=== PATIENT | female | born 1950 | race Caucasian/White ===

== ENCOUNTER → 2017-02-09 | Outpatient (CLI) | payer BC ==
[~2017-02-09] MED LIST: ACET1TAB84 PO; CALC0.5C2 PO; CALC1CAP36 PO; CALC600T9 PO; CIPR-255 PO; CLB/200 PO; CYAN10005 PO; EPP3/2 SC; LCTX PO; MAGNTAB17 PO; MULT-506 PO; NUTR1TAB4 PO; OXYC-57 PO; POTA1080 PO; POTATAB2 PO; TAMS0.4C38 PO; VTMD PO
--- NOTE | 2017-02-09 13:50 | DIAGNOSTIC IMAGING REPORT ---
KUB CLINICAL HISTORY: Calculus of kidney nephrocalcinosis COMPARISON STUDY: 02/18/2016 FINDINGS: Calcification previously described medial to the left kidney is not appreciated currently. It is possible that it overlies the mid sacrum. Calcifications overlying the right as well as left kidney of 9 noted are similar. There are several radiopaque densities within the stomach which overlaps left kidney. IMPRESSION: Bilateral nephrocalcinosis similar to the prior study. 2. Proximal left ureteral calculus on the prior study is not easily identified currently although potentially overlies the mid sacrum which would place it within the left ureter. Perhaps more likely is interval passage of the calcification 3. Nonobstructive bowel pattern. Electronically signed by: Arcadio Figueroa M.D. 02/09/2017 1:48 PM Dictated Date/Time: 02/09/2017 1:47 PM
== END | disposition home or self-care (01) ==
LOC: C.RADPV 13:28
PROVIDERS: ATTEND Internal Medicine
DX: N20.0 Calculus of kidney (principal); E55.9 Vitamin D deficiency, unspecified

== ENCOUNTER → 2017-04-12 | Outpatient (CLI) | payer BC ==
[~2017-04-12] MED LIST changes: +CETI10TA84 PO
[2017-04-12 12:13] LABS: BASO % 0.5 %; BASO ABS # 0.04 K/uL (0-0.2); COMPLETE YES; EOS % 5.5 %; HEMATOCRIT 37.7 % (37-47); IG% 0.3 %; LYMPH % 15.8 %; LYMPH ABS # 1.17 K/uL (1.2-3.4); MEAN CELL VOLUME 104.4 fL (80-100); MEAN CORPUSCULAR HEMOGLOBIN 31.9 pg (25-34); MEAN CORPUSCULAR HGB CONC 30.5 g/dl (32-36); MEAN PLATELET VOLUME 11.6 fL (7.4-10.4); MONO % 11.3 %; NEUT % 66.6 %; PLATELET COUNT 267 K/uL (130-400); RED BLOOD COUNT 3.61 M/uL (4.2-5.4); WHITE BLOOD COUNT 7.41 K/uL (4.8-10.8)
[2017-04-12 13:09] LABS: CALCIUM 9.7 mg/dl (8.5-10.1)
[2017-04-12 13:10] LABS: ALT/SGPT 37 U/L (12-78); AST/SGOT 23 U/L (15-37); BLOOD UREA NITROGEN 39 mg/dl (7-18); CARBON DIOXIDE 27 mmol/L (21-32); CHLORIDE 106 mmol/L (98-107); CHOLESTEROL 131 mg/dl (0-200); GLUCOSE 86 mg/dl (70-99); MAGNESIUM 1.7 mg/dl (1.8-2.4); POTASSIUM 4.4 mmol/L (3.5-5.1); SODIUM 141 mmol/L (136-145); TRIGLYCERIDES 134 mg/dl (0-150); VERY LOW DENSITY LIPOPROT CALC 27 mg/dl
[2017-04-12 13:14] LABS: ALB/GLOB RATIO 1.3 (0.9-2); ALKALINE PHOSPHATASE 62 U/L (45-117); FERRITIN 112.5 ng/ml (8.0-388.0); HDL CHOLESTEROL 44 mg/dl; LDL CHOLESTEROL CALCULATED 60 mg/dl
== END | disposition home or self-care (01) ==
LOC: C.LABPVFM 08:31
PROVIDERS: ATTEND Internal Medicine
DX: M81.0 Age-related osteoporosis without current pathological fracture (principal); K91.2 Postsurgical malabsorption, not elsewhere classified; D64.9 Anemia, unspecified

== ENCOUNTER 2017-04-17 04:32 | Emergency (ER) | payer BC ==
[~2017-04-17] VITALS: Ht 157.5 cm; Wt 86.1 kg
[~2017-04-17 04:32] MED LIST changes: -CALC0.5C2 PO; -CETI10TA84 PO; -CIPR-255 PO; -OXYC-57 PO; -POTATAB2 PO; -TAMS0.4C38 PO
[2017-04-17 04:35] VITALS: TEMP 36.5; Ht 157.5 cm; Wt 86.1 kg
[2017-04-17] MEDS ORDERED: ONDANSETRON INJ 2 MG/ML 2 ML VIAL IV STA (04:45)
[2017-04-17] MEDS ORDERED: KETOROLAC TROMETHAMINE 30 MG/ML VIAL IV STA (04:45)
[2017-04-17] MEDS ORDERED: MoRPHine SULFATE 4 MG/ML 1 ML CARP\\VIAL IV STA (04:45)
--- NOTE | 2017-04-17 04:49 | EMERGENCY ROOM VISIT NOTE ---
History Report prepared by Cristin: Erik Boss Under the Supervision of: Chris RamiresO. First contact with patient: 04:42 Chief Complaint: FLANK PAIN Stated Complaint: BACK PAIN,NAUSEA History of Present Illness The patient is a 67 year old female who presents to the Emergency Room with complaints of constant right sided flank pain that began at 0200, 2.5 hours prior to arrival. The patient rates her current pain as an 8/10 in severity. She has not vomited to this point, but she states that she feels like she has to. She denies any urinary irregularities. The patient has a history of chronic kidney stones and just passed a stone last month. She sees a kidney specialist normally. 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 A total of ten systems were reviewed and were otherwise negative. Past Medical & Surgical Medical Problems: (1) Bariatric surgery status (2) Calculus of kidney (3) Right knee DJD Surgical Problems: (1) History of appendectomy (2) History of cholecystectomy Family History Cancer Diabetes mellitus Gallbladder disease Heart disease Hypertension Kidney disease Kidney stones Social History Smoking Status: Never Smoker Marital Status: Housing Status: lives with significant other Occupation Status: retired Current/Historical Medications Scheduled Acetaminophen (Tylenol Arthritis Ext Rel), 1,300 MG PO BID Calcitriol (Calcitriol), 0.5 MCG PO BID Calcium Carbonate-Vitamin D (Calcium + D), 2 TAB PO TIDM Celecoxib (CeleBREX), 200 MG PO DAILY Cyanocobalamin (Vitamin B-12), 1,000 MCG PO QAM Epinephrine (Epipen 2-Arslan), 0.3 MG SC PRN Ergocalciferol (Vitamin D), 50,000 UNITS PO DAILY Lactobacillus Acidophilus (Floranex), 1 TAB PO TIDM Magnesium Chloride-Calcium Car (Slow-Mag), 2 TAB PO QAM Multivitamin (Multivitamin), 1 TAB PO QAM Nutritional Supplements (Theralith Xr), 2 TAB PO TIDM Potassium Citrate (Urocit-K), 20 MEQ PO TID Allergies Coded Allergies: BEE STING (Verified Allergy, Severe, HIVES DIFFICULTY BREATHING WENT TO HOSPITAL, 10/11/16) Erythromycin (Verified Allergy, Severe, RASH LASTED FOR WEEK, 10/11/16) Penicillins (Verified Allergy, Intermediate, HIVES SWELLING, 10/11/16) Doxycycline (Verified Allergy, Mild, RASH, 10/11/16) Lactose Intolerance (GI) (Verified Allergy, Unknown, GI ISSUES, 10/11/16) Macrolides (Verified Allergy, Unknown, ITCHY,RASH, 10/11/16) Wheat (Unverified Allergy, Unknown, CELIAC DISEASE-ABD CRAMPING,DIARRHEA, 10/11/16) Physical Exam Vital Signs Date Time Temp Pulse Resp B/P Pulse Ox O2 Delivery O2 Flow Rate FiO2 04/17/17 06:09 86 23 123/66 93 Room Air 04/17/17 05:32 70 21 91 Room Air 04/17/17 05:31 124/59 04/17/17 05:18 72 04/17/17 05:00 95 Room Air 04/17/17 04:35 36.5 75 18 156/82 96 Room Air Physical Exam GENERAL: Awake, alert, well-appearing, in no distress HENT: Normocephalic, atraumatic. Oropharynx unremarkable. EYES: Normal conjunctiva. Sclera non-icteric. NECK: Supple. No nuchal rigidity. FROM. No JVD. RESPIRATORY: Clear to auscultation. CARDIAC: Regular rate, normal rhythm. Extremities warm and well perfused. Pulses equal. ABDOMEN: Soft, non-distended. No tenderness to palpation. No rebound or guarding. No masses. RECTAL: Deferred. MUSCULOSKELETAL: Chest examination reveals no tenderness. The back is symmetrical on inspection without obvious abnormality. There is no CVA tenderness to palpation. No joint edema. BACK: There is mild right CVA tenderness to palpation. LOWER EXTREMITIES: Calves are equal size bilaterally and non-tender. No edema. No discoloration. NEURO: Normal sensorium. No sensory or motor deficits noted. SKIN: No rash or jaundice noted. Medical Decision & Procedures ER Provider Diagnostic Interpretation: X ray results as stated below per my interpretation and radiologist interpretation. Other radiology results as stated below per my review and radiologist interpretation CT ABDOMEN & PELVIS: Comparison: CT abdomen and pelvis without contrast, 07/07/10. There is a 1 cm obstructing stone in the proximal right ureter causing moderate upstream hydroureteronephrosis and perinephric stranding. Additional nonobstructing stones in the right kidney, the largest measuring 6.5 mm in the upper pole. Nonobstructing left kidney stones without hydronephrosis. Gallbladder nonvisualized, query prior cholecystectomy. Liver, spleen, pancreas , and adrenal glands unremarkable. No bowel obstruction or diverticulitis. Appendix no definitely visualized, but no secondary signs of acute appendicitis. Urinary bladder and uterus unremarkable. No acute osseous findings. Radiologist: Diogenes Carver M.D. Laboratory Results 04/17/17 04:50 Red Blood Count 3.87, Mean Corpuscular Volume 102.6, Mean Corpuscular Hemoglobin 32.6, Mean Corpuscular Hemoglobin Concent 31.7, Mean Platelet Volume 10.2, Neutrophils (%) (Auto) 78.6, Lymphocytes (%) (Auto) 10.1, Monocytes (%) ( Auto) 8.3, Eosinophils (%) (Auto) 2.4, Basophils (%) (Auto) 0.3, Neutrophils # ( Auto) 9.18, Lymphocytes # (Auto) 1.18, Monocytes # (Auto) 0.97, Eosinophils # ( Auto) 0.28, Basophils # (Auto) 0.04 04/17/17 04:50 Test 04/17/17 04:45 04/17/17 04:50 Urine Color YELLOW Urine Appearance CLEAR (CLEAR) Urine pH 5.5 (4.5-7.5) Urine Specific [place] 1.017 (1.000-1.030) Urine Protein NEG (NEG) Urine Glucose (UA) NEG (NEG) Urine Ketones NEG (NEG) Urine Occult Blood 1+ (NEG) Urine Nitrite NEG (NEG) Urine Bilirubin NEG (NEG) Urine Urobilinogen NEG (NEG) Urine Leukocyte Esterase TRACE (NEG) Urine WBC (Auto) 1-5 /hpf (0-5) Urine RBC (Auto) 5-10 /hpf (0-4) Urine Hyaline Casts (Auto) 1-5 /lpf (0-5) Urine Epithelial Cells (Auto) 20-30 /lpf (0-5) Urine Bacteria (Auto) 2+ (NEG) Urine Crystals CALCIUM OXALATE (NONE Urine Yeast (Auto) PRESENT (NONE PRSENT) White Blood Count 11.68 K/uL (4.8-10.8) Red Blood Count 3.87 M/uL (4.2-5.4) Hemoglobin 12.6 g/dL (12.0-16.0) Hematocrit 39.7 % (37-47) Mean Corpuscular Volume 102.6 fL (80-100) Mean Corpuscular Hemoglobin 32.6 pg (25-34) Mean Corpuscular Hemoglobin Concent 31.7 g/dl (32-36) Platelet Count 279 K/uL (130-400) Mean Platelet Volume 10.2 fL (7.4-10.4) Neutrophils (%) (Auto) 78.6 % Lymphocytes (%) (Auto) 10.1 % Monocytes (%) (Auto) 8.3 % Eosinophils (%) (Auto) 2.4 % Basophils (%) (Auto) 0.3 % Neutrophils # (Auto) 9.18 K/uL (1.4-6.5) Lymphocytes # (Auto) 1.18 K/uL (1.2-3.4) Monocytes # (Auto) 0.97 K/uL (0.11-0.59) Eosinophils # (Auto) 0.28 K/uL (0-0.5) Basophils # (Auto) 0.04 K/uL (0-0.2) RDW Standard Deviation 48.4 fL (36.4-46.3) RDW Coefficient of Variation 13.0 % (11.5-14.5) Immature Granulocyte % (Auto) 0.3 % Immature Granulocyte # (Auto) 0.03 K/uL (0.00-0.02) Anion Gap 8.0 mmol/L (3-11) Est Creatinine Clear Calc Drug Dose 38.6 ml/min Estimated GFR () 44.3 Estimated GFR (Non- 38.2 BUN/Creatinine Ratio 27.0 (10-20) Calcium Level 9.6 mg/dl (8.5-10.1) Laboratory results reviewed by me Medications Administered Medications (Trade) Dose Ordered Sig/Smiley Route Start Time Stop Time Status Last Admin Dose Admin Ketorolac Tromethamine (Toradol Inj) 30 mg NOW STAT IV 04/17/17 04:45 04/17/17 04:47 DC 04/17/17 04:54 30 MG Ondansetron HCl (Zofran Inj) 4 mg NOW STAT IV 04/17/17 04:45 04/17/17 04:47 DC 04/17/17 04:53 4 MG Morphine Sulfate (MoRPHine SULFATE INJ) 4 mg NOW STAT IV 04/17/17 04:45 04/17/17 04:47 DC 04/17/17 04:54 4 MG Ciprofloxacin (Cipro Tab) 500 mg NOW STAT PO 04/17/17 06:03 04/17/17 06:05 DC 04/17/17 06:07 500 MG ED Course 0443: The patient was evaluated in room A12. A complete history and physical exam was performed. 0445: Ordered Morphine Sulfate 4 mg IV, Zofran 4 mg IV, Toradol 30 mg IV. 0603: Ordered Ciprofloxacin 500 mg PO. 0618: I reevaluated the patient. Discussed results and discharge instructions: She verbalized understanding and agreement. The patient is ready for discharge. Patient states that she will follow-up with her urologist this week she's aware 1 cm kidney stone. Patient will be placed on pain medicine and antibiotics Medical Decision Differential diagnosis includes: Ureteral lithiasis, pyelonephritis, renal colic. Impression Primary Impression: Ureteral stone Scribe Attestation The scribe's documentation has been prepared under my direction and personally reviewed by me in its entirety. I confirm that the note above accurately reflects all work, treatment, procedures, and medical decision making performed by me. Departure Information Dispostion Home / Self-Care Prescriptions Tamsulosin Hcl (FLOMAX) 0.4 Mg Cap 0.4 MG PO DAILY, #10 CAP Prov: Adriano Mueller, DO 04/17/17 Ciprofloxacin Hcl (CIPRO) 500 Mg Tab 500 MG PO BID, #14 TAB Prov: Adriano Mueller, DO 04/17/17 Oxycodone/Acetaminophen 5MG/325MG (PERCOCET 5MG/325MG) Tab 1 TAB PO Q4H Y for Pain, #20 TAB Prov: Adriano Mueller, DO 04/17/17 Referrals Pro,Ramesh Kowalski M.D. (PCP) Patient Instructions Kidney Stones - [facility], [facility]
[2017-04-17 05:00] VITALS: O2SAT 95
[2017-04-17 05:03] LABS: BASO % 0.3 %; BASO ABS # 0.04 K/uL (0-0.2); COMPLETE YES; EOS % 2.4 %; HEMATOCRIT 39.7 % (37-47); IG% 0.3 %; LYMPH % 10.1 %; LYMPH ABS # 1.18 K/uL (1.2-3.4); MEAN CELL VOLUME 102.6 fL (80-100); MEAN CORPUSCULAR HEMOGLOBIN 32.6 pg (25-34); MEAN CORPUSCULAR HGB CONC 31.7 g/dl (32-36); MEAN PLATELET VOLUME 10.2 fL (7.4-10.4); MONO % 8.3 %; NEUT % 78.6 %; PLATELET COUNT 279 K/uL (130-400); RED BLOOD COUNT 3.87 M/uL (4.2-5.4); WHITE BLOOD COUNT 11.68 K/uL (4.8-10.8)
[2017-04-17 05:07] LABS: URINE APPEARANCE CLEAR (CLEAR); URINE BILIRUBIN NEG (NEG); URINE COLOR YELLOW; URINE EPITHELIAL CELL AUTO 20-30 /lpf (0-5); URINE NITRITE NEG (NEG); URINE PH 5.5 (4.5-7.5); URINE SPECIFIC GRAVITY 1.017 (1.000-1.030); UROBILINOGEN NEG (NEG)
[2017-04-17 05:11] LABS: MANUAL MICROSCOPIC REQUIRED? NO; REVIEW REQ? YES
[2017-04-17 05:21] LABS: CALCIUM 9.6 mg/dl (8.5-10.1); CREATININE 1.4 mg/dl (0.60-1.20)
[2017-04-17] MEDS ORDERED: CIPROFLOXACIN 500 MG TAB PO STA (06:03)
[2017-04-17 06:09] VITALS: BP 123/66; PULSE 86; O2SAT 93
[2017-04-17] MEDS ORDERED: OXYC-57 PO (06:27)
[2017-04-17] MEDS ORDERED: CIPR-255 PO (06:27)
[2017-04-17] MEDS ORDERED: TAMS0.4C38 PO (06:27)
[2017-04-17] MEDS ORDERED: CALC0.5C2 PO (06:30)
[2017-04-17] MEDS ORDERED: POTATAB2 PO (06:30)
--- NOTE | 2017-04-17 07:48 | DIAGNOSTIC IMAGING REPORT ---
CT SCAN OF THE ABDOMEN AND PELVIS WITHOUT IV CONTRAST CLINICAL HISTORY: Right flank pain. Nausea. COMPARISON STUDY: Abdominal CT dated 07/07/2010. TECHNIQUE: CT scan of the abdomen and pelvis is performed from the lung bases to the proximal femora. Images are reviewed in the axial, sagittal, and coronal planes. IV contrast was not administered for this examination as per the front clinician. Automated dose control exposure was utilized. CT DOSE: 1992.26 mGy.cm FINDINGS: Lung bases: The heart is normal in size and without pericardial effusion. There are coronary artery calcifications. The lung bases are clear. There is a tiny hiatal hernia. Liver: The unenhanced liver is normal in size, contour, and attenuation. There is mild central intrahepatic biliary ductal dilatation. Gallbladder: Not identified and presumed surgically absent. Spleen: Normal in size and attenuation. Pancreas: Moderately atrophic and grossly unremarkable. Adrenal glands: Unremarkable. Kidneys: The unenhanced kidneys are atrophic. There is an 11 mm obstructing calculus in the right proximal ureter seen on image #227 at the level of L3-L4. This causes moderate right hydroureteronephrosis. There is associated right-sided perinephric stranding and fluid. There are least 4 additional nonobstructing right renal calculi measuring up to 8 mm. There are at least 5 nonobstructing left renal calculi measuring up to 7 mm. There is no left-sided hydronephrosis. There is no evidence of contour deforming renal mass lesion. Abdominal vasculature: The abdominal aorta is normal in course and caliber noting scattered foci of atherosclerotic calcification. Bowel: The small bowel and colon are normal in course and caliber. There is moderate colonic fecal retention. There is mild colonic diverticulosis without CT evidence of acute diverticulitis. The appendix is not clearly visualized. Peritoneum: There is no intraperitoneal free air or abdominal ascites. Lymphadenopathy: None. Pelvic viscera: The bladder is decompressed and grossly unremarkable. The uterus and adnexa are normal as visualized. Findings suggest pelvic floor prolapse. Skeletal structures: The skeletal structures are osteopenic. There is mild lumbosacral spondylosis. No lytic or blastic lesions are seen. IMPRESSION: 1. There is an 11 mm obstructing calculus in the right proximal ureter which causes moderate right-sided hydronephrosis. 2. Additional bilateral nonobstructing renal calculi as above. 3. Moderate constipation. 4. Mild colonic diverticulosis without CT evidence of acute diverticulitis. 5. Additional findings as above. Electronically signed by: Tony Hernandez M.D. 04/17/2017 7:47 AM Dictated Date/Time: 04/17/2017 7:41 AM
[2017-04-20] MEDS ORDERED: OXYC-57 PO (08:38)
[2017-04-20] MEDS ORDERED: TAMS0.4C38 PO (08:38)
[2017-04-20] MEDS ORDERED: CIPR-255 PO (08:38)
[2017-04-21] MEDS ORDERED: OXYC-57 PO (09:30)
[2017-10-09] MEDS ORDERED: CETI10TA84 PO (14:07)
== END 2017-04-17 06:29 | disposition home or self-care (01) ==
LOC: C.EDB 04:33 → C.EDA 06:29
DX: N20.1 Calculus of ureter (principal); Z98.84 Bariatric surgery status; Z87.442 Personal history of urinary calculi; M17.9 Osteoarthritis of knee, unspecified; Z80.9 Family history of malignant neoplasm, unspecified; Z83.3 Family history of diabetes mellitus; Z83.79 Family history of other diseases of the digestive system; Z82.49 Family history of ischemic heart disease and other diseases of the circulatory system; Z84.1 Family history of disorders of kidney and ureter; Z79.899 Other long term (current) drug therapy

== ENCOUNTER → 2017-04-18 | Outpatient (CLI) | payer BC ==
[~2017-04-18] MED LIST changes: +CALC0.5C2 PO; +CETI10TA84 PO; +CIPR-255 PO; +OXYC-57 PO; +POTATAB2 PO; +TAMS0.4C38 PO
--- NOTE | 2017-04-18 15:22 | DIAGNOSTIC IMAGING REPORT ---
CHEST 2 VIEWS ROUTINE CLINICAL HISTORY: N20.1 Ureteral stone COMPARISON STUDY: No previous studies for comparison. FINDINGS: The bones soft tissues and hemidiaphragms are normal. The cardiomediastinal silhouette is normal. The lungs are clear. The pulmonary vasculature is normal. IMPRESSION: Negative chest. Electronically signed by: Arcadio Figueroa M.D. 04/18/2017 3:21 PM Dictated Date/Time: 04/18/2017 3:20 PM
== END | disposition home or self-care (01) ==
LOC: C.RAD 14:46
PROVIDERS: ATTEND Nurse Practitioner Adult Health
DX: N20.1 Calculus of ureter (principal)

== ENCOUNTER → 2017-04-20 | Outpatient (CLI) | payer BC ==
[~2017-04-20] MED LIST changes: -CALC1CAP36 PO; -POTA1080 PO; -VTMD PO
--- NOTE | 2017-04-20 17:26 | DIAGNOSTIC IMAGING REPORT ---
KUB CLINICAL HISTORY: N20.1 Ureteral stone COMPARISON STUDY: 02/09/[address] 04/17/2017 FINDINGS: Healing millimeter calcification previous described on the CT study now occupies the mid right ureteral location. Bilateral renal nephrocalcinosis similar. Bowel pattern is nonobstructive. IMPRESSION: Right ureteral calculus now occupies the mid right ureter location at approximately level of L4. Otherwise unchanged exam. Electronically signed by: Arcadio Figueroa M.D. 04/20/2017 5:25 PM Dictated Date/Time: 04/20/2017 5:23 PM
== END | disposition home or self-care (01) ==
LOC: C.RAD 17:05
PROVIDERS: ATTEND Nurse Practitioner Adult Health
DX: N20.1 Calculus of ureter (principal)

== ENCOUNTER → 2017-04-21 | Day surgery (SDC) | payer BC ==
[2017-04-20 08:39] VITALS: Ht 157.5 cm; Wt 81.8 kg
[~2017-04-21] VITALS: Ht 157.5 cm; Wt 81.8 kg
[~2017-04-21] MED LIST changes: +ATROPINE SULFATE 0.1 MG/ML 5ML SYR IV PRN; +CIPROFLOXACIN 400MG / D5W IV SCH; +DEXAMETHASONE SOD INJ 4 MG/ML VIAL ONE; +EpHEDrine SULFATE INJ 50 MG/ML AMP IV PRN; +FENTANYL CITRATE INJ 50 MCG/1 ML 2 ML VIAL IV PRN; +FENTANYL CITRATE INJ 50 MCG/1 ML 2 ML VIAL ONE; +LACTATED RINGER'S 1000ML 1,000 ML IV SCH; +LIDOCAINE HCL 2% 2 ML VIAL (20MG/ML) ONE; +ONDANSETRON INJ 2 MG/ML 2 ML VIAL ONE; +OXYCODONE/ACETAMINOPHEN 5-325 TAB PO PRN; +PROPOFOL IV EMULSION 10 MG/ML 20 ML VIAL IV ONE
--- NOTE | 2017-04-21 08:42 | History & Physical Bridge Note ---
H&P Re-Evaluation Bridge Note: I have examined the patient, reviewed the History & Physical and in the interval since the performance of the History & Physical I have noted the following changes of clinical significance: No changes noted
--- NOTE | 2017-04-21 10:18 | Discharge Instructions ---
Discharge Instructions Date of Service April 21, 2017. Admission Reason for Admission: Stones Discharge Discharge Diagnosis / Problem: R ureteral stone s/p ESWL Discharge Goals Goal(s): Decrease discomfort, Improve function, Improve disease control, Therapeutic intervention Activity Recommendations Activity Limitations: per Instructions/Follow-up section Lifting Limitations: no more than 25 pounds, gradually increase as tolerated Exercise/Sports Limitations: rest today, gradually increase as tolerated May Resume Sexual Activity: when tolerated Shower/Bathe: no limitations Driving or Machine Use: resume 1 day after discharge . Instructions / Follow-Up Instructions / Follow-Up Strain urine as instructed and bring fragments to postop visit KUB Xray prior to follow-up visit Discharge Diet Recommended Diet: Regular Diet (good fluid intake) Procedures Procedures Performed: R ureteral ESWL Pending Studies Studies pending at discharge: no Laboratory Results Lipid Panel Test 04/12/17 08:40 Range/Units Triglycerides Level 134 0-150 mg/dl Cholesterol Level 131 0-200 mg/dl HDL Cholesterol 44 mg/dl Cholesterol/HDL Ratio 3.0 LDL Cholesterol, Calculated 60 mg/dl Medical Emergencies . Who to Call and When: Medical Emergencies: If at any time you feel your situation is an emergency, please call 911 immediately. . Non-Emergent Contact Non-Emergency issues call your: Urologist Call Non-Emergent contact if: you have a fever, temperature is above 101, your pain is not controlled, your pain is worsening, your pain is unusual for you, your pain is concerning you, you have any medication questions . . "Provider Documentation" section prepared by Braydon Rodarte. . VTE Core Measure Inpt VTE Proph given/why not?: SCD's [place] Drug Monitoring Program Search Results: patient reviewed within database, see additional documentation (recent Rx for oxycodone - patient reports she has taken a number of pills, new Rx provided in case she compeltes her last Rx for postop analgesia)
--- NOTE | 2017-04-21 10:23 | [facility] Post Operative Brief Note ---
Immediate Operative Summary Operative Date April 21, 2017. Pre-Operative Diagnosis Right Ureteral Calculi Post-Operative Diagnosis Same Procedure(s) Performed R ureteral ESWL Surgeon Dr. Mckenzie Rodarte Brand Recorder Surgeon(s) None Estimated Blood Loss 0 mL Findings Excellent stone fragmentation Specimens None Drains NA Anesthesia GALMA Complication(s) None Disposition Recovery Room / PACU
[2017-04-21 10:56] VITALS: TEMP 36.4
[2017-04-21 11:22] VITALS: BP 136/77; PULSE 60; O2SAT 97
--- NOTE | 2017-04-21 11:22 | Anesthesia Progress Nt - [facility] ---
Anesthesia Post Op Note Date & Time April 21, 2017 at 11:22 Vital Signs Pain Intensity: 0 Vital Signs Past 12 Hours Date Time Temp Pulse Resp B/P Pulse Ox O2 Delivery O2 Flow Rate FiO2 04/21/17 10:56 36.4 64 18 141/80 100 Room Air 04/21/17 10:46 128/64 04/21/17 10:43 64 15 04/21/17 10:43 62 15 96 04/21/17 10:41 118/64 04/21/17 10:40 36.2 62 16 118/64 96 Room Air 04/21/17 10:38 66 20 94 04/21/17 10:38 67 20 04/21/17 10:37 124/65 04/21/17 10:33 68 13 96 04/21/17 10:33 68 13 04/21/17 10:31 130/64 04/21/17 10:28 68 17 100 04/21/17 10:28 67 17 04/21/17 10:26 126/66 04/21/17 10:23 69 15 04/21/17 10:23 70 15 98 04/21/17 10:21 110/53 04/21/17 10:20 139/72 04/21/17 10:18 36.6 70 16 139/72 96 Mask 6 04/21/17 08:52 36.7 70 18 136/75 99 Room Air Notes Mental Status: alert / awake / arousable, participated in evaluation Pt Amnestic to Procedure: Yes Nausea / Vomiting: adequately controlled Pain: adequately controlled Airway Patency, RR, SpO2: stable & adequate BP & HR: stable & adequate Hydration State: stable & adequate Anesthetic Complications: no major complications apparent
--- NOTE | 2017-04-21 11:31 | OPERATIVE REPORT ---
DATE OF OPERATION: 04/21/2017 PREOPERATIVE DIAGNOSES: Right ureteral stone and left renal stone. POSTOPERATIVE DIAGNOSES: Same. PROCEDURE: Right-sided ureteral extracorporeal shockwave lithotripsy. SURGEON: Dr. Braydon Rodarte. VEHICLE SERVICE ATTENDANT: None. ANESTHESIA: General anesthesia with laryngeal mask. COMPLICATIONS: None. FINDINGS: Excellent stone fragmentation on fluoroscopy. SPECIMENS SENT TO PATHOLOGY: None. BRIEF HISTORY: Ms. Kaba is a pleasant 67-year-old female with a history of stone disease, who is here today with a right mid ureteral stone. She has a left stone in the region of the renal pelvis/UPJ, but this is not symptomatic. She is here today for targeting of her right-sided stone lesion. She reports that she has a small amount of Percocet left at home, having taken her previous prescriptions and therefore, another prescription is provided for postoperative analgesia for her today. Please see H\T\P for further details. Intravenous ciprofloxacin provided for antibiotic coverage and SCDs used for DVT prophylaxis. DETAILS OF PROCEDURE: The patient was brought to the litho suite. She was correctly identified and the stone was visualized on her most recent x-rays. After the correct time out was performed the patient was positioned over the therapy head. An adequate level of anesthesia was administered. The extracorporeal shockwave lithotripsy treatment was then commenced. Please see the [place] sheet for complete treatment summary. After completion of the procedure the patient was taken to the recovery room in stable condition. I attest to the content of the Intraoperative Record and any orders documented therein. Any exceptio ns are noted below.
== END | disposition home or self-care (01) ==
LOC: X.SURG 08:37
PROVIDERS: ATTEND Urology
DX: N20.1 Calculus of ureter (principal); K59.00 Constipation, unspecified; D64.9 Anemia, unspecified; J45.909 Unspecified asthma, uncomplicated; N18.3 Chronic kidney disease, stage 3 (moderate); E83.42 Hypomagnesemia; E66.9 Obesity, unspecified; M17.10 Unilateral primary osteoarthritis, unspecified knee; M81.0 Age-related osteoporosis without current pathological fracture; I87.2 Venous insufficiency (chronic) (peripheral); E55.9 Vitamin D deficiency, unspecified; Z83.3 Family history of diabetes mellitus; Z82.49 Family history of ischemic heart disease and other diseases of the circulatory system; Z87.891 Personal history of nicotine dependence

== ENCOUNTER → 2017-05-02 | Outpatient (CLI) | payer BC ==
[~2017-05-02] MED LIST changes: -ATROPINE SULFATE 0.1 MG/ML 5ML SYR IV PRN; -CIPROFLOXACIN 400MG / D5W IV SCH; -CLB/200 PO; -DEXAMETHASONE SOD INJ 4 MG/ML VIAL ONE; -EpHEDrine SULFATE INJ 50 MG/ML AMP IV PRN; -FENTANYL CITRATE INJ 50 MCG/1 ML 2 ML VIAL IV PRN; -FENTANYL CITRATE INJ 50 MCG/1 ML 2 ML VIAL ONE; -LACTATED RINGER'S 1000ML 1,000 ML IV SCH; -LIDOCAINE HCL 2% 2 ML VIAL (20MG/ML) ONE; -ONDANSETRON INJ 2 MG/ML 2 ML VIAL ONE; -OXYCODONE/ACETAMINOPHEN 5-325 TAB PO PRN; -PROPOFOL IV EMULSION 10 MG/ML 20 ML VIAL IV ONE
--- NOTE | 2017-05-02 08:56 | DIAGNOSTIC IMAGING REPORT ---
KUB CLINICAL HISTORY: Ureteral stone. COMPARISON STUDY: KUB April 20, 2017. FINDINGS: Several calculi within the left kidney measure up to 5 mm. A few right renal calculi measure up to 6 mm. Pelvic applications reflect phleboliths. A few calcific densities are noted inferolateral to the right sacroiliac joint which measure up to 7 mm. The bowel gas pattern is normal. IMPRESSION: 1. Bilateral nephrolithiasis. 2. Several calcific densities which project inferolateral to the right sacroiliac joint and measure up to 7 mm. These are indeterminate and could reflect ureteral calculi/fragments although are slightly more lateral than expected for the course of the right ureter. Electronically signed by: Kenton Church M.D. 05/02/2017 8:55 AM Dictated Date/Time: 05/02/2017 8:45 AM
== END | disposition home or self-care (01) ==
LOC: C.RADPV 08:21
PROVIDERS: ATTEND Nurse Practitioner Adult Health
DX: N20.0 Calculus of kidney (principal); N20.1 Calculus of ureter; R93.8 Abnormal findings on diagnostic imaging of other specified body structures

== ENCOUNTER → 2017-05-03 | Outpatient (CLI) | payer BC | LOC: C.LABSPEC 11:27 | PROVIDERS: ATTEND Nurse Practitioner Adult Health | DX: N20.1 Calculus of ureter (principal) ==

== ENCOUNTER → 2017-05-08 | Outpatient (CLI) | payer BC ==
[~2017-05-08] MED LIST changes: +OPTIRAY 300 IV PRN
--- NOTE | 2017-05-08 14:54 | DIAGNOSTIC IMAGING REPORT ---
IVP W/OR W/O TOMOGRAMS CLINICAL HISTORY: N20.1 Ureteral [id number] nephrocalcinosis COMPARISON STUDY: 04/17/2017. 05/02/2017. FINDINGS: Bilateral nephrocalcinosis similar as compared to the prior study. Several additional pelvic and abdominal calcifications which appear to be vascular. Nonobstructive bowel pattern. Study is performed from the intravenous injection of 50 cc nonionic contrast. There is prompt opacification of both liver collecting system. Tomographic sections show no evidence for hydronephrosis. Ureters normal in course and caliber. There is no evidence for an obstructing urinary tract calculus. Bladder is midline. There is no significant post void residual. IMPRESSION: 1. Several nonobstructing renal calcifications bilaterally. 2. No evidence for an obstructing urinary tract calculus. 3. No evidence for hydronephrosis. 4. All pelvic calcifications previously described appear to be extrinsic to the urinary tracts. Electronically signed by: Arcadio Figueroa M.D. 05/08/2017 2:53 PM Dictated Date/Time: 05/08/2017 2:50 PM
== END ==
LOC: C.RAD 12:37
PROVIDERS: ATTEND Nurse Practitioner Adult Health
DX: N20.1 Calculus of ureter (principal)

== ENCOUNTER → 2017-05-25 | Outpatient (CLI) | payer BC ==
[~2017-05-25] MED LIST changes: -CETI10TA84 PO; -OPTIRAY 300 IV PRN
[2017-05-25 12:48] LABS: BLOOD UREA NITROGEN 45 mg/dl (7-18); BUN/CREATININE RATIO 24.9 (10-20); CALCIUM 10.1 mg/dl (8.5-10.1); CARBON DIOXIDE 25 mmol/L (21-32); CHLORIDE 108 mmol/L (98-107); GLUCOSE 84 mg/dl (70-99); POTASSIUM 4.2 mmol/L (3.5-5.1); SODIUM 141 mmol/L (136-145)
--- NOTE | 2017-06-01 09:30 | CODING QUERY MEDICAL NECESSITY ---
CQSUPPORTING DIAGNOSIS NEEDED A supporting diagnosis is required for the test/procedure performed on this patient in order for us to be reimbursed by the patient's insurance. Please provide a supporting diagnosis for the following test/procedure listed below next to the test name along with your signature. *If there is no additional diagnosis for this patient that would support the following test/procedure please document that below next to the test/procedure. Test(s)/Procedure(s) that require a supporting diagnosis: DOS 05/25/17MM FOLIC ACID TEST Provider Signature: Date: Thank you Fariha Leahy Health Information Management Once completed, please kindly fax back to [phone] For questions please call [phone]
== END | disposition home or self-care (01) ==
LOC: C.LABPVFM 08:13
PROVIDERS: ATTEND Internal Medicine
DX: N20.0 Calculus of kidney (principal); D64.9 Anemia, unspecified; M81.0 Age-related osteoporosis without current pathological fracture

== ENCOUNTER → 2017-06-14 | Outpatient (CLI) | payer BC ==
[2017-06-14 12:26] LABS: ALT/SGPT 33 U/L (12-78); AST/SGOT 22 U/L (15-37); BLOOD UREA NITROGEN 24 mg/dl (7-18); BUN/CREATININE RATIO 22.2 (10-20); CALCIUM 8.5 mg/dl (8.5-10.1); CARBON DIOXIDE 25 mmol/L (21-32); CHLORIDE 116 mmol/L (98-107); GLUCOSE 85 mg/dl (70-99); POTASSIUM 4.5 mmol/L (3.5-5.1); SODIUM 145 mmol/L (136-145)
[2017-06-14 12:29] LABS: ALB/GLOB RATIO 1.4 (0.9-2); ALKALINE PHOSPHATASE 59 U/L (45-117)
== END | disposition home or self-care (01) ==
LOC: C.LAB1850 10:09
PROVIDERS: ATTEND Internal Medicine Endocrinology, Diabetes & Metabolism
DX: N20.0 Calculus of kidney (principal)

== ENCOUNTER → 2017-07-17 | Outpatient (CLI) | payer BC ==
[2017-07-17 13:29] LABS: CALCIUM 9.9 mg/dl (8.5-10.1)
== END | disposition home or self-care (01) ==
LOC: C.LABPVFM 09:01
PROVIDERS: ATTEND Internal Medicine Endocrinology, Diabetes & Metabolism
DX: N18.3 Chronic kidney disease, stage 3 (moderate) (principal)

== ENCOUNTER → 2017-10-09 | Day surgery (SDC) | payer BC ==
[~2017-10-09] VITALS: Ht 157.5 cm; Wt 82.0 kg
[~2017-10-09] MED LIST changes: +CETI10TA84 PO; +ZOLEDRONIC ACID INJ 5 MG in EMPTY BAG 0 ML IV SCH
[2017-10-09 14:03] VITALS: BP 141/75; PULSE 83; TEMP 37; O2SAT 97; Ht 157.5 cm; Wt 82.0 kg
== END | disposition home or self-care (01) ==
LOC: C.MTU 13:48
PROVIDERS: ATTEND Internal Medicine Endocrinology, Diabetes & Metabolism
DX: M81.0 Age-related osteoporosis without current pathological fracture (principal)

== ENCOUNTER → 2017-10-10 | Outpatient (CLI) | payer BC ==
[~2017-10-10] MED LIST changes: -CIPR-255 PO; -ZOLEDRONIC ACID INJ 5 MG in EMPTY BAG 0 ML IV SCH
[2017-10-10 17:48] LABS: URINE APPEARANCE TURBID (CLEAR); URINE BILIRUBIN NEG (NEG); URINE COLOR DK YELLOW; URINE EPITHELIAL CELL AUTO >30 /lpf (0-5); URINE NITRITE POS (NEG); UROBILINOGEN NEG (NEG)
[2017-10-10 17:52] LABS: MANUAL MICROSCOPIC REQUIRED? NO; REVIEW REQ? YES
== END | disposition home or self-care (01) ==
LOC: C.LABPVFM 13:54
PROVIDERS: ATTEND Internal Medicine
DX: R39.9 Unspecified symptoms and signs involving the genitourinary system (principal)

== ENCOUNTER → 2017-10-12 | Outpatient (CLI) | payer BC ==
[2017-10-12 12:29] LABS: BASO % 0.4 %; BASO ABS # 0.03 K/uL (0-0.2); COMPLETE YES; EOS % 4.6 %; HEMATOCRIT 33.9 % (37-47); IG% 0.3 %; LYMPH % 20.2 %; MEAN CORPUSCULAR HEMOGLOBIN 31.9 pg (25-34); MEAN PLATELET VOLUME 12.2 fL (7.4-10.4); MONO % 15.1 %; NEUT % 59.4 %; PLATELET COUNT 237 K/uL (130-400); RED BLOOD COUNT 3.29 M/uL (4.2-5.4); WHITE BLOOD COUNT 6.94 K/uL (4.8-10.8)
[2017-10-12 13:46] LABS: BLOOD UREA NITROGEN 31 mg/dl (7-18); BUN/CREATININE RATIO 25.9 (10-20); CALCIUM 8.9 mg/dl (8.5-10.1); CARBON DIOXIDE 25 mmol/L (21-32); CHLORIDE 107 mmol/L (98-107); CREATININE 1.18 mg/dl (0.60-1.20); GLUCOSE 88 mg/dl (70-99); POTASSIUM 4.7 mmol/L (3.5-5.1); SODIUM 140 mmol/L (136-145)
== END | disposition home or self-care (01) ==
LOC: C.LABPVFM 10:09
PROVIDERS: ATTEND Internal Medicine
DX: K91.2 Postsurgical malabsorption, not elsewhere classified (principal); D64.9 Anemia, unspecified

== ENCOUNTER → 2017-10-16 | Outpatient (CLI) | payer BC ==
--- NOTE | 2017-10-16 13:11 | DIAGNOSTIC IMAGING REPORT ---
LUMBAR SPINE 5 VIEWS HISTORY: M54.5 Lumbar back pain [id number] COMPARISON: None. FINDINGS: There is no fracture. No subluxation. Severe disc space narrowing at L5-S1. Mild to moderate disc space narrowing at L4-L5. Mild disc space narrowing at L1-L2, L2-L3, L3-L4. Mild to moderate facet degenerative changes seen within the lumbar spine. Bilateral nephrolithiasis. IMPRESSION: No fracture or subluxation within the lumbar spine. Degenerative changes as described above. Electronically signed by: Theodore Heart M.D. 10/16/2017 1:10 PM Dictated Date/Time: 10/16/2017 1:07 PM
[2017-10-16 13:24] LABS: URINE APPEARANCE CLEAR (CLEAR); URINE BILIRUBIN NEG (NEG); URINE COLOR YELLOW; URINE NITRITE NEG (NEG); URINE PH 7.5 (4.5-7.5); URINE SPECIFIC GRAVITY 1.016 (1.000-1.030); UROBILINOGEN NEG (NEG)
[2017-10-16 13:26] LABS: MANUAL MICROSCOPIC REQUIRED? NO; REVIEW REQ? YES
[2017-10-16 13:55] LABS: URINE EPITHELIAL CELL AUTO 0-5 /lpf (0-5)
--- NOTE | 2017-10-16 14:08 | DIAGNOSTIC IMAGING REPORT ---
KUB CLINICAL HISTORY: Nephrolithiasis. Lumbar back pain. COMPARISON STUDY: CT of the abdomen and pelvis April 17, 2017, KUB May 02, 2017 and IVP May 08, 2017. FINDINGS: Round densities projecting over the left upper quadrant may reflect ingested tablets. Bilateral renal calculi are noted, the largest of which is a 7 mm calculus within the upper pole of the right kidney. Pelvic calcifications were shown to represent phleboliths and vascular calcifications on CT. No ureteral calculi are identified. IMPRESSION: 1. Bilateral nephrolithiasis. 2. No ureteral calculi identified. Electronically signed by: Kenton Church M.D. 10/16/2017 2:07 PM Dictated Date/Time: 10/16/2017 2:03 PM
== END | disposition home or self-care (01) ==
LOC: C.RAD1850 11:25
PROVIDERS: ATTEND Nurse Practitioner Adult Health
DX: M54.5 Low back pain (principal); N20.0 Calculus of kidney

== ENCOUNTER → 2017-10-23 | Outpatient (CLI) | payer BC ==
[2017-10-23 12:49] LABS: HEMATOCRIT 36.8 % (37-47); MEAN CELL VOLUME 103.1 fL (80-100); MEAN CORPUSCULAR HEMOGLOBIN 31.9 pg (25-34); MEAN PLATELET VOLUME 11.8 fL (7.4-10.4); PLATELET COUNT 290 K/uL (130-400); RED BLOOD COUNT 3.57 M/uL (4.2-5.4); WHITE BLOOD COUNT 7.64 K/uL (4.8-10.8)
== END | disposition home or self-care (01) ==
LOC: C.LABPVFM 08:58
PROVIDERS: ATTEND Nurse Practitioner Adult Health
DX: D64.9 Anemia, unspecified (principal)

== ENCOUNTER → 2017-12-07 | Outpatient (CLI) | payer BC ==
[2017-12-07 12:42] LABS: HEMOGLOBIN 11.7 g/dL (12.0-16.0); MEAN CELL VOLUME 106.3 fL (80-100); MEAN CORPUSCULAR HEMOGLOBIN 33.6 pg (25-34); MEAN CORPUSCULAR HGB CONC 31.6 g/dl (32-36); MEAN PLATELET VOLUME 11.9 fL (7.4-10.4); PLATELET COUNT 247 K/uL (130-400); RED CELL DISTRIBUTION WIDTH CV 14.4 % (11.5-14.5); RED CELL DISTRIBUTION WIDTH SD 55.2 fL (36.4-46.3); WHITE BLOOD COUNT 8.63 K/uL (4.8-10.8)
[2017-12-07 13:23] LABS: ALBUMIN 3.6 gm/dl (3.4-5.0); ALT/SGPT 33 U/L (12-78); AST/SGOT 21 U/L (15-37); BLOOD UREA NITROGEN 32 mg/dl (7-18); CALCIUM 9.2 mg/dl (8.5-10.1); CARBON DIOXIDE 27 mmol/L (21-32); CREATININE 1.25 mg/dl (0.60-1.20); GLUCOSE 90 mg/dl (70-99); POTASSIUM 4.4 mmol/L (3.5-5.1); SODIUM 139 mmol/L (136-145); URIC ACID 5.8 mg/dl (2.6-7.2)
[2017-12-07 13:26] LABS: ALKALINE PHOSPHATASE 52 U/L (45-117); TOTAL PROTEIN 6.5 gm/dl (6.4-8.2)
== END | disposition home or self-care (01) ==
LOC: C.LABPVFM 09:15
PROVIDERS: ATTEND Internal Medicine
DX: D64.9 Anemia, unspecified (principal); N20.0 Calculus of kidney; N18.3 Chronic kidney disease, stage 3 (moderate); K90.9 Intestinal malabsorption, unspecified; E55.9 Vitamin D deficiency, unspecified

== ENCOUNTER 2017-12-22 23:24 | Emergency (ER) | payer BC ==
[~2017-12-22] VITALS: Ht 157.5 cm; Wt 83.1 kg
[~2017-12-22 23:24] MED LIST changes: +EPP3/2 INJ; -EPP3/2 SC; +PRD/1 PO
[2017-12-22 23:29] VITALS: TEMP 36.5; Ht 157.5 cm; Wt 83.1 kg
[2017-12-23] MEDS ORDERED: RANITIDINE HCL 150 MG TAB PO ONE (00:15)
[2017-12-23] MEDS ORDERED: MAGNTAB17 PO (00:50)
[2017-12-23] MEDS ORDERED: MULT-1092 PO (00:52)
[2017-12-23] MEDS ORDERED: POTA1080 PO (00:52)
[2017-12-23] MEDS ORDERED: CHOL4POW11 PO (00:55)
[2017-12-23] MEDS ORDERED: ASCO250T4 PO (00:55)
[2017-12-23] MEDS ORDERED: FERR324T4 PO (00:55)
[2017-12-23] MEDS ORDERED: BENZ100C84 PO (00:56)
[2017-12-23 01:46] VITALS: BP 146/72; PULSE 79; O2SAT 96
--- NOTE | 2017-12-23 07:41 | EMERGENCY ROOM VISIT NOTE ---
History Report prepared by Cristin: Edel Tipton Under the Supervision of: Dr. Kassandra Verma D.O. First contact with patient: 23:43 Chief Complaint: ALLERGIC REACTION Stated Complaint: ALLERGIC REACTION Nursing Triage Summary: Patient reports she took a Tessalon Mia at 2100 and then approx 2200 developed intermittent lip, tongue, and mouth itchiness. Denies taking any medication. History of Present Illness The patient is a 67 year old female who presents to the Emergency Room with complaints of an episode of an allergic reaction starting two hours ago. The patient states that she took Tessalon Perles for her cough three hours ago. She reports that she started having symptoms of her tongue and lips being numb two hours ago. She reports that she noticed the back of her throat started to itch and random places on her body. She denies seeing any rash. The patient notes that she has taken no new medication besides Prednisone that she finished today. The patient notes that she has never taken Tessalon Perles before. The patient states that prior to arrival her hands were red. The patient denies taking Benadryl, shortness of breath, abdominal pain, and being itchy under arms or in her groin. Source of History: patient Onset: two hours ago Position: other (global) Quality: numbness, other (itchiness) Timing: other (episode) Associated Symptoms: No SOB, No abdominal pain, No rash Note: The patient complains of numbness to her tongues and lips. The patient denies itchiness under her arms or groin. Review of Systems See HPI for pertinent positives & negatives. A total of 10 systems reviewed and were otherwise negative. Past Medical & Surgical Medical Problems: (1) Bariatric surgery status (2) Calculus of kidney (3) Right knee DJD Surgical Problems: (1) History of appendectomy (2) History of cholecystectomy Family History Cancer Diabetes mellitus Gallbladder disease Heart disease Hypertension Kidney disease Kidney stones Social History Smoking Status: Former Smoker Marital Status: Housing Status: lives with significant other Occupation Status: retired Current/Historical Medications Scheduled Ascorbic Acid (Vitamin C), 250 MG PO QAM Calcitriol (Rocaltrol), 0.5 MCG PO BID Calcium Carbonate-Vitamin D (Calcium + D), 2 TAB PO TIDM Cholestyramine (Questran), 4 GM PO BID Cyanocobalamin (Vitamin B-12), 1,000 MCG PO QAM Ferrous Sulfate (Ferrous Sulfate), 324 MG PO QAM Lactobacillus Acidophilus (Floranex), 1 TAB PO TIDM Magnesium Chloride-Calcium Car (Slow-Mag), 2 TABS PO DAILY Multiple Vitamins W/ Minerals (Centrum Silver 50+Women), 1 TAB PO DAILY Nutritional Supplements (Theralith Xr), 2 TAB PO TIDM Potassium Citrate (Alkalinizer (Potassium Citrate ER), 2 TAB PO TID Prednisone (Prednisone), Unknown Dose PO DAILY Scheduled PRN Benzonatate (Tessalon Perles), 100 MG PO TID PRN for Cough Epinephrine (Epipen 2-Arslan), 0.3 MG INJ UD PRN for Allergic Reaction Allergies Coded Allergies: BEE STING (Verified Allergy, Severe, HIVES DIFFICULTY BREATHING WENT TO HOSPITAL, 12/23/17) Erythromycin (Verified Allergy, Severe, RASH LASTED FOR WEEK, 12/23/17) Penicillins (Verified Allergy, Intermediate, HIVES SWELLING, 12/23/17) Doxycycline (Verified Allergy, Mild, RASH, 12/23/17) Lactose Intolerance (GI) (Verified Allergy, Unknown, GI ISSUES, 10/09/17) Macrolides (Verified Allergy, Unknown, ITCHY,RASH, 10/09/17) Wheat (Unverified Allergy, Unknown, CELIAC DISEASE-ABD CRAMPING,DIARRHEA, 10/09/17) Physical Exam Vital Signs Date Time Temp Pulse Resp B/P (MAP) Pulse Ox O2 Delivery O2 Flow Rate FiO2 12/23/17 01:46 79 18 146/72 96 Room Air 12/22/17 23:29 36.5 91 18 168/86 95 Room Air Physical Exam HEENT: Head - normocephalic and atraumatic Pupils are equal, round, and reactive to light. Extraocular eye muscles are intact, and sclera are anicteric. Nose - moist nasal mucosa without discharge. Mouth - moist buccal mucosa. Oropharynx is nonerythematous and there is no tonsillar exudate or edema noted. Posterior oral pharynx shows no uvular edema. Neck: Supple; no JVD, nuchal rigidity, cervical lymphadenopathy. Heart: Regular rate and rhythm. There is a normal S1 and S2 with no murmurs, clicks, or gallops appreciated. Lungs: Clear to auscultation bilaterally with no wheezes, rales, or rhonchi. Abdomen: Soft, completely nontender, nondistended, with good bowel sounds. There are no palpable pulsatile masses or hepatosplenomegaly. There is no guarding, rigidity, or rebound noted. Extremities: No evidence of cyanosis, clubbing, or edema. There are easily palpable peripheral pulses. Skin: warm and dry with good turgor and no rashes. Medical Decision & Procedures Medications Administered Medications (Trade) Dose Ordered Sig/Smiley Route Start Time Stop Time Status Last Admin Dose Admin Diphenhydramine HCl (Benadryl Cap) 50 mg NOW ONCE PO 12/23/17 00:15 12/23/17 00:16 DC 12/23/17 00:07 50 MG Ranitidine HCl (zANTac TAB) 150 mg NOW ONCE PO 12/23/17 00:15 12/23/17 00:16 DC 12/23/17 00:07 150 MG Procedure 0015: Ordered Ranitidine HCl 150 mg PO, Benadryl Cap 50 mg PO. ED Course 2349: Past medical records reviewed. The patient was evaluated in room C8. A complete history and physical exam was performed. 0015: Ordered Ranitidine HCl 150 mg PO, Benadryl Cap 50 mg PO. 0035: I reevaluated the patient and she is only having a slight amount of itching on her face. 0140: Upon reevaluation, the patient is resting comfortably. I discussed findings and results with her. She verbalized agreement of the treatment plan. The patient was discharged home. Medical Decision The patient is a 67 year old female who presents to the Emergency Room with complaints of an episode of an allergic reaction starting two hours ago. Differential diagnoses include drug reaction, allergic reaction, anaphylaxis. It seems that the patient has suffered an allergic reaction to Tessalon Perles. She is having no shortness of breath or difficulty swallowing. She had significant relief of her symptoms after receiving Benadryl and Zantac. She will avoid taking the Tessalon Perles any longer. She was encouraged to continue to use Benadryl and Zantac as needed. Medication Reconcilliation Current Medication List: was personally reviewed by me Blood Pressure Screening Patient's blood pressure: Elevated blood pressure Blood pressure disposition: Elevated BP felt to be situational Impression Primary Impression: Allergic reaction Scribe Attestation The scribe's documentation has been prepared under my direction and personally reviewed by me in its entirety. I confirm that the note above accurately reflects all work, treatment, procedures, and medical decision making performed by me. Departure Information Dispostion Home / Self-Care Referrals Ramesh Roy M.D. (PCP) Forms HOME CARE DOCUMENTATION FORM, IMPORTANT VISIT INFORMATION Patient Instructions My [facility] Additional Instructions Rest. Benadryl - 50mg every 6-8 hours along with zantac 75mg every 6-8 hours for further itch. Stop the bethanie curry Return to the ER for worsening symptoms Problem Qualifiers Primary Impression: Allergic reaction Encounter type: initial encounter Qualified Codes: T78.40XA - Allergy, unspecified, initial encounter
== END 2017-12-23 01:44 | disposition home or self-care (01) ==
LOC: C.EDB 23:25 → C.EDC 12-23 01:44
DX: T78.40XA Allergy, unspecified, initial encounter (principal); X58.XXXA Exposure to other specified factors, initial encounter; Z87.442 Personal history of urinary calculi; M17.11 Unilateral primary osteoarthritis, right knee; Z98.84 Bariatric surgery status; Z80.9 Family history of malignant neoplasm, unspecified; Z83.3 Family history of diabetes mellitus; Z83.79 Family history of other diseases of the digestive system; Z82.49 Family history of ischemic heart disease and other diseases of the circulatory system; Z84.1 Family history of disorders of kidney and ureter; Z87.891 Personal history of nicotine dependence; Z79.899 Other long term (current) drug therapy

== ENCOUNTER 2018-02-22 14:21 | Emergency (ER) | payer BC ==
[~2018-02-22] VITALS: Ht 158.8 cm; Wt 75.5 kg
[~2018-02-22 14:21] MED LIST changes: -ACET1TAB84 PO; +ASCO250T4 PO; +BENZ100C84 PO; -CETI10TA84 PO; +CHOL4POW11 PO; +EPP3/2 IM; -EPP3/2 INJ; +FERR324T4 PO; +MULT-1092 PO; -MULT-506 PO; -OXYC-57 PO; +POTA1080 PO; -POTATAB2 PO; -TAMS0.4C38 PO
[2018-02-22] MEDS ORDERED: OXYCODONE HCL IR 5 MG TAB (IMMEDIATE RELEASE) PO STA (14:33)
[2018-02-22 14:34] VITALS: TEMP 36.4; Ht 158.8 cm; Wt 75.5 kg
--- NOTE | 2018-02-22 14:35 | EMERGENCY ROOM VISIT NOTE ---
History Report prepared by Cristin: Jesús Marion Under the Supervision of: Dr. Ramesh Baeza D.O. First contact with patient: 14:26 Stated Complaint: FALL/SHOULDER PAIN History of Present Illness The patient is a 68 year old female who presents to the Emergency Room with complaints of right ear injury due to an episodic fall one hour ago. She states that she went to pickle pumper her phone while at a restaurant and when she turned around to sit back down she missed the stool and fell onto her right side. She notes right shoulder pain and right leg pain. She denies any LOC, back pain, or abdominal pain. She denies any neck pain or headache. She denies any blood thinner use. She notes her tetanus is not up-to-date. She reports taking medication for chronic kidney. Source of History: patient Onset: one hour ago Position: ear (right) Quality: other (injury) Timing: other (episodic) Associated Symptoms: No LOC, No headache, No neck pain, No abdominal pain, No back pain Note: Notes fall, right shoulder pain, and right leg pain. Review of Systems See HPI for pertinent positives & negatives. A total of 10 systems reviewed and were otherwise negative. Past Medical & Surgical Medical Problems: (1) Bariatric surgery status (2) Calculus of kidney (3) Right knee DJD Surgical Problems: (1) History of appendectomy (2) History of cholecystectomy Family History Family history was reviewed; no changes noted. Social History Smoking Status: Former Smoker Marital Status: Housing Status: lives with significant other Occupation Status: retired Current/Historical Medications Scheduled Ascorbic Acid (Vitamin C), 250 MG PO QAM Calcitriol (Rocaltrol), 0.5 MCG PO BID Calcium Carbonate-Vitamin D (Calcium + D), 2 TABS PO TIDM Cephalexin Monohydrate (Keflex), 500 MG PO QID Cholestyramine (Questran), 4 GM PO BID Cyanocobalamin (Vitamin B-12), 1,000 MCG PO QAM Ferrous Sulfate (Ferrous Sulfate), 324 MG PO QAM Lactobacillus Acidophilus (Floranex), 1 TAB PO TIDM Magnesium Chloride-Calcium Car (Slow-Mag), 2 TABS PO DAILY Multiple Vitamins W/ Minerals (Centrum Silver 50+Women), 1 TAB PO DAILY Nutritional Supplements (Theralith Xr), 2 TABS PO TIDM Potassium Citrate (Alkalinizer (Potassium Citrate ER), 2,160 MG PO TID Scheduled PRN Epinephrine (Epipen 2-Arslan), 0.3 MG IM UD PRN for Allergic Reaction Allergies Coded Allergies: BEE STING (Verified Allergy, Severe, HIVES DIFFICULTY BREATHING WENT TO HOSPITAL, 12/23/17) Erythromycin (Verified Allergy, Severe, RASH LASTED FOR WEEK, 12/23/17) Penicillins (Verified Allergy, Intermediate, HIVES SWELLING, 12/23/17) Doxycycline (Verified Allergy, Mild, RASH, 12/23/17) Lactose Intolerance (GI) (Verified Allergy, Unknown, GI ISSUES, 10/09/17) Macrolides (Verified Allergy, Unknown, ITCHY,RASH, 10/09/17) Wheat (Unverified Allergy, Unknown, CELIAC DISEASE-ABD CRAMPING,DIARRHEA, 10/09/17) Physical Exam Vital Signs Date Time Temp Pulse Resp B/P (MAP) Pulse Ox O2 Delivery O2 Flow Rate FiO2 02/22/18 17:15 78 139/74 96 02/22/18 16:28 78 17 141/74 94 Room Air 02/22/18 14:34 36.4 90 20 152/90 96 Room Air Physical Exam GENERAL: Patient is awake, alert, and in no acute distress. Patient is somewhat anxious and uncomfortable appearing. EYES: The conjunctivae are clear. The pupils are round and reactive. EARS, NOSE, MOUTH AND THROAT: The nose is without any evidence of any deformity. Mucous membranes are moist tongue is midline. Dentition was intact. Flap laceration over outer right ear, no active bleeding was appreciated. NECK: The neck is nontender and supple. RESPIRATORY: Normal respiratory effort is noted there is no evidence of wheezing rhonchi or rales CARDIOVASCULAR: Regular rate and rhythm noted there no murmurs rubs or gallops normal S1 normal S2 GASTROINTESTINAL: The abdomen is soft. Bowel sounds are present in all quadrants. Abdomen is nontender BACK: No midline tenderness or or step-off noted range of motion in flexion extension as well as rotation no signs of muscle spasm noted MUSCULOSKELETAL/EXTREMITIES: No deformity or decreased ROM of either hip. Tenderness over right patella, no significant swelling. Tenderness over right shoulder and right distal clavicle, ROM was diminished. SKIN: There is no obvious evidence of any rash. There are no petechiae, pallor or cyanosis noted. NEUROLOGIC: Patient is awake alert and oriented x3. Medical Decision & Procedures ER Provider Diagnostic Interpretation: Radiology results as stated below per my review and radiologist interpretation: R KNEE 1 OR 2 VIEWS ROUTINE CLINICAL HISTORY: fall trauma. Pain. COMPARISON: None. DISCUSSION: The bones and joint spaces appear intact. There is no evidence of fracture, dislocation or bony disease. Anatomic alignment posttotal right knee replacement IMPRESSION: No acute process post total right knee arthroplasty. The above report was generated using voice recognition software. It may contain grammatical, syntax or spelling errors. Electronically signed by: Arcadio Figueroa M.D. 02/22/2018 3:52 PM Dictated Date/Time: 02/22/2018 3:51 PM R HUMERUS MIN 2 VIEWS ROUTINE CLINICAL HISTORY: 68 years-old Female presenting with fall. TECHNIQUE: Frontal and lateral views of the right humerus were obtained. COMPARISON: None. FINDINGS: Acromioclavicular and glenohumeral joints congruent. Elbow joint grossly congruent. No acute fracture or malalignment. No advanced degenerative change. No radiographic soft tissue abnormality. IMPRESSION: No acute osseous injury of the right humerus. Electronically signed by: Elvin Rainey M.D. 02/22/2018 3:51 PM Dictated Date/Time: 02/22/2018 3:50 PM HEAD WITHOUT CONTRAST (CT) CT DOSE: 638.56 mGycm HISTORY: Trauma fall TECHNIQUE: Multiaxial CT images of the head were performed without the use of intravenous contrast. A dose lowering technique was utilized adhering to the principles of ALARA. Comparison: None. Findings: The paranasal sinuses and mastoid air cells are clear. The calvarium and skull base are intact. The ventricles and sulci are within normal limits. There is no mass, hematoma, midline shift, or acute infarct. Impression: No acute intracranial abnormality. The above report was generated using voice recognition software. It may contain grammatical, syntax or spelling errors. Electronically signed by: Arcadio Figueroa M.D. 02/22/2018 3:22 PM Dictated Date/Time: 02/22/2018 3:20 PM CHEST ONE VIEW PORTABLE CLINICAL HISTORY: Fall. COMPARISON STUDY: Chest radiograph April 18, 2017. FINDINGS: Lung volumes are diminished. No pneumothorax or pleural effusion is noted. No airspace opacities are noted. Cardiomediastinal silhouette is normal. Pulmonary vascularity is normal. IMPRESSION: No acute cardiopulmonary findings. Electronically signed by: Kenton Church M.D. 02/22/2018 3:51 PM Dictated Date/Time: 02/22/2018 3:50 PM CERVICAL SPINE W/O CT DOSE: 344.87 mGycm HISTORY: Trauma fall TECHNIQUE: Multiaxial CT images of the cervical spine were performed and reformatted in the sagittal and coronal plane without the use of contrast. A dose lowering technique was utilized adhering to the principles of ALARA. COMPARISON: None. FINDINGS: No fractures. No subluxation. Prevertebral soft tissues and the C1-C2 interval are intact. No pneumothorax. IMPRESSION: No fractures within the cervical spine. The above report was generated using voice recognition software. It may contain grammatical, syntax or spelling errors. Electronically signed by: Arcadio Figueroa M.D. 02/22/2018 3:28 PM Dictated Date/Time: 02/22/2018 3:26 PM Medications Administered Medications (Trade) Dose Ordered Sig/Smiley Route Start Time Stop Time Status Last Admin Dose Admin Diphtheria/ Pertussis/Tetanus Vacc (Adacel Inj) 0.5 ml ONCE ONCE IM. 02/22/18 14:45 02/22/18 14:46 DC 02/22/18 14:48 0.5 ML Oxycodone HCl (Roxicodone Immediate Rel Tab) 5 mg NOW STAT PO 02/22/18 14:33 02/22/18 14:35 DC 02/22/18 14:45 5 MG Ondansetron HCl (Zofran Odt) 4 mg ONE ONCE PO 02/22/18 14:45 02/22/18 14:46 DC 02/22/18 14:45 4 MG Cephalexin Monohydrate (Keflex Cap) 500 mg NOW ONCE PO 02/22/18 16:30 02/22/18 16:31 DC 02/22/18 17:08 500 MG ED Course 1428: The patient was evaluated in room A9. A complete history and physical examination were performed. 1433: Ordered Oxycodone HCl 5 mg PO 1445: Ordered Zofran 4 mg PO and Adacel 0.5 ml IM 1531: Ordered Lidocaine HCl 20 ml INFIL 1615: Ordered Oxycodone HCl 1 homepack PO 1630: Ordered Cephalexin 1 homepack PO and Cephalexin 500 mg PO 1645: I reassessed the patient at this time. She is feeling better and resting comfortably. I discussed the results and treatment plan with the patient. I answered all pertaining questions that she had. She expressed understanding and verbalized agreement. The patient will be discharged home. Medical Decision Prior records reviewed and summarized above. Triage Nursing notes reviewed and agree them. The patient's history was concerning for traumatic injury. Differential diagnosis: Etiologies such as fracture, dislocation, neurovascular compromise, compartment syndrome, soft tissue injury, as well as others were entertained. The patient is a 68-year-old female who presented to the emergency department for an evaluation of right shoulder pain after fall. The patient landed on her right side. She suffered a laceration to her right ear as well as a contusion to her right shoulder. Her laceration was repaired by my physician news production assistant Delaney Gama. Please see her note for complete laceration repair. The patient had a CT of her head neck which did not reveal any acute traumatic injury. Her shoulder initially appeared injured on physical exam but there does not appear to be any fracture. She appears to have some tenderness over the right clavicle although there is no fracture noted on x-ray. It is possible this represents an AC injury or possibly a clavicle fracture which is not apparent on x-ray. I discussed patient's radiographic studies with her. She was treated with medications for pain in the emergency department. Her tetanus shot was also updated. She was encouraged to follow-up with her family doctor for reevaluation but return to the emergency department immediately if symptoms change worsen or the need arises. Medication Reconcilliation Current Medication List: was personally reviewed by me Blood Pressure Screening Patient's blood pressure: Elevated blood pressure Blood pressure disposition: Elevated BP felt to be situational Impression Primary Impression: Fall Additional Impressions: Contusion of right shoulder Laceration of right ear Contusion of right knee Scribe Attestation The scribe's documentation has been prepared under my direction and personally reviewed by me in its entirety. I confirm that the note above accurately reflects all work, treatment, procedures, and medical decision making performed by me. Departure Information Dispostion Home / Self-Care Prescriptions Cephalexin Monohydrate (KEFLEX) 500 Mg Cap 500 MG PO QID, #20 CAP Prov: Ramesh Baeza, DO 02/22/18 Referrals Pro,Ramesh W., M.D. (PCP) Forms HOME CARE DOCUMENTATION FORM, IMPORTANT VISIT INFORMATION Patient Instructions ED Laceration Facial Sutr Tape, My [facility] [employer] Additional Instructions Continue all medications as prescribed. Continue to use triple antibiotic ointment to the ear laceration 2-3 times a day. Follow-up with your family doctor within the next few days for a wound check. I would recommend suture removal in 7 days. Continue to use Motrin and Tylenol as directed for pain. I would recommend further x-rays of the right shoulder and right knee if symptoms do not improve. Problem Qualifiers Primary Impression: Fall Encounter type: initial encounter Qualified Codes: W19.XXXA - Unspecified fall, initial encounter Additional Impressions: Contusion of right shoulder Encounter type: initial encounter Qualified Codes: S40.011A - Contusion of right shoulder, initial encounter Laceration of right ear Encounter type: initial encounter Qualified Codes: S01.311A - Laceration without foreign body of right ear, initial encounter Contusion of right knee Encounter type: initial encounter Qualified Codes: S80.01XA - Contusion of right knee, initial encounter
[2018-02-22] MEDS ORDERED: ONDANSETRON 4MG OD TAB PO ONE (14:45)
[2018-02-22] MEDS ORDERED: DIPHTHERIA/TETANUS/PERTUSSIS 0.5 ML SYR/VIAL IM. ONE (14:45)
--- NOTE | 2018-02-22 15:25 | DIAGNOSTIC IMAGING REPORT ---
HEAD WITHOUT CONTRAST (CT) CT DOSE: 638.56 mGycm HISTORY: Trauma fall TECHNIQUE: Multiaxial CT images of the head were performed without the use of intravenous contrast. A dose lowering technique was utilized adhering to the principles of ALARA. Comparison: None. Findings: The paranasal sinuses and mastoid air cells are clear. The calvarium and skull base are intact. The ventricles and sulci are within normal limits. There is no mass, hematoma, midline shift, or acute infarct. Impression: No acute intracranial abnormality. The above report was generated using voice recognition software. It may contain grammatical, syntax or spelling errors. Electronically signed by: Arcadio Figueroa M.D. 02/22/2018 3:22 PM Dictated Date/Time: 02/22/2018 3:20 PM
--- NOTE | 2018-02-22 15:30 | DIAGNOSTIC IMAGING REPORT ---
CERVICAL SPINE W/O CT DOSE: 344.87 mGycm HISTORY: Trauma fall TECHNIQUE: Multiaxial CT images of the cervical spine were performed and reformatted in the sagittal and coronal plane without the use of contrast. A dose lowering technique was utilized adhering to the principles of ALARA. COMPARISON: None. FINDINGS: No fractures. No subluxation. Prevertebral soft tissues and the C1-C2 interval are intact. No pneumothorax. IMPRESSION: No fractures within the cervical spine. The above report was generated using voice recognition software. It may contain grammatical, syntax or spelling errors. Electronically signed by: Arcadio Figueroa M.D. 02/22/2018 3:28 PM Dictated Date/Time: 02/22/2018 3:26 PM
[2018-02-22] MEDS ORDERED: XYLOCAINE 1%/SOD BICARB 20 ML VIAL INFIL STA (15:31)
--- NOTE | 2018-02-22 15:53 | DIAGNOSTIC IMAGING REPORT ---
CHEST ONE VIEW PORTABLE CLINICAL HISTORY: Fall. COMPARISON STUDY: Chest radiograph April 18, 2017. FINDINGS: Lung volumes are diminished. No pneumothorax or pleural effusion is noted. No airspace opacities are noted. Cardiomediastinal silhouette is normal. Pulmonary vascularity is normal. IMPRESSION: No acute cardiopulmonary findings. Electronically signed by: Kenton Church M.D. 02/22/2018 3:51 PM Dictated Date/Time: 02/22/2018 3:50 PM
--- NOTE | 2018-02-22 15:53 | DIAGNOSTIC IMAGING REPORT ---
R HUMERUS MIN 2 VIEWS ROUTINE CLINICAL HISTORY: 68 years-old Female presenting with fall. TECHNIQUE: Frontal and lateral views of the right humerus were obtained. COMPARISON: None. FINDINGS: Acromioclavicular and glenohumeral joints congruent. Elbow joint grossly congruent. No acute fracture or malalignment. No advanced degenerative change. No radiographic soft tissue abnormality. IMPRESSION: No acute osseous injury of the right humerus. Electronically signed by: Elvin Rainey M.D. 02/22/2018 3:51 PM Dictated Date/Time: 02/22/2018 3:50 PM
--- NOTE | 2018-02-22 15:54 | DIAGNOSTIC IMAGING REPORT ---
R KNEE 1 OR 2 VIEWS ROUTINE CLINICAL HISTORY: fall trauma. Pain. COMPARISON: None. DISCUSSION: The bones and joint spaces appear intact. There is no evidence of fracture, dislocation or bony disease. Anatomic alignment posttotal right knee replacement IMPRESSION: No acute process post total right knee arthroplasty. The above report was generated using voice recognition software. It may contain grammatical, syntax or spelling errors. Electronically signed by: Arcadio Figueroa M.D. 02/22/2018 3:52 PM Dictated Date/Time: 02/22/2018 3:51 PM
[2018-02-22] MEDS ORDERED: OXYCODONE IR HOME PACK PO ONE (16:15)
[2018-02-22] MEDS ORDERED: CEPHALEXIN MONOHYDRATE 250 MG CAP PO ONE (16:30)
[2018-02-22] MEDS ORDERED: CEPHALEXIN 500MG HOME PACK 1 EA BTL PO ONE (16:30)
[2018-02-22] MEDS ORDERED: CEPH500C2 PO (16:32)
--- NOTE | 2018-02-22 17:02 | EMERGENCY ROOM VISIT NOTE ---
ED Visit Note I was asked by Dr. Baeza to repair the wound on the patient's right ear. The laceration is approximately 1 cm located on the lateral aspect of the helix of the patient's right ear, and does minimally extend to the cartilage. Verbal consent was obtained to perform the procedure. Using sterile technique the wound was cleaned with Betadine. The area was sterilely draped. 1 ml of 1 % buffered lidocaine was used to anesthetize the ear. Once the patient was anesthetized, the wound was copiously irrigated under pressure with sterile saline. The wound was explored and there were no deep structures injured such as tendons, bone, or significant blood vessels. The laceration was repaired using 5 simple interrupted 5-0 nylon sutures with the wound edges being well approximated. The patient tolerated the procedure well. Hemostasis was achieved. The area was cleaned with sterile saline and dressed with bacitracin ointment and bandage. Please see dictation by Dr. Baeza regarding further management and care.
[2018-02-22 17:15] VITALS: BP 139/74; PULSE 78; O2SAT 96
== END 2018-02-22 17:15 | disposition home or self-care (01) ==
LOC: EDBD 14:21 → C.EDA 14:23
DX: S40.011A Contusion of right shoulder, initial encounter (principal); S01.311A Laceration without foreign body of right ear, initial encounter; S80.01XA Contusion of right knee, initial encounter; W19.XXXA Unspecified fall, initial encounter; Z87.891 Personal history of nicotine dependence; Z91.030 Bee allergy status; Z88.8 Allergy status to other drugs, medicaments and biological substances; Z88.0 Allergy status to penicillin; Z91.011 Allergy to milk products; Z23 Encounter for immunization

== ENCOUNTER → 2018-03-05 | Outpatient (CLI) | payer BC ==
[~2018-03-05] MED LIST changes: -BENZ100C84 PO; +CEPH500C2 PO; -PRD/1 PO
--- NOTE | 2018-03-05 10:07 | DIAGNOSTIC IMAGING REPORT ---
R SHOULDER MIN 2 VIEWS ROUTINE HISTORY: 68 years-old Female [id number].XXXA [id number] Pain, joint, shoulderrigh acute right shoulder pain status post fall COMPARISON: Right humerus radiographs 02/22/2018 TECHNIQUE: 3 views of the right shoulder FINDINGS: Mild glenohumeral and AC joint degenerative changes. Bones appear mildly demineralized. No acute fracture or subluxation. IMPRESSION: Mild degenerative changes without acute fracture or dislocation. The above report was generated using voice recognition software. It may contain grammatical, syntax or spelling errors. Electronically signed by: Yoan Long M.D. 03/05/2018 10:06 AM Dictated Date/Time: 03/05/2018 10:04 AM
== END | disposition home or self-care (01) ==
LOC: C.RAD1850 09:32
PROVIDERS: ATTEND Nurse Practitioner Adult Health
DX: S49.91XA Unspecified injury of right shoulder and upper arm, initial encounter (principal); M25.511 Pain in right shoulder; W19.XXXA Unspecified fall, initial encounter

== ENCOUNTER 2019-02-13 13:16 | Inpatient (IN) ==
[2019-02-13] MEDS ORDERED: KETOROLAC TROMETHAMINE 15 MG/ML VIAL IV STA (15:04)
[2019-02-13] MEDS ORDERED: SODIUM CHLORIDE 0.9% 1000ML 1,000 ML IV ONE (15:04)
[2019-02-13] MEDS ORDERED: fentaNYL citrate 100 MCG/2 ML VIAL IV STA (15:04)
[2019-02-13] MEDS ORDERED: ONDANSETRON INJ 2 MG/ML 2 ML VIAL IV STA (15:07)
[2019-02-13 15:17] LABS: Basophils # (auto) 0.01 K/uL (0-0.2); Basophils % (auto) 0.1 %; Eosinophils # (auto) 0.02 K/uL (0-0.5); Eosinophils % (auto) 0.1 %; Hematocrit (blood only) 38.6 % (37-47); Hemoglobin 12.6 g/dL (12.0-16.0); Immature Granulocytes # (auto) 0.03 K/uL (0.00-0.02); Immature Granulocytes % (auto) 0.2 %; Lymphocytes # (auto) 0.71 K/uL (1.2-3.4); Lymphocytes % (auto) 5.2 %; Mean Corpuscular Hgb Conc 32.6 g/dL (32-36); Mean Corpuscular Volume 104.9 fL (80-100); Mean Platelet Volume 11.2 fL (7.4-10.4); Monocytes # (auto) 0.03 K/uL (0.11-0.59); Monocytes % (auto) 0.2 %; Neutrophils # (auto) 12.83 K/uL (1.4-6.5); Neutrophils % (auto) 94.2 %; Platelet Count 198 K/uL (130-400); RDW Standard Deviation 49.3 fL (36.4-46.3); Red Blood Count 3.68 M/uL (4.2-5.4); White Blood Count 13.63 K/uL (4.8-10.8)
[2019-02-13 15:36] LABS: Alanine Aminotransferase 53 U/L (12-78); Aspartate Aminotransferase 79 U/L (15-37); Blood Urea Nitrogen 37 mg/dl (7-18); Calcium 9.6 mg/dl (8.5-10.1); Carbon Dioxide 24 mmol/L (21-32); Chloride 110 mmol/L (98-107); Creatinine Clr Calc Pharmacy 32.8 ml/min; Est GFR (African American) 38.9; Est GFR (Non-African American) 33.6; Glucose 115 mg/dl (70-99); Potassium 4.6 mmol/L (3.5-5.1); Sodium 142 mmol/L (136-145)
[2019-02-13 15:42] LABS: Albumin Globulin Ratio 1.3 (0.9-2); Alkaline Phosphatase 94 U/L (45-117); Bilirubin,Total 0.8 mg/dl (0.2-1); Globulin 3.2 gm/dl (2.5-4.0); Total Protein 7.2 gm/dl (6.4-8.2); Troponin I < 0.015 ng/ml (0-0.045)
--- NOTE | 2019-02-13 16:00 | CT Scan Report ---
CT SCAN OF THE ABDOMEN AND PELVIS WITHOUT IV CONTRAST CLINICAL HISTORY: Left flank pain. COMPARISON STUDY: Abdominal CT dated 05/15/2018. TECHNIQUE: CT scan of the abdomen and pelvis is performed from the lung bases to the proximal femora. Images are reviewed in the axial, sagittal, and coronal planes. IV contrast was not administered for this examination as per the referring clinician. A dose lowering technique was utilized adhering to the principles of ALARA. The examination is degraded by motion artifact. CT DOSE: 1143.10 mGy.cm FINDINGS: Lung bases: The heart is normal in size and without pericardial effusion. The coronary arteries are d ensely calcified. The lung bases are clear. There is a small hiatal hernia. Liver: The unenhanced liver is normal in size, contour, and attenuation. There is no intrahepatic carrie iary ductal dilatation. Gallbladder: Not identified and presumed surgically absent. Spleen: Normal in size and attenuation. Pancreas: The unenhanced pancreas is moderately atrophic and grossly unremarkable. Adrenal glands: Unremarkable. Kidneys: The unenhanced kidneys tendons are cortical atrophy. There is a 9 mm obstructing calculus at the left vesicoureteral junction seen on image #378. A 5 mm calculus is seen more proximally in the distal left ureter on image #367. This causes moderate to severe left hydroureteronephrosis. There is associated left-sided perinephric and periureteric stranding and fluid. There are at least 7 additio nal nonobstructing left or a calculi measuring up to 4 mm. There are at least 5 nonobstructing right renal calculi measuring up to 8 mm. There is no right ureteral stone, and no right-sided hydronephros is. There is no evidence of contour deforming renal mass lesion. Abdominal vasculature: The abdominal aorta is normal in course and caliber noting scattered foci of a therosclerotic calcification. Bowel: There is a small duodenal diverticulum. There is mild colonic diverticulosis without CT eviden ce of acute diverticulitis. Moderate to severe constipation is observed. No bowel obstruction is iden tified. The appendix is not clearly identified. Peritoneum: There is no intraperitoneal free air or abdominal ascites. Lymphadenopathy: None. Pelvic viscera: The bladder, uterus, and adnexa are normal as imaged. Skeletal structures: Skeletal structures are osteopenic. Lumbosacral spondylosis is observed. No lyti c or blastic lesions are seen. IMPRESSION: 1. There is a 9 mm obstructing calculus at the left vesicoureteral junction. This causes moderate to severe left hydroureteronephrosis. 2. There is a second 5 mm calculus in the distal left ureter above the larger stone. 3. Numerous additional bilateral nonobstructing renal calculi as above. 4. Moderate to severe constipation. 5. Additional findings as above. Electronically signed by: Tony Hernandez M.D. 02/13/2019 3:59 PM
[2019-02-13] MEDS ORDERED: SODIUM CHLORIDE 0.9% 1000ML 500 ML IV ONE ×2 (17:17→23:07)
[2019-02-13 17:20] LABS: Appearance Urine Cloudy (Clear); Bacteria Urine Automated 4+ (Negative); Bilirubin Urine Negative (Negative); Blood Urine 1+ (Negative); Cast Urine Automated 0 /lpf (0-5); Color Urine Yellow; Glucose Urine UA Negative (Negative); Ketones Urine Negative (Negative); Leukocyte Esterase Urine 3+ (Negative); Nitrite Urine Positive (Negative); Protein Urine 1+ (Negative); RBC Urine Automated 0-4 /hpf (0-4); Specific Gravity Urine 1.016 (1.000-1.030); Urobilinogen Urine Negative (Negative); WBC Urine Automated >30 /hpf (0-5)
[2019-02-13] MEDS ORDERED: CEFEPIME 2,000 MG in SYRINGE 7.5 ML IV STA (17:35)
--- NOTE | 2019-02-13 17:42 | Emergency Department Note ---
Entered by Don Sal acting as a scribe for Shawn Davenport M.D. History of Present Illness General Chief complaint: Kidney Stone Stated complaint: KIDNEY STONE MOVING , LT SIDE PAIN Source: patient History of Present Illness Onset (ago): hour(s) (09:30 this morning) Location: left (flank) Pain Consistency: + constant Maximum Pain Intensity: 10 Quality: + other (left flank pain) Associated symptoms: + nausea/vomiting and + other (chills) The patient is a 69 year old female who presents to the Emergency Room with co mplaints of constant left flank pain beginning this morning at 09:30. The patient rates her pain at 10/10 and reports that she vomited two or three times today. She notes some chills. She denies abdominal pain. She states that she follows Dr. [facility], who she last saw in November and was doing well at the time. She reports a history of multiple kidney stones but states it has been a while since her last one. She notes that she had a ureteral stent placed in 2009. Home Medications Home Medications Medication Instructions Recorded Confirmed Type cyanocobalamin (vitamin B-12) 1,000 mcg PO DAILY #0 06/25/09 02/13/19 History Lactobacillus acidoph-L.bulgar 1 tab PO TID #0 11/25/15 02/13/19 History [Floranex] epinephrine [EpiPen] 0.3 mg IM Q3H PRN #0 11/25/15 02/13/19 History vit B6-mag cit,oxid-potass cit 2 tab PO TID #0 11/25/15 02/13/19 History [Theralith XR] calcitriol [Rocaltrol] 0.5 mcg PO BID #0 04/17/17 02/13/19 History ascorbic acid (vitamin C) 250 mg PO DAILY #0 12/23/17 02/13/19 History ferrous sulfate 324 mg PO DAILY #0 12/23/17 02/13/19 History magnesium chloride [Slow-Mag] 71.5 mg PO DAILY #0 12/23/17 02/13/19 History zwnhaxwz-bap-rscu-FA-lutein 1 tab PO DAILY #0 12/23/17 02/13/19 History [Centrum Silver Women] calcium carbonate [Calcium 600] 1,200 mg PO TID #0 05/17/18 02/13/19 History cholestyramine (with sugar) 4 g PO BID #0 05/17/18 02/13/19 History [Questran] potassium citrate 20 meq PO TID #0 05/17/18 02/13/19 History Allergies Allergy/AdvReac Type Severity Reaction Status Date / Time bee venom protein (honey bee) Allergy Severe HIVES Verified 02/13/19 15:21 DIFFICULTY BREATHING WENT TO HOSPITAL erythromycin base Allergy Severe RASH Verified 02/13/19 15:21 LASTED FOR WEEK Penicillins Allergy Intermediate HIVES Verified 02/13/19 15:21 SWELLING benzonatate Allergy Mild itchy Verified 02/13/19 15:21 doxycycline Allergy Mild RASH Verified 02/13/19 15:21 Macrolide Antibiotics Allergy Unknown ITCHY,RASH Verified 02/13/19 15:21 wheat Allergy Unknown CELIAC Verified 02/13/19 15:21 DISEASE-ABD CRAMPING,DIARRHEA cephalexin AdvReac Mild DIARRHEA Verified 02/13/19 15:21 lactose AdvReac Unknown GI ISSUES Verified 02/13/19 15:21 Past Med/Surg History Medical History Asthma History of blood clots x2 occurrences in right leg Kidney stones chronic kidney stones Malabsorption Osteoarthritis Surgical History History of appendectomy History of bariatric surgery History of cholecystectomy History of lithotripsy History of total right knee replacement History of tubal ligation Family History Other Cancer Diabetes Heart disease Hypertension Social History Feels Safe at Home: Yes Smoking Status: Former smoker Review of Systems See HPI for pertinent positives & negatives. and A total of 10 systems reviewed and were otherwise negative Physical Exam Vital Signs Vital Signs - 24 hr 02/13/19 13:44 02/13/19 15:25 Temperature 37.0 C Temperature Source Oral Sepsis Action Taken by Nursing No Action Required Pulse Rate 99 H Respiratory Rate 20 Respiratory Effort / Characteristics Non-Labored Spontaneous Respiratory Depth Normal Respiratory Pattern Regular Blood Pressure 176/75 H Blood Pressure [Left Arm] 193/117 H Blood Pressure Mean 108 Blood Pressure Mean [Left Arm] 142 Pulse Oximetry 95 Oxygen Delivery Method Room Air GENERAL: Awake, alert, uncomfortable-appearing and shaking. HENT: Normocephalic, atraumatic. EYES: Normal conjunctiva. Sclera non-icteric. NECK: Supple. No nuchal rigidity. RESPIRATORY: Clear to auscultation. No wheezes. Normal respiratory effort. CARDIAC: Tachycardic rate. Normal rhythm. Extremities warm and well perfused. GI: Soft, non-distended. No tenderness to palpation. No rebound or guarding. RECTAL: Deferred. MUSCULOSKELETAL: Atraumatic. Chest examination reveals no tenderness. There is mild left flank tenderness to palpation. LOWER EXTREMITIES: Calves are equal size bilaterally and non-tender. No edema NEURO: Normal sensorium. No sensory or motor deficits noted. No facial droop. SKIN: Warm and dry. No rash or jaundice noted. Course 1502: Past medical records reviewed. The patient was evaluated in room C11B, and a complete history and physical examination were performed. 1620: The patient states that she is feeling more comfortable. 1727: I consulted Dr. [facility]. He will evaluate the patient for a possible stent. 1736: I consulted Dr. Eliu Powell [facility] Hospitalist. She will reevaluate the patient for hospitalization. Consultations Consultation #1: I consulted Dr. C[facility]. He will evaluate the patient for a possible stent. Time: 17:27 Consultation #2: I consulted Dr. Nowak [facility] Hospitalist. She will reevaluate the patient for hospitalization. Time: 17:36 Administered Medications Discontinued Medications Fentanyl Citrate (Fentanyl Citrate) 25 mcg IV NOW STA Stop: 02/13/19 15:05 Last Admin: 02/13/19 15:19 Dose: 25 mcg Documented by: [id number] Sodium Chloride (Nss 1000ml) 1,000 mls @ 999 mls/hr IV .Q1H1M ONE Stop: 02/13/19 16:04 Last Infusion: 02/13/19 16:26 Dose: 0 mls/hr Documented by: [id number] Admin: 02/13/19 15:20 Dose: 999 mls/hr Documented by: [id number] Ketorolac Tromethamine (Toradol) 15 mg IV NOW STA Stop: 02/13/19 15:05 Last Admin: 02/13/19 15:20 Dose: 15 mg Documented by: [id number] Ondansetron HCl (Zofran) 4 mg IV NOW STA Stop: 02/13/19 15:08 Last Admin: 02/13/19 15:20 Dose: 4 mg Documented by: [id number] Medical Decision Making Differential Diagnosis Differential diagnosis: Etiologies such as renal colic, appendicitis, diverticulitis, mesenteric ischemia, aortic pathology, infections, inflammatory bowel disease, PUD, biliary pathology, UTI, as well as others were entertained. Medical Records Attestation: I reviewed the patient's medical records. Home Medications Current Medication List: was personally reviewed by me Laboratory Data Attestation: I reviewed the patient's lab results. Result diagrams: 02/13/19 15:05 02/13/19 15:05 Lab Results 02/13/19 02/13/19 02/13/19 Range/Units 15:05 15:05 15:14 WBC 13.63 H (4.8-10.8) K/uL RBC 3.68 L (4.2-5.4) M/uL Hgb 12.6 (12.0-16.0) g/dL Hct 38.6 (37-47) % MCV 104.9 H (80-100) fL MCH 34.2 H (25-34) pg MCHC 32.6 (32-36) g/dL RDW Std Deviation 49.3 H (36.4-46.3) fL RDW Coeff of Khushi 13.0 (11.5-14.5) % Plt Count 198 (130-400) K/uL MPV 11.2 H (7.4-10.4) fL Immature Gran % (Auto) 0.2 % Neut % (Auto) 94.2 % Lymph % (Auto) 5.2 % Anson % (Auto) 0.2 % Eos % (Auto) 0.1 % Baso % (Auto) 0.1 % Immature Gran # (Auto) 0.03 H (0.00-0.02) K/uL Neut # (Auto) 12.83 H (1.4-6.5) K/uL Lymph # (Auto) 0.71 L (1.2-3.4) K/uL Anson # (Auto) 0.03 L (0.11-0.59) K/uL Eos # (Auto) 0.02 (0-0.5) K/uL Baso # (Auto) 0.01 (0-0.2) K/uL Sodium 142 (136-145) mmol/L Potassium 4.6 (3.5-5.1) mmol/L Chloride 110 H (98-107) mmol/L Carbon Dioxide 24 (21-32) mmol/L Anion Gap 8.0 (3-11) BUN 37 H (7-18) mg/dl Creatinine 1.54 H (0.6-1.2) mg/dl Est Cr Clr Drug Dosing 32.8 ml/min Est GFR ( Amer) 38.9 Est GFR (Non-Af Amer) 33.6 BUN/Creatinine Ratio 24.0 H (10-20) Glucose 115 H (70-99) mg/dl POC Lactic Acid Chris 4.00 H (0.90-1.70) mmol/L Calcium 9.6 (8.5-10.1) mg/dl Total Bilirubin 0.8 (0.2-1) mg/dl AST 79 H (15-37) U/L ALT 53 (12-78) U/L Alkaline Phosphatase 94 (45-117) U/L Troponin I < 0.015 (0-0.045) ng/ml Total Protein 7.2 (6.4-8.2) gm/dl Albumin 4.0 (3.4-5.0) gm/dl Globulin 3.2 (2.5-4.0) gm/dl Albumin/Globulin Ratio 1.3 (0.9-2) Lipase 107 (73-393) U/L Urine Color Urine Appearance (Clear) Urine pH (4.5-7.5) Ur Specific [place] (1.000-1.030) Urine Protein (Negative) Urine Glucose (UA) (Negative) Urine Ketones (Negative) Urine Blood (Negative) Urine Nitrite (Negative) Urine Bilirubin (Negative) Urine Urobilinogen (Negative) Ur Leukocyte Esterase (Negative) Urine WBC (Auto) (0-5) /hpf Urine RBC (Auto) (0-4) /hpf U Hyaline Cast (Auto) (0-5) /lpf U Epithel Cells (Auto) (0-5) /lpf Urine Bacteria (Auto) (Negative) 03/20/19 Range/Units 16:10 WBC (4.8-10.8) K/uL RBC (4.2-5.4) M/uL Hgb (12.0-16.0) g/dL Hct (37-47) % MCV (80-100) fL MCH (25-34) pg MCHC (32-36) g/dL RDW Std Deviation (36.4-46.3) fL RDW Coeff of Khushi (11.5-14.5) % Plt Count (130-400) K/uL MPV (7.4-10.4) fL Immature Gran % (Auto) % Neut % (Auto) % Lymph % (Auto) % Anson % (Auto) % Eos % (Auto) % Baso % (Auto) % Immature Gran # (Auto) (0.00-0.02) K/uL Neut # (Auto) (1.4-6.5) K/uL Lymph # (Auto) (1.2-3.4) K/uL Anson # (Auto) (0.11-0.59) K/uL Eos # (Auto) (0-0.5) K/uL Baso # (Auto) (0-0.2) K/uL Sodium (136-145) mmol/L Potassium (3.5-5.1) mmol/L Chloride (98-107) mmol/L Carbon Dioxide (21-32) mmol/L Anion Gap (3-11) BUN (7-18) mg/dl Creatinine (0.6-1.2) mg/dl Est Cr Clr Drug Dosing ml/min Est GFR ( Amer) Est GFR (Non-Af Amer) BUN/Creatinine Ratio (10-20) Glucose (70-99) mg/dl POC Lactic Acid Chris (0.90-1.70) mmol/L Calcium (8.5-10.1) mg/dl Total Bilirubin (0.2-1) mg/dl AST (15-37) U/L ALT (12-78) U/L Alkaline Phosphatase (45-117) U/L Troponin I (0-0.045) ng/ml Total Protein (6.4-8.2) gm/dl Albumin (3.4-5.0) gm/dl Globulin (2.5-4.0) gm/dl Albumin/Globulin Ratio (0.9-2) Lipase (73-393) U/L Urine Color Yellow Urine Appearance Cloudy H (Clear) Urine pH 5.0 (4.5-7.5) Ur Specific [place] 1.016 (1.000-1.030) Urine Protein 1+ H (Negative) Urine Glucose (UA) Negative (Negative) Urine Ketones Negative (Negative) Urine Blood 1+ H (Negative) Urine Nitrite Positive H (Negative) Urine Bilirubin Negative (Negative) Urine Urobilinogen Negative (Negative) Ur Leukocyte Esterase 3+ H (Negative) Urine WBC (Auto) >30 H (0-5) /hpf Urine RBC (Auto) 0-4 (0-4) /hpf U Hyaline Cast (Auto) 0 (0-5) /lpf U Epithel Cells (Auto) 5-10 H (0-5) /lpf Urine Bacteria (Auto) 4+ H (Negative) Imaging Data Radiologist's Impression: Radiology results as stated below per my review and the radiologist's interpretation: CT SCAN OF THE ABDOMEN AND PELVIS WITHOUT IV CONTRAST CLINICAL HISTORY: Left flank pain. COMPARISON STUDY: Abdominal CT dated 05/15/2018. TECHNIQUE: CT scan of the abdomen and pelvis is performed from the lung bases to the proximal femora. Images are reviewed in the axial, sagittal, and coronal planes. IV contrast was not administered for this examination as per the referring clinician. A dose lowering technique was utilized adhering to the principles of ALARA. The examination is degraded by motion artifact. CT DOSE: 1143.10 mGy.cm FINDINGS: Lung bases: The heart is normal in size and without pericardial effusion. The coronary arteries are densely calcified. The lung bases are clear. There is a small hiatal hernia. Liver: The unenhanced liver is normal in size, contour, and attenuation. There is no intrahepatic biliary ductal dilatation. Gallbladder: Not identified and presumed surgically absent. Spleen: Normal in size and attenuation. Pancreas: The unenhanced pancreas is moderately atrophic and grossly unremarkable. Adrenal glands: Unremarkable. Kidneys: The unenhanced kidneys tendons are cortical atrophy. There is a 9 mm obstructing calculus at the left vesicoureteral junction seen on image #378. A 5 mm calculus is seen more proximally in the distal left ureter on image #367. This causes moderate to severe left hydroureteronephrosis. There is associated left-sided perinephric and periureteric stranding and fluid. There are at least 7 additional nonobstructing left or a calculi measuring up to 4 mm. There are at least 5 nonobstructing right renal calculi measuring up to 8 mm. There is no right ureteral stone, and no right-sided hydronephrosis. There is no evidence of contour deforming renal mass lesion. Abdominal vasculature: The abdominal aorta is normal in course and caliber noting scattered foci of atherosclerotic calcification. Bowel: There is a small duodenal diverticulum. There is mild colonic diverticulosis without CT evidence of acute diverticulitis. Moderate to severe constipation is observed. No bowel obstruction is identified. The appendix is not clearly identified. Peritoneum: There is no intraperitoneal free air or abdominal ascites. Lymphadenopathy: None. Pelvic viscera: The bladder, uterus, and adnexa are normal as imaged. Skeletal structures: Skeletal structures are osteopenic. Lumbosacral spondylosis is observed. No lytic or blastic lesions are seen. IMPRESSION: 1. There is a 9 mm obstructing calculus at the left vesicoureteral junction. This causes moderate to severe left hydroureteronephrosis. 2. There is a second 5 mm calculus in the distal left ureter above the larger stone. 3. Numerous additional bilateral nonobstructing renal calculi as above. 4. Moderate to severe constipation. 5. Additional findings as above. Electronically signed by: Tony Hernandez M.D. 02/13/2019 3:59 PM ECG Data Attestation: I personally reviewed and interpreted this ECG as follows: Indication: tachycardia Rate (beats per minute): 119 Rhythm: sinus tachycardia Findings: + other (normal QTc and QRS) and + 1st degree AV block; no PVC, no ST depression and no ST elevation Blood Pressure Blood Pressure Findings: Elevated blood pressure Blood Pressure Disposition: further management by hospitalist SUSANNE Ross Patient is a 69-year-old female with a history significant for multiple kidney stones in the past occasion requiring intervention follows with urology. Severe pain starting this morning in the left lower quadrant. Minimal flank t enderness. Concern for recurrence of kidney stone and given the size need for intervention in the past CT scan is complete on the basic laboratory studies. Negative troponin EKG unchanged. Appears to have possibly a slight acute kidney injury 1.54. Lactate is elevated at 4. Leukocytosis of 13.6 is present. Patient is hypertensive here and afebrile on multiple checks. Still with some tachycardia and CT scan does show a 9 mm left UVJ stone with moderate to severe left-sided hydronephrosis and additional 5 mm left ureteral calculus above this. Patient's pain improved and was given a liter of fluid but still persistently tachycardic. With a leukocytosis and lactate elevation concerned and urinalysis was completed to look for possible infection. Patient does have significant history of septic stone in 2010 requiring intervention and ICU care for vasopressors. Urinalysis does appear positive indicative of a evolving urosepsis from nephrolithiasis. Urology was consulted and evaluated here in the emergency department for stent placement in the OR. Hospitalist was consulted. Given broad-spectrum cefepime for antibiotic coverage. Impression & Plan Kidney stone on left side, Acute UTI Critical Care Time I have personally spent 30 minutes of critical care time in the direct m anagement of this patient. This includes bedside care, interpretation of diagnostic studies, and testing, discussion with consultants, patient, and family members, and other required patient management activities. These 30 minutes is in excess of all separately billable procedures. Critical Care Time: Yes Total Critical Care Time: 30 Discharge Plan Visit Data Chief Complaint: Kidney Stone Stated Complaint: KIDNEY STONE MOVING , LT SIDE PAIN ED Provider: Shawn Davenport Discharge Problem: Kidney stone on left side, Acute UTI Patient Disposition: Being Evaluated by Hospitalist Forms Stand Alone Forms: My [facility] Prescriptions Prescriptions: No Action cyanocobalamin (vitamin B-12) 1,000 mcg Tablet 1,000 mcg PO DAILY Qty: 0 RF: 0 epinephrine [EpiPen] 0.3 mg/0.3 mL Auto-Injector 0.3 mg IM Q3H PRN (Reason: Allergic Reaction) Qty: 0 RF: 0 Lactobacillus acidoph-L.bulgar [Floranex] 1 million cell Tablet 1 tab PO TID Qty: 0 RF: 0 Theralith XR 3.75-45-45-49.5 mg Tablet Extended Release 2 tab PO TID Qty: 0 RF: 0 calcitriol [Rocaltrol] 0.5 mcg Capsule 0.5 mcg PO BID Qty: 0 RF: 0 Slow-Mag 71.5 mg Tablet,Delayed Release (Dr/Ec) 71.5 mg PO DAILY Qty: 0 RF: 0 Centrum Silver Women 8 mg iron-400 mcg-300 mcg Tablet 1 tab PO DAILY Qty: 0 RF: 0 ascorbic acid (vitamin C) 250 mg Tablet 250 mg PO DAILY Qty: 0 RF: 0 ferrous sulfate 324 mg (65 mg iron) Tablet,Delayed Release (Dr/Ec) 324 mg PO DAILY Qty: 0 RF: 0 calcium carbonate [Calcium 600] 600 mg calcium (1,500 mg) Tablet 1,200 mg PO TID Qty: 0 RF: 0 potassium citrate 10 mEq (1,080 mg) Tablet Extended Release 20 meq PO TID Qty: 0 RF: 0 cholestyramine (with sugar) [Questran] 4 gram Powder 4 g PO BID Qty: 0 RF: 0 Referrals Referrals: Pro,Ramesh Kowalski MD [Primary Care Provider] - The scribe's documentation has been prepared under my direction and personally reviewed by me in its entirety. I confirm that the note above accurately reflects all work, treatment, procedures, and medical decision making performed by me.
--- NOTE | 2019-02-13 17:49 | History & Physical Report ---
Date of Service February 13, 2019 Assessment & Plan (1) Kidney stone on left side: Urology planning for a stent placement later today CTAP as noted IVF, NPO Abx as per urology, started on cefepime in the ED (2) Acute UTI: UA noted, cx pending abx as per urology, started on cefepime in the ED Elevated WBC Tachycardia in the setting of above, likely will resolve with tx (3) ARF (acute renal failure): Likely related to stone, monitor with procedure and IVF (4) DVT prophylaxis: SCDs, holding rx given OR status History of Present Illness Primary Care Provider: Ramesh Roy MD 69 y/o F c/o kidney stones. Pt states she was in her usual state of health yesterday. Today, she woke up and had breakfast around 8:30a. She was standing at the sink doing dishes about an hour later and had sudden onset of L flank pain, n/v. Pt has hx of kidney stones many times and felt that this was similar, so she came to the ED. Pt denies current pain or nausea. She states she has not had diarrhea "but that will come". Pt denies fever, SOB, chest pain, abd pain, LE pain or swelling. Allergies Allergy/AdvReac Type Severity Reaction Status Date / Time bee venom protein (honey bee) Allergy Severe HIVES Verified 02/13/19 15:21 DIFFICULTY BREATHING WENT TO HOSPITAL erythromycin base Allergy Severe RASH Verified 02/13/19 15:21 LASTED FOR WEEK Penicillins Allergy Intermediate HIVES Verified 02/13/19 15:21 SWELLING benzonatate Allergy Mild itchy Verified 02/13/19 15:21 doxycycline Allergy Mild RASH Verified 02/13/19 15:21 Macrolide Antibiotics Allergy Unknown ITCHY,RASH Verified 02/13/19 15:21 wheat Allergy Unknown CELIAC Verified 02/13/19 15:21 DISEASE-ABD CRAMPING,DIARRHEA cephalexin AdvReac Mild DIARRHEA Verified 02/13/19 15:21 lactose AdvReac Unknown GI ISSUES Verified 02/13/19 15:21 Home Medications Home Medications Medication Instructions Recorded Confirmed Type cyanocobalamin (vitamin B-12) 1,000 mcg PO DAILY #0 06/25/09 02/13/19 History Lactobacillus acidoph-L.bulgar 1 tab PO TID #0 11/25/15 02/13/19 History [Floranex] epinephrine [EpiPen] 0.3 mg IM Q3H PRN #0 11/25/15 02/13/19 History vit B6-mag cit,oxid-potass cit 2 tab PO TID #0 11/25/15 02/13/19 History [Theralith XR] calcitriol [Rocaltrol] 0.5 mcg PO BID #0 04/17/17 02/13/19 History ascorbic acid (vitamin C) 250 mg PO DAILY #0 12/23/17 02/13/19 History ferrous sulfate 324 mg PO DAILY #0 12/23/17 02/13/19 History magnesium chloride [Slow-Mag] 71.5 mg PO DAILY #0 12/23/17 02/13/19 History vdbhsfgc-urs-ivjo-FA-lutein 1 tab PO DAILY #0 12/23/17 02/13/19 History [Centrum Silver Women] calcium carbonate [Calcium 600] 1,200 mg PO TID #0 05/17/18 02/13/19 History cholestyramine (with sugar) 4 g PO BID #0 05/17/18 02/13/19 History [Questran] potassium citrate 20 meq PO TID #0 05/17/18 02/13/19 History Past Med/Surg History Medical History Asthma History of blood clots x2 occurrences in right leg Kidney stones chronic kidney stones Malabsorption Osteoarthritis Surgical History History of appendectomy History of bariatric surgery History of cholecystectomy History of lithotripsy History of total right knee replacement History of tubal ligation Family History Other Cancer Diabetes Heart disease Hypertension Social History Feels Safe at Home: Yes Smoking Status: Former smoker Hx Alcohol Use: Yes (socially, maybe 1 drink per month) Hx Substance Use: No Review of Systems Pertinent positives and negatives reviewed in HPI--all others negative Physical Exam Vital Signs (Past 24 Hours): Last Vital Signs Temp 37.0 C 02/13/19 13:44 Pulse 99 H 02/13/19 13:44 Resp 20 02/13/19 13:44 BP 193/117 H 02/13/19 15:25 Pulse Ox 95 03/20/19 13:44 Constitutional: WD/WN, vitals as above Eyes: normal visual adair by confrontation and + anicteric sclerae Neck: normal visual inspection and trachea midline Respiratory: normal respiratory effort, lungs clear to auscultation Cardiovascular: Rate/Rhythm: regular rate and regular rhythm Gastrointestinal (Abdomen): Inspection/Auscultation: abdomen not distended Percussion/Palpation: abdomen soft; abdomen nontender States she will have L sided flank pain if I were to test, but requests that I do not test Musculoskeletal: Head/Neck/Chest: normocephalic and head atraumatic negative for edema, peripheral pulses intact Skin: no rashes, warm and dry Neurologic: awake; not confused Speech / Cognition: normal speech Psychiatric: A+Ox3, euthymic affect Results & Data Diagnostic Findings CT AP: 1. There is a 9 mm obstructing calculus at the left vesicoureteral junction. This causes moderate to severe left hydroureteronephrosis. 2. There is a second 5 mm calculus in the distal left ureter above the larger stone. 3. Numerous additional bilateral nonobstructing renal calculi as above. 4. Moderate to severe constipation. ECG Rhythm: sinus tachycardia Code Status & VTE Plan Code Status Other: Full code, although pt states no prolonged mechanical life support, feeding tubes, etc. She has a living will that states this. VTE Prophylaxis Plan VTE Prophylaxis will be ordered: Yes
--- NOTE | 2019-02-13 18:20 | Anesthesiology Consultation ---
Date of Service February 13, 2019 Assessment & Plan (1) Encounter for pre-operative examination: Chart Review Chart Review: Acceptable Risk for Surgery and freelance data entry initiated Consults Requested none Proposed Anesthesia Risk / Benefits Reviewed With: PT / POA / Parent / Guardian, Accepts Plan and Informed Consent Obtained History Surgery Operation Date: 02/13/19 18:00 Proposed Procedures p Ureteral Stent Insertion/Removal(Left) - Alvin Spangler MD Height/Weight Height: 5 ft 2 in Weight: 80 kg Allergies Allergy/AdvReac Type Severity Reaction Status Date / Time bee venom protein (honey bee) Allergy Severe HIVES Verified 02/13/19 15:21 DIFFICULTY BREATHING WENT TO HOSPITAL erythromycin base Allergy Severe RASH Verified 02/13/19 15:21 LASTED FOR WEEK Penicillins Allergy Intermediate HIVES Verified 02/13/19 15:21 SWELLING benzonatate Allergy Mild itchy Verified 02/13/19 15:21 doxycycline Allergy Mild RASH Verified 02/13/19 15:21 Macrolide Antibiotics Allergy Unknown ITCHY,RASH Verified 02/13/19 15:21 wheat Allergy Unknown CELIAC Verified 02/13/19 15:21 DISEASE-ABD CRAMPING,DIARRHEA cephalexin AdvReac Mild DIARRHEA Verified 02/13/19 15:21 lactose AdvReac Unknown GI ISSUES Verified 02/13/19 15:21 Medications Home Medications Medication Instructions Recorded Confirmed Last Taken cyanocobalamin (vitamin B-12) 1,000 mcg PO DAILY #0 06/25/09 02/13/19 02/13/19 Lactobacillus acidoph-L.bulgar 1 tab PO TID #0 11/25/15 02/13/19 02/13/19 08:00 [Floranex] epinephrine [EpiPen] 0.3 mg IM Q3H PRN #0 11/25/15 02/13/19 Unknown vit B6-mag cit,oxid-potass cit 2 tab PO TID #0 11/25/15 02/13/19 02/13/19 08:00 [Theralith XR] calcitriol [Rocaltrol] 0.5 mcg PO BID #0 04/17/17 02/13/19 02/13/19 08:00 ascorbic acid (vitamin C) 250 mg PO DAILY #0 12/23/17 02/13/19 02/13/19 ferrous sulfate 324 mg PO DAILY #0 01/02/13/19 02/13/19 magnesium chloride [Slow-Mag] 71.5 mg PO DAILY #0 12/23/17 02/13/19 02/13/19 uwrboroo-ezh-hklg-FA-lutein 1 tab PO DAILY #0 12/23/17 02/13/19 02/13/19 [Centrum Silver Women] calcium carbonate [Calcium 600] 1,200 mg PO TID #0 05/17/18 02/13/19 02/13/19 08:00 cholestyramine (with sugar) 4 g PO BID #0 05/17/18 02/13/19 02/13/19 08:00 [Questran] potassium citrate 20 meq PO TID #0 05/17/18 02/13/19 02/13/19 08:00 Past Medical History Medical History Asthma History of blood clots x2 occurrences in right leg Kidney stones chronic kidney stones Malabsorption Osteoarthritis Past Family History Family History Other Cancer Diabetes Heart disease Hypertension Past Surgical History Surgical History History of appendectomy History of bariatric surgery History of cholecystectomy History of lithotripsy History of total right knee replacement History of tubal ligation Social History Smoking Status: Former smoker Smoking End Date: age 22 Hx Alcohol Use: Yes (socially, maybe 1 drink per month) Hx Substance Use: No Physical Exam Vital Signs Last Vital Signs Temp 37.0 C 02/13/19 13:44 Pulse 114 H 02/13/19 18:21 Resp 21 02/13/19 18:21 BP 106/66 02/13/19 18:21 Pulse Ox 96 02/13/19 18:21 Testing Electrocardiogram Date: 02/13/19 Findings: + ST @ (119) Other Testing 11/30/18 KUB: Bilateral nephrolithiasis without ureteral calculi identified. Laboratory Results 02/13/19 15:05 02/13/19 15:05 Urine Color Yellow 02/13/19 16:10 Urine Appearance Cloudy (Clear) H 02/13/19 16:10 Urine pH 5.0 (4.5-7.5) 02/13/19 16:10 Ur Specific [place] 1.016 (1.000-1.030) 02/13/19 16:10 Urine Protein 1+ (Negative) H 02/13/19 16:10 Urine Glucose (UA) Negative (Negative) 02/13/19 16:10 Urine Ketones Negative (Negative) 02/13/19 16:10 Urine Nitrite Positive (Negative) H 02/13/19 16:10 Ur Leukocyte Esterase 3+ (Negative) H 02/13/19 16:10 Urine WBC (Auto) >30 /hpf (0-5) H 02/13/19 16:10 Urine RBC (Auto) 0-4 /hpf (0-4) 02/13/19 16:10 U Hyaline Cast (Auto) 0 /lpf (0-5) 02/13/19 16:10 U Epithel Cells (Auto) 5-10 /lpf (0-5) H 02/13/19 16:10 Urine Bacteria (Auto) 4+ (Negative) H 02/13/19 16:10
[2019-02-13] MEDS ORDERED: IOTHALAMATE MEGLUMINE II 17.2% 250 ML VIAL ONE (18:26)
--- NOTE | 2019-02-13 18:29 | Urology Consultation ---
Date of Consultation February 13, 2019 Assessment & Plan (1) Kidney stone: obstructing left ureteral stones and concern for early sepsis - plan for cysto, stent placement (LEFT) now - admission - abx coverage/fluid resuscitation - risks, benefits, and alternatives discussed - pt has expressed good understanding History of Present Illness History of Present Illness 69-year-old female with a history of kidney stones and prior episode of urosepsis related to an obstructing stone and concurrent infection Presented to the emergency room today with left-sided flank pain and ill feeling Found to have UA concerning for urinary tract infection, tachycardia, severe pain, elevated lactate, 2 distal left ureteral stones identified on CT In addition a consultation to the hospitalist for admission, urology was consulted for potential intervention to relieve her obstructing left ureteral calculi Allergies Allergy/AdvReac Type Severity Reaction Status Date / Time bee venom protein (honey bee) Allergy Severe HIVES Verified 02/13/19 15:21 DIFFICULTY BREATHING WENT TO HOSPITAL erythromycin base Allergy Severe RASH Verified 02/13/19 15:21 LASTED FOR WEEK Penicillins Allergy Intermediate HIVES Verified 02/13/19 15:21 SWELLING benzonatate Allergy Mild itchy Verified 02/13/19 15:21 doxycycline Allergy Mild RASH Verified 02/13/19 15:21 Macrolide Antibiotics Allergy Unknown ITCHY,RASH Verified 02/13/19 15:21 wheat Allergy Unknown CELIAC Verified 02/13/19 15:21 DISEASE-ABD CRAMPING,DIARRHEA cephalexin AdvReac Mild DIARRHEA Verified 02/13/19 15:21 lactose AdvReac Unknown GI ISSUES Verified 02/13/19 15:21 Home Medications Home Medications Medication Instructions Recorded Confirmed Type cyanocobalamin (vitamin B-12) 1,000 mcg PO DAILY #0 06/25/09 02/13/19 History Lactobacillus acidoph-L.bulgar 1 tab PO TID #0 11/25/15 02/13/19 History [Floranex] epinephrine [EpiPen] 0.3 mg IM Q3H PRN #0 11/25/15 02/13/19 History vit B6-mag cit,oxid-potass cit 2 tab PO TID #0 11/25/15 02/13/19 History [Theralith XR] calcitriol [Rocaltrol] 0.5 mcg PO BID #0 04/17/17 02/13/19 History ascorbic acid (vitamin C) 250 mg PO DAILY #0 12/23/17 02/13/19 History ferrous sulfate 324 mg PO DAILY #0 12/23/17 02/13/19 History magnesium chloride [Slow-Mag] 71.5 mg PO DAILY #0 12/23/17 02/13/19 History zpqunxyl-egb-zjam-FA-lutein 1 tab PO DAILY #0 12/23/17 02/13/19 History [Centrum Silver Women] calcium carbonate [Calcium 600] 1,200 mg PO TID #0 05/17/18 02/13/19 History cholestyramine (with sugar) 4 g PO BID #0 05/17/18 02/13/19 History [Questran] potassium citrate 20 meq PO TID #0 05/17/18 02/13/19 History Patient History Medical History Asthma History of blood clots x2 occurrences in right leg Kidney stones chronic kidney stones Malabsorption Osteoarthritis Surgical History History of appendectomy History of bariatric surgery History of cholecystectomy History of lithotripsy History of total right knee replacement History of tubal ligation Family History Other Cancer Diabetes Heart disease Hypertension Social History Feels Safe at Home: Yes Smoking Status: Former smoker Hx Alcohol Use: Yes (socially, maybe 1 drink per month) Hx Substance Use: No Review of Systems Constitutional: as per Subjective / HPI, + chills, + body aches and + malaise; no fever Respiratory: no cough and no dyspnea Cardiovascular: no chest pain and no dyspnea Gastrointestinal: + abdominal pain and + nausea Genitourinary (Female): as per Subjective / HPI, + dysuria and + problem reported Musculoskeletal: no back pain and no neck pain Integumentary: no rash Endocrine: no fatigue Physical Exam Vital Signs (Past 24 Hours): Last Vital Signs Temp 37.0 C 02/13/19 13:44 Pulse 114 H 02/13/19 18:21 Resp 21 02/13/19 18:21 BP 106/66 02/13/19 18:21 Pulse Ox 96 02/13/19 18:21 Physical Exam: AF - tachy normotensive AAOx3 NAD - comfortable appearing no resp distress abd soft, mild L CVA tenderness no rebound/guarding no edema - no adenopathy - no rash
[2019-02-13] MEDS ORDERED: HYDROmorphone INJ 1 MG/ML SYRINGE IV PRN (18:51)
[2019-02-13] MEDS ORDERED: fentaNYL citrate 100 MCG/2 ML VIAL IV PRN (18:51)
[2019-02-13] MEDS ORDERED: ONDANSETRON INJ 2 MG/ML 2 ML VIAL IV PRN ×2 (18:51→20:12)
[2019-02-13] MEDS ORDERED: ATROPINE SULFATE 0.1 MG/ML 10ML SYR IV PRN (18:51)
[2019-02-13] MEDS ORDERED: ePHEDrine sulfate 50 MG/ML AMP IV PRN (18:51)
[2019-02-13] MEDS ORDERED: fentaNYL citrate 100 MCG/2 ML VIAL ONE (18:56)
[2019-02-13] MEDS ORDERED: PROPOFOL IV EMULSION 10 MG/ML 20 ML VIAL IV ONE (18:56)
[2019-02-13] MEDS ORDERED: LIDOCAINE HCL 2% 2 ML VIAL/AMP(20MG/ML) INFIL ONE (18:56)
[2019-02-13] MEDS ORDERED: PHENYLEPHRINE 100MCG/ML 5ML SYR ONE (19:12)
--- NOTE | 2019-02-13 19:26 | Operative Report ---
Post Operative Report Pre & Post Diagnosis Operation Date: 02/13/19 18:00 Pre-Op Diagnosis: KIDNEY STONE MOVING , LT SIDE PAIN-VOMITTING Post-Op Diagnosis: KIDNEY STONE MOVING , LT SIDE PAIN-VOMITTING Procedure Operation Date: 02/13/19 18:00 Actual Procedures p Ureteral Stent Insertion/Removal(Left) - Alvin Spangler MD Surgeon Jaden Spangler MD Optical Laboratory Technician none Estimated Blood Loss 0 Findings Consistent with Post-Op Diagnosis Specimens none Description of Procedure Patient was identified in the preoperative holding area, appropriate informed consents reviewed and completed and she was transported to the operating suite. Upon arrival she received appropriate sedation. Of note she received a dose of cefepime in the emergency room prior to my initial consultation. Following sterile prep and drape, a 22.5 [place]an cystoscope was inserted per urethra for inspection of the bladder conducted. She had cloudy appearing urine. There were no stones within the bladder. There were no tumors. Ureteral orifices were in orthotopic position. There was slight mounding of the distal left ureter. Following my inspection, I turned my attention to the left ureteral orifice and cannulated with a sensor wire and a 5 [place]an open-ended catheter. Of note there is an opacity visualized in the presumed area of the distal left ureter. I was able to pass the wire beyond this without difficulty. The wire advanced to the presumed level of the kidney comfortably. There was an output of cloudy appearing urine immediately after the wire bypassed the stone. I proceeded to place a 6 [place]an by 24 cm double-J ureteral stent over the wire. I saw good curl in the kidney as well as the bladder. I decompressed the bladder after confirming that there was drainage through and around the stent. Patient was reversed from anesthesia and taken to the recovery room in stable condition. There were no complications. I attest to the content of the Intraoperative Record and any orders documented therein. Any exceptions are noted below.
--- NOTE | 2019-02-13 19:34 | Fluoroscopy Report ---
FL KUB CLINICAL HISTORY: CYSTO, STENTstent placement COMPARISON STUDY: None FLUOROSCOPY TIME: 5 seconds NUMBER OF FLUOROSCOPIC IMAGES: 2 FINDINGS: Image intensifier was utilized for a left ureteral stent placement IMPRESSION: Image intensifier usage for a left ureteral stent placement The above report was generated using voice recognition software. It may contain grammatical, syntax or spelling errors. Electronically signed by: Arcadio Figueroa M.D. 02/13/2019 7:32 PM
--- NOTE | 2019-02-13 19:46 | Anesthesiology Progress Note ---
Date of Service February 13, 2019 Anesthesia Post Procedure Vital Signs Vital Signs: Temp Pulse Pulse Pulse Resp BP BP 02/13/19 19:35 103 H 18 99/53 L 02/13/19 19:29 36.6 C 105 H 15 90/48 L 02/13/19 18:21 114 H 21 106/66 02/13/19 17:54 116 H 20 90/71 L 02/13/19 15:25 193/117 H 02/13/19 13:44 37.0 C 99 H 20 176/75 H Pulse Ox 02/13/19 19:35 95 02/13/19 19:29 95 02/13/19 18:21 96 02/13/19 17:54 97 02/13/19 15:25 02/13/19 13:44 95 Pain Intensity Left Flank: Pain Intensity: 0 Notes Mental Status: alert / awake / arousable and participated in evaluation Patient Amnestic to Procedure: Yes Nausea / Vomiting: adequately controlled Pain: adequately controlled Airway Patency, RR, SpO2: stable & adequate BP & HR: stable & adequate Hydration State: stable & adequate Anesthetic Complications: no major complications apparent
[2019-02-13] MEDS ORDERED: MAGNESIUM HYDROXIDE SUSP 30 ML UDC PO PRN (20:12)
[2019-02-13] MEDS ORDERED: MoRPHine SULFATE 2 MG/ML CARP IV PRN (20:12)
[2019-02-13] MEDS: ACETAMINOPHEN 325 MG TAB PO PRN (20:46)
[2019-02-13] MEDS: SODIUM CHLOR 0.45% + 20MEQ KCL 20 MEQ/1,000 ML BAG IV SCH (21:18)
[2019-02-13] MEDS ORDERED: SODIUM CHLORIDE 0.9% 500 ML IV SCH (23:15)
[2019-02-14] MEDS ORDERED: SODIUM CHLORIDE 0.9% 1000ML 1,000 ML IV ONE ×2 (00:18→02:42)
[2019-02-14] MEDS ORDERED: CEFEPIME CONSULT ACTIVE PRN (02:57)
[2019-02-14] MEDS ORDERED: CEFEPIME 2,000 MG in SYRINGE 7.5 ML IV SCH ×2 (03:00→18:00)
[2019-02-14 03:27] LABS: Hematocrit (blood only) 28.9 % (37-47); Hemoglobin 9.7 g/dL (12.0-16.0); Mean Corpuscular Hgb Conc 33.6 g/dL (32-36); Mean Corpuscular Volume 105.9 fL (80-100); Mean Platelet Volume 11.6 fL (7.4-10.4); Platelet Count 134 K/uL (130-400); RDW Coefficient of Variation 13.4 % (11.5-14.5); RDW Standard Deviation 51.6 fL (36.4-46.3); Red Blood Count 2.73 M/uL (4.2-5.4)
[2019-02-14 03:42] LABS: Albumin Level 2.4 gm/dl (3.4-5.0); BUN Creatinine Ratio 22.3 (10-20); Bilirubin,Total 0.7 mg/dl (0.2-1); Calcium 7.3 mg/dl (8.5-10.1); Creatinine Clr Calc Pharmacy 27.7 ml/min; Est GFR (African American) 31.2; Est GFR (Non-African American) 26.9; Globulin 2.4 gm/dl (2.5-4.0); Potassium 4.2 mmol/L (3.5-5.1); Total Protein 4.8 gm/dl (6.4-8.2)
[2019-02-14 03:50] LABS: Basophils # (auto) 0.03 K/uL (0-0.2); Basophils % (auto) 0.1 %; Eosinophils # (auto) 0.07 K/uL (0-0.5); Eosinophils % (auto) 0.3 %; Immature Granulocytes # (auto) 0.17 K/uL (0.00-0.02); Immature Granulocytes % (auto) 0.7 %; Lymphocytes # (auto) 0.68 K/uL (1.2-3.4); Lymphocytes % (auto) 2.9 %; Monocytes # (auto) 1.14 K/uL (0.11-0.59); Monocytes % (auto) 4.9 %; Neutrophils # (auto) 21.41 K/uL (1.4-6.5); Neutrophils % (auto) 91.1 %; RBC Morphology Unremarkable
[2019-02-14] MEDS ORDERED: SODIUM CHLORIDE 0.9% 1000ML 1,000 ML IV SCH (09:45)
[2019-02-14] MEDS: SODIUM CHLOR 0.45% + 20MEQ KCL 20 MEQ/1,000 ML BAG IV SCH (10:07)
[2019-02-14] MEDS ORDERED: SODIUM CHLORIDE 0.9% 1000ML 500 ML IV ONE (11:21)
--- NOTE | 2019-02-14 11:47 | Critical Care Consultation ---
Date of Consultation February 14, 2019 Assessment & Plan (1) ARF (acute renal failure): Impression: 1. Sepsis secondary to UTI. 2. UTI, cannot rule out acute pyelonephritis with pain seems to be on the right rather than the left. 3. Acute on chronic kidney disease. 4. 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 Plan: 1. Continue with cefepime. 2. Pain control. 3. Nausea control. 4. Change IV fluid to normal saline and run it at 125 an hour. 5. Use boluses of saline to support blood pressure. 6. I would add hydrocortisone for blood pressure support. 7. No need for pressors at the moment. 8. Oral intake. 9. Heparin subcu. 10. PPI. 11. Appreciate urology input. 12. Discussed with Dr. Rodarte, appreciate his assistance. Discussed with the staff on rounds and details, critical care time spent with the patient was 45 minutes including coordinating the above. History of Present Illness Reason for Consultation: Sepsis Requesting Physician: Dr. Rodarte Attending Physician: Jose Rodarte MD History of Present Illness Dear Dr. Rodarte: Thank you for the kind referral Mrs. Kaba to critical care service. This is 69-year-old female who with history of urolithiasis, cholecystectomy, Billroth II over 4 years ago, presented to the hospital with left flank pain and found to have hydronephrosis, the patient was treated initially for UTI and was taken to the OR by Dr. Spangler and underwent stenting of the left ureter. The patient did well postop. And today on the floor she become hypotensive and transferred to the ICU for further management. Concerns for sepsis. When I interviewed the patient, she denies any nausea or vomiting at the moment, she feels no discomfort mainly on the right side but not similar to previous pain from urolithiasis according to her. She denies any diarrhea, does not feel dizzy, she speaks in full sentences and she IS mentating very well. No fever was reported, blood pressure however was on the low side. She is duralumin mechanic the periphery and she does not have any dysuria or increased frequency of urination. Her urine output was limited. No increased swelling in her lower extremities. Allergies Allergy/AdvReac Type Severity Reaction Status Date / Time bee venom protein (honey bee) Allergy Severe HIVES Verified 02/13/19 15:21 DIFFICULTY BREATHING WENT TO HOSPITAL erythromycin base Allergy Severe RASH Verified 02/13/19 15:21 LASTED FOR WEEK Penicillins Allergy Intermediate HIVES Verified 02/13/19 15:21 SWELLING benzonatate Allergy Mild itchy Verified 02/13/19 15:21 doxycycline Allergy Mild RASH Verified 02/13/19 15:21 Macrolide Antibiotics Allergy Unknown ITCHY,RASH Verified 02/13/19 15:21 wheat Allergy Unknown CELIAC Verified 02/13/19 15:21 DISEASE-ABD CRAMPING,DIARRHEA cephalexin AdvReac Mild DIARRHEA Verified 02/13/19 15:21 lactose AdvReac Unknown GI ISSUES Verified 02/13/19 15:21 Home Medications Home Medications Medication Instructions Recorded Confirmed Type cyanocobalamin (vitamin B-12) 1,000 mcg PO DAILY #0 06/25/09 02/13/19 History Lactobacillus acidoph-L.bulgar 1 tab PO TID #0 11/25/15 02/13/19 History [Floranex] epinephrine [EpiPen] 0.3 mg IM Q3H PRN #0 11/25/15 02/13/19 History vit B6-mag cit,oxid-potass cit 2 tab PO TID #0 11/25/15 02/13/19 History [Theralith XR] calcitriol [Rocaltrol] 0.5 mcg PO BID #0 04/17/17 02/13/19 History ascorbic acid (vitamin C) 250 mg PO DAILY #0 12/23/17 02/13/19 History ferrous sulfate 324 mg PO DAILY #0 12/23/17 02/13/19 History magnesium chloride [Slow-Mag] 71.5 mg PO DAILY #0 12/23/17 02/13/19 History qkyjltco-npf-cqsa-FA-lutein 1 tab PO DAILY #0 12/23/17 02/13/19 History [Centrum Silver Women] calcium carbonate [Calcium 600] 1,200 mg PO TID #0 05/17/18 02/13/19 History cholestyramine (with sugar) 4 g PO BID #0 05/17/18 02/13/19 History [Questran] potassium citrate 20 meq PO TID #0 05/17/18 02/13/19 History Patient History Medical History Asthma History of blood clots x2 occurrences in right leg Kidney stones chronic kidney stones Malabsorption Osteoarthritis Surgical History History of appendectomy History of bariatric surgery History of cholecystectomy History of lithotripsy History of total right knee replacement History of tubal ligation Family History Other Cancer Diabetes Heart disease Hypertension Social History Preferred Language: Icelandic Communication Ability: Effective Beliefs That Will Affect Care: Congregation Current Living Situation: Spouse Other Information That Helps Us Care for You: No Feels Safe at Home: Yes Safety Concerns: Feels Safe At This Time Smoking Status: Former smoker Hx Alcohol Use: Yes Hx Substance Use: No Review of Systems Review of system otherwise was unremarkable. Physical Exam Vital Signs (Past 24 Hours): Last Vital Signs Temp 37.1 C 02/14/19 07:07 Pulse 78 02/14/19 11:01 Resp 22 02/14/19 11:01 BP 86/48 L 02/14/19 11:01 Pulse Ox 98 02/14/19 11:01 Physical Exam: Vital signs remained stable except for blood pressure this been borderline. S1-S2 regular rate and rhythm. Lungs with distant breath sounds bilaterally. Abdomen is soft and benign but obese. I did not appreciate any tenderness. Bowel sounds are positive. She has trace edema in the periphery no pain in her calves. Neurologically she is intact. Oral mucosa is dry. No rash. Results & Data Laboratory Results Labs were reviewed which showed leukocytosis, bandemia, BUN and creatinine 41 and 1.85 which is up from her baseline. Lactic acid dropped down from 4-2.1. UA with positive sediment. Diagnostic Findings CAT scan of the abdomen showed left hydronephrosis with urolithiasis.
[2019-02-14] MEDS ORDERED: HYDROmorphone INJ 0.5 MG/0.5 ML SYR IV PRN (11:48)
[2019-02-14] MEDS ORDERED: LIDOCAINE HCL 2% (LOCAL) INJ 50 ML VIAL ONE (12:24)
--- NOTE | 2019-02-14 12:48 | Hospitalist Progress Note ---
Date of Service February 14, 2019 Assessment & Plan (1) Acute UTI: Note on UA on 02/13. Urine cx pending. Probable pyelonephritis as operative report notes cloudy fluid being released after the scope passed the kidney stone. - Continue cefepime - Follow culture - Fluids and possible pressors per critical care (2) Septic shock: Entered septic shock overnight of 02/13-02/14, as her BP remained <90/50 (as low as 65/40) despite multiple IV fluid boluses. - As of 02/14, BP remains low (most recent 80/50). - IV fluids and pressors per critical care team (3) Sepsis: Present on arrival with tachycardia and leukocytosis. From presumed UTI and left-sided pyelonephritis (operative report notes cloudy fluid being released after passing the stone). - Treat as above for UTI (4) Kidney stone on left side: Underwent left-sided stent insertion on 02/[address] Spangler (urology). - Pain control and plan as above (5) ARF (acute renal failure): Normal baseline Cr of ~1. On admission, up to 1.5. Initially thought to be related to her kidney stone; however, my concern is she may have hypotension- related injury as her 02/14 AM Cr was 1.8. - IV fluids as above - Monitor Cr (6) DVT prophylaxis: Heparin 5000 BID Subjective 69yo F w/ hx of kidney stone who presents with right-sided kidney stone, and concern for UTI/pyelonephritis with sepsis. Patient is fatigued this morning and feels some bilateral arm numbness. She reports right flank pain, but no dysuria. Reports no fevers/chills, chest pain, shortness of breath, abdominal pain, nausea, or vomiting. Physical Exam Vital Signs (Past 24 Hours): Last Vital Signs Temp 37.1 C 02/14/19 07:07 Pulse 78 02/14/19 11:01 Resp 22 02/14/19 11:01 BP 86/48 L 02/14/19 11:01 Pulse Ox 98 02/14/19 11:01 Constitutional: WD/WN, vitals as above Eyes: normal visual adair by confrontation and + anicteric sclerae Neck: normal visual inspection and trachea midline Respiratory: normal respiratory effort, lungs clear to auscultation Cardiovascular: Rate/Rhythm: regular rate and regular rhythm Gastrointestinal (Abdomen): Inspection/Auscultation: abdomen not distended Percussion/Palpation: abdomen soft; abdomen nontender Musculoskeletal: Head/Neck/Chest: normocephalic and head atraumatic Skin: no rashes, warm and dry Neurologic: awake; not confused Speech / Cognition: normal speech Psychiatric: A+Ox3, euthymic affect (1) Sepsis Sepsis type: sepsis due to unspecified organism Qualified Code(s): A41.9 - Sepsis, unspecified organism
[2019-02-14 13:32] LABS: INR 1.4 (0.9-1.1); Prothrombin Time 13.8 Seconds (9.0-12.0)
--- NOTE | 2019-02-14 13:56 | XRay Report ---
XR chest 1V portable HISTORY: S/P Central line COMPARISON: Chest 02/22/2018. FINDINGS: No pneumothorax. No pleural effusions. Low lung volumes. The heart remains mildly enlarged. Mild central pulmonary vascular congestion without overt edema. Right jugular central venous cathete r terminates at the distal SVC. IMPRESSION: 1. Right jugular central venous catheter terminates at the distal SVC. 2. No pneumothorax. 3. Mild central pulmonary vascular congestion without overt edema. Electronically signed by: Theodore Heart M.D. 02/14/2019 1:55 PM
--- NOTE | 2019-02-14 14:31 | Procedure Note ---
Procedure Note Date of Service February 14, 2019 Note A line was placed in the right radial area, the need for confirming the accuracy of noninvasive blood pressure measurement, the procedure was done after consent from the patient, under strict sterile field, right radial area access, the skin was prepped with chlorhexidine, using Seldinger technique, 3 attempts, the patient does have a beaded A-line. The catheter was inserted, and secured with one suture, a waves were noted on the monitor, there is a huge discrepancy between the A-line and a noninvasive blood pressure measurement. This likely representing PAD. The patient tolerated the procedure very well, I had to give the patient 2 mL of 1% lidocaine topical. No immediate complication.
--- NOTE | 2019-02-14 14:32 | Procedure Note ---
Procedure Note Date of Service February 14, 2019 Note Central line was placed for possible use of pressors, consent obtained from the patient, risk and benefit explained the details, agreed to the procedure. The patient had the skin prepped with chlorhexidine in the right IJ anterior and p osterior as well as a subclavian area, the skin was injected with 5 mL of 1% lidocaine, under ultrasound guidance, using Seldinger technique, one attempt, no scalpel was used, only a dilator, the line was placed to 15 cm, all ports were flushed with saline, and secured with 2 sutures, covered with surgical dressing, complete sterility, no immediate complication, tolerated the procedure very well. Chest x-ray is pending and I would review it.
[2019-02-14] MEDS ORDERED: PERFLUTREN LIPID MICROSPHERE (DEFINITY) IV ONE (15:58)
[2019-02-14] MEDS ORDERED: FUROSEMIDE 40 MG in SYRINGE 0 ML IV PRN (16:09)
[2019-02-14] MEDS ORDERED: FUROSEMIDE 40 MG/4 ML VIAL IV PRN (16:12)
[2019-02-14] MEDS ORDERED: CEFEPIME 1,000 MG in SYRINGE 0 ML IV SCH (18:00)
[2019-02-14] MEDS: SODIUM CHLORIDE 0.9% 1000ML 1,000 ML IV SCH (18:15)
[2019-02-14] MEDS: HEPARIN SOD 5,000 UNIT/0.5 ML VIAL SQ SCH (20:59)
--- NOTE | 2019-02-14 22:04 | Urology Progress Note ---
Date of Service February 14, 2019 Assessment & Plan (1) Calculus of kidney: A/P 69 yo female with urosepsis with obstructing stone, POD#1 s/p cysto, L stent placement. Patient's septic decompensation seems to be improving. Continue ICU care and appropriate antibiotics. I expect ~2 weeks of culture directed therapy. Indwelling stent in place, will coordinate definitive stone management as outpatient. No further acute intervention should be needed at this time. Will follow with primary service. Thank you for allowing us to participate in this patient's acute care. Subjective Patient seen in PM rounds, and daughter in room in ICU. Patient in good spirits, seems clinically improved. She notes fatigue and back pain, resting in bed. No pressor support per ICU nursing. Past events including transfer to ICU for septic decompensation reviewed, labs and imaging noted. Cultures show pansensitive E. Coli. Constitutional: + fever, + chills and + fatigue Ear, Nose, Mouth, Throat: no ear trauma Respiratory: no dyspnea and no hemoptysis Cardiovascular: no chest pain Gastrointestinal: + abdominal pain; no nausea and no vomiting Integumentary: no acne and no boil Neurologic: no paralysis Psychiatric: no hopelessness Endocrine: + fatigue Physical Exam Vital Signs (Past 24 Hours): Last Vital Signs Temp 37.2 C 02/14/19 16:00 Pulse 92 H 02/14/19 20:00 Resp 21 02/14/19 17:18 BP 101/51 L 02/14/19 17:18 Pulse Ox 93 02/14/19 17:18 Constitutional: + obese; no acute distress Neck: trachea midline; no anterior neck swelling Respiratory: no respiratory distress and does not use accessory muscles Cardiovascular: Vessels: radial pulses present Gastrointestinal (Abdomen): Percussion/Palpation: abdomen soft; no guarding Skin: normal turgor Neurologic: awake; not obtunded Psychiatric: Orientation: alert Lymphatic: no lymphadenopathy Results & Data Laboratory Results Laboratory Results - last 48 hr 02/13/19 02/13/19 02/13/19 15:05 15:05 15:14 WBC 13.63 H RBC 3.68 L Hgb 12.6 Hct 38.6 MCV 104.9 H MCH 34.2 H MCHC 32.6 RDW Std Deviation 49.3 H RDW Coeff of Khushi 13.0 Plt Count 198 MPV 11.2 H Immature Gran % (Auto) 0.2 Neut % (Auto) 94.2 Lymph % (Auto) 5.2 [place] % (Auto) 0.2 Eos % (Auto) 0.1 Baso % (Auto) 0.1 Immature Gran # (Auto) 0.03 H Neut # (Auto) 12.83 H Lymph # (Auto) 0.71 L [place] # (Auto) 0.03 L Eos # (Auto) 0.02 Baso # (Auto) 0.01 RBC Morphology PT INR Sodium 142 Potassium 4.6 Chloride 110 H Carbon Dioxide 24 Anion Gap 8.0 BUN 37 H Creatinine 1.54 H Est Cr Clr Drug Dosing 32.8 Est GFR ( Amer) 38.9 Est GFR (Non-Af Amer) 33.6 BUN/Creatinine Ratio 24.0 H Glucose 115 H POC Glucose POC Lactic Acid Chris 4.00 H Lactate Calcium 9.6 Total Bilirubin 0.8 AST 79 H ALT 53 Alkaline Phosphatase 94 Troponin I < 0.015 NT-Pro-B Natriuret Pep Total Protein 7.2 Albumin 4.0 Globulin 3.2 Albumin/Globulin Ratio 1.3 Lipase 107 Urine Color Urine Appearance Urine pH Ur Specific [place] Urine Protein Urine Glucose (UA) Urine Ketones Urine Blood Urine Nitrite Urine Bilirubin Urine Urobilinogen Ur Leukocyte Esterase Urine WBC (Auto) Urine RBC (Auto) U Hyaline Cast (Auto) U Epithel Cells (Auto) Urine Bacteria (Auto) Urine Crystals 02/13/19 02/14/19 02/14/19 16:10 03:07 03:07 WBC 23.50 H RBC 2.73 L Hgb 9.7 L Hct 28.9 L MCV 105.9 H MCH 35.5 H MCHC 33.6 RDW Std Deviation 51.6 H RDW Coeff of Khushi 13.4 Plt Count 134 MPV 11.6 H Immature Gran % (Auto) 0.7 Neut % (Auto) 91.1 Lymph % (Auto) 2.9 [place] % (Auto) 4.9 Eos % (Auto) 0.3 Baso % (Auto) 0.1 Immature Gran # (Auto) 0.17 H Neut # (Auto) 21.41 H Lymph # (Auto) 0.68 L [place] # (Auto) 1.14 H Eos # (Auto) 0.07 Baso # (Auto) 0.03 RBC Morphology Unremarkable PT INR Sodium 142 Potassium 4.2 Chloride 113 H Carbon Dioxide 20 L Anion Gap 9.0 BUN 41 H Creatinine 1.85 H D Est Cr Clr Drug Dosing 27.7 Est GFR ( Amer) 31.2 Est GFR (Non-Af Amer) 26.9 BUN/Creatinine Ratio 22.3 H Glucose 94 POC Glucose POC Lactic Acid Chris Lactate Calcium 7.3 L D Total Bilirubin 0.7 AST 118 H ALT 117 H Alkaline Phosphatase 94 Troponin I NT-Pro-B Natriuret Pep Total Protein 4.8 L D Albumin 2.4 L Globulin 2.4 L Albumin/Globulin Ratio 1.0 Lipase Urine Color Yellow Urine Appearance Cloudy H Urine pH 5.0 Ur Specific [place] 1.016 Urine Protein 1+ H Urine Glucose (UA) Negative Urine Ketones Negative Urine Blood 1+ H Urine Nitrite Positive H Urine Bilirubin Negative Urine Urobilinogen Negative Ur Leukocyte Esterase 3+ H Urine WBC (Auto) >30 H Urine RBC (Auto) 0-4 U Hyaline Cast (Auto) 0 U Epithel Cells (Auto) 5-10 H Urine Bacteria (Auto) 4+ H Urine Crystals Not Reportable 02/14/19 02/14/19 02/14/19 03:07 09:46 13:06 WBC RBC Hgb Hct MCV MCH MCHC RDW Std Deviation RDW Coeff of Khushi Plt Count MPV Immature Gran % (Auto) Neut % (Auto) Lymph % (Auto) [place] % (Auto) Eos % (Auto) Baso % (Auto) Immature Gran # (Auto) Neut # (Auto) Lymph # (Auto) [place] # (Auto) Eos # (Auto) Baso # (Auto) RBC Morphology PT 13.8 H INR 1.4 H Sodium Potassium Chloride Carbon Dioxide Anion Gap BUN Creatinine Est Cr Clr Drug Dosing Est GFR ( Amer) Est GFR (Non-Af Amer) BUN/Creatinine Ratio Glucose POC Glucose POC Lactic Acid Chris Lactate 3.5 H* 2.1 H* Calcium Total Bilirubin AST ALT Alkaline Phosphatase Troponin I NT-Pro-B Natriuret Pep Total Protein Albumin Globulin Albumin/Globulin Ratio Lipase Urine Color Urine Appearance Urine pH Ur Specific [place] Urine Protein Urine Glucose (UA) Urine Ketones Urine Blood Urine Nitrite Urine Bilirubin Urine Urobilinogen Ur Leukocyte Esterase Urine WBC (Auto) Urine RBC (Auto) U Hyaline Cast (Auto) U Epithel Cells (Auto) Urine Bacteria (Auto) Urine Crystals 02/14/19 02/14/19 02/14/19 16:08 16:08 19:42 WBC RBC Hgb Hct MCV MCH MCHC RDW Std Deviation RDW Coeff of Khushi Plt Count MPV Immature Gran % (Auto) Neut % (Auto) Lymph % (Auto) [place] % (Auto) Eos % (Auto) Baso % (Auto) Immature Gran # (Auto) Neut # (Auto) Lymph # (Auto) [place] # (Auto) Eos # (Auto) Baso # (Auto) RBC Morphology PT INR Sodium Potassium Chloride Carbon Dioxide Anion Gap BUN Creatinine Est Cr Clr Drug Dosing Est GFR ( Amer) Est GFR (Non-Af Amer) BUN/Creatinine Ratio Glucose POC Glucose 104 H POC Lactic Acid Chris Lactate 0.9 Calcium Total Bilirubin AST ALT Alkaline Phosphatase Troponin I NT-Pro-B Natriuret Pep 8550 H Total Protein Albumin Globulin Albumin/Globulin Ratio Lipase Urine Color Urine Appearance Urine pH Ur Specific [place] Urine Protein Urine Glucose (UA) Urine Ketones Urine Blood Urine Nitrite Urine Bilirubin Urine Urobilinogen Ur Leukocyte Esterase Urine WBC (Auto) Urine RBC (Auto) U Hyaline Cast (Auto) U Epithel Cells (Auto) Urine Bacteria (Auto) Urine Crystals
[2019-02-14] MEDS: ACETAMINOPHEN 325 MG TAB PO PRN (22:23)
[2019-02-15] MEDS: SODIUM CHLORIDE 0.9% 1000ML 1,000 ML IV SCH ×2 (01:55→07:49)
[2019-02-15 03:53] LABS: INR 1.4 (0.9-1.1); Prothrombin Time 14.2 Seconds (9.0-12.0)
[2019-02-15 04:19] LABS: Albumin Level 2.2 gm/dl (3.4-5.0); BUN Creatinine Ratio 28.6 (10-20); Bilirubin Direct 0.3 mg/dl (0-0.2); Bilirubin,Total 0.8 mg/dl (0.2-1); Calcium 6.8 mg/dl (8.5-10.1); Creatinine Clr Calc Pharmacy 34.8 ml/min; Est GFR (African American) 41.2; Est GFR (Non-African American) 35.5; Magnesium 0.7 mg/dl (1.8-2.4); Potassium 4.1 mmol/L (3.5-5.1); Total Protein 4.9 gm/dl (6.4-8.2)
[2019-02-15 04:29] LABS: Hematocrit (blood only) 27.5 % (37-47); Hemoglobin 8.9 g/dL (12.0-16.0); Mean Corpuscular Hgb Conc 32.4 g/dL (32-36); Mean Corpuscular Volume 104.6 fL (80-100); Mean Platelet Volume 12.5 fL (7.4-10.4); Platelet Count 115 K/uL (130-400); RDW Coefficient of Variation 13.7 % (11.5-14.5); RDW Standard Deviation 51.9 fL (36.4-46.3); Red Blood Count 2.63 M/uL (4.2-5.4); White Blood Count 19.94 K/uL (4.8-10.8)
[2019-02-15 04:30] LABS: Basophils # (auto) 0.02 K/uL (0-0.2); Basophils % (auto) 0.1 %; Echinocytes 1+; Eosinophils # (auto) 0.25 K/uL (0-0.5); Eosinophils % (auto) 1.3 %; Immature Granulocytes # (auto) 0.69 K/uL (0.00-0.02); Immature Granulocytes % (auto) 3.5 %; Lymphocytes % (auto) 4.5 %; Monocytes # (auto) 1.01 K/uL (0.11-0.59); Monocytes % (auto) 5.1 %; Neutrophils # (auto) 17.07 K/uL (1.4-6.5); Neutrophils % (auto) 85.5 %; Platelet Estimate Decreased (Normal)
[2019-02-15] MEDS: MAGNESIUM SULFATE / D5W 1 GM/100 ML BAG IV SCH ×4 (05:26→10:04)
[2019-02-15] MEDS ORDERED: PANTOprazole 40 MG TAB PO SCH (09:00)
[2019-02-15] MEDS ORDERED: SODIUM CHLORIDE 0.9% 1000ML 1,000 ML IV SCH (09:00)
[2019-02-15] MEDS: HEPARIN SOD 5,000 UNIT/0.5 ML VIAL SQ SCH ×2 (10:03→20:35)
--- NOTE | 2019-02-15 13:05 | Hospitalist Progress Note ---
Date of Service February 15, 2019 Assessment & Plan (1) Acute UTI: Noted on UA on 02/13. Urine cx shows levi-sensitive E. coli. Probable pyelonephritis as operative report notes cloudy fluid being released after the scope passed the kidney stone. - Switch to ceftriaxone - Complicated UTI/pyelo, so will need prolonged antibiotic. (2) Septic shock: Entered septic shock overnight of 02/13-02/14, as her BP remained <90/50 (as low as 65/40) despite multiple IV fluid boluses. - Pressures normalized on 02/15, with BP in 125/70 range. - Transferred out of ICU on 02/15 (3) Sepsis: Present on arrival with tachycardia and leukocytosis. From presumed UTI and left-sided pyelonephritis (operative report notes cloudy fluid being released after passing the stone). - Treat as above for UTI (4) Kidney stone on left side: Underwent left-sided stent insertion on 02/[address] Spangler (urology). - Pain control and plan as above (5) ARF (acute renal failure): Normal baseline Cr of ~1. On admission, up to 1.5. Initially thought to be related to her kidney stone; however, her 02/14 AM Cr was 1.8. - On 02/15, Cr was returning to baseline at 1.5. - IV fluids as above - Monitor Cr (6) DVT prophylaxis: Heparin 5000 BID Subjective 69yo F w/ hx of kidney stone who presents with right-sided kidney stone, and concern for UTI/pyelonephritis with sepsis. Patient is better this morning. Improved appetite. Reports no fevers/chills, diana st pain, shortness of breath, abdominal pain, nausea, or vomiting. Physical Exam Vital Signs (Past 24 Hours): Last Vital Signs Temp 36.9 C 02/15/19 12:00 Pulse 80 02/15/19 12:00 Resp 20 02/15/19 12:00 BP 125/71 02/15/19 12:00 Pulse Ox 97 02/15/19 12:00 Constitutional: WD/WN, vitals as above + frail appearing Eyes: normal visual adair by confrontation and + anicteric sclerae Neck: normal visual inspection and trachea midline Respiratory: normal respiratory effort, lungs clear to auscultation Cardiovascular: Rate/Rhythm: regular rate and regular rhythm Gastrointestinal (Abdomen): Inspection/Auscultation: abdomen not distended Percussion/Palpation: abdomen soft; abdomen nontender Musculoskeletal: Head/Neck/Chest: normocephalic and head atraumatic Skin: no rashes, warm and dry Neurologic: awake; not confused Speech / Cognition: normal speech Psychiatric: A+Ox3, euthymic affect (1) Sepsis Sepsis type: sepsis due to unspecified organism Qualified Code(s): A41.9 - Sepsis, unspecified organism
--- NOTE | 2019-02-15 13:40 | Critical Care Progress Note ---
Date of Service February 15, 2019 Assessment & Plan (1) ARF (acute renal failure): Impression: 1. Sepsis secondary to UTI. 2. UTI, cannot rule out acute pyelonephritis with pain seems to be on the right rather than the left. 3. Acute on chronic kidney disease. 4. 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 5. Wide pulse pressure, etiology is unknown,? Diastolic heart failure. Plan: 1. changed to ceftriaxone 2 g IV daily to cover for pansensitive E. coli. In the urine. 2. Pain control. 3. Nausea control. 4. Decrease IV fluid to 80 mL an hour for 1 bag as the patient start taking orals. 5. Use boluses of saline to support blood pressure. 6. Discontinue hydrocortisone as the patient be normalized. 7. No need for pressors at the moment. 8. Oral intake. 9. Heparin subcu. 10. Discontinue PPI. 11. Appreciate urology input. 12. Discussed with Dr. Rodarte, appreciate his assistance of this patient to regular floor. 13. Daily labs. 14. Core measures for ICU has been met. Discussed with the staff on rounds and details, critical care time spent with the patient was 45 minutes including coordinating the above. Subjective The patient continued to do better, she is hemodynamically stable, does not have any altered mental status, denies any pain, she has no fever overnight, urine output is adequate, did not require any pressors, blood pressure has stabilized. Review of system otherwise was unremarkable. Physical Exam Vital Signs (Past 24 Hours): Last Vital Signs Temp 36.9 C 02/15/19 12:00 Pulse 80 02/15/19 12:00 Resp 20 02/15/19 12:00 BP 125/71 02/15/19 12:00 Pulse Ox 97 02/15/19 12:00 Physical Exam: Vital signs are stable, S1-S2 regular rate and rhythm, distant breath sounds bilaterally, abdomen is benign, no edema, neurologically she is intact. He is in good mood. Results & Data Laboratory Results Labs were reviewed which showed leukocytosis but better, hematocrit of 27, and platelets of 115. Diagnostic Findings No new imaging.
[2019-02-15 16:02] LABS: Magnesium 1.8 mg/dl (1.8-2.4); Phosphorus 1.3 mg/dl (2.5-4.9)
[2019-02-15] MEDS: POT PHOSPHATE MONOBASIC W/ SOD TAB PO SCH ×2 (16:44→20:34)
[2019-02-15] MEDS: cefTRIAXone SODIUM 2,000 MG in DEXTROSE 5% 50 ML IV SCH (17:50)
[2019-02-15] MEDS ORDERED: CEFEPIME 2,000 MG in SYRINGE 7.5 ML IV SCH (18:00)
[2019-02-15] MEDS: ACETAMINOPHEN 325 MG TAB PO PRN (21:59)
[2019-02-16 07:40] LABS: Hematocrit (blood only) 27.3 % (37-47); Mean Corpuscular Volume 104.2 fL (80-100); Mean Platelet Volume 12.3 fL (7.4-10.4); Platelet Count 109 K/uL (130-400); RDW Coefficient of Variation 13.7 % (11.5-14.5); RDW Standard Deviation 51.2 fL (36.4-46.3); Red Blood Count 2.62 M/uL (4.2-5.4); White Blood Count 16.49 K/uL (4.8-10.8)
[2019-02-16 08:15] LABS: BUN Creatinine Ratio 23.3 (10-20); Calcium 7.1 mg/dl (8.5-10.1); Creatinine Clr Calc Pharmacy 38.3 ml/min; Est GFR (African American) 44.5; Est GFR (Non-African American) 38.4; Magnesium 1.6 mg/dl (1.8-2.4); Potassium 3.7 mmol/L (3.5-5.1)
[2019-02-16 08:20] LABS: Phosphorus 2.7 mg/dl (2.5-4.9)
[2019-02-16] MEDS: POT PHOSPHATE MONOBASIC W/ SOD TAB PO SCH ×4 (08:44→20:58)
[2019-02-16] MEDS: HEPARIN SOD 5,000 UNIT/0.5 ML VIAL SQ SCH ×2 (08:45→20:58)
[2019-02-16] MEDS: MAGNESIUM SULFATE / D5W 1 GM/100 ML BAG IV SCH ×2 (09:04→10:14)
[2019-02-16 15:57] VITALS: O2SAT 96
--- NOTE | 2019-02-16 17:29 | Hospitalist Progress Note ---
Date of Service February 16, 2019 Assessment & Plan (1) Acute UTI: Noted on UA on 02/13. Urine cx shows levi-sensitive E. coli. Probable pyelonephritis as operative report notes cloudy fluid being released after the scope passed the kidney stone. - Switched to ceftriaxone - Complicated UTI/pyelo, so will need prolonged antibiotic - will need 2 weeks per urology note - Recurrent fevers continuing on 02/15; concern for bacteremia or continued infection - Blood cultures drawn on 02/16; will redraw if she has a fever - Discuss with urology in the morning if continued fever. (2) Septic shock: Entered septic shock overnight of 02/13-02/14, as her BP remained <90/50 (as low as 65/40) despite multiple IV fluid boluses. - Pressures normalized on 02/15, with BP in 125/70 range. - Transferred out of ICU on 02/15 (3) Sepsis: Present on arrival with tachycardia and leukocytosis. From presumed UTI and left-sided pyelonephritis (operative report notes cloudy fluid being released after passing the stone). - Treat as above for UTI (4) Kidney stone on left side: Underwent left-sided stent insertion on 02/[address] Spangler (urology). - Pain control and plan as above (5) ARF (acute renal failure): Normal baseline Cr of ~1. On admission, up to 1.5. Initially thought to be related to her kidney stone; however, her 02/14 AM Cr was 1.8. - On 02/16, Cr was returning to baseline at 1.4. - IV fluids as above - Monitor Cr (6) DVT prophylaxis: Heparin 5000 BID Subjective 69yo F w/ hx of kidney stone who presents with right-sided kidney stone, and concern for UTI/pyelonephritis with sepsis. Patient is better this morning. Improved appetite. No flank pain or dysuria. Reports no fevers/chills, chest pain, shortness of breath, abdominal pain, nausea, or vomiting. Physical Exam Vital Signs (Past 24 Hours): Last Vital Signs Temp 37.0 C 02/16/19 15:30 Pulse 82 02/16/19 15:30 Resp 18 02/16/19 15:30 BP 136/68 02/16/19 15:30 Pulse Ox 96 02/16/19 15:30 Constitutional: WD/WN, vitals as above + frail appearing Eyes: normal visual adair by confrontation and + anicteric sclerae Neck: normal visual inspection and trachea midline Respiratory: normal respiratory effort, lungs clear to auscultation Cardiovascular: Rate/Rhythm: regular rate and regular rhythm Gastrointestinal (Abdomen): Inspection/Auscultation: abdomen not distended Percussion/Palpation: abdomen soft; abdomen nontender Musculoskeletal: Head/Neck/Chest: normocephalic and head atraumatic Skin: no rashes, warm and dry Neurologic: awake; not confused Speech / Cognition: normal speech Psychiatric: A+Ox3, euthymic affect (1) Sepsis Sepsis type: sepsis due to unspecified organism Qualified Code(s): A41.9 - Sepsis, unspecified organism
[2019-02-16] MEDS: cefTRIAXone SODIUM 2,000 MG in DEXTROSE 5% 50 ML IV SCH (17:55)
[2019-02-17 06:52] LABS: Hematocrit (blood only) 28.2 % (37-47); Hemoglobin 9.1 g/dL (12.0-16.0); Mean Corpuscular Hgb Conc 32.3 g/dL (32-36); Mean Corpuscular Volume 102.9 fL (80-100); Mean Platelet Volume 12.2 fL (7.4-10.4); Platelet Count 133 K/uL (130-400); RDW Coefficient of Variation 13.5 % (11.5-14.5); RDW Standard Deviation 50.8 fL (36.4-46.3); Red Blood Count 2.74 M/uL (4.2-5.4); White Blood Count 11.32 K/uL (4.8-10.8)
[2019-02-17 07:00] LABS: Prothrombin Time 10.7 Seconds (9.0-12.0)
[2019-02-17 07:32] LABS: Calcium 7.3 mg/dl (8.5-10.1); Creatinine Clr Calc Pharmacy 45.9 ml/min; Est GFR (African American) 55.4; Est GFR (Non-African American) 47.8; Magnesium 1.8 mg/dl (1.8-2.4); Phosphorus 2.9 mg/dl (2.5-4.9); Potassium 3.7 mmol/L (3.5-5.1)
[2019-02-17 07:57] VITALS: TEMP 98.1
[2019-02-17] MEDS: POT PHOSPHATE MONOBASIC W/ SOD TAB PO SCH ×2 (08:59→12:52)
[2019-02-17] MEDS: HEPARIN SOD 5,000 UNIT/0.5 ML VIAL SQ SCH (09:01)
[2019-02-17] MEDS ORDERED: levoFLOXacin 750 MG TAB PO STA (13:13)
[2019-02-17 14:10] VITALS: BP 128/70; PULSE 82
--- NOTE | 2019-02-17 18:05 | Discharge Summary ---
Date of Service February 17, 2019 Admission HPI Per Admitting Provider 69 y/o F c/o kidney stones. Pt states she was in her usual state of health yesterday. Today, she woke up and had breakfast around 8:30a. She was standing at the sink doing dishes about an hour later and had sudden onset of L flank pain, n/v. Pt has hx of kidney stones many times and felt that this was similar, so she came to the ED. Pt denies current pain or nausea. She states she has not had diarrhea "but that will come". Pt denies fever, SOB, chest pain, abd pain, LE pain or swelling. Principal Diagnosis Kidney stone resulting in pyelonephritis Discharge Exam Constitutional WD/WN, vitals as above + frail appearing Eyes normal visual adair by confrontation and + anicteric sclerae Neck normal visual inspection and trachea midline Respiratory normal respiratory effort, lungs clear to auscultation Cardiovascular Rate/Rhythm: regular rate and regular rhythm Gastrointestinal (Abdomen) Inspection/Auscultation: abdomen not distended Percussion/Palpation: abdomen soft; abdomen nontender Musculoskeletal Head/Neck/Chest: normocephalic and head atraumatic Skin no rashes, warm and dry Neurologic awake; not confused Speech / Cognition: normal speech Psychiatric A+Ox3, euthymic affect Genitourinary No flank pain Discharge Data Allergies Allergy/AdvReac Type Severity Reaction Status Date / Time bee venom protein (honey bee) Allergy Severe HIVES Verified 02/13/19 15:21 DIFFICULTY BREATHING WENT TO HOSPITAL erythromycin base Allergy Severe RASH Verified 02/13/19 15:21 LASTED FOR WEEK Penicillins Allergy Intermediate HIVES Verified 02/13/19 15:21 SWELLING benzonatate Allergy Mild itchy Verified 02/13/19 15:21 doxycycline Allergy Mild RASH Verified 02/13/19 15:21 Macrolide Antibiotics Allergy Unknown ITCHY,RASH Verified 02/13/19 15:21 wheat Allergy Unknown CELIAC Verified 02/13/19 15:21 DISEASE-ABD CRAMPING,DIARRHEA cephalexin AdvReac Mild DIARRHEA Verified 02/13/19 15:21 lactose AdvReac Unknown GI ISSUES Verified 02/13/19 15:21 Consultations 02/13/19 17:35 Consult Urology Stat ED Decision to Admit Stat 02/13/19 20:12 Consult Urology Routine 02/14/19 08:55 Consult Prescription Clerk Routine Procedures Performed Operation Date: 02/13/19 18:00 Actual Procedures p Cystoscopy, Left Ureteral Stent Insertion(Left) - Alvin Spangler MD Ordered Studies 02/13/19 FL KUB Routine FL fluoroscopy <1hr Routine 02/13/19 15:04 CT abd pelvis wo con Stat Hospital Course (1) Acute UTI: Noted on UA on 02/13. Urine cx shows levi-sensitive E. coli. Probable pyelonephritis as operative report notes cloudy fluid being released after the scope passed the kidney stone. - On IV abx, switched to oral on discharge - Complicated UTI/pyelo, so will need prolonged antibiotic - will need 2 weeks per urology note - Recurrent fevers continuing on 02/15; concern for bacteremia or continued infection - Blood cultures drawn on 02/16 were negative on discharge - Will need to follow up with urology in 1-2 weeks for stent removal. We discussed extensively the symptoms that would require her to call her PCP/urologist or come back to the hospital, including fever > 100.5, worsening left flank pain, dysuria, hematuria, or any other concerning symptoms. - Discharged on 2 weeks of levofloxacin per culture sensitivities. (2) Septic shock: Entered septic shock overnight of 02/13-02/14, as her BP remained <90/50 (as low as 65/40) despite multiple IV fluid boluses. - Pressures normalized on 02/15, with BP in 125/70 range. - Transferred out of ICU on 02/15 - No further issues. (3) Sepsis: Present on arrival with tachycardia and leukocytosis. From presumed UTI and left-sided pyelonephritis (operative report notes cloudy fluid being released after passing the stone). - Treat as above for UTI (4) Kidney stone on left side: Underwent left-sided stent insertion on 02/[address] Spangler (urology). - Pain control and plan as above - Follow up with urology for stent removal and stone extraction (5) ARF (acute renal failure): Normal baseline Cr of ~1. On admission, up to 1.5. Initially thought to be related to her kidney stone; however, her 02/14 AM Cr was 1.8. - On 02/17, Cr was returning to baseline at 1.1. Total Time Total Time Spent Total Time Spent (In Minutes): 45 Total Time Includes: Examination of the Patient, Discharge Planning and Medication Reconciliation Discharge Plan Discharge Items Patient Disposition: Home - Self-Care Reason For Visit: KIDNEY STONE Discharge Diagnosis: Kidney stone causing pyelonephritis Discharge Goals: Diagnostic testing, Improve disease control and Therapeutic intervention Activity: Resume your previous activity Non-emergency contact: Primary Care Provider and Urologist Call non-emergency contact if: you have any medication questions, your symptoms worsen, your pain is not controlled and your temperature is above 100.5 Follow-up/Referrals: Ramesh Roy MD [Primary Care Provider] - Alvin Spangler MD [Physician] - (Please call the Urology office on Monday morning to schedule your stent removal and stone break-up.) Diet: Regular Addtl Provider Instructions: Ms. Kaba, Chacho were admitted to the hospital with a left-sided kidney stone. The kidney stone had an infection behind it, and we treated you with antibiotics to get rid of the bacteria. Please take your antibiotic every day until you are seen by the urology doctors in their office. They will help you decide if you need a longer course or if you are done. Please return to the hospital with any fevers over 100.5, worsening left-side flank pain, chills, nausea, vomiting, or any other concerning symptoms. These could all be signs of returning or worsening infection in your kidney and would require further testing and treatment in the hospital. Prescriptions: New levofloxacin 750 mg tablet 750 mg PO DAILY 14 Days Qty: 14 RF: 0 Continued cyanocobalamin (vitamin B-12) 1,000 mcg Tablet 1,000 mcg PO DAILY Qty: 0 RF: 0 epinephrine [EpiPen] 0.3 mg/0.3 mL Auto-Injector 0.3 mg IM Q3H PRN (Reason: Allergic Reaction) Qty: 0 RF: 0 Lactobacillus acidoph-L.bulgar [Floranex] 1 million cell Tablet 1 tab PO TID Qty: 0 RF: 0 Theralith XR 3.75-45-45-49.5 mg Tablet Extended Release 2 tab PO TID Qty: 0 RF: 0 calcitriol [Rocaltrol] 0.5 mcg Capsule 0.5 mcg PO BID Qty: 0 RF: 0 Slow-Mag 71.5 mg Tablet,Delayed Release (Dr/Ec) 71.5 mg PO DAILY Qty: 0 RF: 0 Centrum Silver Women 8 mg iron-400 mcg-300 mcg Tablet 1 tab PO DAILY Qty: 0 RF: 0 ascorbic acid (vitamin C) 250 mg Tablet 250 mg PO DAILY Qty: 0 RF: 0 ferrous sulfate 324 mg (65 mg iron) Tablet,Delayed Release (Dr/Ec) 324 mg PO DAILY Qty: 0 RF: 0 calcium carbonate [Calcium 600] 600 mg calcium (1,500 mg) Tablet 1,200 mg PO TID Qty: 0 RF: 0 potassium citrate 10 mEq (1,080 mg) Tablet Extended Release 20 meq PO TID Qty: 0 RF: 0 cholestyramine (with sugar) [Questran] 4 gram Powder 4 g PO BID Qty: 0 RF: 0 Stand-Alone Forms: [facility] Discharge Orders: Discharge Order (Routine); Ordered 02/17/19 Ordered By: Jose Rodarte Admission Data Admit Date/Time: 02/13/19 18:44 Attending Provider: Jose Rodarte Admit Provider: Miladis Nowak Primary Care Provider: Ramesh Roy Other Providers: Alvin Spangler ; Jose Rodarte ; Miladis Nowak ; Nora Greene Service: Medical Other Interventions: Discharge Summary Assessment (RN) Last Done: 02/17/19 14:08 DC Date/Time DO NOT enter until pt leaves facility: 02/17/19 14:29
== END 2019-02-17 14:29 | disposition home or self-care (01) | DRG 853 ==
LOC: ED 13:16 → OR 18:43 → 3N 18:43 → SUATTDRO 18:44 → 3N 18:44 → 2S 02-14 03:16 → 1E 02-14 09:14 → 3W 02-15 14:16

== ENCOUNTER 2019-09-28 09:33 | Inpatient (IN) ==
[2019-09-28] MEDS ORDERED: MoRPHine SULFATE 10 MG/ML CARP/VIAL IV STA (09:49)
[2019-09-28] MEDS ORDERED: ONDANSETRON INJ 2 MG/ML 2 ML VIAL IV STA (09:49)
[2019-09-28] MEDS ORDERED: SODIUM CHLORIDE 0.9% 1000ML 1,000 ML IV SCH (10:00)
[2019-09-28] MEDS ORDERED: MoRPHine SULFATE 4 MG/ML 1 ML CARP\\VIAL ONE (10:03)
[2019-09-28] MEDS ORDERED: MoRPHine SULFATE 2 MG/ML CARP ONE (10:03)
[2019-09-28 10:05] LABS: Basophils # (auto) 0.03 K/uL (0-0.2); Basophils % (auto) 0.4 %; Eosinophils # (auto) 0.09 K/uL (0-0.5); Eosinophils % (auto) 1.1 %; Hematocrit (blood only) 39.3 % (37-47); Hemoglobin 12.7 g/dL (12.0-16.0); Immature Granulocytes # (auto) 0.02 K/uL (0.00-0.02); Immature Granulocytes % (auto) 0.2 %; Lymphocytes # (auto) 0.91 K/uL (1.2-3.4); Lymphocytes % (auto) 10.9 %; Mean Corpuscular Hemoglobin 33.5 pg (25-34); Mean Corpuscular Hgb Conc 32.3 g/dL (32-36); Mean Corpuscular Volume 103.7 fL (80-100); Mean Platelet Volume 11.5 fL (7.4-10.4); Monocytes # (auto) 0.76 K/uL (0.11-0.59); Monocytes % (auto) 9.1 %; Neutrophils # (auto) 6.57 K/uL (1.4-6.5); Neutrophils % (auto) 78.3 %; Platelet Count 204 K/uL (130-400); RDW Coefficient of Variation 13.5 % (11.5-14.5); RDW Standard Deviation 50.8 fL (36.4-46.3); Red Blood Count 3.79 M/uL (4.2-5.4); White Blood Count 8.38 K/uL (4.8-10.8)
[2019-09-28 10:23] LABS: Albumin Level 3.3 gm/dl (3.4-5.0); BUN Creatinine Ratio 19.4 (10-20); Calcium 8.7 mg/dl (8.5-10.1); Creatinine Clr Calc Pharmacy 32.7 ml/min; Est GFR (African American) 41.9; Est GFR (Non-African American) 36.1; Potassium 4.3 mmol/L (3.5-5.1)
[2019-09-28 10:26] LABS: Albumin Globulin Ratio 1.1 (0.9-2); Globulin 3.1 gm/dl (2.5-4.0); Total Protein 6.4 gm/dl (6.4-8.2)
--- NOTE | 2019-09-28 10:28 | CT Scan Report ---
ABDOMEN AND PELVIS CT WITHOUT CONTRAST CT DOSE: 951.90 mGy.cm HISTORY: Acute right-sided flank pain with history of kidney stones r flank pain TECHNIQUE: Multiaxial CT images of the abdomen and pelvis were performed without contrast. A dose lo wering technique was utilized adhering to the principles of ALARA. COMPARISON STUDY: CT abdomen and pelvis 02/13/2019 FINDINGS: Mild atelectasis with air trapping of the lung bases. There is no pneumatosis or pneumoperitoneum. Th e imaged inferior cardiac chambers are unremarkable. Coronary arterial calcifications are noted. Limi rodney evaluation of the solid abdominal organs without the use of IV contrast. Hepatic steatosis. Dilat ion of the common bile duct is likely on a postsurgical basis with prior cholecystectomy. Spleen and right adrenal gland appear unremarkable. Minimal calcifications of the left adrenal gland are noted. Moderate generalized pancreatic atrophy. Mild bilateral perinephric stranding. There are several nonobstructing calculi noted within the bilat eral kidneys measuring up to 9 mm on the left and 5 mm on the right. Moderate right-sided hydroureter onephrosis secondary to an obstructing 6 x 5 x 7 mm calculus of the proximal right ureter. The level of L3-L4. Additionally, there is a 9 x 6 x 7 mm calculus of the distal right ureter just proximal to the ureterovesicular junction. No left-sided ureteral calculi identified. Partial distention of the u rinary bladder. Uterus and adnexa are unremarkable. No aortic aneurysm or adenopathy. Suggestion of a tiny hiatal hernia. Small duodenal diverticulum. Colonic diverticulosis without acute diverticulitis. Hyperdense material is noted within the sigmoid colon. Moderate fecal retention. Andreea endix not visualized. No bowel obstruction or bowel wall thickening. Subcutaneous calcifications of t he right anterior abdominal wall. Degenerative changes of the spine, pelvis and hips. IMPRESSION: 1. Moderate right-sided hydroureteronephrosis with an obstructing 7 mm calculus of the proximal right ureter at the level of L3-L4 and a 9 mm calculus of the distal right ureter just proximal to the ure terovesicular junction. 2. Nonobstructing bilateral nephrolithiasis. 3. No bowel obstruction or bowel wall thickening. 4. Colonic diverticulosis without acute diverticulitis. 5. Moderate fecal retention. 6. Additional findings as above. Electronically signed by: Yoan Long M.D. 09/28/2019 10:26 AM
[2019-09-28 10:55] LABS: Appearance Urine Cloudy (Clear); Bacteria Urine Automated Negative (Negative); Bilirubin Urine Negative (Negative); Blood Urine Negative (Negative); Color Urine Yellow; Epithelial Cell Urine Auto >30 /lpf (0-5); Glucose Urine UA Negative (Negative); Ketones Urine Negative (Negative); Leukocyte Esterase Urine 1+ (Negative); Nitrite Urine Negative (Negative); Protein Urine Negative (Negative); Specific Gravity Urine 1.016 (1.000-1.030); Urobilinogen Urine Negative (Negative); WBC Urine Automated >30 /hpf (0-5)
[2019-09-28 11:10] LABS: Calcium Oxalate Crystals Urine Present (None Prsent)
--- NOTE | 2019-09-28 11:34 | Emergency Department Note ---
Entered by Mina Granado acting as a scribe for Daniel Forrest DO History of Present Illness General Chief complaint: Kidney Stone Stated complaint: KIDNEY STONES Source: patient Mode of arrival: ambulatory Limitations: no limitations History of Present Illness Onset (ago): hour(s) 7 Location: back Pain Consistency: + constant Maximum Pain Intensity: 7 Current Pain Intensity: 7 Quality: + other (episode ) Exacerbated By: + movement Associated symptoms: + denies other symptoms (dysuria, hematuria ) and + cough Treatments prior to arrival: other (morphine sulftae) The patient is a 69 year old female who presents to the Emergency Room with complaints of an episode of 7/10 constant right flank pain that started 7 hour prior to arrival. The patient states that she was seen in the ED four days prior and was diagnosed with an oxalate kidney stone. The patient denies any weakness, numbness, dysuria or hematuria. She reports that is hurts to move and that she has an unassociated cough. The patient notes that she takes morphine sulfate that she was prescribed from a prior kidney stone. 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 She notes that this feels very similar. No other exacerbating or remitting factors. Home Medications Home Medications Medication Instructions Recorded Confirmed Type cyanocobalamin (vitamin B-12) 1,000 mcg PO QAM #0 06/25/09 09/28/19 History Theralith XR 2 tab PO TIDM #0 11/25/15 09/28/19 History epinephrine [EpiPen] 0.3 mg IM Q3H PRN #0 11/25/15 09/28/19 History calcitriol [Rocaltrol] 0.5 mcg PO BID #0 04/17/17 09/28/19 History Centrum Silver Women 1 tab PO QAM #0 12/23/17 09/28/19 History Slow-Mag 71.5 mg PO QAM #0 12/23/17 09/28/19 History ascorbic acid (vitamin C) 250 mg PO QAM #0 12/23/17 09/28/19 History ferrous sulfate 324 mg PO QAM #0 12/23/17 09/28/19 History calcium carbonate [Calcium 600] 1,200 mg PO TID #0 05/17/18 09/28/19 History cholestyramine (with sugar) 4 g PO BID #0 05/17/18 09/28/19 History [Questran] Lactobacillus acidoph-L.bulgaricus 4 tab PO TID #360 tab 04/30/19 09/28/19 Rx 1 million cell tablet cetirizine [Zyrtec] 10 mg PO QAM 06/19/19 09/28/19 History potassium citrate-citric acid 15 ml PO TIDM 06/19/19 09/28/19 History zoledronic tngd-ulnsotcd-gbmid 5 mg IV YEARLY 06/19/19 09/28/19 History [Reclast] meloxicam 7.5 mg tablet 7.5 mg PO DAILY PRN #30 tab 08/19/19 09/28/19 Rx Allergies Allergy/AdvReac Type Severity Reaction Status Date / Time bee venom protein (honey bee) Allergy Severe HIVES Verified 09/28/19 11:04 DIFFICULTY BREATHING erythromycin base Allergy Severe RASH Verified 09/28/19 11:04 LASTED FOR WEEK Penicillins Allergy Intermediate HIVES Verified 09/28/19 11:04 SWELLING wheat Allergy Intermediate CELIAC Verified 09/28/19 11:04 DISEASE-ABD CRAMPING,DIARRHEA benzonatate Allergy Mild itchy Verified 09/28/19 11:04 doxycycline Allergy Mild RASH Verified 09/28/19 11:04 Macrolide Antibiotics Allergy Mild ITCHY,RASH Verified 09/28/19 11:04 lactose AdvReac Intermediate GI ISSUES Verified 09/28/19 11:04 cephalexin AdvReac Mild DIARRHEA Verified 09/28/19 11:04 Past Med/Surg History Medical History Hypertension (Chronic) Venous insufficiency (chronic) (peripheral) (Acute) Postsurgical dumping syndrome (Acute) Osteoporosis (Acute) Osteoarthritis of knee (Acute) Obesity (Acute) Malabsorption syndrome (Acute) Chronic kidney disease, stage III (moderate) (Chronic) Chronic diarrhea (Acute) Anemia (Chronic) Right knee DJD Kidney stones (Chronic) chronic kidney stones Arrhythmia TREATED MANY YEARS AGO (NO CURRENT PROBLEMS) Asthma NO INHALER USED Celiac disease History of blood clots RT LEG EARLY "FROM A BUMP" Surgical History History of cholecystectomy (Chronic) H/O foot surgery RT BIG TOE REPAIRED History of appendectomy History of bariatric surgery BOWEL SHUNT 1971 History of cystoscopy WITH STENT FOR KIDNEY STONES History of lithotripsy multiple. last ESLW 02/2019. General LMA no issues. History of tonsillectomy History of tooth extraction History of total right knee replacement History of tubal ligation Hx of cataract surgery Family History Mother Family history of diabetes mellitus Grandmother (Maternal) Family history of diabetes mellitus Other Cancer Heart disease Hypertension No family history of adverse response to anesthesia Social History Preferred Language: Thai Communication Ability: Effective Chute Builder Required: No Beliefs That Will Affect Care: None Current Living Situation: Spouse Feels Safe at Home: Yes Smoking Status: Former smoker Tobacco Type: cigarettes ; Second Hand Exposure: No ; Hx Alcohol Use: Yes Alcohol type: hard liquor Hx Substance Use: No Review of Systems See HPI for pertinent positives & negatives. and A total of 10 systems reviewed and were otherwise negative Physical Exam Vital Signs Vital Signs - 24 hr 09/28/19 09:36 09/28/19 09:45 09/28/19 10:48 Temperature 36.9 C Temperature Source Oral Oral Sepsis Recent Fever Within 48 Hours No Sepsis Action Taken by Nursing No Action Required Pulse Rate 90 Pulse Rate [Right Finger] Respiratory Rate 18 Respiratory Effort / Characteristics Non-Labored Spontaneous Respiratory Depth Normal Blood Pressure 147/68 H Blood Pressure [Left Arm] Blood Pressure Mean 94 Blood Pressure Mean [Left Arm] Pulse Oximetry 98 95 Oxygen Delivery Method Room Air Room Air 09/28/19 11:33 Temperature Temperature Source Sepsis Recent Fever Within 48 Hours Sepsis Action Taken by Nursing Pulse Rate Pulse Rate [Right Finger] 80 Respiratory Rate 16 Respiratory Effort / Characteristics Respiratory Depth Blood Pressure Blood Pressure [Left Arm] 121/60 Blood Pressure Mean Blood Pressure Mean [Left Arm] 80 Pulse Oximetry 96 Oxygen Delivery Method Room Air GENERAL: alert, sitting up in bed. In gown, mild distress, holding right lower back. EYE EXAM: normal conjunctiva, PERRL and EOM's grossly intact OROPHARYNX: no exudate, no erythema, lips, buccal mucosa, and tongue normal and mucous membranes are moist NECK: supple, no nuchal rigidity, no adenopathy, non-tender LUNGS: Clear to auscultation. Normal chest wall mechanics HEART: no murmurs, S1 normal and S2 normal ABDOMEN: abdomen soft, non-tender, normo-active bowel sounds, no masses, no rebound or guarding. BACK: Back is symmetrical on inspection and there is no deformity, acute reproducible tenderness in right lower lateral lumbar. SKIN: no rashes and no bruising UPPER EXTREMITIES: upper extremities are grossly normal. LOWER EXTREMITIES: No pitting edema. NEURO EXAM: Normal sensorium, cranial nerves II-XII grossly intact, normal speech, no gross weakness of arms, no gross weakness of legs. Course ED COURSE: Vital signs were reviewed and showed hypertensive and tachycardic The patients medical record was reviewed The above diagnostic studies were performed and reviewed. ED treatments and interventions as stated above. 0946: The patient was evaluated in room B02. A complete history and physical examination was performed. 1127: Discussed the patient's case with Dr. Morales, [facility] Hospitalist. The patient will be evaluated for further management. 1130: Discussed the patient's case with Dr. Hope, [facility] Urology. The patient will be evaluated for further management. 1354: Upon reevaluation, the patient is resting comfortably.I discussed my findings with the patient and she understands and agrees with the treatment plan. Based on the patients age, coexisting illnesses, exam and lab findings the decision to treat as an outpatient was made. The patient remained stable while under my care. The patient appeared well at the time of discharge. The patient will be evaluated for further management. Administered Medications Heparin Sodium (Porcine) (Heparin Sodium (Porcine)) 5,000 units SQ Q8 VALERIE Stop: 10/28/19 14:34 Last Admin: 09/28/19 15:38 Dose: 5,000 units Documented by: [id number] Cosigned by: [id number] Sodium Chloride (Nss 1000ml) 1,000 mls @ 100 mls/hr IV .Q10H VALERIE Stop: 10/28/19 14:34 Last Admin: 09/28/19 15:34 Dose: 100 mls/hr Documented by: [id number] Lactobacillus Acidophilus (Floranex) 4 tab PO TID VALERIE Stop: 10/28/19 14:34 Last Admin: 09/28/19 15:38 Dose: 4 tab Documented by: [id number] Multivitamins/Minerals (Caltrate Plus) 2 tab PO TID VALERIE Stop: 10/28/19 14:34 Last Admin: 09/28/19 15:37 Dose: 2 tab Documented by: [id number] Discontinued Medications Sodium Chloride (Nss 1000ml) 1,000 mls @ 999 mls/hr IV .Q1H1M [facility] Stop: 09/28/19 11:00 Last Infusion: 09/28/19 11:11 Dose: 0 mls/hr Documented by: [id number] Admin: 09/28/19 10:05 Dose: 999 mls/hr Documented by: [id number] Morphine Sulfate (Morphine Sulfate) 6 mg IV NOW STA Stop: 09/28/19 09:50 Last Admin: 09/28/19 10:05 Dose: Not Given Documented by: [id number] Morphine Sulfate (Morphine Sulfate) Confirm Administered Dose 2 mg .ROUTE .STK- MED ONE Stop: 09/28/19 10:04 Last Admin: 09/28/19 10:05 Dose: 2 mg Documented by: [id number] Morphine Sulfate (Morphine Sulfate) Confirm Administered Dose 4 mg .ROUTE .STK- MED ONE Stop: 09/28/19 10:04 Last Admin: 09/28/19 10:05 Dose: 4 mg Documented by: [id number] Non-Formulary Medication (Potassium Citrate-Citric Acid) 15 ml PO TIDM [facility] Stop: 10/28/19 14:34 Last Admin: 09/28/19 15:16 Dose: Not Given Documented by: [id number] Ondansetron HCl (Zofran) 4 mg IV NOW STA Stop: 09/28/19 09:50 Last Admin: 09/28/19 10:05 Dose: 4 mg Documented by: [id number] Medical Decision Making Differential Diagnosis Differential diagnoses includes but is not limited to gastritis, peptic ulcer disease, GERD, gallbladder disease, pancreatitis, small bowel obstruction, acute coronary syndrome, pericarditis, ischemic bowel, irritable bowel disease, irritable bowel syndrome, appendicitis, diverticulitis, malignancy, hernia, urinary tract infection, torsion, [/ectopic (if female)], perforation, trauma, infectious. Medical Records Attestation: I reviewed the patient's medical records. Home Medications Current Medication List: was personally reviewed by me Laboratory Data Attestation: I reviewed the patient's lab results. Result diagrams: 09/28/19 09:54 09/28/19 09:54 Lab Results 11/02/19 11/02/19 11/02/19 Range/Units 09:54 09:54 09:54 WBC 8.38 (4.8-10.8) K/uL RBC 3.79 L (4.2-5.4) M/uL Hgb 12.7 (12.0-16.0) g/dL Hct 39.3 (37-47) % MCV 103.7 H (80-100) fL MCH 33.5 (25-34) pg MCHC 32.3 (32-36) g/dL RDW Std Deviation 50.8 H (36.4-46.3) fL RDW Coeff of Khushi 13.5 (11.5-14.5) % Plt Count 204 (130-400) K/uL MPV 11.5 H (7.4-10.4) fL Immature Gran % (Auto) 0.2 % Neut % (Auto) 78.3 % Lymph % (Auto) 10.9 % [place] % (Auto) 9.1 % Eos % (Auto) 1.1 % Baso % (Auto) 0.4 % Immature Gran # (Auto) 0.02 (0.00-0.02) K/uL Neut # (Auto) 6.57 H (1.4-6.5) K/uL Lymph # (Auto) 0.91 L (1.2-3.4) K/uL [place] # (Auto) 0.76 H (0.11-0.59) K/uL Eos # (Auto) 0.09 (0-0.5) K/uL Baso # (Auto) 0.03 (0-0.2) K/uL Sodium 140 (136-145) mmol/L Potassium 4.3 (3.5-5.1) mmol/L Chloride 110 H (98-107) mmol/L Carbon Dioxide 23 (21-32) mmol/L Anion Gap 7.0 (3-11) BUN 28 H (7-18) mg/dl Creatinine 1.45 H (0.6-1.2) mg/dl Est Cr Clr Drug Dosing 32.7 ml/min Est GFR ( Amer) 41.9 Est GFR (Non-Af Amer) 36.1 BUN/Creatinine Ratio 19.4 (10-20) Glucose 105 H (70-99) mg/dl Calcium 8.7 (8.5-10.1) mg/dl Total Bilirubin 1.0 (0.2-1) mg/dl AST 438 H (15-37) U/L ALT 210 H (12-78) U/L Alkaline Phosphatase 121 H (45-117) U/L Total Protein 6.4 (6.4-8.2) gm/dl Albumin 3.3 L (3.4-5.0) gm/dl Globulin 3.1 (2.5-4.0) gm/dl Albumin/Globulin Ratio 1.1 (0.9-2) Lipase 173 (73-393) U/L Urine Color Urine Appearance (Clear) Urine pH (4.5-7.5) Ur Specific [place] (1.000-1.030) Urine Protein (Negative) Urine Glucose (UA) (Negative) Urine Ketones (Negative) Urine Blood (Negative) Urine Nitrite (Negative) Urine Bilirubin (Negative) Urine Urobilinogen (Negative) Ur Leukocyte Esterase (Negative) Urine WBC (Auto) (0-5) /hpf Urine RBC (Auto) (0-4) /hpf U Hyaline Cast (Auto) (0-5) /lpf U Epithel Cells (Auto) (0-5) /lpf Urine Bacteria (Auto) (Negative) Urine Crystals Calcium Oxalate Crystal (None Prsent) Other Crystals (None Prsent) Acetaminophen (10-30) ug/ml Hepatitis C Ab Screen Neg (Neg) 09/28/19 09/28/19 Range/Units 10:30 11:27 WBC (4.8-10.8) K/uL RBC (4.2-5.4) M/uL Hgb (12.0-16.0) g/dL Hct (37-47) % MCV (80-100) fL MCH (25-34) pg MCHC (32-36) g/dL RDW Std Deviation (36.4-46.3) fL RDW Coeff of Khushi (11.5-14.5) % Plt Count (130-400) K/uL MPV (7.4-10.4) fL Immature Gran % (Auto) % Neut % (Auto) % Lymph % (Auto) % [place] % (Auto) % Eos % (Auto) % Baso % (Auto) % Immature Gran # (Auto) (0.00-0.02) K/uL Neut # (Auto) (1.4-6.5) K/uL Lymph # (Auto) (1.2-3.4) K/uL [place] # (Auto) (0.11-0.59) K/uL Eos # (Auto) (0-0.5) K/uL Baso # (Auto) (0-0.2) K/uL Sodium (136-145) mmol/L Potassium (3.5-5.1) mmol/L Chloride (98-107) mmol/L Carbon Dioxide (21-32) mmol/L Anion Gap (3-11) BUN (7-18) mg/dl Creatinine (0.6-1.2) mg/dl Est Cr Clr Drug Dosing ml/min Est GFR ( Amer) Est GFR (Non-Af Amer) BUN/Creatinine Ratio (10-20) Glucose (70-99) mg/dl Calcium (8.5-10.1) mg/dl Total Bilirubin (0.2-1) mg/dl AST (15-37) U/L ALT (12-78) U/L Alkaline Phosphatase (45-117) U/L Total Protein (6.4-8.2) gm/dl Albumin (3.4-5.0) gm/dl Globulin (2.5-4.0) gm/dl Albumin/Globulin Ratio (0.9-2) Lipase (73-393) U/L Urine Color Yellow Urine Appearance Cloudy A (Clear) Urine pH 5.0 (4.5-7.5) Ur Specific [place] 1.016 (1.000-1.030) Urine Protein Negative (Negative) Urine Glucose (UA) Negative (Negative) Urine Ketones Negative (Negative) Urine Blood Negative (Negative) Urine Nitrite Negative (Negative) Urine Bilirubin Negative (Negative) Urine Urobilinogen Negative (Negative) Ur Leukocyte Esterase 1+ H (Negative) Urine WBC (Auto) >30 H (0-5) /hpf Urine RBC (Auto) 5-10 H (0-4) /hpf U Hyaline Cast (Auto) 1-5 (0-5) /lpf U Epithel Cells (Auto) >30 H (0-5) /lpf Urine Bacteria (Auto) Negative (Negative) Urine Crystals Not Reportable Calcium Oxalate Crystal Present A (None Prsent) Other Crystals Talc (None Prsent) Acetaminophen 3 L (10-30) ug/ml Hepatitis C Ab Screen (Neg) Imaging Data Radiologist's Impression: Radiology results as stated below per my review and the radiologist's interpretation: ABDOMEN AND PELVIS CT WITHOUT CONTRAST CT DOSE: 951.90 mGy.cm HISTORY: Acute right-sided flank pain with history of kidney stones r flank pain TECHNIQUE: Multiaxial CT images of the abdomen and pelvis were performed without contrast. A dose lowering technique was utilized adhering to the principles of ALARA. COMPARISON STUDY: CT abdomen and pelvis 02/13/2019 FINDINGS: Mild atelectasis with air trapping of the lung bases. There is no pneumatosis or pneumoperitoneum. The imaged inferior cardiac chambers are unremarkable. Coronary arterial calcifications are noted. Limited evaluation of the solid abdominal organs without the use of IV contrast. Hepatic steatosis. Dilation of the common bile duct is likely on a postsurgical basis with prior cholecystectomy. Spleen and right adrenal gland appear unremarkable. Minimal calcifications of the left adrenal gland are noted. Moderate generalized pancreatic atrophy. Mild bilateral perinephric stranding. There are several nonobstructing calculi noted within the bilateral kidneys measuring up to 9 mm on the left and 5 mm on the right. Moderate right-sided hydroureteronephrosis secondary to an obstructing 6 x 5 x 7 mm calculus of the proximal right ureter. The level of L3- L4. Additionally, there is a 9 x 6 x 7 mm calculus of the distal right ureter just proximal to the ureterovesicular junction. No left-sided ureteral calculi identified. Partial distention of the urinary bladder. Uterus and adnexa are unremarkable. No aortic aneurysm or adenopathy. Suggestion of a tiny hiatal hernia. Small duodenal diverticulum. Colonic diverticulosis without acute diverticulitis. Hyperdense material is noted within the sigmoid colon. Moderate fecal retention. Appendix not visualized. No bowel obstruction or bowel wall thickening. Subcutaneous calcifications of the right anterior abdominal wall. Degenerative changes of the spine, pelvis and hips. IMPRESSION: 1. Moderate right-sided hydroureteronephrosis with an obstructing 7 mm calculus of the proximal right ureter at the level of L3-L4 and a 9 mm calculus of the distal right ureter just proximal to the ureterovesicular junction. 2. Nonobstructing bilateral nephrolithiasis. 3. No bowel obstruction or bowel wall thickening. 4. Colonic diverticulosis without acute diverticulitis. 5. Moderate fecal retention. 6. Additional findings as above. Electronically signed by: Yoan Long M.D. 09/28/2019 10:26 AM Blood Pressure Blood Pressure Findings: Elevated blood pressure Blood Pressure Disposition: did not require urgent referral MDM Narrative Patient is a 69-year-old female with a past medical history of short gut syndrome and multiple renal stones that presents the ER for right flank pain. She notes that this has been gradually getting worse. Describes pain as sharp stabbing. Vital show that she is slightly hypertensive. IV was established. Labs show no significant leukocytosis or anemia. BMP with a creatinine 1.45 and a slightly elevated BUN. Bilirubin was negative. AST was fourth 40. ALT was 210. Lipase is unremarkable. UA was contaminated with multiple epithelial cells. No fevers. No significant white count. Do not think that this is infected at the time. CT shows 7 mm proximal and a 9 mm distal ureteral stone. This was discussed with urology. Patient was given IV fluids and IV narcotics. She was updated bedside. Discussed with the hospitalist for observation in regards to hydronephrosis secondary to to renal stones, transaminitis and flank pain. She does not take Tylenol regularly. Impression & Plan Renal colic, Transaminitis, Hydronephrosis Discharge Plan Visit Data *Final* Discharge Date/Time: 09/28/19 13:54 Chief Complaint: Kidney Stone Stated Complaint: KIDNEY STONES ED Provider: Daniel Forrest Discharge Problem: Renal colic, Transaminitis, Hydronephrosis Patient Disposition: Admitted As Inpatient Discharge Instructions Interventions: ED Discharge Assessment Last Done: 09/28/19 13:54 Discharge Problem: Hydronephrosis Qualifiers: Hydronephrosis type: unspecified Qualified Code(s): N13.30 - Unspecified hydronephrosis The scribe's documentation has been prepared under my direction and personally reviewed by me in its entirety. I confirm that the note above accurately reflects all work, treatment, procedures, and medical decision making performed by me.
--- NOTE | 2019-09-28 12:03 | History & Physical Report ---
Date of Service September 28, 2019 Assessment & Plan (1) Hydronephrosis concurrent with and due to calculi of kidney and ureter: (2) Nephrolithiasis: (3) Ureteral colic: Consult urology. Keep the patient n.p.o. except ice chips. Add IV fluids. Add morphine and Toradol for pain control. (4) Right flank pain: Secondary to ureteral stones (5) Postsurgical dumping syndrome: (6) Malabsorption syndrome: (7) Chronic kidney disease, stage III (moderate): Monitor renal function closely (8) Transaminitis: Consult gastroenterology. Monitor LFTs closely. (9) Short bowel syndrome: Continue home medications (10) Obesity: (11) Vitamin D deficiency: (12) Anemia: (13) DVT prophylaxis: We will add subcu heparin for DVT prophylaxis History of Present Illness Chief Complaint: Right flank pain Primary Care Provider: Ramesh Roy MD The patient is a 69 year old female who presents to the Emergency Room with complaints of an episode of 10/10 constant right flank pain that started 7 hour prior to arrival. She woke up from sleep around 2 AM with right flank pain. The patient states that she was seen in the ED four days prior and was diagnosed with an oxalate kidney stone. The patient denies any weakness, numbness, dysuria or hematuria. She reports that is hurts to move, she has some nausea but no vomiting. The patient notes that she takes morphine sulfate that she was prescribed from a prior kidney stone. The patient has history of numerous ureteral stents and lithotripsy in the past. 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 She notes that this feels very similar. She will be admitted for further evaluation and management Allergies Allergy/AdvReac Type Severity Reaction Status Date / Time bee venom protein (honey bee) Allergy Severe HIVES Verified 09/28/19 11:04 DIFFICULTY BREATHING erythromycin base Allergy Severe RASH Verified 09/28/19 11:04 LASTED FOR WEEK Penicillins Allergy Intermediate HIVES Verified 09/28/19 11:04 SWELLING wheat Allergy Intermediate CELIAC Verified 09/28/19 11:04 DISEASE-ABD CRAMPING,DIARRHEA benzonatate Allergy Mild itchy Verified 09/28/19 11:04 doxycycline Allergy Mild RASH Verified 09/28/19 11:04 Macrolide Antibiotics Allergy Mild ITCHY,RASH Verified 09/28/19 11:04 lactose AdvReac Intermediate GI ISSUES Verified 09/28/19 11:04 cephalexin AdvReac Mild DIARRHEA Verified 09/28/19 11:04 Home Medications Home Medications Medication Instructions Recorded Confirmed Type cyanocobalamin (vitamin B-12) 1,000 mcg PO QAM #0 06/25/09 09/28/19 History Theralith XR 2 tab PO TIDM #0 11/25/15 09/28/19 History epinephrine [EpiPen] 0.3 mg IM Q3H PRN #0 11/25/15 09/28/19 History calcitriol [Rocaltrol] 0.5 mcg PO BID #0 04/17/17 09/28/19 History Centrum Silver Women 1 tab PO QAM #0 12/23/17 09/28/19 History Slow-Mag 71.5 mg PO QAM #0 12/23/17 09/28/19 History ascorbic acid (vitamin C) 250 mg PO QAM #0 12/23/17 09/28/19 History ferrous sulfate 324 mg PO QAM #0 12/23/17 09/28/19 History calcium carbonate [Calcium 600] 1,200 mg PO TID #0 05/17/18 09/28/19 History cholestyramine (with sugar) 4 g PO BID #0 05/17/18 09/28/19 History [Questran] Lactobacillus acidoph-L.bulgaricus 4 tab PO TID #360 tab 04/30/19 09/28/19 Rx 1 million cell tablet cetirizine [Zyrtec] 10 mg PO QAM 06/19/19 09/28/19 History potassium citrate-citric acid 15 ml PO TIDM 06/19/19 09/28/19 History zoledronic [id number]-[id number] 5 mg IV YEARLY 06/19/19 09/28/19 History [Reclast] meloxicam 7.5 mg tablet 7.5 mg PO DAILY PRN #30 tab 08/19/19 09/28/19 Rx Past Med/Surg History Medical History Hypertension (Chronic) Venous insufficiency (chronic) (peripheral) (Acute) Postsurgical dumping syndrome (Acute) Osteoporosis (Acute) Osteoarthritis of knee (Acute) Obesity (Acute) Malabsorption syndrome (Acute) Chronic kidney disease, stage III (moderate) (Chronic) Chronic diarrhea (Acute) Anemia (Chronic) Right knee DJD Kidney stones (Chronic) chronic kidney stones Arrhythmia TREATED MANY YEARS AGO (NO CURRENT PROBLEMS) Asthma NO INHALER USED Celiac disease History of blood clots RT LEG EARLY "FROM A BUMP" Surgical History History of cholecystectomy (Chronic) H/O foot surgery RT BIG TOE REPAIRED History of appendectomy History of bariatric surgery BOWEL SHUNT 1971 History of cystoscopy WITH STENT FOR KIDNEY STONES History of lithotripsy multiple. last ESLW 02/2019. General LMA no issues. History of tonsillectomy History of tooth extraction History of total right knee replacement History of tubal ligation Hx of cataract surgery Family History Mother Family history of diabetes mellitus Grandmother (Maternal) Family history of diabetes mellitus Other Cancer Heart disease Hypertension No family history of adverse response to anesthesia Social History Preferred Language: Swiss Communication Ability: Effective Hand Driller Required: No Beliefs That Will Affect Care: None Current Living Situation: Spouse Feels Safe at Home: Yes Smoking Status: Former smoker Tobacco Type: cigarettes ; Second Hand Exposure: Yes (PARENTS) ; Hx Alcohol Use: Yes Alcohol type: hard liquor Hx Substance Use: No Review of Systems Review of Systems: All systems reviewed & are unremarkable except as noted in HPI & below Physical Exam Physical Exam: GENERAL : No acute distress EYES: No icterus, gaze conjugate NOSE: No evidence of epistaxis MOUTH: No lesions or candidiasis, mucosa moist NECK: Supple LUNGS: CTA B/L, no wheezes, rales or rhonchi HEART: Regular, rate controlled ABDOMEN: Soft, NT, ND, BS Present Tenderness noted in the right flank area. EXTREMITIES: No LE edema, pedal pulses intact NEURO: A&OX3 Results & Data Vital Signs (Past 12 Hours) Vital Signs Temp Pulse Pulse Resp BP BP Pulse Ox 09/28/19 11:33 80 16 121/60 96 09/28/19 10:48 95 09/28/19 09:36 98.4 F 90 18 147/68 H 98 Laboratory Results 09/28/19 09:54 11/02/19 09:54 Diagnostic Findings ABDOMEN AND PELVIS CT WITHOUT CONTRAST CT DOSE: 951.90 mGy.cm HISTORY: Acute right-sided flank pain with history of kidney stones r flank pain TECHNIQUE: Multiaxial CT images of the abdomen and pelvis were performed without contrast. A dose lowering technique was utilized adhering to the principles of ALARA. COMPARISON STUDY: CT abdomen and pelvis 02/13/2019 FINDINGS: Mild atelectasis with air trapping of the lung bases. There is no pneumatosis or pneumoperitoneum. The imaged inferior cardiac chambers are unremarkable. Coronary arterial calcifications are noted. Limited evaluation of the solid abdominal organs without the use of IV contrast. Hepatic steatosis. Dilation of the common bile duct is likely on a postsurgical basis with prior cholecystectomy. Spleen and right adrenal gland appear unremarkable. Minimal calcifications of the left adrenal gland are noted. Moderate generalized pancreatic atrophy. Mild bilateral perinephric stranding. There are several nonobstructing calculi noted within the bilateral kidneys measuring up to 9 mm on the left and 5 mm on the right. Moderate right-sided hydroureteronephrosis secondary to an obstructing 6 x 5 x 7 mm calculus of the proximal right ureter. The level of L3- L4. Additionally, there is a 9 x 6 x 7 mm calculus of the distal right ureter just proximal to the ureterovesicular junction. No left-sided ureteral calculi identified. Partial distention of the urinary bladder. Uterus and adnexa are unremarkable. No aortic aneurysm or adenopathy. Suggestion of a tiny hiatal hernia. Small duodenal diverticulum. Colonic diverticulosis without acute diverticulitis. Hyperdense material is noted within the sigmoid colon. Moderate fecal retention. Appendix not visualized. No bowel obstruction or bowel wall thickening. Subcutaneous calcifications of the right anterior abdominal wall. Degenerative changes of the spine, pelvis and hips. IMPRESSION: 1. Moderate right-sided hydroureteronephrosis with an obstructing 7 mm calculus of the proximal right ureter at the level of L3-L4 and a 9 mm calculus of the distal right ureter just proximal to the ureterovesicular junction. 2. Nonobstructing bilateral nephrolithiasis. 3. No bowel obstruction or bowel wall thickening. 4. Colonic diverticulosis without acute diverticulitis. 5. Moderate fecal retention. 6. Additional findings as above. Code Status & VTE Plan Code Status Full code PG Care Time/CCT Total # of Minutes Spent Total Time Spent with Patient: Total time spent is greater than 50% in coordination of care (as documented) at patient's floor/unit and/or counseling patient: 60 min
[2019-09-28] MEDS ORDERED: VIT B6 MAG CIT OXID POTASS CIT PO SCH (14:35)
[2019-09-28] MEDS ORDERED: MoRPHine SULFATE 2 MG/ML CARP IV PRN (14:35)
[2019-09-28] MEDS ORDERED: [UNRECOGNIZED DRUG - OTHER] PO SCH (14:35)
[2019-09-28] MEDS ORDERED: ONDANSETRON INJ 2 MG/ML 2 ML VIAL IV PRN (14:35)
[2019-09-28] MEDS: SODIUM CHLORIDE 0.9% 1000ML 1,000 ML IV SCH (15:34)
[2019-09-28] MEDS: CALCIUM 600MG + VIT D 400 IU TAB PO SCH ×2 (15:37→20:17)
[2019-09-28] MEDS: HEPARIN SOD 5,000 UNIT/0.5 ML VIAL SQ SCH ×2 (15:38→20:17)
[2019-09-28] MEDS: LACTOBACILLUS ACIDOPHILUS (FLORANEX) TAB PO SCH ×2 (15:38→20:16)
[2019-09-28] MEDS ORDERED: INFLUENZA ADMINISTRATION CHARGE ONE (17:15)
[2019-09-28] MEDS ORDERED: INFLUENZA VACCINE HIGH DOSE 65+ 0.5 ML SYR IM ONE (17:15)
--- NOTE | 2019-09-28 19:09 | History & Physical Report ---
Date of Service September 28, 2019 Assessment & Plan (1) Transaminitis: Patient with a history of a gastric bypass presenting with nephrolithiasis and elevated liver associated enzymes. Given her history I would suggest an MRCP to evaluate for evidence of choledocholithiasis. If positive then the patient would be best served at a tertiary center with expertise and altered anatomy during ERCP. I would also suggest obtaining a CPK as this could be an alternate explanation to the elevation of her AST and ALT. Recommendations MRCP, if positive refer to a tertiary center obtain a CPK History of Present Illness Chief Complaint: Abdominal pain and elevated liver enzymes Primary Care Provider: Ramesh Roy MD This is a 69-year-old female who presented to the emergency room for evaluation of right-sided abdominal discomfort. She notes that she has had intermittent pain over the years that has been attributed to nephrolithiasis. The patient's past history is notable for a cholecystectomy and gastric bypass seizure which was performed over 40 years ago. The patient notes that she has intermittent postprandial abdominal discomfort but denies any nausea. She denies having fevers chills or sweats this afternoon. Allergies Allergy/AdvReac Type Severity Reaction Status Date / Time bee venom protein (honey bee) Allergy Severe HIVES Verified 09/28/19 11:04 DIFFICULTY BREATHING erythromycin base Allergy Severe RASH Verified 09/28/19 11:04 LASTED FOR WEEK Penicillins Allergy Intermediate HIVES Verified 09/28/19 11:04 SWELLING wheat Allergy Intermediate CELIAC Verified 09/28/19 11:04 DISEASE-ABD CRAMPING,DIARRHEA benzonatate Allergy Mild itchy Verified 09/28/19 11:04 doxycycline Allergy Mild RASH Verified 09/28/19 11:04 Macrolide Antibiotics Allergy Mild ITCHY,RASH Verified 09/28/19 11:04 lactose AdvReac Intermediate GI ISSUES Verified 09/28/19 11:04 cephalexin AdvReac Mild DIARRHEA Verified 09/28/19 11:04 Home Medications Home Medications Medication Instructions Recorded Confirmed Type cyanocobalamin (vitamin B-12) 1,000 mcg PO QAM #0 06/25/09 09/28/19 History Theralith XR 2 tab PO TIDM #0 11/25/15 09/28/19 History epinephrine [EpiPen] 0.3 mg IM Q3H PRN #0 11/25/15 09/28/19 History calcitriol [Rocaltrol] 0.5 mcg PO BID #0 04/17/17 09/28/19 History Centrum Silver Women 1 tab PO QAM #0 12/23/17 09/28/19 History Slow-Mag 71.5 mg PO QAM #0 12/23/17 09/28/19 History ascorbic acid (vitamin C) 250 mg PO QAM #0 12/23/17 09/28/19 History ferrous sulfate 324 mg PO QAM #0 12/23/17 09/28/19 History calcium carbonate [Calcium 600] 1,200 mg PO TID #0 05/17/18 09/28/19 History cholestyramine (with sugar) 4 g PO BID #0 05/17/18 09/28/19 History [Questran] Lactobacillus acidoph-L.bulgaricus 4 tab PO TID #360 tab 04/30/19 09/28/19 Rx 1 million cell tablet cetirizine [Zyrtec] 10 mg PO QAM 06/19/19 09/28/19 History potassium citrate-citric acid 15 ml PO TIDM 06/19/19 09/28/19 History zoledronic kgfy-[id number]-zzzgc 5 mg IV YEARLY 06/19/19 09/28/19 History [Reclast] meloxicam 7.5 mg tablet 7.5 mg PO DAILY PRN #30 tab 08/19/19 09/28/19 Rx Past Med/Surg History Medical History Hypertension (Chronic) Venous insufficiency (chronic) (peripheral) (Acute) Postsurgical dumping syndrome (Acute) Osteoporosis (Acute) Osteoarthritis of knee (Acute) Obesity (Acute) Malabsorption syndrome (Acute) Chronic kidney disease, stage III (moderate) (Chronic) Chronic diarrhea (Acute) Anemia (Chronic) Right knee DJD Kidney stones (Chronic) chronic kidney stones Arrhythmia TREATED MANY YEARS AGO (NO CURRENT PROBLEMS) Asthma NO INHALER USED Celiac disease History of blood clots RT LEG EARLY "FROM A BUMP" Surgical History History of cholecystectomy (Chronic) H/O foot surgery RT BIG TOE REPAIRED History of appendectomy History of bariatric surgery BOWEL SHUNT 1971 History of cystoscopy WITH STENT FOR KIDNEY STONES History of lithotripsy multiple. last ESLW 02/2019. General LMA no issues. History of tonsillectomy History of tooth extraction History of total right knee replacement History of tubal ligation Hx of cataract surgery Family History Mother Family history of diabetes mellitus Grandmother (Maternal) Family history of diabetes mellitus Other Cancer Heart disease Hypertension No family history of adverse response to anesthesia Social History Preferred Language: Welsh Communication Ability: Effective Oracle Database Manager Required: No Beliefs That Will Affect Care: None Current Living Situation: Spouse Feels Safe at Home: Yes Smoking Status: Former smoker Tobacco Type: cigarettes ; Second Hand Exposure: No ; Hx Alcohol Use: Yes Alcohol type: hard liquor Hx Substance Use: No Review of Systems + malaise; no sweats and no weight loss no diplopia no ear trauma no change in sputum and no hemoptysis no chest pain with activity and no dyspnea at rest + abdominal pain, + bloating and + nausea; no vomiting, no hematemesis and no pain with swallowing History of recurrent nephrolithiasis no falls and no paralysis no polydipsia Physical Exam Constitutional: well developed and well nourished; no acute distress Eyes: PERRL, conjunctivae normal, anicteric sclerae Neck: trachea midline, no thyromegaly Respiratory: normal respiratory effort; no respiratory distress and no retractions Cardiovascular: Rate/Rhythm: regular rate and regular rhythm Heart Sounds: no murmur Gastrointestinal (Abdomen): Inspection/Auscultation: abdomen not distended Percussion/Palpation: + abdomen tender; no guarding and abdomen not rigid Patient with right-sided abdominal tenderness and flank tenderness Neurologic: awake; no focal motor deficits, not confused and not obtunded Results & Data Vital Signs (Past 12 Hours) Vital Signs Temp Pulse Pulse Resp BP BP Pulse Ox 09/28/19 18:28 36.3 C L 71 18 205/99 H 100 09/28/19 14:38 36.5 C 70 19 121/62 97 09/28/19 13:53 81 16 117/66 96 09/28/19 13:00 86 18 107/66 91 09/28/19 11:33 80 16 121/60 96 09/28/19 10:48 95 09/28/19 09:36 36.9 C 90 18 147/68 H 98 Laboratory Results Laboratory Results - last 24 hr 09/28/19 09/28/19 09/28/19 09:54 09:54 09:54 WBC 8.38 RBC 3.79 L Hgb 12.7 Hct 39.3 MCV 103.7 H MCH 33.5 MCHC 32.3 RDW Std Deviation 50.8 H RDW Coeff of Khushi 13.5 Plt Count 204 MPV 11.5 H Immature Gran % (Auto) 0.2 Neut % (Auto) 78.3 Lymph % (Auto) 10.9 Hopkins % (Auto) 9.1 Eos % (Auto) 1.1 Baso % (Auto) 0.4 Immature Gran # (Auto) 0.02 Neut # (Auto) 6.57 H Lymph # (Auto) 0.91 L Hopkins # (Auto) 0.76 H Eos # (Auto) 0.09 Baso # (Auto) 0.03 Sodium 140 Potassium 4.3 Chloride 110 H Carbon Dioxide 23 Anion Gap 7.0 BUN 28 H Creatinine 1.45 H Est Cr Clr Drug Dosing 32.7 Est GFR ( Amer) 41.9 Est GFR (Non-Af Amer) 36.1 BUN/Creatinine Ratio 19.4 Glucose 105 H Calcium 8.7 Total Bilirubin 1.0 AST 438 H ALT 210 H Alkaline Phosphatase 121 H Total Protein 6.4 Albumin 3.3 L Globulin 3.1 Albumin/Globulin Ratio 1.1 Lipase 173 Urine Color Urine Appearance Urine pH Ur Specific Boykins Urine Protein Urine Glucose (UA) Urine Ketones Urine Blood Urine Nitrite Urine Bilirubin Urine Urobilinogen Ur Leukocyte Esterase Urine WBC (Auto) Urine RBC (Auto) U Hyaline Cast (Auto) U Epithel Cells (Auto) Urine Bacteria (Auto) Urine Crystals Calcium Oxalate Crystal Other Crystals Acetaminophen Hepatitis C Ab Screen Neg 09/28/19 09/28/19 10:30 11:27 WBC RBC Hgb Hct MCV MCH MCHC RDW Std Deviation RDW Coeff of Khushi Plt Count MPV Immature Gran % (Auto) Neut % (Auto) Lymph % (Auto) Hopkins % (Auto) Eos % (Auto) Baso % (Auto) Immature Gran # (Auto) Neut # (Auto) Lymph # (Auto) Hopkins # (Auto) Eos # (Auto) Baso # (Auto) Sodium Potassium Chloride Carbon Dioxide Anion Gap BUN Creatinine Est Cr Clr Drug Dosing Est GFR ( Amer) Est GFR (Non-Af Amer) BUN/Creatinine Ratio Glucose Calcium Total Bilirubin AST ALT Alkaline Phosphatase Total Protein Albumin Globulin Albumin/Globulin Ratio Lipase Urine Color Yellow Urine Appearance Cloudy A Urine pH 5.0 Ur Specific Boykins 1.016 Urine Protein Negative Urine Glucose (UA) Negative Urine Ketones Negative Urine Blood Negative Urine Nitrite Negative Urine Bilirubin Negative Urine Urobilinogen Negative Ur Leukocyte Esterase 1+ H Urine WBC (Auto) >30 H Urine RBC (Auto) 5-10 H U Hyaline Cast (Auto) 1-5 U Epithel Cells (Auto) >30 H Urine Bacteria (Auto) Negative Urine Crystals Not Reportable Calcium Oxalate Crystal Present A Other Crystals Talc Acetaminophen 3 L Hepatitis C Ab Screen Diagnostic Findings CT DOSE: 951.90 mGy.cm HISTORY: Acute right-sided flank pain with history of kidney stones r flank pain TECHNIQUE: Multiaxial CT images of the abdomen and pelvis were performed without contrast. A dose lowering technique was utilized adhering to the principles of ALARA. COMPARISON STUDY: CT abdomen and pelvis 02/13/2019 FINDINGS: Mild atelectasis with air trapping of the lung bases. There is no pneumatosis or pneumoperitoneum. The imaged inferior cardiac chambers are unremarkable. Coronary arterial calcifications are noted. Limited evaluation of the solid abdominal organs without the use of IV contrast. Hepatic steatosis. Dilation of the common bile duct is likely on a postsurgical basis with prior cholecystectomy. Spleen and right adrenal gland appear unremarkable. Minimal calcifications of the left adrenal gland are noted. Moderate generalized pancreatic atrophy. Mild bilateral perinephric stranding. There are several nonobstructing calculi noted within the bilateral kidneys measuring up to 9 mm on the left and 5 mm on the right. Moderate right-sided hydroureteronephrosis secondary to an obstructing 6 x 5 x 7 mm calculus of the proximal right ureter. The level of L3- L4. Additionally, there is a 9 x 6 x 7 mm calculus of the distal right ureter just proximal to the ureterovesicular junction. No left-sided ureteral calculi identified. Partial distention of the urinary bladder. Uterus and adnexa are unremarkable. No aortic aneurysm or adenopathy. Suggestion of a tiny hiatal hernia. Small duodenal diverticulum. Colonic div erticulosis without acute diverticulitis. Hyperdense material is noted within the sigmoid colon. Moderate fecal retention. Appendix not visualized. No bowel obstruction or bowel wall thickening. Subcutaneous calcifications of the right anterior abdominal wall. Degenerative changes of the spine, pelvis and hips. IMPRESSION: 1. Moderate right-sided hydroureteronephrosis with an obstructing 7 mm calculus of the proximal right ureter at the level of L3-L4 and a 9 mm calculus of the distal right ureter just proximal to the ureterovesicular junction. 2. Nonobstructing bilateral nephrolithiasis. 3. No bowel obstruction or bowel wall thickening. 4. Colonic diverticulosis without acute diverticulitis. 5. Moderate fecal retention. 6. Additional findings as above.
[2019-09-28] MEDS: CALCITRIOL 0.25 MCG CAPSULE PO SCH (20:16)
[2019-09-28] MEDS: CHOLESTYRAMINE LIGHT 4 GM PKT PO SCH (20:16)
--- NOTE | 2019-09-28 20:27 | Magnetic Resonance Report ---
MR MRCP HISTORY: 69 years-old Female Elevated liver enzymes, eval for CBD stones. Acutely elevated LFTs in a patient with history of prior cholecystectomy. COMPARISON: CT abdomen and pelvis of same day TECHNIQUE: MRCP without IV contrast was obtained according to institutional protocol. FINDINGS: Right hemidiaphragmatic elevation. Imaged lung bases are clear. Trace perisplenic free fluid. Perinep hric edema with right hydroureteronephrosis redemonstrated. Unremarkable spleen, pancreas, liver and adrenal glands. Cholecystectomy. Extrahepatic biliary ductal dilation with common bile duct measuring 1.3 cm. No obstructing lesions identified. Specifically, there is no evidence of choledocholithiasis . Mild intrahepatic biliary ductal prominence. No pancreatic ductal dilation or pancreatic divisum. T here is a 5 mm sidebranch IPMN of the pancreatic head with a few additional subcentimeter cystic foci of the pancreatic tail also suggestive of probable IPMN's. Note is made of a duodenal diverticulum. IMPRESSION: 1. Prior cholecystectomy. Intrahepatic and extrahepatic biliary ductal dilation with common bile duct measuring up to 1.3 cm, likely postsurgical. No obstructing biliary lesion or stone identified. 2. Moderate right-sided hydroureteronephrosis redemonstrated. The above report was generated using voice recognition software. It may contain grammatical, syntax o r spelling errors. Electronically signed by: Yoan Long M.D. 09/28/2019 8:25 PM
[2019-09-29] MEDS: SODIUM CHLORIDE 0.9% 1000ML 1,000 ML IV SCH (00:03)
[2019-09-29] MEDS: HEPARIN SOD 5,000 UNIT/0.5 ML VIAL SQ SCH ×2 (05:42→20:08)
[2019-09-29 05:46] LABS: Hemoglobin 11.4 g/dL (12.0-16.0); Mean Corpuscular Hemoglobin 33.6 pg (25-34); Mean Corpuscular Hgb Conc 31.7 g/dL (32-36); Mean Corpuscular Volume 106.2 fL (80-100); Mean Platelet Volume 12.4 fL (7.4-10.4); Platelet Count 190 K/uL (130-400); RDW Coefficient of Variation 13.7 % (11.5-14.5); Red Blood Count 3.39 M/uL (4.2-5.4); White Blood Count 7.23 K/uL (4.8-10.8)
[2019-09-29 06:08] LABS: Albumin Level 2.8 gm/dl (3.4-5.0); BUN Creatinine Ratio 15.2 (10-20); Bilirubin Direct 0.1 mg/dl (0-0.2); Calcium 8.4 mg/dl (8.5-10.1); Creatinine Clr Calc Pharmacy 26.2 ml/min; Est GFR (Non-African American) 27.6; Magnesium 1.3 mg/dl (1.8-2.4); Potassium 4.8 mmol/L (3.5-5.1)
[2019-09-29 06:13] LABS: Bilirubin,Total 0.4 mg/dl (0.2-1); Globulin 2.7 gm/dl (2.5-4.0); Total Protein 5.5 gm/dl (6.4-8.2)
[2019-09-29] MEDS: LACTATED RINGER'S 1,000 ML IV SCH ×2 (08:47→16:39)
[2019-09-29] MEDS: MAGNESIUM SULFATE / D5W 1 GM/100 ML BAG IV SCH ×2 (08:49→10:01)
[2019-09-29] MEDS: FAMOTIDINE 20 MG in SYRINGE 3 ML IV SCH (08:51)
[2019-09-29] MEDS: CALCIUM 600MG + VIT D 400 IU TAB PO SCH ×3 (08:54→20:07)
[2019-09-29] MEDS: CALCITRIOL 0.25 MCG CAPSULE PO SCH ×2 (08:54→20:07)
[2019-09-29] MEDS: CYANOCOBALAMIN 500 MCG TABLET (VITAMIN B-12) PO SCH (08:54)
[2019-09-29] MEDS: MAGNESIUM CHLORIDE 64MG DELAYED REL TAB PO SCH (08:54)
[2019-09-29] MEDS: CEROVITE ADV FORMULA TAB PO SCH (08:54)
[2019-09-29] MEDS: LACTOBACILLUS ACIDOPHILUS (FLORANEX) TAB PO SCH ×3 (08:55→20:07)
--- NOTE | 2019-09-29 09:34 | Gastroenterology Progress Note ---
Date of Service September 29, 2019 Assessment & Plan (1) Transaminitis: Patient's liver enzymes appear to be improving without any specific interventions. Perhaps this is related to her prior gastric bypass surgery. It appears that the predominant issue is with her nephrolithiasis and I would recommend urology evaluation. Recommendation Continue to monitor liver enzymes as they are improving Please call with any additional questions or concerns Subjective Patient notes that she continues to have right-sided flank pain. She did undergo MRCP yesterday evening without evidence of choledocholithiasis. Her liver enzymes appeared to be improving this morning. Review of Systems Constitutional: + malaise; no sweats Eyes: no diplopia Respiratory: no change in sputum and no hemoptysis Cardiovascular: no chest pain with activity Gastrointestinal: no bloating, no early satiety, no nausea, no vomiting and no hematemesis Physical Exam Constitutional: well developed and well nourished Respiratory: normal respiratory effort, lungs clear to auscultation Cardiovascular: Rate/Rhythm: regular rate and regular rhythm Heart Sounds: no murmur Gastrointestinal (Abdomen): Inspection/Auscultation: abdomen not distended Percussion/Palpation: abdomen soft; no guarding Results & Data Vital Signs (Past 12 Hours) Vital Signs Temp Pulse Resp BP Pulse Ox 09/29/19 07:49 90 09/29/19 07:10 36.5 C 90 17 132/71 82 L 09/28/19 23:44 36.9 C 85 16 152/72 H 92 Laboratory Results Laboratory Results - last 24 hr 09/28/19 09/28/19 09/28/19 09:54 10:30 11:27 WBC RBC Hgb Hct MCV MCH MCHC RDW Std Deviation RDW Coeff of Khushi Plt Count MPV Sodium Potassium Chloride Carbon Dioxide Anion Gap BUN Creatinine Est Cr Clr Drug Dosing Est GFR ( Amer) Est GFR (Non-Af Amer) BUN/Creatinine Ratio Glucose Calcium Magnesium Total Bilirubin Direct Bilirubin AST ALT Alkaline Phosphatase Total Creatine Kinase Total Protein Albumin Globulin Albumin/Globulin Ratio Urine Color Yellow Urine Appearance Cloudy A Urine pH 5.0 Ur Specific [place] 1.016 Urine Protein Negative Urine Glucose (UA) Negative Urine Ketones Negative Urine Blood Negative Urine Nitrite Negative Urine Bilirubin Negative Urine Urobilinogen Negative Ur Leukocyte Esterase 1+ H Urine WBC (Auto) >30 H Urine RBC (Auto) 5-10 H U Hyaline Cast (Auto) 1-5 U Epithel Cells (Auto) >30 H Urine Bacteria (Auto) Negative Urine Crystals Not Reportable Calcium Oxalate Crystal Present A Other Crystals [place] Acetaminophen 3 L Hepatitis C Ab Screen Neg 09/29/19 09/29/19 09/29/19 05:06 05:06 05:06 WBC 7.23 RBC 3.39 L Hgb 11.4 L Hct 36.0 L MCV 106.2 H MCH 33.6 MCHC 31.7 L RDW Std Deviation 53.0 H RDW Coeff of Khushi 13.7 Plt Count 190 MPV 12.4 H Sodium 141 Potassium 4.8 Chloride 112 H Carbon Dioxide 22 Anion Gap 7.0 BUN 27 H Creatinine 1.81 H D Est Cr Clr Drug Dosing 26.2 Est GFR ( Amer) 32.0 Est GFR (Non-Af Amer) 27.6 BUN/Creatinine Ratio 15.2 Glucose 94 Calcium 8.4 L Magnesium 1.3 L Total Bilirubin 0.4 D Direct Bilirubin 0.1 AST 132 H ALT 188 H Alkaline Phosphatase 140 H Total Creatine Kinase 55 Total Protein 5.5 L Albumin 2.8 L Globulin 2.7 Albumin/Globulin Ratio 1.0 Urine Color Urine Appearance Urine pH Ur Specific [place] Urine Protein Urine Glucose (UA) Urine Ketones Urine Blood Urine Nitrite Urine Bilirubin Urine Urobilinogen Ur Leukocyte Esterase Urine WBC (Auto) Urine RBC (Auto) U Hyaline Cast (Auto) U Epithel Cells (Auto) Urine Bacteria (Auto) Urine Crystals Calcium Oxalate Crystal Other Crystals Acetaminophen Hepatitis C Ab Screen
--- NOTE | 2019-09-29 10:08 | Urology Consultation ---
Date of Consultation September 29, 2019 Assessment & Plan (1) Nephrolithiasis: Risks and benefits discussed at length for procedure. These include bleeding, infection, injury to surrounding tissues or organs, and risks associated with anesthesia. Patient states understanding and agrees to proceed. Will sign consent and schedule. We will set up for right stent placement with cystoscopy (2) Renal colic: History of Present Illness Attending Physician: Alex Gaines MD History of Present Illness Long history of bothersome stones with obstruction with hx of severe bowel issues and previous resection with short gut syndrome. Severe right abd pain and discomfort with nausea and ill feeling. Found to have elevated LFT as well as obst 9 mm right stone at distal ureter. Pain very botherome. Had MRCP without obstructions. Cr had elevated. Patient had multiple stents in past. Allergies Allergy/AdvReac Type Severity Reaction Status Date / Time bee venom protein (honey bee) Allergy Severe HIVES Verified 09/28/19 11:04 DIFFICULTY BREATHING erythromycin base Allergy Severe RASH Verified 09/28/19 11:04 LASTED FOR WEEK Penicillins Allergy Intermediate HIVES Verified 09/28/19 11:04 SWELLING wheat Allergy Intermediate CELIAC Verified 09/28/19 11:04 DISEASE-ABD CRAMPING,DIARRHEA benzonatate Allergy Mild itchy Verified 09/28/19 11:04 doxycycline Allergy Mild RASH Verified 09/28/19 11:04 Macrolide Antibiotics Allergy Mild ITCHY,RASH Verified 09/28/19 11:04 lactose AdvReac Intermediate GI ISSUES Verified 09/28/19 11:04 cephalexin AdvReac Mild DIARRHEA Verified 09/28/19 11:04 Home Medications Home Medications Medication Instructions Recorded Confirmed Type cyanocobalamin (vitamin B-12) 1,000 mcg PO QAM #0 06/25/09 09/28/19 History Theralith XR 2 tab PO TIDM #0 11/25/15 09/28/19 History epinephrine [EpiPen] 0.3 mg IM Q3H PRN #0 11/25/15 09/28/19 History calcitriol [Rocaltrol] 0.5 mcg PO BID #0 04/17/17 09/28/19 History Centrum Silver Women 1 tab PO QAM #0 12/23/17 09/28/19 History Slow-Mag 71.5 mg PO QAM #0 12/23/17 09/28/19 History ascorbic acid (vitamin C) 250 mg PO QAM #0 12/23/17 09/28/19 History ferrous sulfate 324 mg PO QAM #0 12/23/17 09/28/19 History calcium carbonate [Calcium 600] 1,200 mg PO TID #0 05/17/18 09/28/19 History cholestyramine (with sugar) 4 g PO BID #0 05/17/18 09/28/19 History [Questran] Lactobacillus acidoph-L.bulgaricus 4 tab PO TID #360 tab 04/30/19 09/28/19 Rx 1 million cell tablet cetirizine [Zyrtec] 10 mg PO QAM 06/19/19 09/28/19 History potassium citrate-citric acid 15 ml PO TIDM 06/19/19 09/28/19 History zoledronic nttq-[id number] 5 mg IV YEARLY 06/19/19 09/28/19 History [Reclast] meloxicam 7.5 mg tablet 7.5 mg PO DAILY PRN #30 tab 08/19/19 09/28/19 Rx Patient History Medical History Hypertension (Chronic) Venous insufficiency (chronic) (peripheral) (Acute) Postsurgical dumping syndrome (Acute) Osteoporosis (Acute) Osteoarthritis of knee (Acute) Obesity (Acute) Malabsorption syndrome (Acute) Chronic kidney disease, stage III (moderate) (Chronic) Chronic diarrhea (Acute) Anemia (Chronic) Right knee DJD Kidney stones (Chronic) chronic kidney stones Arrhythmia TREATED MANY YEARS AGO (NO CURRENT PROBLEMS) Asthma NO INHALER USED Celiac disease History of blood clots RT LEG EARLY "FROM A BUMP" Surgical History History of cholecystectomy (Chronic) H/O foot surgery RT BIG TOE REPAIRED History of appendectomy History of bariatric surgery BOWEL SHUNT 1971 History of cystoscopy WITH STENT FOR KIDNEY STONES History of lithotripsy multiple. last ESLW 02/2019. General LMA no issues. History of tonsillectomy History of tooth extraction History of total right knee replacement History of tubal ligation Hx of cataract surgery Family History Mother Family history of diabetes mellitus Grandmother (Maternal) Family history of diabetes mellitus Other Cancer Heart disease Hypertension No family history of adverse response to anesthesia Social History Preferred Language: Lithuanian Communication Ability: Effective Dental Service Chief Required: No Beliefs That Will Affect Care: None Current Living Situation: Spouse Feels Safe at Home: Yes Smoking Status: Former smoker Tobacco Type: cigarettes ; Second Hand Exposure: No ; Hx Alcohol Use: Yes Alcohol type: hard liquor Hx Substance Use: No Review of Systems Review of Systems: All systems reviewed & are unremarkable except as noted in HPI & below Constitutional: + malaise; no sweats Genitourinary: History of recurrent nephrolithiasis Physical Exam Physical Exam: General: Alert in no acute distress. HEENT: Normocephalic Atraumatic. Inspection normal. Cranial Nerves 2-12 Grossly intact. Normal inspection of face. Normal inspection of neck. Psychologic: Normal affect. Respiratory: Nonlabored. No use of accessory muscles. No tachypnea or dyspnea. Cardiovascular: No tachycardia Skin: [place] and Dry. No rashes or visible lesions. Extremities/Lymphatics: No edema Abdomen: Right-sided tenderness no rebound or guarding. Obese. Results & Data Vital Signs (Past 12 Hours) Vital Signs Temp Pulse Resp BP Pulse Ox 09/29/19 07:49 90 09/29/19 07:10 36.5 C 90 17 132/71 82 L 09/28/19 23:44 36.9 C 85 16 152/72 H 92 PG Care Time/CCT Total # of Minutes Spent Total Time Spent with Patient: Total time spent is greater than 50% in coordination of care (as documented) at patient's floor/unit and/or counseling patient:
--- NOTE | 2019-09-29 10:54 | Anesthesiology Consultation ---
Date of Service September 29, 2019 Assessment & Plan (1) Encounter for pre-operative examination: Chart Review Chart Review: Acceptable Risk for Surgery Consults Requested none ASA ASA3 Proposed Anesthesia Anesthesia Type: MAC Risk / Benefits Reviewed With: PT / POA / Parent / Guardian, Accepts Plan and Informed Consent Obtained History Surgery Operation Date: 09/29/19 12:00 Proposed Procedures p Cystoscopy(Right) - Jamir Polanco, DO Height/Weight Height: 5 ft 2 in Weight: 70.3 kg Allergies Allergy/AdvReac Type Severity Reaction Status Date / Time bee venom protein (honey bee) Allergy Severe HIVES Verified 09/28/19 11:04 DIFFICULTY BREATHING erythromycin base Allergy Severe RASH Verified 09/28/19 11:04 LASTED FOR WEEK Penicillins Allergy Intermediate HIVES Verified 09/28/19 11:04 SWELLING wheat Allergy Intermediate CELIAC Verified 09/28/19 11:04 DISEASE-ABD CRAMPING,DIARRHEA benzonatate Allergy Mild itchy Verified 09/28/19 11:04 doxycycline Allergy Mild RASH Verified 09/28/19 11:04 Macrolide Antibiotics Allergy Mild ITCHY,RASH Verified 09/28/19 11:04 lactose AdvReac Intermediate GI ISSUES Verified 09/28/19 11:04 cephalexin AdvReac Mild DIARRHEA Verified 09/28/19 11:04 Medications Home Medications Medication Instructions Recorded Confirmed Last Taken cyanocobalamin (vitamin B-12) 1,000 mcg PO QAM #0 06/25/09 09/28/19 07/23/19 Theralith XR 2 tab PO TIDM #0 11/25/15 09/28/19 07/23/19 epinephrine [EpiPen] 0.3 mg IM Q3H PRN #0 11/25/15 09/28/19 Unknown calcitriol [Rocaltrol] 0.5 mcg PO BID #0 04/17/17 09/28/19 07/23/19 Centrum Silver Women 1 tab PO QAM #0 12/23/17 09/28/19 06/25/19 Slow-Mag 71.5 mg PO QAM #0 12/23/17 09/28/19 07/23/19 ascorbic acid (vitamin C) 250 mg PO QAM #0 12/23/17 09/28/19 07/23/19 ferrous sulfate 324 mg PO QAM #0 12/23/17 09/28/19 07/23/19 calcium carbonate [Calcium 600] 1,200 mg PO TID #0 05/17/18 09/28/19 07/23/19 cholestyramine (with sugar) 4 g PO BID #0 05/17/18 09/28/19 07/23/19 [Questran] Lactobacillus acidoph-L.bulgaricus 4 tab PO TID #360 tab 04/30/19 09/28/19 07/23/19 1 million cell tablet cetirizine [Zyrtec] 10 mg PO QAM 06/19/19 09/28/19 07/23/19 potassium citrate-citric acid 15 ml PO TIDM 06/19/19 09/28/19 07/23/19 zoledronic jmln-wststnxw-[id number] 5 mg IV YEARLY 06/19/19 09/28/19 10/10/18 [Reclast] meloxicam 7.5 mg tablet 7.5 mg PO DAILY PRN #30 tab 08/19/19 09/28/19 Unknown Active Medications Generic Name Dose Route Start Last Admin Trade Name Freq PRN Reason Stop Dose Admin Calcitriol 0.5 mcg 09/28/19 21:00 09/29/19 08:54 Rocaltrol PO 10/28/19 20:59 0.5 mcg BID VALERIE Administration Cholestyramine Resin 4 gm 09/28/19 22:30 09/28/19 20:16 Questran PO 10/28/19 22:29 4 gm BID@1000,2230 VALERIE Administration Cyanocobalamin 1,000 mcg 09/29/19 09:00 09/29/19 08:54 Vitamin B-12 PO 10/29/19 08:59 1,000 mcg QAM VALERIE Administration Heparin Sodium (Porcine) 5,000 units 09/28/19 14:35 09/29/19 05:42 Heparin Sodium (Porcine) SQ 10/28/19 14:34 5,000 units Q8 VALERIE Administration Famotidine 20 mg/ Syringe 5 mls @ 2.5 mls/min 09/29/19 09:00 09/29/19 08:51 IV 10/29/19 08:59 2.5 mls/min DAILY VALERIE Administration Lactated Ringer's 1,000 mls @ 100 mls/hr 09/29/19 08:30 09/29/19 08:47 Lr IV 10/29/19 08:29 100 mls/hr .Q10H VALERIE Administration Lactobacillus Acidophilus 4 tab 09/28/19 14:35 09/29/19 08:55 Floranex PO 10/28/19 14:34 4 tab TID VALERIE Administration Magnesium Chloride 64 mg 09/29/19 09:00 09/29/19 08:54 Slow-Mag PO 10/29/19 08:59 64 mg QAM VALERIE Administration Miscellaneous 1 ea 09/28/19 16:00 09/29/19 08:55 Order Awaiting Action N/A 10/28/19 15:59 Not Given QS VALERIE Multivitamins/Minerals 2 tab 09/28/19 14:35 09/29/19 08:54 Caltrate Plus PO 10/28/19 14:34 2 tab TID VALERIE Administration Multivitamins/Minerals 1 tab 09/29/19 09:00 09/29/19 08:54 Multivitamin W/ Minerals Tab PO 10/29/19 08:59 1 tab DAILY VALERIE Administration NPO Date Last Intake of Fluids: 09/29/19 Time Last Intake of Fluids: 08:54 Last Intake of Fluids Comment: sip of water with mornign medications Date Last Intake of Solids: 09/28/19 Time Last Intake of Solids: 23:59 Past Medical History Medical History Hypertension (Chronic) Venous insufficiency (chronic) (peripheral) (Acute) Postsurgical dumping syndrome (Acute) Osteoporosis (Acute) Osteoarthritis of knee (Acute) Obesity (Acute) Malabsorption syndrome (Acute) Chronic kidney disease, stage III (moderate) (Chronic) Chronic diarrhea (Acute) Anemia (Chronic) Right knee DJD Kidney stones (Chronic) chronic kidney stones Arrhythmia TREATED MANY YEARS AGO (NO CURRENT PROBLEMS) Asthma NO INHALER USED Celiac disease History of blood clots RT LEG EARLY "FROM A BUMP" Exercise / Class Metabolic Activity III < 4 Walking/Shop/Light housework Past Family History Family History Mother Family history of diabetes mellitus Grandmother (Maternal) Family history of diabetes mellitus Other Cancer Heart disease Hypertension No family history of adverse response to anesthesia Past Surgical History Surgical History History of cholecystectomy (Chronic) H/O foot surgery RT BIG TOE REPAIRED History of appendectomy History of bariatric surgery BOWEL SHUNT 1970 History of cystoscopy WITH STENT FOR KIDNEY STONES History of lithotripsy multiple. last ESLW 02/2019. General LMA no issues. History of tonsillectomy History of tooth extraction History of total right knee replacement History of tubal ligation Hx of cataract surgery Past Anesthesia History No Hx of Anesthesia Complications and No Family Hx of Anesthesia Complications History of PONV No Hx of PONV and No Hx of Motion Sickness Social History Smoking Status: Former smoker tobacco type: cigarettes Do You Dip or Chew Tobacco: No Smoking End Date: 1971 Hx Alcohol Use: Yes Alcohol type: hard liquor alcohol intake frequency: other Alcohol Intake Frequency Comment: 2 times a year Hx Substance Use: No substance use type: does not use Physical Exam Vital Signs Last Vital Signs Temp 97.7 F 09/29/19 07:10 Pulse 90 09/29/19 07:10 Resp 17 09/29/19 07:10 BP 132/71 09/29/19 07:10 Pulse Ox 90 09/29/19 07:49 ENMT Mouth: + edentulous Thyromental Distance: > or= 3.5 Finger Breadths Mallampati Class: I Neck normal visual inspection Respiratory normal respiratory effort Auscultation: lungs clear to auscultation bilaterally Cardiovascular Rate/Rhythm: regular rate and regular rhythm Testing Laboratory Results 09/29/19 05:06 09/29/19 05:06 Urine Color Yellow 09/28/19 10:30 Urine Appearance Cloudy (Clear) A 09/28/19 10:30 Urine pH 5.0 (4.5-7.5) 09/28/19 10:30 Ur Specific [place] 1.016 (1.000-1.030) 09/28/19 10:30 Urine Protein Negative (Negative) 09/28/19 10:30 Urine Glucose (UA) Negative (Negative) 09/28/19 10:30 Urine Ketones Negative (Negative) 09/28/19 10:30 Urine Nitrite Negative (Negative) 09/28/19 10:30 Ur Leukocyte Esterase 1+ (Negative) H 09/28/19 10:30 Urine WBC (Auto) >30 /hpf (0-5) H 09/28/19 10:30 Urine RBC (Auto) 5-10 /hpf (0-4) H 09/28/19 10:30 U Hyaline Cast (Auto) 1-5 /lpf (0-5) 09/28/19 10:30 U Epithel Cells (Auto) >30 /lpf (0-5) H 09/28/19 10:30 Urine Bacteria (Auto) Negative (Negative) 09/28/19 10:30 09/28/19 10:30 Urine Culture - Final Urine,Clean Catch More than three types of organisms present, all moderate counts mixed probable skin zoila. No further identifications or sensitivities to follow. Electrocardiogram Date: 02/14/19 Normal sinus rhythm, rate 86 bpm Normal ECG When compared with ECG of 13-FEB-2019 15:54, No significant change was found Confirmed by JESUS ALBERTO ARIAS ([id number]) on 02/14/2019 8:17:24 PM Chest X-Ray Date: 08/26/19 Findings: + NAD Echocardiogram Date: 02/14/19 EF: 55-60% LV Function: normal RWMA: + none Valvular Disease: + no significant valvular disease
[2019-09-29] MEDS ORDERED: MoRPHine SULFATE 2 MG/ML CARP IV PRN (10:59)
[2019-09-29] MEDS ORDERED: ePHEDrine sulfate 50 MG/ML AMP IV PRN (11:41)
[2019-09-29] MEDS ORDERED: fentaNYL citrate 100 MCG/2 ML VIAL IV PRN (11:41)
[2019-09-29] MEDS ORDERED: ATROPINE SULFATE 0.1 MG/ML 10ML SYR IV PRN (11:41)
[2019-09-29] MEDS ORDERED: ONDANSETRON INJ 2 MG/ML 2 ML VIAL IV PRN (11:41)
[2019-09-29] MEDS ORDERED: LIDOCAINE HCL 2% 2 ML VIAL/AMP(20MG/ML) INFIL ONE (11:57)
[2019-09-29] MEDS ORDERED: fentaNYL citrate 100 MCG/2 ML VIAL ONE (11:57)
[2019-09-29] MEDS ORDERED: MIDAZOLAM HCL 1 MG/ML 2ML VIAL ONE (11:57)
[2019-09-29] MEDS ORDERED: ONDANSETRON INJ 2 MG/ML 2 ML VIAL ONE (11:57)
[2019-09-29] MEDS ORDERED: PROPOFOL IV EMULSION 10 MG/ML 20 ML VIAL IV ONE (11:57)
[2019-09-29] MEDS ORDERED: IOTHALAMATE MEGLUMINE II 17.2% 250 ML VIAL ONE (12:02)
--- NOTE | 2019-09-29 12:29 | Operative Report ---
PG Post Operative Report Pre & Post Diagnosis Operation Date: 09/29/19 12:00 Pre-Op Diagnosis: RENAL COLIC Post-Op Diagnosis: RENAL COLIC I identified the patient and participated in the time-out.: Yes Procedure Operation Date: 09/29/19 12:00 Actual Procedures p Cystoscopy, Retrograde pyelogram, aspiration, and Right Ureteral Stent(Right) - Jamir Polanco DO Surgeon Jamir Polanco, II, DO [employer] Reconnaissance Vehicle Driver None Estimated Blood Loss 1 Findings Consistent with Post-Op Diagnosis Stent placed in good position. Specimens None Drains 6 Fr Multilength Anesthesia Type MAC Complications none Disposition Disposition: Recovery Room Indications Patient with obstruction. Risks and benefits discussed at length. Description of Procedure Patient was consented and brought back to the operating room. Patient was placed under anesthesia in the supine position and moved to the dorsal lithotomy position. Patient was prepped and draped in the regular sterile fashion. A time out was completed. A 30degree Cystoscope was placed into the bladder and the entire bladder was examined. The UO's were identified. The UO was cannulized with a catheter and a retrograde pyelogram was completed. A wire was then placed. With the wire in place, a 6 Fr Double J stent was placed. It was confirmed with fluoroscopy. With the stent in place, the bladder was emptied. The scope was removed. The patient was cleaned, aroused from anesthesia, and transferred to the pacu in stable condition having tolerated the procedure well with no complications. I was present and participated in all aspects of the procedure. The patient will be monitored in the PACU until transferred. I attest to the content of the Intraoperative Record and any orders documented therein. Any exceptions are noted below.
--- NOTE | 2019-09-29 12:58 | Anesthesiology Progress Note ---
Date of Service September 29, 2019 Anesthesia Post Procedure Vital Signs Vital Signs: Temp Pulse Pulse Pulse Resp BP Pulse Ox 09/29/19 12:55 77 16 115/58 L 92 09/29/19 12:45 73 16 118/52 L 97 09/29/19 12:37 97.7 F 81 12 100/53 L 93 09/29/19 07:49 90 09/29/19 07:10 97.7 F 90 17 132/71 82 L 09/28/19 23:44 98.4 F 85 16 152/72 H 92 09/28/19 18:28 97.3 F L 71 18 205/99 H 100 09/28/19 14:38 97.7 F 70 19 121/62 97 Pain Intensity Right Flank: Pain Intensity: 2 Transfer of Care Handoff Completed per policy Notes Mental Status: alert / awake / arousable and participated in evaluation Patient Amnestic to Procedure: Yes Nausea / Vomiting: adequately controlled Pain: adequately controlled Airway Patency, RR, SpO2: stable & adequate BP & HR: stable & adequate Hydration State: stable & adequate Anesthetic Complications: no major complications apparent and Pt Satisfied with anesthetic care
[2019-09-29] MEDS: CHOLESTYRAMINE LIGHT 4 GM PKT PO SCH ×2 (13:22→21:07)
--- NOTE | 2019-09-29 14:08 | Fluoroscopy Report ---
INTRAOPERATIVE RADIOGRAPHS CLINICAL HISTORY: Right-sided retrograde ureterogram and ureteral stent placement. Fluoroscopy time: 24 seconds. FINDINGS: 2 spot fluoroscopic views of the right abdomen are correlated with abdominal CT dated 2018. The initial image shows contrast within the hydronephrotic right renal collecting system and th e proximal end of a right ureteral stent. This is correlated with renal pelvis. The second image show s the distal end of a right ureteral stent projecting over the bladder. IMPRESSION: Intraoperative images from a right ureteral stent procedure as above. Electronically signed by: Tony Hernandez M.D. 09/29/2019 2:06 PM
--- NOTE | 2019-09-29 17:48 | Hospitalist Progress Note ---
Date of Service September 29, 2019 Assessment & Plan (1) Hydronephrosis concurrent with and due to calculi of kidney and ureter: Discussed with Dr Polanco in AM with subsequent stent placement and resolution of her right flank pain. No fevers throughout the day to suggest infection and need for antibiotics. (2) Nephrolithiasis: As per urology management (3) Ureteral colic: Appears to have resolved after ureter stent placement (4) Postsurgical dumping syndrome: Monitor (5) Malabsorption syndrome: Secondary to gastric bypass surgery (6) Chronic kidney disease, stage III (moderate): Monitor renal function closely (7) Transaminitis: Appreciate GI review. MRCP without obstruction. Appears to be improving. 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 Secondary to gastric bypass surgery in the 70s. (9) Vitamin D deficiency: Continue supplementation (10) Anemia: Macrocytic anemia. B12 and folate levels added while here but if normal should have outpatient workup for this as does not drink alcohol. (11) Overflow diarrhea: She reports chronic diarrhea and given CT findings concerning for overflow diarrhea. Consider Golytely after stent placement. (12) DVT prophylaxis: Continue heparin 5000 units Q8H Subjective Patient seen in AM prior to ureter stent. She reports multiple renal stones in the past. Ongoing renal colic pain overnight but relatively well controlled on current medications. Afebrile and she does not feel an infection going on like her previous episode of sepsis. No chest pain, abdominal pain, constipation. She reports chronic Review of Systems Review of Systems: All systems reviewed & are unremarkable except as noted in HPI & below Physical Exam Constitutional: well developed and well nourished; no acute distress Eyes: PERRL, conjunctivae normal, anicteric sclerae ENMT: Ears: no external ear abnormality Nose: no external nose abnormality Mouth: + edentulous Neck: normal visual inspection and trachea midline Respiratory: normal respiratory effort, lungs clear to auscultation Cardiovascular: Rate/Rhythm: regular rate and regular rhythm Heart Sounds: no murmur Extremities: no edema Gastrointestinal (Abdomen): Inspection/Auscultation: normal bowel sounds; abdomen not distended Percussion/Palpation: + abdomen tender (right CVA tenderness) and abdomen soft; no guarding and abdomen not rigid Musculoskeletal: no cyanosis or clubbing, extremities motor strength 5/5 Skin: no rashes, warm and dry Neurologic: moves all extremities and awake; no focal motor deficits, not conf used and not obtunded Psychiatric: A+Ox3, euthymic affect Results & Data Vital Signs (Past 12 Hours) Vital Signs Temp Pulse Pulse Resp BP Pulse Ox 09/29/19 15:30 98.2 F 70 16 117/60 93 09/29/19 14:37 98.1 F 75 19 123/72 91 09/29/19 13:15 98.1 F 72 16 115/65 96 09/29/19 13:05 97.9 F 74 16 109/56 L 95 09/29/19 12:55 77 16 115/58 L 92 09/29/19 12:45 73 16 118/52 L 97 09/29/19 12:37 97.7 F 81 12 100/53 L 93 09/29/19 07:49 90 09/29/19 07:10 97.7 F 90 17 132/71 82 L PG Care Time/CCT Total # of Minutes Spent Total Time Spent with Patient: Total time spent is greater than 50% in coordination of care (as documented) at patient's floor/unit and/or counseling patient:
[2019-09-30] MEDS: LACTATED RINGER'S 1,000 ML IV SCH ×2 (02:15→13:15)
[2019-09-30] MEDS: HEPARIN SOD 5,000 UNIT/0.5 ML VIAL SQ SCH ×2 (05:30→13:15)
[2019-09-30 07:15] LABS: Basophils # (auto) 0.03 K/uL (0-0.2); Basophils % (auto) 0.4 %; Eosinophils # (auto) 0.15 K/uL (0-0.5); Hematocrit (blood only) 32.7 % (37-47); Hemoglobin 10.5 g/dL (12.0-16.0); Immature Granulocytes # (auto) 0.02 K/uL (0.00-0.02); Immature Granulocytes % (auto) 0.3 %; Lymphocytes # (auto) 0.75 K/uL (1.2-3.4); Lymphocytes % (auto) 9.8 %; Mean Corpuscular Hemoglobin 33.4 pg (25-34); Mean Corpuscular Hgb Conc 32.1 g/dL (32-36); Mean Corpuscular Volume 104.1 fL (80-100); Mean Platelet Volume 11.1 fL (7.4-10.4); Monocytes # (auto) 0.74 K/uL (0.11-0.59); Monocytes % (auto) 9.6 %; Neutrophils # (auto) 5.99 K/uL (1.4-6.5); Neutrophils % (auto) 77.9 %; Platelet Count 168 K/uL (130-400); RDW Coefficient of Variation 13.4 % (11.5-14.5); RDW Standard Deviation 50.9 fL (36.4-46.3); Red Blood Count 3.14 M/uL (4.2-5.4); White Blood Count 7.68 K/uL (4.8-10.8)
[2019-09-30 07:48] LABS: Albumin Level 2.6 gm/dl (3.4-5.0); Calcium 9.1 mg/dl (8.5-10.1); Creatinine Clr Calc Pharmacy 22.9 ml/min; Est GFR (African American) 27.2; Est GFR (Non-African American) 23.5; Potassium 5.1 mmol/L (3.5-5.1)
[2019-09-30 07:50] LABS: Bilirubin,Total 0.3 mg/dl (0.2-1); Globulin 2.7 gm/dl (2.5-4.0); Total Protein 5.3 gm/dl (6.4-8.2)
--- NOTE | 2019-09-30 08:18 | Anesthesiology Progress Note ---
Date of Service September 30, 2019 Anesthesia Post Procedure Vital Signs Vital Signs: Temp Pulse Pulse Resp BP Pulse Ox 09/30/19 07:13 36.4 C L 58 L 16 119/72 95 09/30/19 05:30 60 09/30/19 03:09 36.4 C L 53 L 16 111/67 95 09/29/19 22:48 36.8 C 67 16 109/63 93 09/29/19 19:24 36.7 C 68 16 124/71 93 09/29/19 15:30 36.8 C 70 16 117/60 93 09/29/19 14:37 36.7 C 75 19 123/72 91 09/29/19 13:15 36.7 C 72 16 115/65 96 09/29/19 13:05 36.6 C 74 16 109/56 L 95 09/29/19 12:55 77 16 115/58 L 92 09/29/19 12:45 73 16 118/52 L 97 09/29/19 12:37 36.5 C 81 12 100/53 L 93 Pain Intensity Right Flank: Pain Intensity: 2 Notes Mental Status: alert / awake / arousable and participated in evaluation Patient Amnestic to Procedure: Yes Nausea / Vomiting: adequately controlled Pain: adequately controlled Airway Patency, RR, SpO2: stable & adequate BP & HR: stable & adequate Hydration State: stable & adequate Anesthetic Complications: no major complications apparent and Pt Satisfied with anesthetic care
[2019-09-30 08:31] LABS: Folate (Folic Acid) > 24.00 ng/ml (>5.38); Vitamin B12 1080 pg/ml (211-911)
[2019-09-30] MEDS: CALCIUM 600MG + VIT D 400 IU TAB PO SCH ×2 (08:40→13:14)
[2019-09-30] MEDS: CYANOCOBALAMIN 500 MCG TABLET (VITAMIN B-12) PO SCH (08:41)
[2019-09-30] MEDS: LACTOBACILLUS ACIDOPHILUS (FLORANEX) TAB PO SCH ×2 (08:41→13:14)
[2019-09-30] MEDS: CALCITRIOL 0.25 MCG CAPSULE PO SCH (08:42)
[2019-09-30] MEDS: CEROVITE ADV FORMULA TAB PO SCH (08:42)
[2019-09-30] MEDS: MAGNESIUM CHLORIDE 64MG DELAYED REL TAB PO SCH (08:42)
[2019-09-30] MEDS: FAMOTIDINE 20 MG in SYRINGE 3 ML IV SCH (08:47)
[2019-09-30] MEDS: CHOLESTYRAMINE LIGHT 4 GM PKT PO SCH (10:43)
--- NOTE | 2019-09-30 11:06 | Hospitalist Progress Note ---
Date of Service September 30, 2019 Assessment & Plan (1) Hydronephrosis concurrent with and due to calculi of kidney and ureter: Fever resolved. Patient will follow up with urology in 2 weeks. BMP prior to appointment. Continue Keflex 500 mg 4 times daily for 3 more days per urology recommendations. (2) Nephrolithiasis: As per urology management (3) Ureteral colic: Appears to have resolved after ureter stent placement (4) Postsurgical dumping syndrome: Monitor (5) Malabsorption syndrome: Secondary to gastric bypass surgery (6) Chronic kidney disease, stage III (moderate): Monitor renal function closely (7) Transaminitis: Appreciate GI review. MRCP without obstruction. Trending down transaminases: AST 438-->39, ALT 121-->116. Follow-up with PCP in 1 week. 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 Secondary to gastric bypass surgery in the 70s. (9) Vitamin D deficiency: Continue supplementation (10) Anemia: Macrocytic anemia. B12 and folate levels added while here but if normal should have outpatient workup for this as does not drink alcohol. (11) Overflow diarrhea: She reports chronic diarrhea and given CT findings concerning for overflow diarrhea. Consider Golytely after stent placement. (12) DVT prophylaxis: Continue heparin 5000 units Q8H Subjective Patient seen and examined at the bedside. No acute event overnight. Patient is eager to go home. Discussed with urology and they are okay to discharge patient home on Keflex for 3 days and follow-up with urology in 2 weeks. Patient would need to have BMP done at that time. Patient denies fever, chills, chest pain, shortness of breath, abdominal pain, frequency, urgency. She is afebrile. Patient had ureteral stented yesterday and she tolerated very well. She reports no pain. Review of Systems Review of Systems: All systems reviewed & are unremarkable except as noted in HPI & below Physical Exam Constitutional: WD/WN, vitals as above well developed Eyes: PERRL, conjunctivae normal, anicteric sclerae ENMT: external ear and nose normal, oropharynx normal Neck: trachea midline, no thyromegaly Respiratory: normal respiratory effort, lungs clear to auscultation Cardiovascular: RRR, no murmur, no edema Gastrointestinal (Abdomen): normal bowel sounds, soft, nontender, no hepatosplenomegaly Musculoskeletal: no cyanosis or clubbing, extremities motor strength 5/5 Skin: no rashes, warm and dry Neurologic: patellar DTR's 2+ bilat, sensation intact Psychiatric: A+Ox3, euthymic affect Genitourinary: no vaginal lesions, no adnexal mass Lymphatic: no cervical or axillary lymphadenopathy Results & Data Vital Signs (Past 12 Hours) Vital Signs Temp Pulse Pulse Resp BP Pulse Ox 09/30/19 07:13 36.4 C L 58 L 16 119/72 95 09/30/19 05:30 60 09/30/19 03:09 36.4 C L 53 L 16 111/67 95 PG Care Time/CCT Total # of Minutes Spent Total Time Spent with Patient: Total time spent is greater than 50% in coordination of care (as documented) at patient's floor/unit and/or counseling patient:
--- NOTE | 2019-09-30 11:13 | Urology Progress Note ---
Date of Service September 30, 2019 Assessment & Plan (1) Renal colic: 69yo F s/p cysto, right ureteral stent placement for two large obstructing stones. UC&S growing moderate contamination. Cr continues to climb, not unexpected given degree of obstruction. Expect to turn around in next week or two. Okay to discharge home on flomax, pain control and 3 days of abx per primary service. Will followup as outpatient in 2 weeks with KUB and BMP to discuss definitive stone management. Thank you for allowing us to participate in the acute care of Mrs. Kaba. Please reconsult us with additional questions, concerns or changes in patient status. Subjective 69yo F POD #1 s/p cysto, right ureteral placement secondary to two large obstructing ureteral stones. Pt is doing well, eager to go home. Pain controlled No major voiding issues. Denies dysuria, hematuria. Sitting up in chair, very pleasant. Review of Systems Review of Systems: All systems reviewed & are unremarkable except as noted in HPI & below Physical Exam Constitutional: no acute distress and not ill appearing Eyes: no nystagmus ENMT: Ears: no hearing impairment Neck: trachea midline Respiratory: no respiratory distress and no cough Cardiovascular: Vessels: no JVD Chest (Breasts): Chest: normal inspection of chest Gastrointestinal (Abdomen): Inspection/Auscultation: abdomen not distended and no abdominal edema Percussion/Palpation: abdomen soft; abdomen nontender Musculoskeletal: Head/Neck/Chest: normocephalic and head atraumatic Skin: no rashes, warm and dry Neurologic: awake; not confused and not obtunded Psychiatric: Orientation: alert and oriented x 3 Eye Contact: good eye contact Affect: no depressed affect Lymphatic: no lymphadenopathy and no lymphedema Results & Data Vital Signs (Past 12 Hours) Vital Signs Temp Pulse Pulse Resp BP Pulse Ox 09/30/19 11:06 36.4 C L 58 L 60 16 119/72 95 09/30/19 07:13 36.4 C L 58 L 16 119/72 95 09/30/19 05:30 60 09/30/19 03:09 36.4 C L 53 L 16 111/67 95 PG Care Time/CCT Total # of Minutes Spent Total Time Spent with Patient: Total time spent is greater than 50% in coordination of care (as documented) at patient's floor/unit and/or counseling patient:
[2019-09-30] MEDS ORDERED: CEFDINIR 300 MG CAP PO STA (12:11)
--- NOTE | 2019-09-30 12:15 | Discharge Summary ---
Date of Service September 30, 2019 Admission HPI Per Admitting Provider This is a 69-year-old female who presented to the emergency room for evaluation of right-sided abdominal discomfort. She notes that she has had intermittent pain over the years that has been attributed to nephrolithiasis. The patient's past history is notable for a cholecystectomy and gastric bypass seizure which was performed over 40 years ago. The patient notes that she has intermittent postprandial abdominal discomfort but denies any nausea. She denies having fevers chills or sweats this afternoon. Principal Diagnosis none Discharge Exam Constitutional WD/WN, vitals as above well developed Eyes PERRL, conjunctivae normal, anicteric sclerae ENMT external ear and nose normal, oropharynx normal Neck trachea midline, no thyromegaly Respiratory normal respiratory effort, lungs clear to auscultation Cardiovascular RRR, no murmur, no edema Gastrointestinal (Abdomen) normal bowel sounds, soft, nontender, no hepatosplenomegaly Musculoskeletal no cyanosis or clubbing, extremities motor strength 5/5 Skin no rashes, warm and dry Neurologic patellar DTR's 2+ bilat, sensation intact Psychiatric A+Ox3, euthymic affect Genitourinary no vaginal lesions, no adnexal mass Lymphatic no cervical or axillary lymphadenopathy Discharge Data Allergies Allergy/AdvReac Type Severity Reaction Status Date / Time bee venom protein (honey bee) Allergy Severe HIVES Verified 09/28/19 11:04 DIFFICULTY BREATHING erythromycin base Allergy Severe RASH Verified 09/28/19 11:04 LASTED FOR WEEK Penicillins Allergy Intermediate HIVES Verified 09/28/19 11:04 SWELLING wheat Allergy Intermediate CELIAC Verified 09/28/19 11:04 DISEASE-ABD CRAMPING,DIARRHEA benzonatate Allergy Mild itchy Verified 09/28/19 11:04 doxycycline Allergy Mild RASH Verified 09/28/19 11:04 Macrolide Antibiotics Allergy Mild ITCHY,RASH Verified 09/28/19 11:04 lactose AdvReac Intermediate GI ISSUES Verified 09/28/19 11:04 cephalexin AdvReac Mild DIARRHEA Verified 09/28/19 11:04 Consultations 09/28/19 11:26 ED Decision to Admit Stat 09/28/19 14:35 Consult Gastroenterology Routine Consult Urology Routine Procedures Performed Operation Date: 09/29/19 12:00 Actual Procedures p Cystoscopy, Right Ureteral Stent(Right) - Jamir Polanco, Ordered Studies 09/28/19 09:49 CT abd pelvis wo con Stat 09/28/19 18:10 MR MRCP Stat 09/29/19 11:28 FL retrograde includes kub Routine 09/29/19 11:29 FL fluoroscopy <1hr Routine Hospital Course (1) Hydronephrosis concurrent with and due to calculi of kidney and ureter: Fever resolved. Patient will follow up with urology in 2 weeks. BMP prior to appointment. Start Cefdinir 300 mg daily for 3 days per urology recommendations. (2) Nephrolithiasis: As per urology management (3) Ureteral colic: Appears to have resolved after ureter stent placement (4) Postsurgical dumping syndrome: Monitor (5) Malabsorption syndrome: Secondary to gastric bypass surgery (6) Chronic kidney disease, stage III (moderate): Monitor renal function closely (7) Transaminitis: Appreciate GI review. MRCP without obstruction. Trending down transaminases: AST 438-->39, ALT 121-->116. Follow-up with PCP in 1 week. 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 Secondary to gastric bypass surgery in the 70s. (9) Vitamin D deficiency: Continue supplementation (10) Anemia: Macrocytic anemia. B12 and folate levels added while here but if normal should have outpatient workup for this as does not drink alcohol. (11) Overflow diarrhea: She reports chronic diarrhea and given CT findings concerning for overflow diarrhea. Consider Golytely after stent placement. (12) DVT prophylaxis: Continue heparin 5000 units Q8H Total Time Total Time Spent Total Time Spent (In Minutes): none Discharge Plan Discharge Items Patient Disposition: Home - Self-Care Reason For Visit: RENAL COLIC Discharge Diagnosis: nephrolithiasis Condition on Discharge: Good Activity: Resume your previous activity Non-emergency contact: Primary Care Provider and Urologist Follow-up/Referrals: Ramesh Roy MD [Primary Care Provider] - Diet: Heart Healthy Addtl Attending Provider Instructions: Follow up with PCP in 7 days. Please have CMP done at that visit. Follow Up with urology in 2 weeks and repeat BMP at that time. Urology recommended to have you on antibiotics for 3 days. Cefdinir 300 mg PO daily. Start Cefdinir tomorrow. Pending Studies at Discharge: No Stand-Alone Forms: [employer], Smoking Cessation Medications and DC Order Prescriptions: New cefdinir 300 mg capsule 300 mg PO DAILY 2 Days Qty: 2 RF: 0 Continued cyanocobalamin (vitamin B-12) 1,000 mcg Tablet 1,000 mcg PO QAM Qty: 0 RF: 0 epinephrine [EpiPen] 0.3 mg/0.3 mL Auto-Injector 0.3 mg IM Q3H PRN (Reason: Allergic Reaction) Qty: 0 RF: 0 Theralith XR 3.75-45-45-49.5 mg Tablet Extended Release 2 tab PO TIDM Qty: 0 RF: 0 calcitriol [Rocaltrol] 0.5 mcg Capsule 0.5 mcg PO BID Qty: 0 RF: 0 Slow-Mag 71.5 mg Tablet,Delayed Release (Dr/Ec) 71.5 mg PO QAM Qty: 0 RF: 0 Centrum Silver Women 8 mg iron-400 mcg-300 mcg Tablet 1 tab PO QAM Qty: 0 RF: 0 ascorbic acid (vitamin C) 250 mg Tablet 250 mg PO QAM Qty: 0 RF: 0 ferrous sulfate 324 mg (65 mg iron) Tablet,Delayed Release (Dr/Ec) 324 mg PO QAM Qty: 0 RF: 0 calcium carbonate [Calcium 600] 600 mg calcium (1,500 mg) Tablet 1,200 mg PO TID Qty: 0 RF: 0 cholestyramine (with sugar) [Questran] 4 gram Powder 4 g PO BID Qty: 0 RF: 0 Lactobacillus acidoph-L.bulgar [Floranex] 1 million cell tablet 4 tab PO TID Qty: 360 RF: 0 potassium citrate-citric acid 1,100-334 mg/5 mL Solution 15 ml PO TIDM RF: 0 zoledronic bplv-cywhmkir-fcgio [Reclast] 5 mg/100 mL piggyback 5 mg IV YEARLY RF: 0 cetirizine [Zyrtec] 10 mg Tablet 10 mg PO QAM RF: 0 Discontinued meloxicam 7.5 mg tablet 7.5 mg PO DAILY PRN (Reason: pain) Qty: 30 RF: 5 Discharge Orders: Discharge Order (Routine); Ordered 09/30/19 Ordered By: Arnie Campbell Admission Data Admit Date/Time: 09/28/19 11:48 Attending Provider: Arnie Campbell Admit Provider: Keshav Morales Primary Care Provider: Ramesh Roy Other Providers: Keshav Morales ; Shelton Glasgow ; Jamir Polanco ; Alex Gaines Other Interventions: Discharge Summary Assessment (RN) Last Done: 09/30/19 11:06
--- NOTE | 2019-10-03 10:56 | Hospitalist Progress Note ---
Date of Service October 03, 2019 Subjective Patient seen and examined at the bedside. No acute event overnight. She is doing much better today she is eager to be discharged. Afebrile. P.o. intake improved. PG Care Time/CCT Total # of Minutes Spent Total Time Spent with Patient: Total time spent is greater than 50% in coordination of care (as documented) at patient's floor/unit and/or counseling patient:
== END 2019-09-30 15:35 | disposition home or self-care (01) | DRG 660 ==
LOC: ED 09:33 → 3W 11:48 → SUATTDRO 11:48 → 3W 13:54

== ENCOUNTER 2019-10-18 11:19 | Inpatient (IN) ==
[2019-10-18] MEDS ORDERED: CEFEPIME 2,000 MG/20 ML VIAL IV STA (11:34)
[2019-10-18] MEDS ORDERED: SODIUM CHLORIDE 0.9% 1000ML 500 ML IV ONE ×2 (11:34→12:48)
[2019-10-18] MEDS ORDERED: CEFEPIME 500 MG in SYRINGE 0 ML IV SCH (12:00)
[2019-10-18 12:02] LABS: Appearance Urine Turbid (Clear); Bacteria Urine Automated 3+ (Negative); Bilirubin Urine Negative (Negative); Blood Urine 3+ (Negative); Color Urine Dark Yellow; Epithelial Cell Urine Auto >30 /lpf (0-5); Glucose Urine UA Negative (Negative); Ketones Urine Negative (Negative); Leukocyte Esterase Urine 3+ (Negative); Nitrite Urine Negative (Negative); Protein Urine 2+ (Negative); Specific Gravity Urine 1.016 (1.000-1.030); Urobilinogen Urine Negative (Negative); WBC Urine Automated >30 /hpf (0-5); pH Urine 5.5 (4.5-7.5)
[2019-10-18 12:15] LABS: Basophils # (auto) 0.01 K/uL (0-0.2); Basophils % (auto) 0.1 %; Eosinophils # (auto) 0.04 K/uL (0-0.5); Eosinophils % (auto) 0.3 %; Hemoglobin 11.7 g/dL (12.0-16.0); Immature Granulocytes # (auto) 0.04 K/uL (0.00-0.02); Immature Granulocytes % (auto) 0.3 %; Lymphocytes # (auto) 1.05 K/uL (1.2-3.4); Lymphocytes % (auto) 8.8 %; Mean Corpuscular Hemoglobin 33.4 pg (25-34); Mean Corpuscular Hgb Conc 34.4 g/dL (32-36); Mean Corpuscular Volume 97.1 fL (80-100); Monocytes # (auto) 1.44 K/uL (0.11-0.59); Monocytes % (auto) 12.1 %; Neutrophils # (auto) 9.36 K/uL (1.4-6.5); Neutrophils % (auto) 78.4 %; Platelet Count 193 K/uL (130-400); RDW Coefficient of Variation 13.5 % (11.5-14.5); RDW Standard Deviation 47.8 fL (36.4-46.3); White Blood Count 11.94 K/uL (4.8-10.8)
[2019-10-18 12:25] LABS: INR 1.1 (0.9-1.1); Partial Thromboplastin Time 26.5 Seconds (21.0-31.0); Prothrombin Time 11.3 Seconds (9.0-12.0)
--- NOTE | 2019-10-18 12:25 | XRay Report ---
XR chest 1V portable CLINICAL HISTORY: 69 years-old Female presenting with Sepsis. TECHNIQUE: Portable upright AP view of the chest was obtained. COMPARISON: 08/26/2019. FINDINGS: Cardiomediastinal silhouette normal. No focal opacity. No large effusion or pneumothorax. Osseous str uctures normal. Upper abdomen normal. IMPRESSION: 1. No acute cardiopulmonary disease. Electronically signed by: Elvin Rainey M.D. 10/18/2019 12:24 PM
[2019-10-18 12:26] LABS: RBC Urine Automated >30 /hpf (0-4)
[2019-10-18 12:32] LABS: Albumin Level 2.7 gm/dl (3.4-5.0); BUN Creatinine Ratio 24.2 (10-20); Calcium 8.5 mg/dl (8.5-10.1); Creatinine Clr Calc Pharmacy 21.7 ml/min; Est GFR (African American) 24.6; Est GFR (Non-African American) 21.2; Potassium 3.2 mmol/L (3.5-5.1)
[2019-10-18 12:59] LABS: Albumin Globulin Ratio 0.7 (0.9-2); Bilirubin,Total 0.7 mg/dl (0.2-1); Globulin 3.9 gm/dl (2.5-4.0); Total Protein 6.6 gm/dl (6.4-8.2); Troponin I 0.052 ng/ml (0-0.045)
[2019-10-18] MEDS ORDERED: ONDANSETRON INJ 2 MG/ML 2 ML VIAL IV STA (13:16)
--- NOTE | 2019-10-18 13:46 | History & Physical Report ---
Date of Service October 18, 2019 Assessment & Plan (1) Acute UTI: Check urine cultures. Check blood cultures. Patient started on IV cefepime. Present on Admission?: Yes (2) ARF (acute renal failure): Acute on chronic renal failure. Consult nephrology. Gentle IV fluids. (3) Dehydration: We will add gentle IV fluids. Monitor intake output closely. Present on Admission?: Yes (4) Atrial fibrillation: Consult cardiology. Patient has no past history of any atrial flutter or atrial fibrillation. Check echocardiogram. (5) Hypokalemia: Add potassium supplements. Monitor labs closely Present on Admission?: Yes (6) ACS (acute coronary syndrome): We will monitor EKG and cardiac enzymes per protocol. Further plan per cardiology. Present on Admission?: Yes (7) Hematuria: Recent history of right ureteral stenting Present on Admission?: Yes (8) Calculus of kidney: (9) Short bowel syndrome: (10) Malabsorption syndrome: (11) Obesity: (12) Nausea & vomiting: Add Zofran as needed. PPI for GI prophylaxis. Present on Admission?: Yes (13) Anemia: (14) Postsurgical dumping syndrome: (15) Chronic kidney disease, stage III (moderate): (16) DVT prophylaxis: SCD History of Present Illness Chief Complaint: Generalized weakness and dizziness Primary Care Provider: Radhika Roy MD The patient is a 69 year old female, with past medical history of CKD, kidney stones, and UTI, who presents to the Emergency Room with complaints of an epis ode of feeling weak and dizzy beginning 3 days ago. The patient reports she was seen by urology 3 days ago for kidney stones. The patient states she was supposed to have her kidney stones removed during her visit, but she states her ureteral stent was not planned to be removed at this time. However, the patient states this procedure could not be completed because she kept vomiting prior to the procedure. The patient states she could only keep water down 3 days ago, but she notes she has been able to eat a little more each day since. The patient denies a fever, but she notes she has experienced intermittent chills. The patient denies pain with urination, but she notes her urine has had a terrible smell. The patient denies chest pain or a cough. The patient notes of baseline back pain, but she states her back pain has been more intense recently. However, the patient denies needing pain medications currently. The patient also denies history of atrial fibrillation, and she denies being on antibiotics currently. The further work-up done in the ER show that patient has acute on chronic renal failure, BUN 54 and creatinine 2.25. She was also found to be having atrial fibrillation with rapid ventricular rate. Troponin was also elevated at 0.052. Potassium is low at 3.2. She was started on IV antibiotics for possible UTI. She will be admitted to telemetry floor for further evaluation and management. Allergies Allergy/AdvReac Type Severity Reaction Status Date / Time bee venom protein (honey bee) Allergy Severe HIVES, Verified 10/18/19 11:55 DIFFICULTY BREATHING erythromycin base Allergy Severe RASH X Verified 10/18/19 11:55 WEEK Penicillins Allergy Intermediate HIVES, Verified 10/18/19 11:55 SWELLING wheat Allergy Intermediate CELIAC Verified 10/18/19 11:55 DISEASE- ABD CRAMPING, DIARRHEA benzonatate Allergy Mild PRURITIUS Verified 10/18/19 11:55 doxycycline Allergy Mild RASH Verified 10/18/19 11:55 Macrolide Antibiotics Allergy Mild ITCHY, RASH Verified 10/18/19 11:55 lactose AdvReac Intermediate GI ISSUES Verified 10/18/19 11:55 cephalexin AdvReac Mild DIARRHEA Verified 10/18/19 11:55 Home Medications Home Medications Medication Instructions Recorded Confirmed Type cyanocobalamin (vitamin B-12) 1,000 mcg PO QAM #0 06/25/09 10/18/19 History Theralith XR 2 tab PO TIDM #0 11/25/15 10/18/19 History epinephrine [EpiPen] 0.3 mg IM Q3H PRN #0 11/25/15 10/18/19 History calcitriol [Rocaltrol] 0.5 mcg PO BID #0 04/17/17 10/18/19 History Centrum Silver Women 1 tab PO QAM #0 12/23/17 10/18/19 History Slow-Mag 71.5 mg PO QAM #0 12/23/17 10/18/19 History ascorbic acid (vitamin C) 250 mg PO QAM #0 12/23/17 10/18/19 History calcium carbonate [Calcium 600] 1,200 mg PO TID #0 05/17/18 10/18/19 History cholestyramine (with sugar) 4 g PO BID #0 05/17/18 10/18/19 History [Questran] cetirizine [Zyrtec] 10 mg PO QAM 06/19/19 10/18/19 History zoledronic zeqv-ggstxcbu-njrof 5 mg IV YEARLY 06/19/19 10/18/19 History [Reclast] Lactobacillus acidoph-L.bulgar 1 tab PO TID 10/15/19 10/18/19 History [Floranex] Past Med/Surg History Medical History Anemia Arrhythmia PAC's per prior EKGs/no issues x years Asthma no inhaler used Celiac disease Chronic diarrhea Chronic kidney disease, stage III (moderate) History of blood clots RLE (early ) s/p trauma Hydronephrosis (Inactive) Hypertension Kidney stones (Chronic) Malabsorption syndrome Obesity Osteoarthritis of knee Osteoporosis Postsurgical dumping syndrome Right knee DJD UTI (urinary tract infection) Venous insufficiency (chronic) (peripheral) Surgical History H/O foot surgery RT BIG TOE REPAIRED History of appendectomy History of bariatric surgery BOWEL SHUNT 1971 History of cholecystectomy History of cystoscopy WITH STENT FOR KIDNEY STONES History of lithotripsy multiple, General LMA no issues. History of tonsillectomy History of tooth extraction History of total right knee replacement History of tubal ligation Hx of cataract surgery RT/LEFT Family History Mother Family history of diabetes mellitus Grandmother (Maternal) Family history of diabetes mellitus Other Cancer Heart disease Hypertension No family history of adverse response to anesthesia Social History Preferred Language: Macedonian Communication Ability: Effective Visual Impairment: No Limitations Epic Specialist Required: No Beliefs That Will Affect Care: None Current Living Situation: Spouse Other Information That Helps Us Care for You: No Feels Safe at Home: Yes Safety Concerns: Feels Safe At This Time Smoking Status: Never smoker Tobacco Type: cigarettes ; Second Hand Exposure: Yes ( A CHILD) ; Hx Alcohol Use: Yes Alcohol type: hard liquor Hx Substance Use: No Review of Systems Review of Systems: All systems reviewed & are unremarkable except as noted in HPI & below Physical Exam Physical Exam: GENERAL : No acute distress EYES: No icterus, gaze conjugate NOSE: No evidence of epistaxis MOUTH: No lesions or candidiasis, mucosa moist NECK: Supple LUNGS: CTA B/L, no wheezes, rales or rhonchi HEART: Irregularly irregular ABDOMEN: Soft, NT, ND, BS Present EXTREMITIES: No LE edema, pedal pulses intact NEURO: A&OX3 Results & Data Vital Signs (Past 12 Hours) Vital Signs Temp Pulse Pulse Resp BP BP Pulse Ox 10/18/19 13:36 90 18 99/65 L 98 10/18/19 12:47 92 H 25 H 104/62 97 10/18/19 11:55 99 10/18/19 11:53 103 H 20 103/66 99 10/18/19 11:20 98.1 F 111 H 18 93/61 L 98 Laboratory Results 10/18/19 12:05 10/18/19 12:05 Diagnostic Findings XR chest 1V portable CLINICAL HISTORY: 69 years-old Female presenting with Sepsis. TECHNIQUE: Portable upright AP view of the chest was obtained. COMPARISON: 08/26/2019. FINDINGS: Cardiomediastinal silhouette normal. No focal opacity. No large effusion or pneumothorax. Osseous structures normal. Upper abdomen normal. IMPRESSION: 1. No acute cardiopulmonary disease. PG Care Time/CCT Total # of Minutes Spent Total Time Spent with Patient: Total time spent is greater than 50% in coordination of care (as documented) at patient's floor/unit and/or counseling patient:
--- NOTE | 2019-10-18 13:58 | XRay Report ---
KUB HISTORY: Ureteral stent placement. Right flank pain. COMPARISON: KUB 10/14/2019. FINDINGS: The bowel gas pattern is unremarkable. There are no dilated loops of small bowel to suggest an obstruction. A right ureteral stent is in good position. This remains unchanged. No ureteral lexx culi identified. Calcifications in the pelvis remain stable and likely represent phleboliths. Stable multiple bilateral renal calculi. Dominant fragment stone within the lower pole the left kidney measu res 8 mm. No pneumoperitoneum or pneumatosis. IMPRESSION: 1. No change in the right ureteral stent which appears in good position. 2. Stable bilateral nephrolithiasis. 3. No ureteral calculi. Electronically signed by: Theodore Heart M.D. 10/18/2019 1:57 PM
--- NOTE | 2019-10-18 14:34 | Emergency Department Note ---
Entered by Linda Nuñez acting as a scribe for Tony Gonzales MD History of Present Illness General Chief complaint: Dizziness Stated complaint: DIZZY, WEAK Time Seen by Provider: 10/18/19 11:28 Source: patient History of Present Illness Onset (ago): day(s) 3 Location: head, left and right Pain Consistency: + other (episode) Maximum Pain Intensity: 5 Quality: + other (dizzy and weakness) Associated symptoms: + other (+foul urine smell; +back pain; -pain with urina tion; ); no chest pain, no cough and no fever/chills (-fever; +chills) The patient is a 69 year old female, with past medical history of CKD, kidney stones, and UTI, who presents to the Emergency Room with complaints of an episode of feeling weak and dizzy beginning 3 days ago. The patient reports she was seen by urology 3 days ago for kidney stones--she currently has a right ureteral stent. The patient states she could only keep water down 3 days ago, but she notes she has been able to eat a little more each day since. The patient denies a fever, but she notes she has experienced intermittent chills. The pat ient denies pain with urination, but she notes her urine has had a terrible smell. The patient denies chest pain or a cough. The patient notes of baseline back pain, but she states her back pain has been more intense recently. However, the patient denies needing pain medications currently. The patient also denies history of atrial fibrillation, and she denies being on antibiotics currently. Home Medications Home Medications Medication Instructions Recorded Confirmed Type cyanocobalamin (vitamin B-12) 1,000 mcg PO QAM #0 06/25/09 10/18/19 History Theralith XR 2 tab PO TIDM #0 11/25/15 10/18/19 History epinephrine [EpiPen] 0.3 mg IM Q3H PRN #0 11/25/15 10/18/19 History calcitriol [Rocaltrol] 0.5 mcg PO BID #0 04/17/17 10/18/19 History Centrum Silver Women 1 tab PO QAM #0 12/23/17 10/18/19 History Slow-Mag 71.5 mg PO QAM #0 12/23/17 10/18/19 History ascorbic acid (vitamin C) 250 mg PO QAM #0 12/23/17 10/18/19 History calcium carbonate [Calcium 600] 1,200 mg PO TID #0 05/17/18 10/18/19 History cholestyramine (with sugar) 4 g PO BID #0 05/17/18 10/18/19 History [Questran] cetirizine [Zyrtec] 10 mg PO QAM 06/19/19 10/18/19 History zoledronic aziu-eyxgyryu-vqujn 5 mg IV YEARLY 06/19/19 10/18/19 History [Reclast] Lactobacillus acidoph-L.bulgar 1 tab PO TID 10/15/19 10/18/19 History [Floranex] Allergies Allergy/AdvReac Type Severity Reaction Status Date / Time bee venom protein (honey bee) Allergy Severe HIVES, Verified 10/18/19 11:55 DIFFICULTY BREATHING erythromycin base Allergy Severe RASH X Verified 10/18/19 11:55 WEEK Penicillins Allergy Intermediate HIVES, Verified 10/18/19 11:55 SWELLING wheat Allergy Intermediate CELIAC Verified 10/18/19 11:55 DISEASE- ABD CRAMPING, DIARRHEA benzonatate Allergy Mild PRURITIUS Verified 10/18/19 11:55 doxycycline Allergy Mild RASH Verified 10/18/19 11:55 Macrolide Antibiotics Allergy Mild ITCHY, RASH Verified 10/18/19 11:55 lactose AdvReac Intermediate GI ISSUES Verified 10/18/19 11:55 cephalexin AdvReac Mild DIARRHEA Verified 10/18/19 11:55 Past Med/Surg History Medical History Anemia Arrhythmia PAC's per prior EKGs/no issues x years Asthma no inhaler used Celiac disease Chronic diarrhea Chronic kidney disease, stage III (moderate) History of blood clots RLE (early ) s/p trauma Hydronephrosis (Inactive) Hypertension Kidney stones (Chronic) Malabsorption syndrome Obesity Osteoarthritis of knee Osteoporosis Postsurgical dumping syndrome Right knee DJD UTI (urinary tract infection) Venous insufficiency (chronic) (peripheral) Surgical History H/O foot surgery RT BIG TOE REPAIRED History of appendectomy History of bariatric surgery B[facility]EL [facility]UNT 1971 History of cholecystectomy History of cystoscopy WITH STENT FOR KIDNEY STONES History of lithotripsy multiple, General LMA no issues. History of tonsillectomy History of tooth extraction History of total right knee replacement History of tubal ligation Hx of cataract surgery RT/LEFT Family History Mother Family history of diabetes mellitus Grandmother (Maternal) Family history of diabetes mellitus Other Cancer Heart disease Hypertension No family history of adverse response to anesthesia Social History Preferred Language: [place] Communication Ability: Effective Visual Impairment: No Limitations Er Tech Required: No Beliefs That Will Affect Care: None Current Living Situation: Spouse Other Information That Helps Us Care for You: No Feels Safe at Home: Yes Safety Concerns: Feels Safe At This Time Smoking Status: Never smoker Tobacco Type: cigarettes ; Second Hand Exposure: Yes ( A CHILD) ; Hx Alcohol Use: Yes Alcohol type: hard liquor Hx Substance Use: No Review of Systems See HPI for pertinent positives & negatives. and A total of 10 systems reviewed and were otherwise negative Physical Exam Vital Signs Vital Signs - 24 hr 10/18/19 11:20 10/18/19 11:53 10/18/19 11:55 Temperature 36.7 C Temperature Source Oral Pulse Rate 111 H Pulse Rate [Left] 103 H Pulse Rhythm [Left] Regular Respiratory Rate 18 20 Respiratory Effort / Characteristics Non-Labored Respiratory Depth Normal Respiratory Pattern Regular Blood Pressure 93/61 L Blood Pressure [Left Arm] 103/66 Blood Pressure Mean 71 Blood Pressure Mean [Left Arm] 78 Pulse Oximetry 98 99 99 Oxygen Delivery Method Room Air Room Air Room Air Sepsis Recent Fever Within 48 Hours Yes Sepsis New/Unexplained Change in Mental Status No Sepsis Action Taken by Nursing No Action Required 10/18/19 12:47 10/18/19 13:36 Temperature Temperature Source Pulse Rate Pulse Rate [Left] 92 H 90 Pulse Rhythm [Left] Regular Irregular Respiratory Rate 25 H 18 Respiratory Effort / Characteristics Non-Labored Non-Labored Respiratory Depth Normal Normal Respiratory Pattern Regular Regular Blood Pressure Blood Pressure [Left Arm] 104/62 99/65 L Blood Pressure Mean Blood Pressure Mean [Left Arm] 76 76 Pulse Oximetry 97 98 Oxygen Delivery Method Room Air Room Air Sepsis Recent Fever Within 48 Hours Sepsis New/Unexplained Change in Mental Status Sepsis Action Taken by Nursing GENERAL: Patient is in no acute distress. HEENT: No acute trauma, normocephalic atraumatic, mucous membranes dry, no nasal congestion, no scleral icterus. NECK: No stridor, no adenopathy, no meningismus, trachea is midline. LUNGS: Clear to auscultation bilaterally, no wheeze, no rhonchi, breath sounds equal. HEART: Mildly tachycardic with a somewhat irregular rhythm. No murmur. ABDOMEN: Soft, nontender, bowel sounds positive, no hernias, no peritonitis. EXTREMITIES: No cyanosis or edema, full range of motion of all the joints without pain or difficulty, no signs for acute trauma. NEUROLOGIC: Oriented x 3, no acute motor or sensory deficits, no focal weakness. SKIN: No rash, no jaundice, no diaphoresis. Course Course 1130: Past medical records reviewed. The patient was evaluated in room B2. A complete history and physical exam was performed. 1304: I reviewed the patient's [facility]. Dr. Morales will evaluate the patient for further management. 1306: I updated the patient and her family on the patient's case. 1313: I discussed the patient's case with Dr. Rodarte-Urology. Dr. Rodarte wants a KUB done, and Dr. Rodarte states he will see the patient in the hospital. Consultations Consultation #1: I reviewed the patient's case [facility]. Dr. Morales will evaluate the patient for further management. Time: 13:04 Consultation #2: I discussed the patient's case with Dr. Rodarte-Urology. Dr. Rodarte wants a KUB done, and Dr. Rodarte states he will see the patient in the hospital. Time: 13:13 Administered Medications Potassium Chloride (K [place] / Wtr) 10 meq in 100 mls @ 100 mls/hr IV Q1H VALERIE Stop: 10/18/19 20:29 Last Admin: 10/18/19 16:44 Dose: 100 mls/hr Documented by: [id number] Sodium Chloride (Nss 1000ml) 1,000 mls @ 75 mls/hr IV .[id number] VALERIE Stop: 11/17/19 16:07 Last Admin: 10/18/19 16:44 Dose: 75 mls/hr Documented by: [id number] Lactobacillus Acidophilus (Floranex) 1 tab PO TID VALERIE Stop: 11/17/19 16:59 Last Admin: 10/18/19 17:18 Dose: 1 tab Documented by: [id number] Discontinued Medications Cefepime HCl (Maxipime) 2,000 mg in 20 mls @ 5 mls/min IV NOW STA; Protocol Stop: 10/18/19 11:37 Last Admin: 10/18/19 12:42 Dose: 5 mls/min Documented by: [id number] Sodium Chloride (Nss 1000ml) 500 mls @ 999 mls/hr IV .Q31M ONE Stop: 10/18/19 12:04 Last Infusion: 10/18/19 13:12 Dose: 0 mls/hr Documented by: [id number] Admin: 10/18/19 12:35 Dose: 999 mls/hr Documented by: [id number] Sodium Chloride (Nss 1000ml) 500 mls @ 999 mls/hr IV .Q31M ONE Stop: 10/18/19 13:18 Last Infusion: 10/18/19 14:05 Dose: 0 mls/hr Documented by: [id number] Admin: 10/18/19 13:14 Dose: 999 mls/hr Documented by: [id number] Cefepime HCl 500 mg/ Syringe 5.65 mls @ 5.5 mls/min IV Q24H [facility]; Protocol Stop: 10/28/19 11:59 Last Admin: 10/18/19 16:50 Dose: Not Given Documented by: [id number] Ondansetron HCl (Zofran) 4 mg IV NOW STA Stop: 10/18/19 13:17 Last Admin: 10/18/19 13:22 Dose: 4 mg Documented by: [id number] Critical Care Time Critical Care Time: Yes Total Critical Care Time: 36 I have personally spent 36 minutes of critical care time in the direct management of this patient. This includes bedside care, interpretation of diagnostic studies, and testing, discussion with consultants, patient, and family members, and other required patient management activities. This 36 minutes is in excess of all separately billable procedures. Medical Decision Making Differential Diagnosis Differential diagnoses include pyelonephritis, dehydration, hydronephrosis, renal failure, electrolyte imbalance, anemia, myocardial infarction, atrial fibrillation, sepsis, amongst others that were considered. Medical Records Attestation: I reviewed the patient's medical records. Home Medications Current Medication List: was personally reviewed by me Laboratory Data Attestation: I reviewed the patient's lab results. Result diagrams: 10/18/19 12:05 10/18/19 12:05 Lab Results 10/18/19 10/18/19 10/18/19 Range/Units 11:50 12:05 12:05 WBC 11.94 H (4.8-10.8) K/uL RBC 3.50 L (4.2-5.4) M/uL Hgb 11.7 L (12.0-16.0) g/dL Hct 34.0 L (37-47) % MCV 97.1 (80-100) fL MCH 33.4 (25-34) pg MCHC 34.4 (32-36) g/dL RDW Std Deviation 47.8 H (36.4-46.3) fL RDW Coeff of Khushi 13.5 (11.5-14.5) % Plt Count 193 (130-400) K/uL MPV 12.0 H (7.4-10.4) fL Immature Gran % (Auto) 0.3 % Neut % (Auto) 78.4 % Lymph % (Auto) 8.8 % [place] % (Auto) 12.1 % Eos % (Auto) 0.3 % Baso % (Auto) 0.1 % Immature Gran # (Auto) 0.04 H (0.00-0.02) K/uL Neut # (Auto) 9.36 H (1.4-6.5) K/uL Lymph # (Auto) 1.05 L (1.2-3.4) K/uL [place] # (Auto) 1.44 H (0.11-0.59) K/uL Eos # (Auto) 0.04 (0-0.5) K/uL Baso # (Auto) 0.01 (0-0.2) K/uL PT 11.3 (9.0-12.0) Seconds INR 1.1 (0.9-1.1) APTT 26.5 (21.0-31.0) Seconds PTT Ratio 1.0 Sodium (136-145) mmol/L Potassium (3.5-5.1) mmol/L Chloride (98-107) mmol/L Carbon Dioxide (21-32) mmol/L Anion Gap (3-11) BUN (7-18) mg/dl Creatinine (0.6-1.2) mg/dl Est Cr Clr Drug Dosing ml/min Est GFR ( Amer) Est GFR (Non-Af Amer) BUN/Creatinine Ratio (10-20) Glucose (70-99) mg/dl Lactate (0.4-2.0) mmol/L Calcium (8.5-10.1) mg/dl Total Bilirubin (0.2-1) mg/dl AST (15-37) U/L ALT (12-78) U/L Alkaline Phosphatase (45-117) U/L Troponin I (0-0.045) ng/ml Total Protein (6.4-8.2) gm/dl Albumin (3.4-5.0) gm/dl Globulin (2.5-4.0) gm/dl Albumin/Globulin Ratio (0.9-2) Procalcitonin (0-0.5) ng/ml Urine Color Dark Yellow Urine Appearance Turbid A (Clear) Urine pH 5.5 (4.5-7.5) Ur Specific [place] 1.016 (1.000-1.030) Urine Protein 2+ H (Negative) Urine Glucose (UA) Negative (Negative) Urine Ketones Negative (Negative) Urine Blood 3+ H (Negative) Urine Nitrite Negative (Negative) Urine Bilirubin Negative (Negative) Urine Urobilinogen Negative (Negative) Ur Leukocyte Esterase 3+ H (Negative) Urine WBC (Auto) >30 H (0-5) /hpf Urine RBC (Auto) >30 H (0-4) /hpf U Hyaline Cast (Auto) 1-5 (0-5) /lpf U Epithel Cells (Auto) >30 H (0-5) /lpf Urine Bacteria (Auto) 3+ H (Negative) Urine Yeast Not Reportable 10/18/19 10/18/19 10/18/19 Range/Units 12:05 12:05 12:15 WBC (4.8-10.8) K/uL RBC (4.2-5.4) M/uL Hgb (12.0-16.0) g/dL Hct (37-47) % MCV (80-100) fL MCH (25-34) pg MCHC (32-36) g/dL RDW Std Deviation (36.4-46.3) fL RDW Coeff of Khushi (11.5-14.5) % Plt Count (130-400) K/uL MPV (7.4-10.4) fL Immature Gran % (Auto) % Neut % (Auto) % Lymph % (Auto) % [place] % (Auto) % Eos % (Auto) % Baso % (Auto) % Immature Gran # (Auto) (0.00-0.02) K/uL Neut # (Auto) (1.4-6.5) K/uL Lymph # (Auto) (1.2-3.4) K/uL [place] # (Auto) (0.11-0.59) K/uL Eos # (Auto) (0-0.5) K/uL Baso # (Auto) (0-0.2) K/uL PT (9.0-12.0) Seconds INR (0.9-1.1) APTT (21.0-31.0) Seconds PTT Ratio Sodium 139 (136-145) mmol/L Potassium 3.2 L (3.5-5.1) mmol/L Chloride 109 H (98-107) mmol/L Carbon Dioxide 16 L (21-32) mmol/L Anion Gap 14.0 H (3-11) BUN 54 H (7-18) mg/dl Creatinine 2.25 H (0.6-1.2) mg/dl Est Cr Clr Drug Dosing 21.7 ml/min Est GFR ( Amer) 24.6 Est GFR (Non-Af Amer) 21.2 BUN/Creatinine Ratio 24.2 H (10-20) Glucose 114 H (70-99) mg/dl Lactate 1.1 (0.4-2.0) mmol/L Calcium 8.5 (8.5-10.1) mg/dl Total Bilirubin 0.7 (0.2-1) mg/dl AST 27 (15-37) U/L ALT 33 (12-78) U/L Alkaline Phosphatase 79 (45-117) U/L Troponin I 0.052 H* (0-0.045) ng/ml Total Protein 6.6 (6.4-8.2) gm/dl Albumin 2.7 L (3.4-5.0) gm/dl Globulin 3.9 (2.5-4.0) gm/dl Albumin/Globulin Ratio 0.7 L (0.9-2) Procalcitonin 1.14 H (0-0.5) ng/ml Urine Color Urine Appearance (Clear) Urine pH (4.5-7.5) Ur Specific [place] (1.000-1.030) Urine Protein (Negative) Urine Glucose (UA) (Negative) Urine Ketones (Negative) Urine Blood (Negative) Urine Nitrite (Negative) Urine Bilirubin (Negative) Urine Urobilinogen (Negative) Ur Leukocyte Esterase (Negative) Urine WBC (Auto) (0-5) /hpf Urine RBC (Auto) (0-4) /hpf U Hyaline Cast (Auto) (0-5) /lpf U Epithel Cells (Auto) (0-5) /lpf Urine Bacteria (Auto) (Negative) Urine Yeast Imaging Data Radiologist's Impression: Radiology results as stated below per my review and the radiologist's interpretation: XR chest 1V portable CLINICAL HISTORY: 69 years-old Female presenting with Sepsis. TECHNIQUE: Portable upright AP view of the chest was obtained. COMPARISON: 08/26/2019. FINDINGS: Cardiomediastinal silhouette normal. No focal opacity. No large effusion or pneumothorax. Osseous structures normal. Upper abdomen normal. IMPRESSION: 1. No acute cardiopulmonary disease. Electronically signed by: Elvin Rainey M.D. 10/18/2019 12:24 PM KUB HISTORY: Ureteral stent placement. Right flank pain. COMPARISON: KUB 10/14/2019. FINDINGS: The bowel gas pattern is unremarkable. There are no dilated loops of small bowel to suggest an obstruction. A right ureteral stent is in good position. This remains unchanged. No ureteral calculi identified. Calcifications in the pelvis remain stable and likely represent phleboliths. Stable multiple bilateral renal calculi. Dominant fragment stone within the lower pole the left kidney measures 8 mm. No pneumoperitoneum or pneumatosis. IMPRESSION: 1. No change in the right ureteral stent which appears in good position. 2. Stable bilateral nephrolithiasis. 3. No ureteral calculi. Electronically signed by: Theodore Heart M.D. 10/18/2019 1:57 PM ECG Data Attestation: I personally reviewed and interpreted this ECG as follows: Indication: + weakness Rate (beats per minute): 98 Rhythm: + atrial fibrillation ECG ST segments: no ST elevation ECG Findings: + Other (QTC 405); no PVCs Blood Pressure Blood Pressure Findings: Low blood pressure Blood Pressure Disposition: further management by hospitalist SUSANNE Narrative There is a mild leukocytosis, this could be consistent with infection. No concerning anemia. No coagulopathy. Renal panel testing does show some acute kidney injury with a creatinine of 2.25. There was a mild acidosis suggested with a CO2 of 16. Potassium mildly low at 3.2. Lactic acid level was not elevated making severe sepsis less likely. There was no worrisome liver enzyme elevation. EKG shows atrial fibrillation which was relatively rate controlled, the patient does not have a history of A. fib. Cardiac enzyme testing x1 does show a slight troponin elevation, this could be consistent with cardiac strain or possibly just mismatch. Procalcitonin slightly elevated at 1.14. Urinalysis returned with findings of possible infection, urine culture is pending. KUB showed the right ureteral stent to be in proper position. Chest film did not show pneumonia or CHF. Patient received IV saline, she received 2 IV saline boluses. She was given IV cefepime as antibiotic coverage. She received IV Zofran for nausea. Patient presents tachycardic and borderline hypotensive. She has had chills. She currently has a right ureteral stent. She appears to be in a new onset A. fib, she has a troponin elevation. The patient may have an infection causing her presentation. Certainly, dehydration and the new onset A. fib may be part of her presentation as well. Given her findings, given her history, I do think a hospital stay is warranted. I did speak with urology, I spoke with case management. The on-call hospitalist has been consulted. The patient states that she is feeling improved, she is aware of all findings. Impression & Plan Acute hypotension, Atrial fibrillation, new onset, Acute kidney injury, Leukocytosis, Acute dehydration Discharge Plan Visit Data *Final* Discharge Date/Time: 10/18/19 15:33 Chief Complaint: Dizziness Stated Complaint: DIZZY, WEAK ED Provider: Tony Gonzales Discharge Problem: Acute hypotension, Atrial fibrillation, new onset, Acute kidney injury, Leukocytosis, Acute dehydration Patient Disposition: Admitted As Inpatient Discharge Instructions Interventions: ED Discharge Assessment Last Done: 10/18/19 15:33 Discharge Problem: Leukocytosis Qualifiers: Leukocytosis type: unspecified Qualified Code(s): D72.829 - Elevated white blood cell count, unspecified The scribe's documentation has been prepared under my direction and personally reviewed by me in its entirety. I confirm that the note above accurately reflects all work, treatment, procedures, and medical decision making performed by me.
[2019-10-18] MEDS ORDERED: ZOLEDRONIC ACID 5 MG/100 ML VIAL IV SCH (16:08)
[2019-10-18] MEDS ORDERED: EPINEPHRINE ADULT AUTO-INJECT 0.3 MG SYR IM PRN (16:08)
[2019-10-18] MEDS ORDERED: SODIUM CHLORIDE 0.9% 1000ML 1,000 ML IV SCH (16:08)
[2019-10-18] MEDS: POTASSIUM CHLORIDE / WTR 10 MEQ/100 ML PLCT IV SCH ×4 (16:44→22:01)
[2019-10-18] MEDS ORDERED: VIT B6 MAG CIT OXID POTASS CIT PO SCH (17:00)
[2019-10-18] MEDS: LACTOBACILLUS ACIDOPHILUS (FLORANEX) TAB PO SCH ×2 (17:18→20:11)
[2019-10-18] MEDS: SODIUM BICARBONATE 8.4% 75 MEQ in SODIUM CHLORIDE 0.45 % 1,000 ML IV SCH (18:51)
[2019-10-18] MEDS: CALCIUM CARBONATE 1250MG TAB PO SCH (20:10)
[2019-10-18] MEDS: CALCITRIOL 0.25 MCG CAPSULE PO SCH (20:12)
--- NOTE | 2019-10-18 20:32 | Nephrology Consultation ---
Date of Consultation October 18, 2019 Assessment & Plan (1) Acute UTI: - Sepsis. Started on IV cefepime. Stent remains in place. Xray reviewed. US pending. Urology consult pending. (2) ARF (acute renal failure): Acute on chronic renal failure. Consistent with ATN. Continue IVF to maintain positive fluid balance. Labs notable for AG/NAGMA. IVF switched to 1/2NS+HCO3 @ 125 ml/hr. Document I/O's. Medications are appropriate for kidney function. Repeat metabolic profile in the AM. (3) Dehydration: I/O's. IV IVF with HCO3. (4) Hypokalemia: IV replacement ordered. (5) Calculus of kidney: Urology consult pending. (6) Chronic kidney disease, stage III (moderate): Followed by Dr. Miranda as outpatient. History of Present Illness Reason for Consultation: OLY Requesting Physician: Keshav Morales MD Attending Physician: Keshav Morales MD History of Present Illness Dunia Kaba is a 69-year-old female with CKD III. Dunia follows in the nephrology clinic with Dr. Miranda. Baseline creatinine has been 1.4 mg/dL. Dunia was seen and evaluated this afternoon. Nephrology consultation provided for OLY/CKD. Dunia is non-oliguric. She presented to the ED with dizziness. No fevers. Medical history notable for recent ureteral stent placement. IV saline and IV cefepime provided in the ED. Evaluation notable for new atrial fibrillation and sepsis. WBC 38741, RR 20-25, HR 102. Dunia has been hypotensive. Lactic acid 1.1. Laboratory studies also notable for an elevated creatinine as well as a mixed AG/NAGMA. Urine studies consistent with UTI. Blood and urine cultures pending. Medical history notable for jejunal and ileal bypass with secondary chronic diarrhea and malabsorption complicated by a significant history of recurrent nephrolithiasis. Allergies Allergy/AdvReac Type Severity Reaction Status Date / Time bee venom protein (honey bee) Allergy Severe HIVES, Verified 10/18/19 11:55 DIFFICULTY BREATHING erythromycin base Allergy Severe RASH X Verified 10/18/19 11:55 WEEK Penicillins Allergy Intermediate HIVES, Verified 10/18/19 11:55 SWELLING wheat Allergy Intermediate CELIAC Verified 10/18/19 11:55 DISEASE- ABD CRAMPING, DIARRHEA benzonatate Allergy Mild PRURITIUS Verified 10/18/19 11:55 doxycycline Allergy Mild RASH Verified 10/18/19 11:55 Macrolide Antibiotics Allergy Mild ITCHY, RASH Verified 10/18/19 11:55 lactose AdvReac Intermediate GI ISSUES Verified 10/18/19 11:55 cephalexin AdvReac Mild DIARRHEA Verified 10/18/19 11:55 Home Medications Home Medications Medication Instructions Recorded Confirmed Type cyanocobalamin (vitamin B-12) 1,000 mcg PO QAM #0 06/25/09 10/18/19 History Theralith XR 2 tab PO TIDM #0 11/25/15 10/18/19 History epinephrine [EpiPen] 0.3 mg IM Q3H PRN #0 11/25/15 10/18/19 History calcitriol [Rocaltrol] 0.5 mcg PO BID #0 04/17/17 10/18/19 History Centrum Silver Women 1 tab PO QAM #0 12/23/17 10/18/19 History Slow-Mag 71.5 mg PO QAM #0 12/23/17 10/18/19 History ascorbic acid (vitamin C) 250 mg PO QAM #0 12/23/17 10/18/19 History calcium carbonate [Calcium 600] 1,200 mg PO TID #0 05/17/18 10/18/19 History cholestyramine (with sugar) 4 g PO BID #0 05/17/18 10/18/19 History [Questran] cetirizine [Zyrtec] 10 mg PO QAM 06/19/19 10/18/19 History zoledronic [id number] 5 mg IV YEARLY 06/19/19 10/18/19 History [Reclast] Lactobacillus acidoph-L.bulgar 1 tab PO TID 10/15/19 10/18/19 History [Floranex] Patient History Medical History Anemia Arrhythmia PAC's per prior EKGs/no issues x years Asthma no inhaler used Celiac disease Chronic diarrhea Chronic kidney disease, stage III (moderate) History of blood clots RLE (early ) s/p trauma Hydronephrosis (Inactive) Hypertension Kidney stones (Chronic) Malabsorption syndrome Obesity Osteoarthritis of knee Osteoporosis Postsurgical dumping syndrome Right knee DJD UTI (urinary tract infection) Venous insufficiency (chronic) (peripheral) Surgical History H/O foot surgery RT BIG TOE REPAIRED History of appendectomy History of bariatric surgery BOWEL SHUNT 1971 History of cholecystectomy History of cystoscopy WITH STENT FOR KIDNEY STONES History of lithotripsy multiple, General LMA no issues. History of tonsillectomy History of tooth extraction History of total right knee replacement History of tubal ligation Hx of cataract surgery RT/LEFT Family History Mother Family history of diabetes mellitus Grandmother (Maternal) Family history of diabetes mellitus Other Cancer Heart disease Hypertension No family history of adverse response to anesthesia Social History Preferred Language: Nepali Communication Ability: Effective Visual Impairment: No Limitations Centerless Grinder Required: No Beliefs That Will Affect Care: None Current Living Situation: Spouse Other Information That Helps Us Care for You: No Feels Safe at Home: Yes Safety Concerns: Feels Safe At This Time Smoking Status: Never smoker Tobacco Type: cigarettes ; Second Hand Exposure: Yes ( A CHILD) ; Hx Alcohol Use: Yes Alcohol type: hard liquor Hx Substance Use: No Review of Systems Review of Systems: All systems reviewed & are unremarkable except as noted in HPI & below Physical Exam Constitutional: well developed; no acute distress Eyes: no scleral abnormality and no corneal abnormality ENMT: Mouth: no oral mucosal abnormality and oral mucous membranes not dry Neck: normal visual inspection and trachea midline Respiratory: normal respiratory effort Auscultation: lungs clear to auscultation bilaterally Cardiovascular: Rate/Rhythm: regular rate Heart Sounds: normal S1 and normal S2 Extremities: no edema Musculoskeletal: Extremities: no cyanosis and no clubbing Skin: normal turgor; no lesions Neurologic: Motor/Sensory: no tremor and no asterixis Psychiatric: Orientation: alert and oriented x 3 Results & Data Vital Signs (Past 12 Hours) Vital Signs Temp Pulse Pulse Resp BP BP Pulse Ox 10/18/19 16:26 102 H 10/18/19 15:54 36.7 C 94 H 18 98/62 L 97 10/18/19 15:33 98 H 20 102/69 100 10/18/19 14:34 98 H 25 H 94/69 L 98 11/22/19 13:36 90 18 99/65 L 98 10/18/19 12:47 92 H 25 H 104/62 97 10/18/19 11:55 99 10/18/19 11:53 103 H 20 103/66 99 10/18/19 11:20 36.7 C 111 H 18 93/61 L 98 Laboratory Results Laboratory Results - last 24 hr 10/18/19 10/18/19 10/18/19 11:50 12:05 12:05 WBC 11.94 H RBC 3.50 L Hgb 11.7 L Hct 34.0 L MCV 97.1 MCH 33.4 MCHC 34.4 RDW Std Deviation 47.8 H RDW Coeff of Khushi 13.5 Plt Count 193 MPV 12.0 H Immature Gran % (Auto) 0.3 Neut % (Auto) 78.4 Lymph % (Auto) 8.8 Bell % (Auto) 12.1 Eos % (Auto) 0.3 Baso % (Auto) 0.1 Immature Gran # (Auto) 0.04 H Neut # (Auto) 9.36 H Lymph # (Auto) 1.05 L Bell # (Auto) 1.44 H Eos # (Auto) 0.04 Baso # (Auto) 0.01 PT 11.3 INR 1.1 APTT 26.5 PTT Ratio 1.0 Sodium Potassium Chloride Carbon Dioxide Anion Gap BUN Creatinine Est Cr Clr Drug Dosing Est GFR ( Amer) Est GFR (Non-Af Amer) BUN/Creatinine Ratio Glucose Lactate Calcium Total Bilirubin AST ALT Alkaline Phosphatase Troponin I Total Protein Albumin Globulin Albumin/Globulin Ratio Procalcitonin Urine Color Dark Yellow Urine Appearance Turbid A Urine pH 5.5 Ur Specific [place] 1.016 Urine Protein 2+ H Urine Glucose (UA) Negative Urine Ketones Negative Urine Blood 3+ H Urine Nitrite Negative Urine Bilirubin Negative Urine Urobilinogen Negative Ur Leukocyte Esterase 3+ H Urine WBC (Auto) >30 H Urine RBC (Auto) >30 H U Hyaline Cast (Auto) 1-5 U Epithel Cells (Auto) >30 H Urine Bacteria (Auto) 3+ H Urine Yeast Not Reportable 10/18/19 10/18/19 10/18/19 12:05 12:05 12:15 WBC RBC Hgb Hct MCV MCH MCHC RDW Std Deviation RDW Coeff of Khushi Plt Count MPV Immature Gran % (Auto) Neut % (Auto) Lymph % (Auto) Bell % (Auto) Eos % (Auto) Baso % (Auto) Immature Gran # (Auto) Neut # (Auto) Lymph # (Auto) Bell # (Auto) Eos # (Auto) Baso # (Auto) PT INR APTT PTT Ratio Sodium 139 Potassium 3.2 L Chloride 109 H Carbon Dioxide 16 L Anion Gap 14.0 H BUN 54 H Creatinine 2.25 H Est Cr Clr Drug Dosing 21.7 Est GFR ( Amer) 24.6 Est GFR (Non-Af Amer) 21.2 BUN/Creatinine Ratio 24.2 H Glucose 114 H Lactate 1.1 Calcium 8.5 Total Bilirubin 0.7 AST 27 ALT 33 Alkaline Phosphatase 79 Troponin I 0.052 H* Total Protein 6.6 Albumin 2.7 L Globulin 3.9 Albumin/Globulin Ratio 0.7 L Procalcitonin 1.14 H Urine Color Urine Appearance Urine pH Ur Specific [place] Urine Protein Urine Glucose (UA) Urine Ketones Urine Blood Urine Nitrite Urine Bilirubin Urine Urobilinogen Ur Leukocyte Esterase Urine WBC (Auto) Urine RBC (Auto) U Hyaline Cast (Auto) U Epithel Cells (Auto) Urine Bacteria (Auto) Urine Yeast 10/18/19 19:04 WBC RBC Hgb Hct MCV MCH MCHC RDW Std Deviation RDW Coeff of Khushi Plt Count MPV Immature Gran % (Auto) Neut % (Auto) Lymph % (Auto) Bell % (Auto) Eos % (Auto) Baso % (Auto) Immature Gran # (Auto) Neut # (Auto) Lymph # (Auto) Bell # (Auto) Eos # (Auto) Baso # (Auto) PT INR APTT PTT Ratio Sodium Potassium Chloride Carbon Dioxide Anion Gap BUN Creatinine Est Cr Clr Drug Dosing Est GFR ( Amer) Est GFR (Non-Af Amer) BUN/Creatinine Ratio Glucose Lactate Calcium Total Bilirubin AST ALT Alkaline Phosphatase Troponin I 0.054 H* Total Protein Albumin Globulin Albumin/Globulin Ratio Procalcitonin Urine Color Urine Appearance Urine pH Ur Specific [place] Urine Protein Urine Glucose (UA) Urine Ketones Urine Blood Urine Nitrite Urine Bilirubin Urine Urobilinogen Ur Leukocyte Esterase Urine WBC (Auto) Urine RBC (Auto) U Hyaline Cast (Auto) U Epithel Cells (Auto) Urine Bacteria (Auto) Urine Yeast PG Care Time/CCT Total # of Minutes Spent Total Time Spent with Patient: Total time spent is greater than 50% in coordination of care (as documented) at patient's floor/unit and/or counseling patient:
[2019-10-18] MEDS: CHOLESTYRAMINE LIGHT 4 GM PKT PO SCH (22:01)
[2019-10-18] MEDS: ACETAMINOPHEN 325 MG TAB PO PRN (22:04)
[2019-10-19] MEDS: SODIUM BICARBONATE 8.4% 75 MEQ in SODIUM CHLORIDE 0.45 % 1,000 ML IV SCH ×2 (03:12→11:28)
[2019-10-19 06:24] LABS: Hematocrit (blood only) 28.6 % (37-47); Hemoglobin 9.9 g/dL (12.0-16.0); Mean Corpuscular Hemoglobin 33.6 pg (25-34); Mean Corpuscular Hgb Conc 34.6 g/dL (32-36); Mean Corpuscular Volume 96.9 fL (80-100); Mean Platelet Volume 12.3 fL (7.4-10.4); Platelet Count 170 K/uL (130-400); RDW Coefficient of Variation 13.6 % (11.5-14.5); RDW Standard Deviation 48.7 fL (36.4-46.3); Red Blood Count 2.95 M/uL (4.2-5.4); White Blood Count 9.52 K/uL (4.8-10.8)
[2019-10-19 07:03] LABS: Albumin Level 2.1 gm/dl (3.4-5.0); BUN Creatinine Ratio 25.7 (10-20); Bilirubin Direct 0.2 mg/dl (0-0.2); Calcium 8.2 mg/dl (8.5-10.1); Est GFR (African American) 32.5; Magnesium 1.2 mg/dl (1.8-2.4); Potassium 3.7 mmol/L (3.5-5.1)
[2019-10-19 07:17] LABS: Albumin Globulin Ratio 0.7 (0.9-2); Bilirubin,Total 0.6 mg/dl (0.2-1); Globulin 3.2 gm/dl (2.5-4.0); Total Protein 5.3 gm/dl (6.4-8.2); Troponin I 0.031 ng/ml (0-0.045)
[2019-10-19] MEDS: LACTOBACILLUS ACIDOPHILUS (FLORANEX) TAB PO SCH ×3 (07:59→21:27)
[2019-10-19] MEDS: CALCITRIOL 0.25 MCG CAPSULE PO SCH ×2 (07:59→21:27)
[2019-10-19] MEDS: CYANOCOBALAMIN 500 MCG TABLET (VITAMIN B-12) PO SCH (07:59)
[2019-10-19] MEDS: CALCIUM CARBONATE 1250MG TAB PO SCH ×3 (08:00→21:28)
[2019-10-19] MEDS: ASCORBIC ACID 500 MG TAB PO SCH (08:00)
[2019-10-19] MEDS: MULTIVITAMIN TAB PO SCH (08:00)
[2019-10-19] MEDS: CETIRIZINE HCL 10 MG TABLET PO SCH (08:01)
--- NOTE | 2019-10-19 08:27 | Urology Consultation ---
Date of Consultation October 19, 2019 Assessment & Plan (1) Calculus of kidney: A/P 69-year-old female with nausea, renal insufficiency, possible urinary tract infection with indwelling stent. Findings are reviewed with the patient. Cultures are pending. She has been rescheduled for ureteroscopy on MondayOctober [address] Polanco. This should allow for adequate length of treatment on culture specific antibiotics which can be continued for approximately 2 weeks for complex UTI. I anticipate that if the patient continues to clinically improve and cultures demonstrate organism sensitive to oral antibiotics that she should be able to be discharged home before the holiday weekend. Stent seems in good position and if she continues to improve clinically I do not think any further imaging nor any acute intervention should be required. Patient vocalizes understanding of the treatment plan. Continue care per primary service. Thank you for allowing us to participate in this patient's acute care. Please contact our service with any questions or concerns. History of Present Illness Reason for Consultation: Right-sided indwelling stent, renal stones, urinary tract infection. Attending Physician: Jb Saldivar History of Present Illness Patient is a pleasant 69-year-old female, well-known to our service with a history of recurrent renal stones. She is status post acute stent placement on the right-hand side for intractable colic and renal insufficiency approximately 3 weeks ago. She was planned for endoscopic management due to poor visualization of stones on KUB earlier this week this was belayed due to intractable nausea which in retrospect was likely an early urinary tract infection. Patient notes that her daughters recommended she present acutely at the time but she declined their recommendations. She presented due to worsening weakness and malaise and was found to have a slightly elevated troponin and creatinine elevation, acute on chronic, for which she was admitted to the telemetry service. KUB via the emergency room demonstrates good stent position. Patient reports that she feels better since admission with IV fluids and antibiotics. She is currently tolerating a p.o. diet without emesis. H&P and nephrology consultation as well as inpatient and outpatient charts and imaging are personally reviewed. Urology consultation is requested for assistance with this patient's acute care. She notes she is generally tolerating the stent well. Allergies Allergy/AdvReac Type Severity Reaction Status Date / Time bee venom protein (honey bee) Allergy Severe HIVES, Verified 10/18/19 11:55 DIFFICULTY BREATHING erythromycin base Allergy Severe RASH X Verified 10/18/19 11:55 WEEK Penicillins Allergy Intermediate HIVES, Verified 10/18/19 11:55 SWELLING wheat Allergy Intermediate CELIAC Verified 10/18/19 11:55 DISEASE- ABD CRAMPING, DIARRHEA benzonatate Allergy Mild PRURITIUS Verified 10/18/19 11:55 doxycycline Allergy Mild RASH Verified 10/18/19 11:55 Macrolide Antibiotics Allergy Mild ITCHY, RASH Verified 10/18/19 11:55 lactose AdvReac Intermediate GI ISSUES Verified 10/18/19 11:55 cephalexin AdvReac Mild DIARRHEA Verified 10/18/19 11:55 Home Medications Home Medications Medication Instructions Recorded Confirmed Type cyanocobalamin (vitamin B-12) 1,000 mcg PO QAM #0 06/25/09 10/18/19 History Theralith XR 2 tab PO TIDM #0 11/25/15 10/18/19 History epinephrine [EpiPen] 0.3 mg IM Q3H PRN #0 11/25/15 10/18/19 History calcitriol [Rocaltrol] 0.5 mcg PO BID #0 04/17/17 10/18/19 History Centrum Silver Women 1 tab PO QAM #0 12/23/17 10/18/19 History Slow-Mag 71.5 mg PO QAM #0 12/23/17 10/18/19 History ascorbic acid (vitamin C) 250 mg PO QAM #0 12/23/17 10/18/19 History calcium carbonate [Calcium 600] 1,200 mg PO TID #0 05/17/18 10/18/19 History cholestyramine (with sugar) 4 g PO BID #0 05/17/18 10/18/19 History [Questran] cetirizine [Zyrtec] 10 mg PO QAM 06/19/19 10/18/19 History zoledronic [id number] 5 mg IV YEARLY 06/19/19 10/18/19 History [Reclast] Lactobacillus acidoph-L.bulgar 1 tab PO TID 10/15/19 10/18/19 History [Floranex] Patient History Medical History Anemia Arrhythmia PAC's per prior EKGs/no issues x years Asthma no inhaler used Celiac disease Chronic diarrhea Chronic kidney disease, stage III (moderate) History of blood clots RLE (early ) s/p trauma Hydronephrosis (Inactive) Hypertension Kidney stones (Chronic) Malabsorption syndrome Obesity Osteoarthritis of knee Osteoporosis Postsurgical dumping syndrome Right knee DJD UTI (urinary tract infection) Venous insufficiency (chronic) (peripheral) Surgical History H/O foot surgery RT BIG TOE REPAIRED History of appendectomy History of bariatric surgery BOWEL SHUNT 1971 History of cholecystectomy History of cystoscopy WITH STENT FOR KIDNEY STONES History of lithotripsy multiple, General LMA no issues. History of tonsillectomy History of tooth extraction History of total right knee replacement History of tubal ligation Hx of cataract surgery RT/LEFT Family History Mother Family history of diabetes mellitus Grandmother (Maternal) Family history of diabetes mellitus Other Cancer Heart disease Hypertension No family history of adverse response to anesthesia Social History Preferred Language: Iranian Communication Ability: Effective Visual Impairment: No Limitations Finance Mgr Required: No Beliefs That Will Affect Care: None Current Living Situation: Spouse Other Information That Helps Us Care for You: No Feels Safe at Home: Yes Safety Concerns: Feels Safe At This Time Smoking Status: Never smoker Tobacco Type: cigarettes ; Second Hand Exposure: Yes ( A CHILD) ; Hx Alcohol Use: Yes Alcohol type: hard liquor Hx Substance Use: No Review of Systems Constitutional: + fatigue and + malaise Eyes: no diplopia and no discharge Ear, Nose, Mouth, Throat: no ear pain and no ear trauma Respiratory: no hemoptysis Cardiovascular: no chest pain and no syncope Gastrointestinal: no vomiting Genitourinary: as per Subjective / HPI Musculoskeletal: + joint pain Integumentary: no acne and no boil Neurologic: no paralysis Psychiatric: no hopelessness Endocrine: + fatigue Hematologic / Lymphatic: no lymphadenopathy Allergy / Immunological: no tongue swelling Physical Exam Constitutional: no acute distress Eyes: eyes not dysmorphic ENMT: Ears: no external ear abnormality Neck: trachea midline; no anterior neck swelling Respiratory: no respiratory distress and does not use accessory muscles Cardiovascular: Vessels: radial pulses present Gastrointestinal (Abdomen): Inspection/Auscultation: abdomen not distended Percussion/Palpation: abdomen soft; abdomen nontender Musculoskeletal: Head/Neck/Chest: normocephalic and neck supple Skin: normal turgor Neurologic: awake; not obtunded Psychiatric: Orientation: oriented x 3 Lymphatic: no lymphadenopathy Results & Data Vital Signs (Past 12 Hours) Vital Signs Temp Pulse Resp BP Pulse Ox 10/19/19 08:00 36.9 C 76 18 101/69 96 10/19/19 02:51 36.5 C 87 18 96/58 L 98 10/18/19 23:22 36.8 C 90 18 90/54 L 96 Laboratory Results Laboratory Results - last 48 hr 10/18/19 10/18/19 10/18/19 11:50 12:05 12:05 WBC 11.94 H RBC 3.50 L Hgb 11.7 L Hct 34.0 L MCV 97.1 MCH 33.4 MCHC 34.4 RDW Std Deviation 47.8 H RDW Coeff of Khushi 13.5 Plt Count 193 MPV 12.0 H Immature Gran % (Auto) 0.3 Neut % (Auto) 78.4 Lymph % (Auto) 8.8 [place] % (Auto) 12.1 Eos % (Auto) 0.3 Baso % (Auto) 0.1 Immature Gran # (Auto) 0.04 H Neut # (Auto) 9.36 H Lymph # (Auto) 1.05 L [place] # (Auto) 1.44 H Eos # (Auto) 0.04 Baso # (Auto) 0.01 PT 11.3 INR 1.1 APTT 26.5 PTT Ratio 1.0 Sodium Potassium Chloride Carbon Dioxide Anion Gap BUN Creatinine Est Cr Clr Drug Dosing Est GFR ( Amer) Est GFR (Non-Af Amer) BUN/Creatinine Ratio Glucose Lactate Calcium Magnesium Total Bilirubin Direct Bilirubin AST ALT Alkaline Phosphatase Troponin I Total Protein Albumin Globulin Albumin/Globulin Ratio Procalcitonin Urine Color Dark Yellow Urine Appearance Turbid A Urine pH 5.5 Ur Specific [place] 1.016 Urine Protein 2+ H Urine Glucose (UA) Negative Urine Ketones Negative Urine Blood 3+ H Urine Nitrite Negative Urine Bilirubin Negative Urine Urobilinogen Negative Ur Leukocyte Esterase 3+ H Urine WBC (Auto) >30 H Urine RBC (Auto) >30 H U Hyaline Cast (Auto) 1-5 U Epithel Cells (Auto) >30 H Urine Bacteria (Auto) 3+ H Urine Yeast Not Reportable 10/18/19 10/18/19 10/18/19 12:05 12:05 12:15 WBC RBC Hgb Hct MCV MCH MCHC RDW Std Deviation RDW Coeff of Khushi Plt Count MPV Immature Gran % (Auto) Neut % (Auto) Lymph % (Auto) [place] % (Auto) Eos % (Auto) Baso % (Auto) Immature Gran # (Auto) Neut # (Auto) Lymph # (Auto) [place] # (Auto) Eos # (Auto) Baso # (Auto) PT INR APTT PTT Ratio Sodium 139 Potassium 3.2 L Chloride 109 H Carbon Dioxide 16 L Anion Gap 14.0 H BUN 54 H Creatinine 2.25 H Est Cr Clr Drug Dosing 21.7 Est GFR ( Amer) 24.6 Est GFR (Non-Af Amer) 21.2 BUN/Creatinine Ratio 24.2 H Glucose 114 H Lactate 1.1 Calcium 8.5 Magnesium Total Bilirubin 0.7 Direct Bilirubin AST 27 ALT 33 Alkaline Phosphatase 79 Troponin I 0.052 H* Total Protein 6.6 Albumin 2.7 L Globulin 3.9 Albumin/Globulin Ratio 0.7 L Procalcitonin 1.14 H Urine Color Urine Appearance Urine pH Ur Specific [place] Urine Protein Urine Glucose (UA) Urine Ketones Urine Blood Urine Nitrite Urine Bilirubin Urine Urobilinogen Ur Leukocyte Esterase Urine WBC (Auto) Urine RBC (Auto) U Hyaline Cast (Auto) U Epithel Cells (Auto) Urine Bacteria (Auto) Urine Yeast 10/18/19 10/19/19 10/19/19 19:04 05:30 05:30 WBC 9.52 RBC 2.95 L Hgb 9.9 L Hct 28.6 L MCV 96.9 MCH 33.6 MCHC 34.6 RDW Std Deviation 48.7 H RDW Coeff of Khushi 13.6 Plt Count 170 MPV 12.3 H Immature Gran % (Auto) Neut % (Auto) Lymph % (Auto) [place] % (Auto) Eos % (Auto) Baso % (Auto) Immature Gran # (Auto) Neut # (Auto) Lymph # (Auto) [place] # (Auto) Eos # (Auto) Baso # (Auto) PT INR APTT PTT Ratio Sodium 142 Potassium 3.7 D Chloride 117 H Carbon Dioxide 18 L Anion Gap 7.0 BUN 46 H Creatinine 1.79 H D Est Cr Clr Drug Dosing 28.0 Est GFR ( Amer) 32.5 Est GFR (Non-Af Amer) 28.0 BUN/Creatinine Ratio 25.7 H Glucose 91 Lactate Calcium 8.2 L Magnesium 1.2 L Total Bilirubin 0.6 Direct Bilirubin 0.2 AST 27 ALT 33 Alkaline Phosphatase 65 Troponin I 0.054 H* 0.031 Total Protein 5.3 L Albumin 2.1 L Globulin 3.2 Albumin/Globulin Ratio 0.7 L Procalcitonin Urine Color Urine Appearance Urine pH Ur Specific [place] Urine Protein Urine Glucose (UA) Urine Ketones Urine Blood Urine Nitrite Urine Bilirubin Urine Urobilinogen Ur Leukocyte Esterase Urine WBC (Auto) Urine RBC (Auto) U Hyaline Cast (Auto) U Epithel Cells (Auto) Urine Bacteria (Auto) Urine Yeast PG Care Time/CCT Total # of Minutes Spent Total Time Spent with Patient: Total time spent is greater than 50% in coordination of care (as documented) at patient's floor/unit and/or counseling patient:
[2019-10-19] MEDS ORDERED: MAGNESIUM CHLORIDE 64MG DELAYED REL TAB PO SCH (09:00)
[2019-10-19] MEDS: CHOLESTYRAMINE LIGHT 4 GM PKT PO SCH ×2 (10:30→21:27)
--- NOTE | 2019-10-19 10:47 | Nephrology Progress Note ---
Date of Service October 19, 2019 Assessment & Plan (1) Acute UTI: - Remains on IV cefepime. Urology consult reviewed. Culture pending. (2) ARF (acute renal failure): Acute on chronic renal failure. Consistent with ATN. Hold IVF once current bag complete. Oral NaHCO3 650 mEq BID provided. Document I/O's. Medications are appropriate for kidney function. Repeat metabolic profile in the AM. (3) Dehydration: Hold IVF once current bag complete. (4) Hypokalemia: IV magnesium replacement ordered this AM for hypomagnesemia. (5) Calculus of kidney: Outpatient follow up. (6) Chronic kidney disease, stage III (moderate): Followed by Dr. Miranda as outpatient. Baseline creatinine ~1.5 mg/dL. Subjective No acute events overnight. Dunia feels well this morning. No pain. No fevers or chills. Denies any urinary complaints. Appetite good. No chest pain or palpitations. Review of Systems Review of Systems: All systems reviewed & are unremarkable except as noted in HPI & below Physical Exam Constitutional: well developed; no acute distress Eyes: no scleral abnormality and no corneal abnormality ENMT: Mouth: no oral mucosal abnormality and oral mucous membranes not dry Neck: normal visual inspection and trachea midline Respiratory: normal respiratory effort Auscultation: lungs clear to auscultation bilaterally Cardiovascular: Rate/Rhythm: regular rate Heart Sounds: normal S1 and normal S2 Extremities: no edema Musculoskeletal: Extremities: no cyanosis and no clubbing Skin: normal turgor; no lesions Neurologic: Motor/Sensory: no tremor and no asterixis Psychiatric: Orientation: alert and oriented x 3 Results & Data Vital Signs (Past 12 Hours) Vital Signs Temp Pulse Pulse Resp BP Pulse Ox 10/19/19 10:14 90 10/19/19 08:00 36.9 C 76 18 101/69 96 10/19/19 02:51 36.5 C 87 18 96/58 L 98 10/18/19 23:22 36.8 C 90 18 90/54 L 96 Laboratory Results Laboratory Results - last 24 hr 10/18/19 10/18/19 10/18/19 11:50 12:05 12:05 WBC 11.94 H RBC 3.50 L Hgb 11.7 L Hct 34.0 L MCV 97.1 MCH 33.4 MCHC 34.4 RDW Std Deviation 47.8 H RDW Coeff of Khushi 13.5 Plt Count 193 MPV 12.0 H Immature Gran % (Auto) 0.3 Neut % (Auto) 78.4 Lymph % (Auto) 8.8 [place] % (Auto) 12.1 Eos % (Auto) 0.3 Baso % (Auto) 0.1 Immature Gran # (Auto) 0.04 H Neut # (Auto) 9.36 H Lymph # (Auto) 1.[address] [place] # (Auto) 1.44 H Eos # (Auto) 0.04 Baso # (Auto) 0.01 PT 11.3 INR 1.1 APTT 26.5 PTT Ratio 1.0 Sodium Potassium Chloride Carbon Dioxide Anion Gap BUN Creatinine Est Cr Clr Drug Dosing Est GFR ( Amer) Est GFR (Non-Af Amer) BUN/Creatinine Ratio Glucose Lactate Calcium Magnesium Total Bilirubin Direct Bilirubin AST ALT Alkaline Phosphatase Troponin I Total Protein Albumin Globulin Albumin/Globulin Ratio Procalcitonin Urine Color Dark Yellow Urine Appearance Turbid A Urine pH 5.5 Ur Specific [place] 1.016 Urine Protein 2+ H Urine Glucose (UA) Negative Urine Ketones Negative Urine Blood 3+ H Urine Nitrite Negative Urine Bilirubin Negative Urine Urobilinogen Negative Ur Leukocyte Esterase 3+ H Urine WBC (Auto) >30 H Urine RBC (Auto) >30 H U Hyaline Cast (Auto) 1-5 U Epithel Cells (Auto) >30 H Urine Bacteria (Auto) 3+ H Urine Yeast Not Reportable 10/18/19 10/18/19 10/18/19 12:05 12:05 12:15 WBC RBC Hgb Hct MCV MCH MCHC RDW Std Deviation RDW Coeff of Khushi Plt Count MPV Immature Gran % (Auto) Neut % (Auto) Lymph % (Auto) [place] % (Auto) Eos % (Auto) Baso % (Auto) Immature Gran # (Auto) Neut # (Auto) Lymph # (Auto) [place] # (Auto) Eos # (Auto) Baso # (Auto) PT INR APTT PTT Ratio Sodium 139 Potassium 3.2 L Chloride 109 H Carbon Dioxide 16 L Anion Gap 14.0 H BUN 54 H Creatinine 2.25 H Est Cr Clr Drug Dosing 21.7 Est GFR ( Amer) 24.6 Est GFR (Non-Af Amer) 21.2 BUN/Creatinine Ratio 24.2 H Glucose 114 H Lactate 1.1 Calcium 8.5 Magnesium Total Bilirubin 0.7 Direct Bilirubin AST 27 ALT 33 Alkaline Phosphatase 79 Troponin I 0.052 H* Total Protein 6.6 Albumin 2.7 L Globulin 3.9 Albumin/Globulin Ratio 0.7 L Procalcitonin 1.14 H Urine Color Urine Appearance Urine pH Ur Specific [place] Urine Protein Urine Glucose (UA) Urine Ketones Urine Blood Urine Nitrite Urine Bilirubin Urine Urobilinogen Ur Leukocyte Esterase Urine WBC (Auto) Urine RBC (Auto) U Hyaline Cast (Auto) U Epithel Cells (Auto) Urine Bacteria (Auto) Urine Yeast 10/18/19 10/19/19 10/19/19 19:04 05:30 05:30 WBC 9.52 RBC 2.95 L Hgb 9.9 L Hct 28.6 L MCV 96.9 MCH 33.6 MCHC 34.6 RDW Std Deviation 48.7 H RDW Coeff of Khushi 13.6 Plt Count 170 MPV 12.3 H Immature Gran % (Auto) Neut % (Auto) Lymph % (Auto) [place] % (Auto) Eos % (Auto) Baso % (Auto) Immature Gran # (Auto) Neut # (Auto) Lymph # (Auto) [place] # (Auto) Eos # (Auto) Baso # (Auto) PT INR APTT PTT Ratio Sodium 142 Potassium 3.7 D Chloride 117 H Carbon Dioxide 18 L Anion Gap 7.0 BUN 46 H Creatinine 1.79 H D Est Cr Clr Drug Dosing 28.0 Est GFR ( Amer) 32.5 Est GFR (Non-Af Amer) 28.0 BUN/Creatinine Ratio 25.7 H Glucose 91 Lactate Calcium 8.2 L Magnesium 1.2 L Total Bilirubin 0.6 Direct Bilirubin 0.2 AST 27 ALT 33 Alkaline Phosphatase 65 Troponin I 0.054 H* 0.031 Total Protein 5.3 L Albumin 2.1 L Globulin 3.2 Albumin/Globulin Ratio 0.7 L Procalcitonin Urine Color Urine Appearance Urine pH Ur Specific [place] Urine Protein Urine Glucose (UA) Urine Ketones Urine Blood Urine Nitrite Urine Bilirubin Urine Urobilinogen Ur Leukocyte Esterase Urine WBC (Auto) Urine RBC (Auto) U Hyaline Cast (Auto) U Epithel Cells (Auto) Urine Bacteria (Auto) Urine Yeast PG Care Time/CCT Total # of Minutes Spent Total Time Spent with Patient: Total time spent is greater than 50% in coordina tion of care (as documented) at patient's floor/unit and/or counseling patient:
[2019-10-19] MEDS: MAGNESIUM SULFATE / D5W 1 GM/100 ML BAG IV SCH ×2 (11:28→13:15)
[2019-10-19] MEDS: ACETAMINOPHEN 325 MG TAB PO PRN ×2 (11:28→21:32)
[2019-10-19] MEDS: MAGNESIUM OXIDE 400 MG TAB PO SCH ×2 (11:28→21:27)
[2019-10-19] MEDS: CEFEPIME 500 MG in SYRINGE 0 ML IV SCH (11:30)
--- NOTE | 2019-10-19 12:49 | Hospitalist Progress Note ---
Date of Service October 19, 2019 Assessment & Plan (1) Acute UTI: Check urine cultures. Check blood cultures. Patient started on IV cefepime. (2) ARF (acute renal failure): Acute on chronic renal failure. Appreciate input from Nephro: Consistent with ATN. Hold IVF once current bag complete. Oral NaHCO3 650 mEq BID provided . (3) Dehydration: improved, will monitor. Monitor intake output closely. (4) Atrial fibrillation: Appreciate input from cardio The patient's ventricular response to her new onset atrial fibrillation is borderline. Would suggest adding low-dose metoprolol tartrate at 12.5 mg b.i.d.. We will titrate as needed. Hold on long-term anticoagulation at this time realizing her drop in hemoglobin, and her upcoming surgical procedure. (5) Hypokalemia: Add potassium supplements. Monitor labs closely (6) ACS (acute coronary syndrome): We will monitor EKG and cardiac enzymes per protocol. Further plan per cardiology. (7) Hematuria: Recent history of right ureteral stenting (8) Calculus of kidney: (9) Short bowel syndrome: (10) Malabsorption syndrome: (11) Obesity: (12) Nausea & vomiting: Add Zofran as needed. PPI for GI prophylaxis. (13) Anemia: (14) Postsurgical dumping syndrome: (15) Chronic kidney disease, stage III (moderate): (16) DVT prophylaxis: SCD Subjective Patient reports having a headache in the AM. But this subsided. She states she is less weak and dizzy from yesterday as well. Review of Systems Review of Systems: All systems reviewed & are unremarkable except as noted in HPI & below Physical Exam Physical Exam: GENERAL : No acute distress EYES: No icterus, gaze conjugate NOSE: No evidence of epistaxis MOUTH: No lesions or candidiasis, mucosa moist NECK: Supple LUNGS: CTA B/L, no wheezes, rales or rhonchi HEART: Irregularly irregular ABDOMEN: Soft, NT, ND, BS Present EXTREMITIES: No LE edema, pedal pulses intact NEURO: A&OX3 Results & Data Vital Signs (Past 12 Hours) Vital Signs Temp Pulse Pulse Resp BP Pulse Ox 10/19/19 11:37 36.7 C 83 18 113/68 95 10/19/19 10:14 90 10/19/19 08:00 36.9 C 76 18 101/69 96 10/19/19 02:51 36.5 C 87 18 96/58 L 98 PG Care Time/CCT Total # of Minutes Spent Total Time Spent with Patient: Total time spent is greater than 50% in coordination of care (as documented) at patient's floor/unit and/or counseling patient:
--- NOTE | 2019-10-19 13:28 | Cardiology Consultation ---
Date of Consultation October 19, 2019 Assessment & Plan (1) Atrial fibrillation, new onset: The patient's ventricular response to her new onset atrial fibrillation is borderline. Would suggest adding low-dose metoprolol tartrate at 12.5 mg b.i.d.. We will titrate as needed. Hold on long-term anticoagulation at this time realizing her drop in hemoglobin, and her upcoming surgical procedure. (2) Hypomagnesemia: Would replete her magnesium aggressively. (3) Elevated troponin: Suspect this is a supply demand mismatch related to her rapid ventricular response to her atrial fibrillation. (4) Hypertension: Controlled. History of Present Illness Attending Physician: Jb Saldivar History of Present Illness Mrs. Kaba is a 69-year-old female admitted yesterday with hypokalemia, hypomagnesemia, an atrial fibrillation with a rapid ventricular response. This consultation was ordered to assist in her management. The patient's recent history began on September 27 when she was admitted here with right-sided hydronephrosis and to obstructing ureteral stones. She was taken to the OR where 2 stents were placed within the right ureter. The patient was eventually discharged home on the 30 of September. Three days prior to this presentation, the patient began to note profound weakness and complained of orthostatic dizziness. Her oral intake was greatly diminished and she presented to our institution for further care. The patient has never known the diagnosis of atrial fibrillation. She Has not experienced any symptoms of palpitations. The patient has never known of a cardiac event. She has never had a cardiac catheterization. An echocardiogram performed back in January noted normal left ventricular systolic function and no significant valvular pathology. Currently, patient resting controlling bed without complaints. Past medical and surgical history 1. Hypertension 2. Chronic renal failure 3. Nephrolithiasis-see above 4. Gastric bypass surgery-1970 5. 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 Malabsorption syndrome 7. Short bowel syndrome 8. Dumping syndrome 9. Vitamin-D deficiency 10. Vitamin B12 deficiency 11. Obesity 12. Osteoporosis 13. Right TKR 14. Cholecystectomy 15. Appendectomy 16. Bilateral interocular lens implants Social history and lives with her Retired from the [email or web address] at [employer] No tobacco Social alcohol Family history Father at 53 from an [place] Mother at 62 from ovarian carcinoma No siblings Review of systems A 10 point review of systems was negative except for that described above. Allergies Allergy/AdvReac Type Severity Reaction Status Date / Time bee venom protein (honey bee) Allergy Severe HIVES, Verified 10/18/19 11:55 DIFFICULTY BREATHING erythromycin base Allergy Severe RASH X Verified 10/18/19 11:55 WEEK Penicillins Allergy Intermediate HIVES, Verified 10/18/19 11:55 SWELLING wheat Allergy Intermediate CELIAC Verified 10/18/19 11:55 DISEASE- ABD CRAMPING, DIARRHEA benzonatate Allergy Mild PRURITIUS Verified 10/18/19 11:55 doxycycline Allergy Mild RASH Verified 10/18/19 11:55 Macrolide Antibiotics Allergy Mild ITCHY, RASH Verified 10/18/19 11:55 lactose AdvReac Intermediate GI ISSUES Verified 10/18/19 11:55 cephalexin AdvReac Mild DIARRHEA Verified 10/18/19 11:55 Home Medications Home Medications Medication Instructions Recorded Confirmed Type cyanocobalamin (vitamin B-12) 1,000 mcg PO QAM #0 06/25/09 10/18/19 History Theralith XR 2 tab PO TIDM #0 11/25/15 10/18/19 History epinephrine [EpiPen] 0.3 mg IM Q3H PRN #0 11/25/15 10/18/19 History calcitriol [Rocaltrol] 0.5 mcg PO BID #0 04/17/17 10/18/19 History Centrum Silver Women 1 tab PO QAM #0 12/23/17 10/18/19 History Slow-Mag 71.5 mg PO QAM #0 12/23/17 10/18/19 History ascorbic acid (vitamin C) 250 mg PO QAM #0 12/23/17 10/18/19 History calcium carbonate [Calcium 600] 1,200 mg PO TID #0 05/17/18 10/18/19 History cholestyramine (with sugar) 4 g PO BID #0 05/17/18 10/18/19 History [Questran] cetirizine [Zyrtec] 10 mg PO QAM 06/19/19 10/18/19 History zoledronic vrqy-zkthmuic-rnghl 5 mg IV YEARLY 06/19/19 10/18/19 History [Reclast] Lactobacillus acidoph-L.bulgar 1 tab PO TID 10/15/19 10/18/19 History [Floranex] Patient History Medical History Anemia Arrhythmia PAC's per prior EKGs/no issues x years Asthma no inhaler used Celiac disease Chronic diarrhea Chronic kidney disease, stage III (moderate) History of blood clots RLE (early ) s/p trauma Hydronephrosis (Inactive) Hypertension Kidney stones (Chronic) Malabsorption syndrome Obesity Osteoarthritis of knee Osteoporosis Postsurgical dumping syndrome Right knee DJD UTI (urinary tract infection) Venous insufficiency (chronic) (peripheral) Surgical History H/O foot surgery RT BIG TOE REPAIRED History of appendectomy History of bariatric surgery BOWEL SHUNT 1971 History of cholecystectomy History of cystoscopy WITH STENT FOR KIDNEY STONES History of lithotripsy multiple, General LMA no issues. History of tonsillectomy History of tooth extraction History of total right knee replacement History of tubal ligation Hx of cataract surgery RT/LEFT Family History Mother Family history of diabetes mellitus Grandmother (Maternal) Family history of diabetes mellitus Other Cancer Heart disease Hypertension No family history of adverse response to anesthesia Social History Preferred Language: Latvian Communication Ability: Effective Visual Impairment: No Limitations Equipment Maintenance Superintendent Required: No Beliefs That Will Affect Care: None Current Living Situation: Spouse Other Information That Helps Us Care for You: No Feels Safe at Home: Yes Safety Concerns: Feels Safe At This Time Smoking Status: Never smoker Tobacco Type: cigarettes ; Second Hand Exposure: Yes ( A CHILD) ; Hx Alcohol Use: Yes Alcohol type: hard liquor Hx Substance Use: No Physical Exam Physical Exam: In general this is a well-developed well-nourished white female in no acute distress. HEENT exam is negative. Neck is supple with full carotid upstrokes. There are no carotid bruits. Jugular venous pressure is flat at 90. There is no thyromegaly. Cardiovascular exam reveals an irregularly irregular rhythm with distant heart sounds. No obvious murmurs. No S3. Lungs are clear without rales, rhonchi, or wheezes. Abdomen is soft and nontender without bruits. Extremities reveal intact radial artery and posterior tibial pulses bilaterally. There is no peripheral edema. Results & Data Vital Signs (Past 12 Hours) Vital Signs Temp Pulse Pulse Resp BP Pulse Ox 10/19/19 11:37 36.7 C 83 18 113/68 95 10/19/19 10:14 90 10/19/19 08:00 36.9 C 76 18 101/69 96 10/19/19 02:51 36.5 C 87 18 96/58 L 98 Laboratory Results CBC notes a hemoglobin 9.9, medical 28.6, white count 9.5, platelet count [id number]. Electrolytes episode of 142, potassium 3.7, chloride 117, bicarb 18, BUN 46, creatinine 1.79, glucose of 91. Magnesium levels depressed at 1.2. Initial troponin was mildly elevated 0.052 with followup values of 0.054 and 0.031. Diagnostic Findings EKG notes baseline artifact but atrial fibrillation with a ventricular response of 90 beats per minute. There is poor R-wave progression across the anterior precordium. cardiac monitor technician notes atrial fibrillation with borderline rate control. Chest x-ray is benign. PG Care Time/CCT Total # of Minutes Spent Total Time Spent with Patient: Total time spent is greater than 50% in coordination of care (as documented) at patient's floor/unit and/or counseling patient:
[2019-10-19] MEDS: SODIUM BICARBONATE 650 MG TAB PO SCH (21:26)
[2019-10-19] MEDS: METOPROLOL TARTRATE 25 MG TAB PO SCH (21:26)
[2019-10-20] MEDS: SODIUM BICARBONATE 650 MG TAB PO SCH (08:30)
[2019-10-20] MEDS: METOPROLOL TARTRATE 25 MG TAB PO SCH ×2 (08:31→20:44)
[2019-10-20] MEDS: CETIRIZINE HCL 10 MG TABLET PO SCH (08:31)
[2019-10-20] MEDS: CYANOCOBALAMIN 500 MCG TABLET (VITAMIN B-12) PO SCH (08:31)
[2019-10-20] MEDS: MULTIVITAMIN TAB PO SCH (08:32)
[2019-10-20] MEDS: LACTOBACILLUS ACIDOPHILUS (FLORANEX) TAB PO SCH ×3 (08:32→20:44)
[2019-10-20] MEDS: CALCIUM CARBONATE 1250MG TAB PO SCH ×3 (08:32→20:44)
[2019-10-20] MEDS: CALCITRIOL 0.25 MCG CAPSULE PO SCH ×2 (08:33→20:44)
[2019-10-20] MEDS: ASCORBIC ACID 500 MG TAB PO SCH (08:33)
[2019-10-20] MEDS: MAGNESIUM OXIDE 400 MG TAB PO SCH ×2 (08:34→20:44)
[2019-10-20] MEDS: CHOLESTYRAMINE LIGHT 4 GM PKT PO SCH ×2 (09:45→20:46)
[2019-10-20 10:50] LABS: Albumin Level 2.3 gm/dl (3.4-5.0); BUN Creatinine Ratio 25.4 (10-20); Calcium 9.2 mg/dl (8.5-10.1); Creatinine Clr Calc Pharmacy 32.1 ml/min; Est GFR (Non-African American) 32.8; Magnesium 1.8 mg/dl (1.8-2.4); Phosphorus 1.6 mg/dl (2.5-4.9); Potassium 3.9 mmol/L (3.5-5.1)
[2019-10-20] MEDS: CEFEPIME 500 MG in SYRINGE 0 ML IV SCH (10:54)
[2019-10-20] MEDS ORDERED: POTASSIUM PHOS 3 MMOL/1 ML INFUSION IV STA (11:32)
--- NOTE | 2019-10-20 11:36 | Nephrology Progress Note ---
Date of Service October 20, 2019 Assessment & Plan (1) Acute UTI: - Remains on IV cefepime. Urology consult reviewed. Culture + E coli. Sensitivity pending. (2) ARF (acute renal failure): Acute on chronic renal failure. Consistent with ATN and prerenal causes. Improving. IVF stopped yesterday. Document I/O's. Medications are appropriate for kidney function. Repeat metabolic profile in the AM. K-phos provided this AM for hypophosphatemia. Dunia has had hypophosphatemia, hypomagnesemia, and NAGMA consistent with prox tubule dysfunction in setting of OLY and decreased oral intake which is being monitored with replacement. Nephrology will sign-off today as renal function is improving. Please coordinate outpatient follow up when patient is discharged. (3) Hypokalemia: Improved with replacement. Repeat K+ and Mg+ tomorrow AM. (4) Calculus of kidney: Outpatient follow up. (5) Chronic kidney disease, stage III (moderate): Followed by Dr. Miranda as outpatient. Baseline creatinine ~1.5 mg/dL. Creatinine now at baseline. Nephrology will sign-off. Please arrange outpatient follow up with Dr. Miranda within 2 weeks of discharge. Subjective No acute events overnight. Dunia feels well this morning. No pain. No fevers or chills. Denies any urinary complaints. Appetite good. No chest pain or palpitations. Remains in rate controlled atrial fibrillation. Review of Systems Review of Systems: All systems reviewed & are unremarkable except as noted in HPI & below Physical Exam Constitutional: well developed; no acute distress Eyes: no scleral abnormality and no corneal abnormality ENMT: Mouth: no oral mucosal abnormality and oral mucous membranes not dry Neck: normal visual inspection and trachea midline Respiratory: normal respiratory effort Auscultation: lungs clear to auscultation bilaterally Cardiovascular: Rate/Rhythm: regular rate Heart Sounds: normal S1 and normal S2 Extremities: no edema Musculoskeletal: Extremities: no cyanosis and no clubbing Skin: normal turgor; no lesions Neurologic: Motor/Sensory: no tremor and no asterixis Psychiatric: Orientation: alert and oriented x 3 Results & Data Vital Signs (Past 12 Hours) Vital Signs Temp Pulse Pulse Resp BP BP Pulse Ox 10/20/19 11:08 36.7 C 79 18 97/62 L 96 10/20/19 08:29 109 H 97/62 L 10/20/19 07:27 36.7 C 95 H 18 94/65 L 96 10/20/19 03:21 36.6 C 78 18 93/59 L 98 Laboratory Results Laboratory Results - last 24 hr 10/20/19 10:23 Sodium 141 Potassium 3.9 Chloride 111 H Carbon Dioxide 25 Anion Gap 6.0 BUN 40 H Creatinine 1.57 H Est Cr Clr Drug Dosing 32.1 Est GFR ( Amer) 38.0 Est GFR (Non-Af Amer) 32.8 BUN/Creatinine Ratio 25.4 H Glucose 101 H Calcium 9.2 Phosphorus 1.6 L Magnesium 1.8 Albumin 2.3 L PG Care Time/CCT Total # of Minutes Spent Total Time Spent with Patient: Total time spent is greater than 50% in coordination of care (as documented) at patient's floor/unit and/or counseling patient:
[2019-10-20] MEDS ORDERED: POTASSIUM PHOSPHATE 30 MMOL in SODIUM CHLORIDE 0.9% 500 ML IV ONE (12:00)
--- NOTE | 2019-10-20 12:16 | Cardiology Progress Note ---
Date of Service October 20, 2019 Assessment & Plan (1) Atrial fibrillation, new onset: The patient's ventricular response is now well controlled on metoprolol tartrate 12.5 mg b.i.d.. Hold off on long-term anticoagulation at this time realizing her drop in hemoglobin, and her upcoming surgical procedure. (2) Hypomagnesemia: Would replete her magnesium aggressively. (3) Elevated troponin: Suspect a supply demand mismatch related to her rapid atrial fibrillation. (4) Hypertension: Controlled. Subjective The patient is resting comfortably in the bedside chair without complaints of chest pain, dyspnea, or palpitations. She is anxious for hospital discharge. Physical Exam Physical Exam: In general this is a well-developed well-nourished white female in no acute distress. HEENT exam is negative. Neck is supple with full carotid upstrokes. There are no carotid bruits. Jugular venous pressure is flat at 90. There is no thyromegaly. Cardiovascular exam reveals an irregularly irregular rhythm with distant heart sounds. No obvious murmurs. No S3. Lungs are clear without rales, rhonchi, or wheezes. Abdomen is soft and nontender without bruits. Extremities reveal intact radial artery and posterior tibial pulses bilaterally. There is no peripheral edema. Results & Data Vital Signs (Past 12 Hours) Vital Signs Temp Pulse Pulse Resp BP BP Pulse Ox 10/20/19 11:08 36.7 C 79 18 97/62 L 96 10/20/19 08:29 109 H 97/62 L 10/20/19 07:27 36.7 C 95 H 18 94/65 L 96 10/20/19 03:21 36.6 C 78 18 93/59 L 98 Laboratory Results Electrolytes notice sodium of 141, potassium 3.9, chloride 111, bicarb 25, BUN 40, creatinine 1.57, glucose of 101. Magnesium level is now normal 1.8. Diagnostic Findings quality assurance monitor body notes atrial fibrillation with a ventricular response in the 80s. PG Care Time/CCT Total # of Minutes Spent Total Time Spent with Patient: Total time spent is greater than 50% in coordination of care (as documented) at patient's floor/unit and/or counseling patient:
[2019-10-20] MEDS ORDERED: VANCOMYCIN CONSULT ACTIVE PRN (17:34)
[2019-10-20] MEDS ORDERED: DAPTOmycin 300 MG in SYRINGE 0 ML IV SCH (18:00)
[2019-10-20] MEDS ORDERED: VANCOMYCIN HCL 1,750 MG in SODIUM CHLORIDE 0.9% 500 ML IV ONE (18:00)
--- NOTE | 2019-10-20 22:24 | Hospitalist Progress Note ---
Date of Service October 20, 2019 Assessment & Plan (1) Acute UTI: Patient had dysuria, generalized weakness and fatigue. Urine cultures positive: E. faecalis Cephalosporins will not treat this. Patient has planned procedure to remove stones in kidney. Either way, will need to treat this as patient will have urological procedure, as well as the fact that she has symptoms. At this point, unsure if stone is source of infection, will not use nitrofurantoin at this time. Will consult ID At this moment due to allergies, will treat with IV daptomycin as this will be easier to manage as an outpatient. Plan is to have PT/OT eval. Daughter is at bedside and wants patient discharged home as soon as possible. She would prefer that patient not go to rehab, and would prefer home health. will discuss with case management. (2) ARF (acute renal failure): Acute on chronic renal failure. Appreciate input from Nephro: Consistent with ATN. Hold IVF once current bag complete. Oral NaHCO3 650 mEq BID provided Creat improved. (3) Dehydration: improved, will monitor. Monitor intake output closely. (4) Atrial fibrillation: Appreciate input from cardio The patient's ventricular response to her new onset atrial fibrillation is borderline. Added low-dose metoprolol tartrate at 12.5 mg b.i.d.. We will titrate as needed. Hold on long-term anticoagulation at this time realizing her drop in hemoglobin, and her upcoming surgical procedure. (5) Hypokalemia: Add potassium supplements. Monitor labs closely (6) ACS (acute coronary syndrome): We will monitor EKG and cardiac enzymes per protocol. Further plan per cardiology. (7) Hematuria: Recent history of right ureteral stenting (8) Calculus of kidney: as stated above (9) Short bowel syndrome: (10) Malabsorption syndrome: (11) Obesity: (12) Nausea & vomiting: Add Zofran as needed. PPI for GI prophylaxis. (13) Anemia: (14) Postsurgical dumping syndrome: (15) Chronic kidney disease, stage III (moderate): (16) DVT prophylaxis: SCD (17) Hypophosphatemia: replaced will need to check levels in AM Subjective Patient reports feeling better. She states he no longer had dysuria. She reports feeling less dizzy and has more engery today. Review of Systems Review of Systems: All systems reviewed & are unremarkable except as noted in HPI & below Physical Exam Physical Exam: GENERAL : No acute distress EYES: No icterus, gaze conjugate NOSE: No evidence of epistaxis MOUTH: No lesions or candidiasis, mucosa moist NECK: Supple LUNGS: CTA B/L, no wheezes, rales or rhonchi HEART: RRR ABDOMEN: Soft, NT, ND, BS Present EXTREMITIES: No LE edema, pedal pulses intact NEURO: A&OX3 Results & Data Vital Signs (Past 12 Hours) Vital Signs Temp Pulse Resp BP Pulse Ox 10/20/19 19:50 36.9 C 87 18 95/62 L 98 10/20/19 15:05 36.7 C 65 20 110/72 98 10/20/19 11:08 36.7 C 79 18 97/62 L 96 PG Care Time/CCT Total # of Minutes Spent Total Time Spent with Patient: Total time spent is greater than 50% in coordination of care (as documented) at patient's floor/unit and/or counseling patient:
[2019-10-21] MEDS: ACETAMINOPHEN 325 MG TAB PO PRN (02:47)
[2019-10-21 07:07] LABS: Albumin Level 2.2 gm/dl (3.4-5.0); Calcium 9.1 mg/dl (8.5-10.1); Creatinine Clr Calc Pharmacy 33.6 ml/min; Est GFR (African American) 39.9; Est GFR (Non-African American) 34.4; Magnesium 1.8 mg/dl (1.8-2.4); Phosphorus 3.6 mg/dl (2.5-4.9); Potassium 4.6 mmol/L (3.5-5.1)
[2019-10-21] MEDS: CALCIUM CARBONATE 1250MG TAB PO SCH (07:58)
[2019-10-21] MEDS: MULTIVITAMIN TAB PO SCH (07:58)
[2019-10-21] MEDS: MAGNESIUM OXIDE 400 MG TAB PO SCH (07:58)
[2019-10-21] MEDS: CYANOCOBALAMIN 500 MCG TABLET (VITAMIN B-12) PO SCH (07:58)
[2019-10-21] MEDS: LACTOBACILLUS ACIDOPHILUS (FLORANEX) TAB PO SCH (07:59)
[2019-10-21] MEDS: ASCORBIC ACID 500 MG TAB PO SCH (07:59)
[2019-10-21] MEDS: CALCITRIOL 0.25 MCG CAPSULE PO SCH (07:59)
[2019-10-21] MEDS: CETIRIZINE HCL 10 MG TABLET PO SCH (08:02)
[2019-10-21] MEDS: METOPROLOL TARTRATE 25 MG TAB PO SCH (09:35)
[2019-10-21] MEDS: CHOLESTYRAMINE LIGHT 4 GM PKT PO SCH (09:36)
--- NOTE | 2019-10-21 10:20 | Infectious Disease Consult ---
Date of Consultation October 21, 2019 Assessment & Plan (1) Acute UTI: will change to zyvox po, would suggest 14 days. ok for d/c from ID standpoint when otherwise stable. History of Present Illness Attending Physician: Jose Rodarte MD pt admitted wit n/v and weakness, feeling better today. She had a ct abd on 09/28 was found to have right hydronephrosis and multiple stones, saw urology, had stent and was to have stone removal but was admitted due to n/v. She was found to have mild leukocytosis in ER, wbc 11.9, now improved. She has been afebrile since admission, UA in ER - >30 wbc, +3bac, also with significant rbc and ep cells. Culture grew E. faecalies, sensitive to pcn but she has multiple abx allergies, including pcn. she has been on dapto and tolerating well. ID was consulted for d/c abx, she would like to go home today on po abx. She states she is feeling much better, no abd pain, no back pain, no n/v/d, no f/c, eating and drinking, no cp, sob, cough. She is tolerating dapto well. She states she has appointment with urology on Monday for stone removal and then will followup 2 weeks after to have stent removed. Allergies Allergy/AdvReac Type Severity Reaction Status Date / Time bee venom protein (honey bee) Allergy Severe HIVES, Verified 10/18/19 11:55 DIFFICULTY BREATHING erythromycin base Allergy Severe RASH X Verified 10/18/19 11:55 WEEK Penicillins Allergy Intermediate HIVES, Verified 10/18/19 11:55 SWELLING wheat Allergy Intermediate CELIAC Verified 10/18/19 11:55 DISEASE- ABD CRAMPING, DIARRHEA benzonatate Allergy Mild PRURITIUS Verified 10/18/19 11:55 doxycycline Allergy Mild RASH Verified 10/18/19 11:55 Macrolide Antibiotics Allergy Mild ITCHY, RASH Verified 10/18/19 11:55 lactose AdvReac Intermediate GI ISSUES Verified 10/18/19 11:55 cephalexin AdvReac Mild DIARRHEA Verified 10/18/19 11:55 Home Medications Home Medications Medication Instructions Recorded Confirmed Type cyanocobalamin (vitamin B-12) 1,000 mcg PO QAM #0 06/25/09 10/18/19 History Theralith XR 2 tab PO TIDM #0 11/25/15 10/18/19 History epinephrine [EpiPen] 0.3 mg IM Q3H PRN #0 11/25/15 10/18/19 History calcitriol [Rocaltrol] 0.5 mcg PO BID #0 04/17/17 10/18/19 History Centrum Silver Women 1 tab PO QAM #0 12/23/17 10/18/19 History Slow-Mag 71.5 mg PO QAM #0 12/23/17 10/18/19 History ascorbic acid (vitamin C) 250 mg PO QAM #0 12/23/17 10/18/19 History calcium carbonate [Calcium 600] 1,200 mg PO TID #0 05/17/18 10/18/19 History cholestyramine (with sugar) 4 g PO BID #0 05/17/18 10/18/19 History [Questran] cetirizine [Zyrtec] 10 mg PO QAM 06/19/19 10/18/19 History zoledronic mkdx-ieupqnlp-jllug 5 mg IV YEARLY 06/19/19 10/18/19 History [Reclast] Lactobacillus acidoph-L.bulgar 1 tab PO TID 10/15/19 10/18/19 History [Floranex] Patient History Medical History Anemia Arrhythmia PAC's per prior EKGs/no issues x years Asthma no inhaler used Celiac disease Chronic diarrhea Chronic kidney disease, stage III (moderate) History of blood clots RLE (early ) s/p trauma Hydronephrosis (Inactive) Hypertension Kidney stones (Chronic) Malabsorption syndrome Obesity Osteoarthritis of knee Osteoporosis Postsurgical dumping syndrome Right knee DJD UTI (urinary tract infection) Venous insufficiency (chronic) (peripheral) Surgical History H/O foot surgery RT BIG TOE REPAIRED History of appendectomy History of bariatric surgery [facility] 1971 History of cholecystectomy History of cystoscopy WITH STENT FOR KIDNEY STONES History of lithotripsy multiple, General LMA no issues. History of tonsillectomy History of tooth extraction History of total right knee replacement History of tubal ligation Hx of cataract surgery RT/LEFT Family History Mother Family history of diabetes mellitus Grandmother (Maternal) Family history of diabetes mellitus Other Cancer Heart disease Hypertension No family history of adverse response to anesthesia Social History Preferred Language: Amharic Communication Ability: Effective Visual Impairment: No Limitations Agricultural [employer] Agent Required: No Beliefs That Will Affect Care: None Current Living Situation: Spouse Other Information That Helps Us Care for You: No Feels Safe at Home: Yes Safety Concerns: Feels Safe At This Time Smoking Status: Never smoker Tobacco Type: cigarettes ; Second Hand Exposure: Yes ( A CHILD) ; Hx Alcohol Use: Yes Alcohol type: hard liquor Hx Substance Use: No Review of Systems Review of Systems: All systems reviewed & are unremarkable except as noted in HPI & below Physical Exam Constitutional: WD/WN, vitals as above Eyes: PERRL, conjunctivae normal, anicteric sclerae ENMT: external ear and nose normal, oropharynx normal Neck: normal visual inspection Respiratory: normal respiratory effort, lungs clear to auscultation Cardiovascular: RRR, no murmur, no edema Gastrointestinal (Abdomen): normal bowel sounds, soft, nontender, no hepatosplenomegaly Musculoskeletal: no cyanosis or clubbing, extremities motor strength 5/5 Skin: no rashes, warm and dry Psychiatric: A+Ox3, euthymic affect Results & Data Vital Signs (Past 12 Hours) Vital Signs Temp Pulse Resp BP BP Pulse Ox 10/21/19 09:34 76 107/69 10/21/19 07:55 36.6 C 69 20 90/55 L 98 10/21/19 02:51 36.6 C 70 18 100/63 96 10/20/19 23:30 36.9 C 80 18 102/66 95 Laboratory Results Microbiology 10/18/19 11:50 Urine,Clean Catch Urine Culture - Final Enterococcus faecalis 10/18/19 12:12 Blood Aerobic Blood Culture - Preliminary No growth in Aerobic bottle after 48 hours. 10/18/19 12:12 Blood Anaerobic Blood Culture - Preliminary No growth in Anaerobic bottle after 48 hours. 10/18/19 12:20 Blood Aerobic Blood Culture - Preliminary No growth in Aerobic bottle after 48 hours. 10/18/19 12:20 Blood Anaerobic Blood Culture - Preliminary No growth in Anaerobic bottle after 48 hours. PG Care Time/CCT Total # of Minutes Spent Total Time Spent with Patient: Total time spent is greater than 50% in coordination of care (as documented) at patient's floor/unit and/or counseling patient:
[2019-10-21] MEDS ORDERED: LINEZOLID 600 MG TAB PO SCH (10:30)
--- NOTE | 2019-10-21 12:49 | Cardiology Progress Note ---
Date of Service October 21, 2019 Assessment & Plan (1) Atrial fibrillation, new onset: Fortunately, the patient has converted to normal sinus rhythm. Would recommend continuation of metoprolol tartrate at 12.5 mg b.i.d.. Would start long-term anticoagulation with 1 of the novel agents following her procedure later this week. (2) Hypomagnesemia: Normalized with supplementation. (3) Elevated troponin: Suspect a supply/demand mismatch related to her rapid atrial fibrillation at the time of her presentation. (4) Hypertension: Controlled. Subjective The patient is resting comfortably in the bedside chair without complaints of chest pain, dyspnea, or palpitations. She is anxious for hospital discharge. She is scheduled for cystoscopy on Monday. Physical Exam Physical Exam: In general this is a well-developed well-nourished white female in no acute distress. HEENT exam is negative. Neck is supple with full carotid upstrokes. There are no carotid bruits. Jugular venous pressure is flat at 90. There is no thyromegaly. Cardiovascular exam reveals a regular rhythm with distant heart sounds. No obvious murmurs. No S3. Lungs are clear without rales, rhonchi, or wheezes. Abdomen is soft and nontender without bruits. Extremities reveal intact radial artery and posterior tibial pulses bilaterally. There is no peripheral edema. Results & Data Vital Signs (Past 12 Hours) Vital Signs Temp Pulse Resp BP BP Pulse Ox 10/21/19 11:43 36.6 C 74 20 122/70 107/69 97 10/21/19 11:04 36.6 C 74 20 122/70 97 10/21/19 09:34 76 107/69 10/21/19 07:55 36.6 C 69 20 90/55 L 98 10/21/19 02:51 36.6 C 70 18 100/63 96 Diagnostic Findings shade hanger notes sinus rhythm with frequent PACs. The patient converted from atrial fibrillation at approximately 10 p.m. last evening. PG Care Time/CCT Total # of Minutes Spent Total Time Spent with Patient: Total time spent is greater than 50% in coordination of care (as documented) at patient's floor/unit and/or counseling patient:
--- NOTE | 2019-10-21 15:47 | Discharge Summary ---
Date of Service October 21, 2019 Admission HPI Per Admitting Provider The patient is a 69 year old female, with past medical history of CKD, kidney stones, and UTI, who presents to the Emergency Room with complaints of an episode of feeling weak and dizzy beginning 3 days ago. The patient reports she was seen by urology 3 days ago for kidney stones. The patient states she was supposed to have her kidney stones removed during her visit, but she states her ureteral stent was not planned to be removed at this time. However, the patient states this procedure could not be completed because she kept vomiting prior to the procedure. The patient states she could only keep water down 3 days ago, but she notes she has been able to eat a little more each day since. The patient denies a fever, but she notes she has experienced intermittent chills. The patient denies pain with urination, but she notes her urine has had a terrible smell. The patient denies chest pain or a cough. The patient notes of baseline back pain, but she states her back pain has been more intense recently. However, the patient denies needing pain medications currently. The patient also denies history of atrial fibrillation, and she denies being on antibiotics currently. The further work-up done in the ER show that patient has acute on chronic renal failure, BUN 54 and creatinine 2.25. She was also found to be having atrial fibrillation with rapid ventricular rate. Troponin was also elevated at 0.052. Potassium is low at 3.2. She was started on IV antibiotics for possible UTI. She will be admitted to telemetry floor for further evaluation and management. Principal Diagnosis UTI Discharge Exam Constitutional WD/WN, vitals as above well developed; no acute distress Eyes PERRL, conjunctivae normal, anicteric sclerae eyes not dysmorphic, no scleral abnormality and no corneal abnormality [facility] external ear and nose normal, oropharynx normal Ears: no external ear abnormality Mouth: no oral mucosal abnormality and oral mucous membranes not dry Neck normal visual inspection and trachea midline; no anterior neck swelling Respiratory normal respiratory effort, lungs clear to auscultation normal respiratory effort; no respiratory distress and does not use accessory muscles Auscultation: lungs clear to auscultation bilaterally Cardiovascular RRR, no murmur, no edema Rate/Rhythm: regular rate Heart Sounds: normal S1 and normal S2 Vessels: radial pulses present Extremities: no edema Gastrointestinal (Abdomen) normal bowel sounds, soft, nontender, no hepatosplenomegaly Inspection/Auscultation: abdomen not distended Percussion/Palpation: abdomen soft; abdomen nontender Musculoskeletal no cyanosis or clubbing, extremities motor strength 5/5 Head/Neck/Chest: normocephalic and neck supple Extremities: no cyanosis and no clubbing Skin no rashes, warm and dry normal turgor; no lesions Neurologic awake; not obtunded Motor/Sensory: no tremor and no asterixis Psychiatric A+Ox3, euthymic affect Orientation: alert and oriented x 3 Lymphatic no lymphadenopathy Discharge Data Allergies Allergy/AdvReac Type Severity Reaction Status Date / Time bee venom protein (honey bee) Allergy Severe HIVES, Verified 10/18/19 11:55 DIFFICULTY BREATHING erythromycin base Allergy Severe RASH X Verified 10/18/19 11:55 WEEK Penicillins Allergy Intermediate HIVES, Verified 10/18/19 11:55 SWELLING wheat Allergy Intermediate CELIAC Verified 10/18/19 11:55 DISEASE- ABD CRAMPING, DIARRHEA benzonatate Allergy Mild PRURITIUS Verified 10/18/19 11:55 doxycycline Allergy Mild RASH Verified 10/18/19 11:55 Macrolide Antibiotics Allergy Mild ITCHY, RASH Verified 10/18/19 11:55 lactose AdvReac Intermediate GI ISSUES Verified 10/18/19 11:55 cephalexin AdvReac Mild DIARRHEA Verified 10/18/19 11:55 Consultations 10/18/19 13:06 ED Decision to Admit Stat 10/18/19 16:08 Consult Cardiology Routine Consult Nephrology Routine Consult Urology Routine 10/20/19 17:42 Consult Infectious Diseases Routine Hospital Course (1) Acute UTI: Urine cultures positive: E. faecalis. - Switched to linezolid for 14 day course. First dose in the ED. Seen by ID. - Will follow up with Dr. Polanco in the office on Monday for lithotripsy and stent removal. (2) ARF (acute renal failure): Acute on chronic renal failure. - Creatine returned to normal on 10/21 at 1.5. Seen by nephrology who signed off. - Follow up with outpatient nephrology. Should see in ~2 weeks. (3) Atrial fibrillation: Appreciate input from cardio. The patient's ventricular response to her new onset atrial fibrillation is borderline. - Added low-dose metoprolol tartrate at 12.5 mg b.i.d. Her HR was at the 70s on discharge. - Hold anticoagulation until after her procedure. - Follow up with cardiology in 1-2 weeks. (4) Hematuria: Recent history of right ureteral stenting (5) Calculus of kidney: As stated above, plan for lithotripsy on Monday with Dr. Polanco. Total Time Total Time Spent Total Time Spent (In Minutes): 35 Discharge Plan Discharge Items Patient Disposition: Home - Self-Care Reason For Visit: WEAKNESS Discharge Diagnosis: Urinary tract infection with kidney stones Activity: Resume your previous activity Non-emergency contact: Primary Care Provider and Surgeon Call non-emergency contact if: you have any medication questions, your symptoms worsen, your pain is not controlled and your temperature is above 101 Follow-up/Referrals: Ramesh Roy MD [Primary Care Provider] - 10/31/19 11:40 am (Please, follow up with Dr. Roy on MondayOctober 31 at 11:40 am. *If you need to change this appointment, call the office at [phone].) Jamir Polanco DO [Physician] - 11/06/19 8:45 am (Please, follow up at [facility] Urology Office with Dr. Polanco on MondayNovember 06 at 8:45 am. *The office is located at [address] [place] [address] in [place]. If you need to change this appointment, call the office at [phone].) Diet: Regular Addtl Attending Provider Instructions: You were admitted with weakness from a urinary tract infection. You have some kidney stones that the urology team (Dr. Polanco) will break up on Monday. Please take your antibiotic two times per day until you see them in the office. Please call your PCP (Dr. Roy) or Dr. Polanco's office if you have a fever > 101 degrees, fevers, chills, nausea, vomiting, or other concerning symptoms. Pending Studies at Discharge: No Stand-Alone Forms: My [facility] [employer], Smoking Cessation Medications and DC Order Prescriptions: New linezolid 600 mg Tablet 600 mg PO BID Qty: 27 RF: 0 metoprolol tartrate 25 mg tablet 12.5 mg PO BID Qty: 30 RF: 1 Continued cyanocobalamin (vitamin B-12) 1,000 mcg Tablet 1,000 mcg PO QAM Qty: 0 RF: 0 epinephrine [EpiPen] 0.3 mg/0.3 mL Auto-Injector 0.3 mg IM Q3H PRN (Reason: Allergic Reaction) Qty: 0 RF: 0 Theralith XR 3.75-45-45-49.5 mg Tablet Extended Release 2 tab PO TIDM Qty: 0 RF: 0 calcitriol [Rocaltrol] 0.5 mcg Capsule 0.5 mcg PO BID Qty: 0 RF: 0 Slow-Mag 71.5 mg Tablet,Delayed Release (Dr/Ec) 71.5 mg PO QAM Qty: 0 RF: 0 Centrum Silver Women 8 mg iron-400 mcg-300 mcg Tablet 1 tab PO QAM Qty: 0 RF: 0 ascorbic acid (vitamin C) 250 mg Tablet 250 mg PO QAM Qty: 0 RF: 0 calcium carbonate [Calcium 600] 600 mg calcium (1,500 mg) Tablet 1,200 mg PO TID Qty: 0 RF: 0 cholestyramine (with sugar) [Questran] 4 gram Powder 4 g PO BID Qty: 0 RF: 0 zoledronic iido-etocubnr-hwipd [Reclast] 5 mg/100 mL piggyback 5 mg IV YEARLY RF: 0 cetirizine [Zyrtec] 10 mg Tablet 10 mg PO QAM RF: 0 Lactobacillus acidoph-L.bulgar [Floranex] 1 million cell tablet 1 tab PO TID RF: 0 Discharge Orders: Discharge Order (Routine); Ordered 10/21/19 Ordered By: Jose Paula/Other Patient Handouts: AFL/Afib, Fibrillation Atrial Dc, Stroke Prevent Live W Atrial Fib, Linezolid Oral tablet Admission Data Admit Date/Time: 10/18/19 13:54 Attending Provider: Jose Rodarte Admit Provider: Keshav Morales Primary Care Provider: Ramesh Roy Other Providers: Keshav Morales ; Ramesh Carroll ; Jose Malave ; Adriano Quevedo ; Mario Arita Other Interventions: Discharge Summary Assessment (RN) Last Done: 10/21/19 11:43 DC Date/Time DO NOT enter until pt leaves facility: 10/21/19 12:30
== END 2019-10-21 12:30 | disposition home or self-care (01) | DRG 689 ==
LOC: ED 11:19 → SUATTDRO 13:54 → 2S 13:54

== ENCOUNTER 2019-10-31 18:08 | Inpatient (IN) ==
[2019-10-31] MEDS ORDERED: SODIUM CHLORIDE 0.9% 1000ML 1,000 ML IV ONE (20:08)
[2019-10-31 20:10] LABS: Basophils # (auto) 0.05 K/uL (0-0.2); Basophils % (auto) 0.5 %; Eosinophils # (auto) 0.14 K/uL (0-0.5); Eosinophils % (auto) 1.4 %; Hematocrit (blood only) 35.9 % (37-47); Hemoglobin 11.7 g/dL (12.0-16.0); Immature Granulocytes # (auto) 0.01 K/uL (0.00-0.02); Immature Granulocytes % (auto) 0.1 %; Lymphocytes # (auto) 1.96 K/uL (1.2-3.4); Lymphocytes % (auto) 19.4 %; Mean Corpuscular Hemoglobin 33.1 pg (25-34); Mean Corpuscular Hgb Conc 32.6 g/dL (32-36); Mean Corpuscular Volume 101.7 fL (80-100); Mean Platelet Volume 10.7 fL (7.4-10.4); Monocytes # (auto) 0.29 K/uL (0.11-0.59); Monocytes % (auto) 2.9 %; Neutrophils # (auto) 7.65 K/uL (1.4-6.5); Neutrophils % (auto) 75.7 %; Platelet Count 228 K/uL (130-400); RDW Coefficient of Variation 13.1 % (11.5-14.5); Red Blood Count 3.53 M/uL (4.2-5.4)
[2019-10-31 20:30] LABS: Alanine Aminotransferase 26 U/L (12-78); Albumin Level 3.1 gm/dl (3.4-5.0); Aspartate Aminotransferase 16 U/L (15-37); BUN Creatinine Ratio 15.8 (10-20); Blood Urea Nitrogen 36 mg/dl (7-18); Carbon Dioxide 22 mmol/L (21-32); Chloride 109 mmol/L (98-107); Est GFR (African American) 24.1; Est GFR (Non-African American) 20.8; Glucose 98 mg/dl (70-99); Potassium 5.1 mmol/L (3.5-5.1); Sodium 140 mmol/L (136-145)
--- NOTE | 2019-10-31 20:38 | XRay Report ---
SINGLE VIEW CHEST CLINICAL HISTORY: Generalized weakness. FINDINGS: An AP, portable, upright chest radiograph is compared to study dated 10/18/2019. The examin ation is degraded by portable technique and patient rotation. The cardiomediastinal silhouette is unr emarkable. There are low lung volumes with mild bibasilar atelectasis. The lungs and pleural spaces a re otherwise clear. No pneumothorax is seen. The skeletal structures are osteopenic. The bony thorax is grossly intact. IMPRESSION: Low lung volumes with no active disease in the chest. Electronically signed by: Tony Hernandez M.D. 10/31/2019 8:37 PM
[2019-10-31 20:42] LABS: Albumin Globulin Ratio 0.8 (0.9-2); Alkaline Phosphatase 68 U/L (45-117); Bilirubin,Total 0.4 mg/dl (0.2-1); Creatine Kinase 22 U/L (26-192); Creatine Kinase MB 1.3 ng/ml (0.5-3.6); Globulin 3.9 gm/dl (2.5-4.0); Troponin I < 0.015 ng/ml (0-0.045)
[2019-10-31 20:42] LABS: Appearance Urine Clear (Clear); Bacteria Urine Automated Negative (Negative); Bilirubin Urine Negative (Negative); Blood Urine 2+ (Negative); Color Urine Yellow; Glucose Urine UA Negative (Negative); Ketones Urine Negative (Negative); Leukocyte Esterase Urine 1+ (Negative); Nitrite Urine Negative (Negative); Protein Urine 1+ (Negative); RBC Urine Automated 0-4 /hpf (0-4); Specific Gravity Urine 1.019 (1.000-1.030); Urobilinogen Urine Negative (Negative)
[2019-10-31 21:03] LABS: Calcium Oxalate Crystals Urine Present (None Prsent); Renal Epithelial Cells Urine 0-5 /lpf (0-5)
[2019-10-31] MEDS ORDERED: cefTRIAXone SODIUM 2,000 MG/70 ML BAG IV STA (21:24)
--- NOTE | 2019-10-31 21:58 | Emergency Department Note ---
Entered by Mercedes Rizo acting as a scribe for Jose Berkowitz MD History of Present Illness General Chief complaint: Abnormal Labs/Diagnostic Testing Stated complaint: ABNORMAL LAB WORK - SENT BY DR SUAZO Time Seen by Provider: 10/31/19 19:39 Source: patient History of Present Illness Location: head Pain Consistency: + other (after being referred to the ED) Quality: + other (abnormal labs) Associated symptoms: + weakness and + other (Positive back pain, not eating well lately, dry heaving.) The patient is a 69 year old female who presents to the ED for abnormal labs. Mulu whitehead was here on 09/27 for calcium kidney stones and weakness. She had a stent placed and lithotripsy done. She came back 1 week ago and was found to be septic. She was placed on linezolid. The patient had more stones and had more lithotripsy done. Today, she feels weak and has back pain. She went to her PCP today and had labs done which were abnormal, so she was referred to the ED. She notes she has not been eating well lately and she feels extremely weak. This morning, the patient was dry heaving. Home Medications Home Medications Medication Instructions Recorded Confirmed Type cyanocobalamin (vitamin B-12) 1,000 mcg PO QAM #0 06/25/09 10/31/19 History Theralith XR 2 tab PO TIDM #0 11/25/15 10/31/19 History epinephrine [EpiPen] 0.3 mg IM Q3H PRN #0 11/25/15 10/31/19 History calcitriol [Rocaltrol] 0.5 mcg PO BID #0 04/17/17 10/31/19 History Centrum Silver Women 1 tab PO QAM #0 12/23/17 10/31/19 History Slow-Mag 71.5 mg PO QAM #0 12/23/17 10/31/19 History ascorbic acid (vitamin C) 250 mg PO QAM #0 12/23/17 10/31/19 History calcium carbonate [Calcium 600] 1,200 mg PO TID #0 05/17/18 10/31/19 History cholestyramine (with sugar) 4 g PO BID #0 05/17/18 10/31/19 History [Questran] cetirizine [Zyrtec] 10 mg PO QAM 06/19/19 10/31/19 History zoledronic zudi-degacfua-wbwhf 5 mg IV YEARLY 06/19/19 10/31/19 History [Reclast] Lactobacillus acidoph-L.bulgar 1 tab PO TID 10/15/19 10/31/19 History [Floranex] linezolid 600 mg PO BID #27 tab 10/21/19 10/31/19 Rx metoprolol tartrate 12.5 mg PO BID #30 tab 10/21/19 10/31/19 Rx nitrofurantoin monohyd/m-cryst 100 mg PO BID 7 Days #14 cap 10/25/19 10/31/19 Rx [Macrobid] Allergies Allergy/AdvReac Type Severity Reaction Status Date / Time bee venom protein (honey bee) Allergy Severe HIVES, Verified 10/31/19 20:19 DIFFICULTY BREATHING erythromycin base Allergy Severe RASH X Verified 10/31/19 20:19 WEEK Penicillins Allergy Intermediate HIVES, Verified 10/31/19 20:19 SWELLING wheat Allergy Intermediate CELIAC Verified 10/31/19 20:19 DISEASE- ABD CRAMPING, DIARRHEA benzonatate Allergy Mild PRURITIUS Verified 10/31/19 20:19 doxycycline Allergy Mild RASH Verified 10/31/19 20:19 Macrolide Antibiotics Allergy Mild ITCHY, RASH Verified 10/31/19 20:19 lactose AdvReac Intermediate GI ISSUES Verified 10/31/19 20:19 cephalexin AdvReac Mild DIARRHEA Verified 10/31/19 20:19 Past Med/Surg History Medical History Anemia Arrhythmia PAC's per prior EKGs/no issues x years Asthma no inhaler used Celiac disease Chronic diarrhea Chronic kidney disease, stage III (moderate) History of blood clots RLE (early ) s/p trauma Hydronephrosis (Inactive) Hypertension Kidney stones (Chronic) Osteoarthritis of knee Osteoporosis Postsurgical dumping syndrome Right knee DJD UTI (urinary tract infection) Venous insufficiency (chronic) (peripheral) Surgical History H/O foot surgery RT BIG TOE REPAIRED History of appendectomy History of bariatric surgery [facility] 1971 History of cholecystectomy History of cystoscopy WITH STENT FOR KIDNEY STONES History of lithotripsy multiple, General LMA no issues. History of tonsillectomy History of tooth extraction History of total right knee replacement History of tubal ligation Hx of cataract surgery RT/LEFT Family History Mother Family history of diabetes mellitus Ovarian cancer Grandmother (Maternal) Family history of diabetes mellitus Father Myocardial infarction Other Cancer Heart disease Hypertension No family history of adverse response to anesthesia Social History Preferred Language: Yoruba Communication Ability: Effective Visual Impairment: No Limitations Hearing Ability: Normal Retail Asset Protection Specialist Required: No Beliefs That Will Affect Care: Advent Advent Beliefs: mitesh marital status: Current Living Situation: Spouse current occupational status: retired Feels Safe at Home: Yes Smoking Status: Former smoker Tobacco Type: cigarettes ; Second Hand Exposure: Yes ( A CHILD) ; Hx Alcohol Use: No Hx Substance Use: No Childhood Exposure to Second-Hand Smoke: Yes Dental Care, Regularly: Yes Physical Activity Frequency: Does not Exercise Seatbelt Use: sometimes Review of Systems See HPI for pertinent positives & negatives. and A total of 10 systems reviewed and were otherwise negative Physical Exam Vital Signs Vital Signs - 24 hr 10/31/19 18:53 10/31/19 20:17 10/31/19 20:18 Temperature 36.6 C Temperature Source Oral Pulse Rate 83 Pulse Rate [Finger] 79 Respiratory Rate 18 16 Respiratory Effort / Characteristics Non-Labored Non-Labored Spontaneous Respiratory Depth Normal Normal Respiratory Pattern Regular Blood Pressure 113/70 Blood Pressure [Left Arm] 126/70 Blood Pressure Mean 84 Blood Pressure Mean [Left Arm] 88 Blood Pressure Position Sitting Pulse Oximetry 97 96 96 Oxygen Delivery Method Room Air Room Air Room Air Sepsis Recent Fever Within 48 Hours No Sepsis New/Unexplained Change in Mental Status No Sepsis Action Taken by Nursing No Action Required 10/31/19 21:16 10/31/19 22:28 Temperature Temperature Source Pulse Rate Pulse Rate [Finger] 80 83 Respiratory Rate 16 20 Respiratory Effort / Characteristics Non-Labored Spontaneous Non-Labored Spontaneous Respiratory Depth Normal Normal Respiratory Pattern Blood Pressure Blood Pressure [Left Arm] 120/69 121/70 Blood Pressure Mean Blood Pressure Mean [Left Arm] 86 87 Blood Pressure Position Pulse Oximetry 99 98 Oxygen Delivery Method Room Air Room Air Sepsis Recent Fever Within 48 Hours Sepsis New/Unexplained Change in Mental Status Sepsis Action Taken by Nursing GENERAL: Awake, alert, well-appearing, in no acute distress HENT: Normocephalic, atraumatic. Oropharynx unremarkable. EYES: Normal conjunctiva. Sclera non-icteric. NECK: Supple. No nuchal rigidity. FROM. No JVD. RESPIRATORY: Clear to auscultation. CARDIAC: Regular rate, normal rhythm. Extremities warm and well perfused. Pulses equal. ABDOMEN: Soft, non-distended. No tenderness to palpation. No rebound or guarding. No masses. RECTAL: Deferred. MUSCULOSKELETAL: Chest examination reveals no tenderness. The back is symmetrical on inspection without obvious abnormality. There is no CVA tenderness to palpation. No joint edema. LOWER EXTREMITIES: Calves are equal size bilaterally and non-tender. No edema. No discoloration. NEURO: Normal sensorium. No sensory or motor deficits noted. SKIN: No rash or jaundice noted. Course Course 2030: Past medical records reviewed. The patient was evaluated in room B12. A complete history and physical exam was performed. 2148: Discussed the patient's case with Dr. Gtz, [facility] Hospitalist. The patient will be evaluated for further management. Administered Medications Discontinued Medications Sodium Chloride (Nss 1000ml) 1,000 mls @ 999 mls/hr IV .Q1H1M ONE Stop: 10/31/19 21:08 Last Infusion: 10/31/19 21:34 Dose: 0 mls/hr Documented by: [id number] Admin: 10/31/19 20:29 Dose: 999 mls/hr Documented by: [id number] Ceftriaxone Sodium (Rocephin) 2,000 mg in 70 mls @ 140 mls/hr IV NOW STA Stop: 10/31/19 21:53 Last Infusion: 10/31/19 22:05 Dose: 0 mls/hr Documented by: [id number] Admin: 10/31/19 21:34 Dose: 140 mls/hr Documented by: [id number] Medical Decision Making Differential Diagnosis Differential diagnosis: Etiologies such as metabolic, infection, hypo/hyperglycemia, electrolyte abnormalities, cardiac sources, intracerebral event, toxicologic, neurologic, as well as others were entertained. Medical Records Attestation: I reviewed the patient's medical records. Home Medications Current Medication List: was personally reviewed by me Laboratory Data Attestation: I reviewed the patient's lab results. Result diagrams: 10/31/19 19:46 10/31/19 19:46 Lab Results 10/31/19 10/31/19 10/31/19 Range/Units 19:46 19:46 20:20 WBC 10.10 (4.8-10.8) K/uL RBC 3.53 L (4.2-5.4) M/uL Hgb 11.7 L (12.0-16.0) g/dL Hct 35.9 L (37-47) % MCV 101.7 H (80-100) fL MCH 33.1 (25-34) pg MCHC 32.6 (32-36) g/dL RDW Std Deviation 48.0 H (36.4-46.3) fL RDW Coeff of Khushi 13.1 (11.5-14.5) % Plt Count 228 (130-400) K/uL MPV 10.7 H (7.4-10.4) fL Immature Gran % (Auto) 0.1 % Neut % (Auto) 75.7 % Lymph % (Auto) 19.4 % Luna % (Auto) 2.9 % Eos % (Auto) 1.4 % Baso % (Auto) 0.5 % Immature Gran # (Auto) 0.01 (0.00-0.02) K/uL Neut # (Auto) 7.65 H (1.4-6.5) K/uL Lymph # (Auto) 1.96 (1.2-3.4) K/uL Luna # (Auto) 0.29 (0.11-0.59) K/uL Eos # (Auto) 0.14 (0-0.5) K/uL Baso # (Auto) 0.05 (0-0.2) K/uL Sodium 140 (136-145) mmol/L Potassium 5.1 (3.5-5.1) mmol/L Chloride 109 H (98-107) mmol/L Carbon Dioxide 22 (21-32) mmol/L Anion Gap 9.0 (3-11) BUN 36 H (7-18) mg/dl Creatinine 2.29 H (0.6-1.2) mg/dl Est Cr Clr Drug Dosing Not Reportable Est GFR ( Amer) 24.1 Est GFR (Non-Af Amer) 20.8 BUN/Creatinine Ratio 15.8 (10-20) Glucose 98 (70-99) mg/dl Calcium 12.0 H (8.5-10.1) mg/dl Total Bilirubin 0.4 (0.2-1) mg/dl AST 16 (15-37) U/L ALT 26 (12-78) U/L Alkaline Phosphatase 68 (45-117) U/L Total Creatine Kinase 22 L (26-192) U/L CK-MB (CK-2) 1.3 (0.5-3.6) ng/ml CK/CKMB % Calc 5.9 H (0-3.0) Troponin I < 0.015 (0-0.045) ng/ml Total Protein 7.0 (6.4-8.2) gm/dl Albumin 3.1 L (3.4-5.0) gm/dl Globulin 3.9 (2.5-4.0) gm/dl Albumin/Globulin Ratio 0.8 L (0.9-2) TSH 1.410 (0.300-4.500) uIu/ml Urine Color Yellow Urine Appearance Clear (Clear) Urine pH 5.0 (4.5-7.5) Ur Specific [place] 1.019 (1.000-1.030) Urine Protein 1+ H (Negative) Urine Glucose (UA) Negative (Negative) Urine Ketones Negative (Negative) Urine Blood 2+ H (Negative) Urine Nitrite Negative (Negative) Urine Bilirubin Negative (Negative) Urine Urobilinogen Negative (Negative) Ur Leukocyte Esterase 1+ H (Negative) Urine WBC (Auto) 10-30 H (0-5) /hpf Urine RBC (Auto) 0-4 (0-4) /hpf U Hyaline Cast (Auto) 1-5 (0-5) /lpf U Epithel Cells (Auto) 10-20 H (0-5) /lpf Urine Bacteria (Auto) Negative (Negative) Ur Renal Epithelial Cell 0-5 (0-5) /lpf Urine Crystals Not Reportable Calcium Oxalate Crystal Present A (None Prsent) Urine Yeast Not Reportable Imaging Data Radiologist's Impression: Radiology results as stated below per my review and the radiologist's interpretation: SINGLE VIEW CHEST CLINICAL HISTORY: Generalized weakness. FINDINGS: An AP, portable, upright chest radiograph is compared to study dated 10/18/2019. The examination is degraded by portable technique and patient rotation. The cardiomediastinal silhouette is unremarkable. There are low lung volumes with mild bibasilar atelectasis. The lungs and pleural spaces are otherwise clear. No pneumothorax is seen. The skeletal structures are osteopenic. The bony thorax is grossly intact. IMPRESSION: Low lung volumes with no active disease in the chest. Electronically signed by: Toyn Hernandez M.D. 10/31/2019 8:37 PM ECG Data Attestation: I personally reviewed and interpreted this ECG as follows: Indication: + other (abnormal labs) Rate (beats per minute): 84 Rhythm: + sinus rhythm ECG ST segments: no ST depression and no ST elevation ECG Findings: + PVCs (occasional ) and + Other (old anterior infarct, QTC 308) Blood Pressure Blood Pressure Findings: Normal blood pressure Blood Pressure Disposition: further management by hospitalist SUSANNE Narrative This is a 69-year-old female who presents emergency department complaining of generalized weakness. The patient was sent in by her primary care physician over concerns that her calcium was elevated and the patient had worsening renal failure. She was given a normal saline bolus here in the emergency department and started on Rocephin for what appears to be urinary tract infection. Her creatinine is elevated. I did discuss case with hospitalist service who did agree to admit the patient. Patient and family were in agreement with the treatment plan. Impression & Plan Acute UTI, Hypercalcemia, Acute on chronic renal failure Discharge Plan Visit Data *Final* Discharge Date/Time: 11/01/19 00:34 Chief Complaint: Abnormal Labs/Diagnostic Testing Stated Complaint: ABNORMAL LAB WORK - SENT BY DR SUAZO ED Provider: Jose Berkowitz Discharge Problem: Acute UTI, Hypercalcemia, Acute on chronic renal failure Patient Disposition: Admitted As Inpatient Discharge Instructions Interventions: ED Discharge Assessment Last Done: 11/01/19 00:34 Discharge Problem: Acute on chronic renal failure Qualifiers: Acute renal failure type: unspecified Chronic kidney disease stage: unspecified stage Qualified Code(s): N17.9 - Acute kidney failure, unspecified The scribe's documentation has been prepared under my direction and personally reviewed by me in its entirety. I confirm that the note above accurately reflects all work, treatment, procedures, and medical decision making performed by me.
--- NOTE | 2019-10-31 22:44 | History & Physical Report ---
Date of Service October 31, 2019 Assessment & Plan (1) Hypercalcemia: 69-year-old female was admitted on 31 October 2019 for hypercalcemia and acute on chronic renal failure. Of note, she was discharged from the hospital on October 21 for UTI, acute renal failure, atrial fibrillation, and kidney calculus. Hypercalcemia: Noted to be 12.2 in clinic and 12.0 on ED admit. Is on calcitriol and calcium carbonate at home. Last PTH in record was 13.4 (i.e. low) in March 2019. She does have ongoing feeling of generalized weakness but no noted confusion, irritability, constipation, polyuria or polydipsia. - In ED, afebrile, not tachycardic or tachypneic, normal BP and SpO2. WBC 10. Troponin negative. EKG NSR 84 with a PVC. TSH normal. Vit D level 22.9. pCXR without note of active disease. - In ED, treated with 1 L normal saline. - Will hold home calcitriol and calcium carbonate. Will order PTH, PTHrp, 1, 25-vitamin D and 25-vitamin D levels. Acute on chronic renal failure: Admit Cr 2.29 and BUN 36, with discharge comparisons around Cr 1.5. - Given IVF and ED. Will recheck in a.m. Recent UTI, nephrolithiasis: Underwent right ureteral stenting on Nov. Recent urine culture grew MDR E. faecalis, treated with Zyvox since 25Nov (suggested 14 day course). See urology and ID notes on last admit. Also on macrobid since 29Nov. She is not complaining of new urinary symptoms and is non-tender on abdominal exam. - This admit, UA appears contaminated. Calcium oxalate crystals present. - In ED, given 2 gm ceftriaxone and urine culture sent. - For now, will keep her on her current Zyvox and Macrobid as previously prescribed. Ongoing medical issues: - HTN, (relatively recently diagnosed) paroxysmal atrial fibrillation: Presently in NSR. Continue home metoprolol. Has been off of anticoagulation shira- procedurally. - Anemia: Admit hemoglobin 11.7, similar to baseline. - History of gastric bypass, malabsorption syndrome: On cholestyramine. - Osteoporosis: On annual Reclast. Code status: Full code. Diet: Regular. DVT prophy: Continuing to hold chemical prophylaxis in between procedures. SCDs. PT/OT: Deferred. Disbo: Admit to [facility]. (2) Acute on chronic renal failure: (3) Urinary tract infection: (4) Nephrolithiasis: (5) Hypertension: (6) Atrial fibrillation: (7) Anemia: (8) History of gastric bypass: (9) Malabsorption: (10) Osteoporosis: History of Present Illness Primary Care Provider: Ramesh Roy MD 69-year-old female presents with her family after being referred by her primary care provider for elevated calcium level and elevated creatinine. Please review recent hospital notes including her discharge on October 21 for UTI, acute renal failure, atrial fibrillation, and kidney calculus. - Patient says ever since her hospital discharge she continues to have generalized weakness and fatigue. She feels as if she is not bouncing back to her normal self. Otherwise she denies any particular focal symptoms. On review of systems, she notes occasional chills but no known fevers. Has some discomfort around her right flank. Did have some dry heaves this morning but tolerated p.o. ever since. Continues to have loose stools about 4 to 6/day without overt water or blood. - Past medical history includes asthma, anemia, CKD stage III, nephrolithiasis, atrial fibrillation, osteoporosis, arthritis, hypertension, peripheral venous insufficiency, celiac disease. - Past surgical history includes appendectomy, bariatric surgery, cholecystectomy, cystoscopy and lithotripsy, tonsillectomy, right total knee replacement, tubal ligation, cataracts. - Social history includes never smoked. No current alcohol intake. Lives at home with . Allergies Allergy/AdvReac Type Severity Reaction Status Date / Time bee venom protein (honey bee) Allergy Severe HIVES, Verified 10/31/19 20:19 DIFFICULTY BREATHING erythromycin base Allergy Severe RASH X Verified 10/31/19 20:19 WEEK Penicillins Allergy Intermediate HIVES, Verified 10/31/19 20:19 SWELLING wheat Allergy Intermediate CELIAC Verified 10/31/19 20:19 DISEASE- ABD CRAMPING, DIARRHEA benzonatate Allergy Mild PRURITIUS Verified 10/31/19 20:19 doxycycline Allergy Mild RASH Verified 10/31/19 20:19 Macrolide Antibiotics Allergy Mild ITCHY, RASH Verified 10/31/19 20:19 lactose AdvReac Intermediate GI ISSUES Verified 10/31/19 20:19 cephalexin AdvReac Mild DIARRHEA Verified 10/31/19 20:19 Home Medications Home Medications Medication Instructions Recorded Confirmed Type cyanocobalamin (vitamin B-12) 1,000 mcg PO QAM #0 06/25/09 10/31/19 History Theralith XR 2 tab PO TIDM #0 11/25/15 10/31/19 History epinephrine [EpiPen] 0.3 mg IM Q3H PRN #0 11/25/15 10/31/19 History calcitriol [Rocaltrol] 0.5 mcg PO BID #0 04/17/17 10/31/19 History Centrum Silver Women 1 tab PO QAM #0 12/23/17 10/31/19 History Slow-Mag 71.5 mg PO QAM #0 12/23/17 10/31/19 History ascorbic acid (vitamin C) 250 mg PO QAM #0 12/23/17 10/31/19 History calcium carbonate [Calcium 600] 1,200 mg PO TID #0 05/17/18 10/31/19 History cholestyramine (with sugar) 4 g PO BID #0 05/17/18 10/31/19 History [Questran] cetirizine [Zyrtec] 10 mg PO QAM 06/19/19 10/31/19 History zoledronic lewh-dtqnngaa-dnglb 5 mg IV YEARLY 06/19/19 10/31/19 History [Reclast] Lactobacillus acidoph-L.bulgar 1 tab PO TID 10/15/19 10/31/19 History [Floranex] linezolid 600 mg PO BID #27 tab 10/21/19 10/31/19 Rx metoprolol tartrate 12.5 mg PO BID #30 tab 10/21/19 10/31/19 Rx nitrofurantoin monohyd/m-cryst 100 mg PO BID 7 Days #14 cap 10/25/19 10/31/19 Rx [Macrobid] Past Med/Surg History Medical History Anemia Arrhythmia PAC's per prior EKGs/no issues x years Asthma no inhaler used Celiac disease Chronic diarrhea Chronic kidney disease, stage III (moderate) History of blood clots RLE (early ) s/p trauma Hydronephrosis (Inactive) Hypertension Kidney stones (Chronic) Osteoarthritis of knee Osteoporosis Postsurgical dumping syndrome Right knee DJD UTI (urinary tract infection) Venous insufficiency (chronic) (peripheral) Surgical History H/O foot surgery RT BIG TOE REPAIRED History of appendectomy History of bariatric surgery [facility] 1971 History of cholecystectomy History of cystoscopy WITH STENT FOR KIDNEY STONES History of lithotripsy multiple, General LMA no issues. History of tonsillectomy History of tooth extraction History of total right knee replacement History of tubal ligation Hx of cataract surgery RT/LEFT Family History Mother Family history of diabetes mellitus Ovarian cancer Grandmother (Maternal) Family history of diabetes mellitus Father Myocardial infarction Other Cancer Heart disease Hypertension No family history of adverse response to anesthesia Social History Preferred Language: Divehi Communication Ability: Effective Visual Impairment: No Limitations Hearing Ability: Normal Help Desk Coordinator Required: No Beliefs That Will Affect Care: None marital status: Current Living Situation: Spouse current occupational status: retired Feels Safe at Home: Yes Smoking Status: Former smoker Tobacco Type: cigarettes ; Second Hand Exposure: Yes ( A CHILD) ; Hx Alcohol Use: Yes Alcohol type: hard liquor Hx Substance Use: No Childhood Exposure to Second-Hand Smoke: Yes Dental Care, Regularly: Yes Physical Activity Frequency: Does not Exercise Seatbelt Use: sometimes Review of Systems Review of Systems: Constitutional: Positive chills and generalized weakness. Denies fevers. Eyes: Denies any visual loss or diplopia ENT: Denies any ear/nose/throat pain or difficulty speaking or swallowing Respiratory: Denies any dyspnea, cough, hemoptysis Cardiovascular: Denies any chest pain or feeling of edema Gastrointestinal: Transient nausea. Denies vomiting. Ongoing loose stools. Denies abdominal pain. Musculoskeletal: Denies any acute extremity pains, myalgias, or focal weakness Skin: Denies any known acute rashes or lesions Neuro: Denies any headache, acute focal weakness or numbness, or difficulties with speech or swallow. Physical Exam Physical Exam: GENERAL: Awake, alert, well-appearing, in no acute distress HENT: Normocephalic, atraumatic. Oropharynx unremarkable. EYES: Normal conjunctiva. Sclera non-icteric. NECK: Inspection normal. Supple and full ROM. No nuchal rigidity. CARDIAC: +S1S2 RRR, no murmurs. RESPIRATORY: Clear to auscultation. No wheezes or rales. Normal respiratory effort. GI: +BS, soft, non-distended. No tenderness to palpation. No rebound or guarding. EXTREMITIES: No pedal edema or calf tenderness. Moving all extremities naturally and easily. NEURO: No gross neuro deficits. Results & Data Vital Signs (Past 12 Hours) Vital Signs Temp Pulse Pulse Resp BP BP Pulse Ox 10/31/19 22:28 83 20 121/70 98 10/31/19 21:16 80 16 120/69 99 10/31/19 20:18 96 10/31/19 20:17 79 16 126/70 96 10/31/19 18:53 36.6 C 83 18 113/70 97 Laboratory Results 10/31/19 10/31/19 10/31/19 Range/Units 20:20 19:46 19:46 WBC 10.10 (4.8-10.8) K/uL RBC 3.53 L (4.2-5.4) M/uL Hgb 11.7 L (12.0-16.0) g/dL Hct 35.9 L (37-47) % MCV 101.7 H (80-100) fL MCH 33.1 (25-34) pg MCHC 32.6 (32-36) g/dL RDW Std Deviation 48.0 H (36.4-46.3) fL RDW Coeff of Khushi 13.1 (11.5-14.5) % Plt Count 228 (130-400) K/uL MPV 10.7 H (7.4-10.4) fL Immature Gran % (Auto) 0.1 % Neut % (Auto) 75.7 % Lymph % (Auto) 19.4 % Stanton % (Auto) 2.9 % Eos % (Auto) 1.4 % Baso % (Auto) 0.5 % Immature Gran # (Auto) 0.01 (0.00-0.02) K/uL Neut # (Auto) 7.65 H (1.4-6.5) K/uL Lymph # (Auto) 1.96 (1.2-3.4) K/uL Stanton # (Auto) 0.29 (0.11-0.59) K/uL Eos # (Auto) 0.14 (0-0.5) K/uL Baso # (Auto) 0.05 (0-0.2) K/uL Sodium 140 (136-145) mmol/L Potassium 5.1 (3.5-5.1) mmol/L Chloride 109 H (98-107) mmol/L Carbon Dioxide 22 (21-32) mmol/L Anion Gap 9.0 (3-11) BUN 36 H (7-18) mg/dl Creatinine 2.29 H (0.6-1.2) mg/dl Est Cr Clr Drug Dosing Not Reportable Est GFR ( Amer) 24.1 Est GFR (Non-Af Amer) 20.8 BUN/Creatinine Ratio 15.8 (10-20) Glucose 98 (70-99) mg/dl Calcium 12.0 H (8.5-10.1) mg/dl Total Bilirubin 0.4 (0.2-1) mg/dl AST 16 (15-37) U/L ALT 26 (12-78) U/L Alkaline Phosphatase 68 (45-117) U/L Total Creatine Kinase 22 L (26-192) U/L CK-MB (CK-2) 1.3 (0.5-3.6) ng/ml CK/CKMB % Calc 5.9 H (0-3.0) Troponin I < 0.015 (0-0.045) ng/ml Total Protein 7.0 (6.4-8.2) gm/dl Albumin 3.1 L (3.4-5.0) gm/dl Globulin 3.9 (2.5-4.0) gm/dl Albumin/Globulin Ratio 0.8 L (0.9-2) TSH 1.410 (0.300-4.500) uIu/ml Urine Color Yellow Urine Appearance Clear (Clear) Urine pH 5.0 (4.5-7.5) Ur Specific [place] 1.019 (1.000-1.030) Urine Protein 1+ H (Negative) Urine Glucose (UA) Negative (Negative) Urine Ketones Negative (Negative) Urine Blood 2+ H (Negative) Urine Nitrite Negative (Negative) Urine Bilirubin Negative (Negative) Urine Urobilinogen Negative (Negative) Ur Leukocyte Esterase 1+ H (Negative) Urine WBC (Auto) 10-30 H (0-5) /hpf Urine RBC (Auto) 0-4 (0-4) /hpf U Hyaline Cast (Auto) 1-5 (0-5) /lpf U Epithel Cells (Auto) 10-20 H (0-5) /lpf Urine Bacteria (Auto) Negative (Negative) Ur Renal Epithelial Cell 0-5 (0-5) /lpf Urine Crystals Not Reportable Calcium Oxalate Crystal Present A (None Prsent) Urine Yeast Not Reportable Medications Administered Discontinued Medications Sodium Chloride (Nss 1000ml) 1,000 mls @ 999 mls/hr IV .Q1H1M ONE Stop: 10/31/19 21:08 Last Infusion: 10/31/19 21:34 Dose: 0 mls/hr Documented by: [id number] Admin: 10/31/19 20:29 Dose: 999 mls/hr Documented by: [id number] Ceftriaxone Sodium (Rocephin) 2,000 mg in 70 mls @ 140 mls/hr IV NOW STA Stop: 10/31/19 21:53 Last Infusion: 10/31/19 22:05 Dose: 0 mls/hr Documented by: [id number] Admin: 10/31/19 21:34 Dose: 140 mls/hr Documented by: [id number] Code Status & VTE Plan Code Status Full code VTE Prophylaxis Plan VTE Prophylaxis will be ordered: Yes Supervising Physician Co-Signing Physician Notes Patient was seen and examined by me personally. I reviewed the chart, the orders and discussed the case in detail with Dr. Yoan Vazquez MD . I read this H&P and agree with its contents to entirety. Resident Activity Tracking Resident Involvement: Resident Care Provided Care Provided: Adult Hospital Medicine
--- NOTE | 2019-11-01 00:03 | Billing Data ---
Coding Level of Care Code 14384 OBS Care - Level 2
[2019-11-01] MEDS ORDERED: ACETAMINOPHEN 325 MG TAB PO PRN (00:57)
[2019-11-01] MEDS ORDERED: VIT B6 MAG CIT OXID POTASS CIT PO SCH (08:00)
[2019-11-01] MEDS: METOPROLOL TARTRATE 25 MG TAB PO SCH ×2 (08:43→21:37)
[2019-11-01] MEDS: CYANOCOBALAMIN 500 MCG TABLET (VITAMIN B-12) PO SCH (08:43)
[2019-11-01] MEDS: LINEZOLID 600 MG TAB PO SCH ×2 (08:43→20:46)
[2019-11-01] MEDS: LACTOBACILLUS ACIDOPHILUS (FLORANEX) TAB PO SCH ×3 (08:43→21:37)
[2019-11-01] MEDS: NITROFURANTOIN MONOHYDRATE 100 MG CAP PO SCH ×2 (08:43→20:46)
[2019-11-01] MEDS: CETIRIZINE HCL 10 MG TABLET PO SCH (08:44)
[2019-11-01] MEDS: ASCORBIC ACID 500 MG TAB PO SCH (08:44)
[2019-11-01] MEDS: MAGNESIUM CHLORIDE 64MG DELAYED REL TAB PO SCH (08:44)
[2019-11-01 09:12] LABS: BUN Creatinine Ratio 15.8 (10-20); Calcium 11.1 mg/dl (8.5-10.1); Creatinine Clr Calc Pharmacy 22.6 ml/min; Est GFR (African American) 25.9; Est GFR (Non-African American) 22.3; Magnesium 1.6 mg/dl (1.8-2.4); Potassium 4.6 mmol/L (3.5-5.1)
[2019-11-01] MEDS: CHOLESTYRAMINE LIGHT 4 GM PKT PO SCH ×2 (09:55→22:35)
[2019-11-01] MEDS: ALUMINUM/MAGNESIUM/SIMETH (MAALOX MAX) 30 ML UDC PO PRN (13:40)
[2019-11-01] MEDS ORDERED: ZOLEDRONIC ACID 4 MG in 0.9 % SODIUM CHLORIDE 100 ML IV ONE (13:45)
[2019-11-01] MEDS: SODIUM CHLORIDE 0.9% 1000ML 1,000 ML IV SCH (13:57)
[2019-11-01] MEDS: MAGNESIUM SULFATE / D5W 1 GM/100 ML BAG IV SCH ×2 (14:30→15:33)
--- NOTE | 2019-11-01 17:54 | Nephrology Consultation ---
Date of Consultation November 01, 2019 Assessment & Plan (1) Acute on chronic renal failure: Nonoliguric. Volume status appears to be euvolemic. However, I suspect this is prerenal associated with hypercalcemia. UA was acellular. Renal imaging has not been updated. Patient denies any urinary symptoms at this time. She is receiving appropriate volume replacement with IV saline. Input and output will be documented. Metabolic profile will be repeated tomorrow morning. Medications are currently appropriately dosed for kidney function. Patient did receive Zometa today to assist with management of her hypercalcemia. (2) Hypercalcemia: This may been related to calcitriol as well as caltrate + D therapy. Non PTH mediated (PTH < 10). Evaluation for other causes ongoing. Laboratory studies for parathyroid related peptide, serum protein electrophoresis as well as urine protein electrophoresis and immunofixation, SANCHO level are pending. Patient did receive Zometa. I agree with continued IVF fluids with close monitoring. CXr did not reveal any concerning pathology. History of Present Illness Reason for Consultation: Hypercalcemia Requesting Physician: Zulma Dunlap MD Attending Physician: Zulma Dunlap MD History of Present Illness Mrs. Dunia Kaba is a 69-year-old female known to me from her recent admission to [facility] in September. Dunia follows in the nephrology clinic with Dr. Miranda as an outpatient. She has CKD III and a history of recurrent nephrolithiasis. Baseline creatinine has been 1.4 mg/dL. Dunia was seen and evaluated this afternoon regarding hypercalcemia and OLY. Dunia is non-oliguric. Medical history notable for recent ureteral stent placement and lithotripsy. Zometa 4 mg IV was provided for hypercalcemia today. IV saline is infusing at 100 ml/hr. Evaluation notable for new atrial fibrillation and receny UTI/sepsis. Medical history notable for jejunal and ileal bypass with secondary chronic diarrhea and malabsorption complicated by a significant history of recurrent nephrolithiasis. She presented to the ED yesterday for evaluation regarding hypercalcemia and OLY. She was admitted last month with UTI, acute renal failure, atrial fibrillation, and nephrolithiasis. Since her hospital discharge she continues to have generalized weakness and fatigue. Past medical history is notable for asthma, anemia, CKD stage III, nephrolithiasis, atrial fibrillation, osteoporosis, arthritis, hypertension, peripheral venous insufficiency, celiac disease. Allergies Allergy/AdvReac Type Severity Reaction Status Date / Time bee venom protein (honey bee) Allergy Severe HIVES, Verified 10/31/19 20:19 DIFFICULTY BREATHING erythromycin base Allergy Severe RASH X Verified 10/31/19 20:19 WEEK Penicillins Allergy Intermediate HIVES, Verified 10/31/19 20:19 SWELLING wheat Allergy Intermediate CELIAC Verified 10/31/19 20:19 DISEASE- ABD CRAMPING, DIARRHEA benzonatate Allergy Mild PRURITIUS Verified 10/31/19 20:19 doxycycline Allergy Mild RASH Verified 10/31/19 20:19 Macrolide Antibiotics Allergy Mild ITCHY, RASH Verified 10/31/19 20:19 lactose AdvReac Intermediate GI ISSUES Verified 10/31/19 20:19 cephalexin AdvReac Mild DIARRHEA Verified 10/31/19 20:19 Home Medications Home Medications Medication Instructions Recorded Confirmed Type cyanocobalamin (vitamin B-12) 1,000 mcg PO QAM #0 06/25/09 10/31/19 History Theralith XR 2 tab PO TIDM #0 11/25/15 10/31/19 History epinephrine [EpiPen] 0.3 mg IM Q3H PRN #0 11/25/15 10/31/19 History calcitriol [Rocaltrol] 0.5 mcg PO BID #0 04/17/17 10/31/19 History Centrum Silver Women 1 tab PO QAM #0 12/23/17 10/31/19 History Slow-Mag 71.5 mg PO QAM #0 12/23/17 10/31/19 History ascorbic acid (vitamin C) 250 mg PO QAM #0 12/23/17 10/31/19 History calcium carbonate [Calcium 600] 1,200 mg PO TID #0 05/17/18 10/31/19 History cholestyramine (with sugar) 4 g PO BID #0 05/17/18 10/31/19 History [Questran] cetirizine [Zyrtec] 10 mg PO QAM 06/19/19 10/31/19 History zoledronic qbxl-vqravlnb-vzqoo 5 mg IV YEARLY 06/19/19 10/31/19 History [Reclast] Lactobacillus acidoph-L.bulgar 1 tab PO TID 10/15/19 10/31/19 History [Floranex] linezolid 600 mg PO BID #27 tab 10/21/19 10/31/19 Rx metoprolol tartrate 12.5 mg PO BID #30 tab 10/21/19 10/31/19 Rx nitrofurantoin monohyd/m-cryst 100 mg PO BID 7 Days #14 cap 10/25/19 10/31/19 Rx [Macrobid] Patient History Medical History Anemia Arrhythmia PAC's per prior EKGs/no issues x years Asthma no inhaler used Celiac disease Chronic diarrhea Chronic kidney disease, stage III (moderate) History of blood clots RLE (early ) s/p trauma Hydronephrosis (Inactive) Hypertension Kidney stones (Chronic) Osteoarthritis of knee Osteoporosis Postsurgical dumping syndrome Right knee DJD UTI (urinary tract infection) Venous insufficiency (chronic) (peripheral) Surgical History H/O foot surgery RT BIG TOE REPAIRED History of appendectomy History of bariatric surgery [facility] 1971 History of cholecystectomy History of cystoscopy WITH STENT FOR KIDNEY STONES History of lithotripsy multiple, General LMA no issues. History of tonsillectomy History of tooth extraction History of total right knee replacement History of tubal ligation Hx of cataract surgery RT/LEFT Family History Mother Family history of diabetes mellitus Ovarian cancer Grandmother (Maternal) Family history of diabetes mellitus Father Myocardial infarction Other Cancer Heart disease Hypertension No family history of adverse response to anesthesia Social History Preferred Language: Hebrew Communication Ability: Effective Visual Impairment: No Limitations Hearing Ability: Normal Social Worker Clinical Required: No Beliefs That Will Affect Care: Alevism Alevism Beliefs: mitesh marital status: Current Living Situation: Spouse current occupational status: retired Feels Safe at Home: Yes Smoking Status: Former smoker Tobacco Type: cigarettes ; Second Hand Exposure: Yes ( A CHILD) ; Hx Alcohol Use: No Hx Substance Use: No Childhood Exposure to Second-Hand Smoke: Yes Dental Care, Regularly: Yes Physical Activity Frequency: Does not Exercise Seatbelt Use: sometimes Review of Systems Review of Systems: All systems reviewed & are unremarkable except as noted in HPI & below Physical Exam Constitutional: well developed; no acute distress Eyes: no scleral abnormality and no corneal abnormality ENMT: Mouth: no oral mucosal abnormality and oral mucous membranes not dry Neck: normal visual inspection and trachea midline Respiratory: normal respiratory effort Auscultation: lungs clear to auscultation bilaterally Cardiovascular: Rate/Rhythm: regular rate Heart Sounds: normal S1 and normal S2 Extremities: no edema Gastrointestinal (Abdomen): Percussion/Palpation: abdomen soft; abdomen nontender Musculoskeletal: Extremities: no cyanosis and no clubbing Skin: normal turgor; no lesions Neurologic: Motor/Sensory: no tremor and no asterixis Psychiatric: Orientation: alert and oriented x 3 Results & Data Vital Signs (Past 12 Hours) Vital Signs Temp Pulse Pulse Resp BP Pulse Ox 11/01/19 16:29 78 11/01/19 15:47 36.9 C 73 17 111/66 93 11/01/19 15:10 96 11/01/19 07:47 36.7 C 88 19 120/72 97 Laboratory Results Laboratory Results - last 24 hr 10/31/19 10/31/19 10/31/19 19:46 19:46 20:20 WBC 10.10 RBC 3.53 L Hgb 11.7 L Hct 35.9 L MCV 101.7 H MCH 33.1 MCHC 32.6 RDW Std Deviation 48.0 H RDW Coeff of Khushi 13.1 Plt Count 228 MPV 10.7 H Immature Gran % (Auto) 0.1 Neut % (Auto) 75.7 Lymph % (Auto) 19.4 [place] % (Auto) 2.9 Eos % (Auto) 1.4 Baso % (Auto) 0.5 Immature Gran # (Auto) 0.01 Neut # (Auto) 7.65 H Lymph # (Auto) 1.96 [place] # (Auto) 0.29 Eos # (Auto) 0.14 Baso # (Auto) 0.05 Sodium 140 Potassium 5.1 Chloride 109 H Carbon Dioxide 22 Anion Gap 9.0 BUN 36 H Creatinine 2.29 H Est Cr Clr Drug Dosing Not Reportable Est GFR ( Amer) 24.1 Est GFR (Non-Af Amer) 20.8 BUN/Creatinine Ratio 15.8 Glucose 98 Calcium 12.0 H Magnesium Total Bilirubin 0.4 AST 16 ALT 26 Alkaline Phosphatase 68 Total Creatine Kinase 22 L CK-MB (CK-2) 1.3 CK/CKMB % Calc 5.9 H Troponin I < 0.015 Total Protein 7.0 Albumin 3.1 L Globulin 3.9 Albumin/Globulin Ratio 0.8 L Angiotensin Convert Enz 25-OH Vitamin D Total Vit D 1,25-Dihyd Total 1,25 Dihydroxy Vit D2 1,25 Dihydroxy Vit D3 TSH 1.410 PTH Intact PTH Related Protein Urine Color Yellow Urine Appearance Clear Urine pH 5.0 Ur Specific [place] 1.019 Urine Protein 1+ H Urine Glucose (UA) Negative Urine Ketones Negative Urine Blood 2+ H Urine Nitrite Negative Urine Bilirubin Negative Urine Urobilinogen Negative Ur Leukocyte Esterase 1+ H Urine WBC (Auto) 10-30 H Urine RBC (Auto) 0-4 U Hyaline Cast (Auto) 1-5 U Epithel Cells (Auto) 10-20 H Urine Bacteria (Auto) Negative Ur Renal Epithelial Cell 0-5 Urine Crystals Not Reportable Calcium Oxalate Crystal Present A Urine Yeast Not Reportable U Random Total Protein Ur Creatinine mg/dL Protein/Creatinin Ratio Urine Albumin (%) U Fvfkm-6-Neydrvbg (%) U Jlhod-3-Ncfjunss (%) U Beta Globulin (%) U Gamma Globulin (%) U Abnormal Prot Band 1 U Abnormal Prot Band 2 U Abnormal Prot Band 3 Urine PEP Interpret 11/01/19 11/01/19 11/01/19 08:22 08:22 08:22 WBC RBC Hgb Hct MCV MCH MCHC RDW Std Deviation RDW Coeff of Khushi Plt Count MPV Immature Gran % (Auto) Neut % (Auto) Lymph % (Auto) [place] % (Auto) Eos % (Auto) Baso % (Auto) Immature Gran # (Auto) Neut # (Auto) Lymph # (Auto) [place] # (Auto) Eos # (Auto) Baso # (Auto) Sodium 139 Potassium 4.6 Chloride 113 H Carbon Dioxide 19 L Anion Gap 8.0 BUN 34 H Creatinine 2.16 H Est Cr Clr Drug Dosing 22.6 Est GFR ( Amer) 25.9 Est GFR (Non-Af Amer) 22.3 BUN/Creatinine Ratio 15.8 Glucose 95 Calcium 11.1 H Magnesium 1.6 L Total Bilirubin AST ALT Alkaline Phosphatase Total Creatine Kinase CK-MB (CK-2) CK/CKMB % Calc Troponin I Total Protein Albumin Globulin Albumin/Globulin Ratio Angiotensin Convert Enz 25-OH Vitamin D Total Vit D 1,25-Dihyd Total Pending 1,25 Dihydroxy Vit D2 Pending 1,25 Dihydroxy Vit D3 Pending TSH PTH Intact 7.6 L PTH Related Protein Pending Urine Color Urine Appearance Urine pH Ur Specific [place] Urine Protein Urine Glucose (UA) Urine Ketones Urine Blood Urine Nitrite Urine Bilirubin Urine Urobilinogen Ur Leukocyte Esterase Urine WBC (Auto) Urine RBC (Auto) U Hyaline Cast (Auto) U Epithel Cells (Auto) Urine Bacteria (Auto) Ur Renal Epithelial Cell Urine Crystals Calcium Oxalate Crystal Urine Yeast U Random Total Protein Ur Creatinine mg/dL Protein/Creatinin Ratio Urine Albumin (%) U Ujwne-4-Fqfmofpr (%) U Liiyi-0-Mnqydgun (%) U Beta Globulin (%) U Gamma Globulin (%) U Abnormal Prot Band 1 U Abnormal Prot Band 2 U Abnormal Prot Band 3 Urine PEP Interpret 11/01/19 11/01/19 11/01/19 08:22 08:22 14:22 WBC RBC Hgb Hct MCV MCH MCHC RDW Std Deviation RDW Coeff of Khushi Plt Count MPV Immature Gran % (Auto) Neut % (Auto) Lymph % (Auto) [place] % (Auto) Eos % (Auto) Baso % (Auto) Immature Gran # (Auto) Neut # (Auto) Lymph # (Auto) [place] # (Auto) Eos # (Auto) Baso # (Auto) Sodium Potassium Chloride Carbon Dioxide Anion Gap BUN Creatinine Est Cr Clr Drug Dosing Est GFR ( Amer) Est GFR (Non-Af Amer) BUN/Creatinine Ratio Glucose Calcium Magnesium Total Bilirubin AST ALT Alkaline Phosphatase Total Creatine Kinase CK-MB (CK-2) CK/CKMB % Calc Troponin I Total Protein Albumin Globulin Albumin/Globulin Ratio Angiotensin Convert Enz Pending 25-OH Vitamin D Total 24.6 L Vit D 1,25-Dihyd Total 1,25 Dihydroxy Vit D2 1,25 Dihydroxy Vit D3 TSH PTH Intact PTH Related Protein Urine Color Urine Appearance Urine pH Ur Specific [place] Urine Protein Urine Glucose (UA) Urine Ketones Urine Blood Urine Nitrite Urine Bilirubin Urine Urobilinogen Ur Leukocyte Esterase Urine WBC (Auto) Urine RBC (Auto) U Hyaline Cast (Auto) U Epithel Cells (Auto) Urine Bacteria (Auto) Ur Renal Epithelial Cell Urine Crystals Calcium Oxalate Crystal Urine Yeast U Random Total Protein Pending Ur Creatinine mg/dL Pending Protein/Creatinin Ratio Pending Urine Albumin (%) Pending U Gyduf-6-Guitbczj (%) Pending U Zqnyr-0-Cszuhflj (%) Pending U Beta Globulin (%) Pending U Gamma Globulin (%) Pending U Abnormal Prot Band 1 Pending U Abnormal Prot Band 2 Pending U Abnormal Prot Band 3 Pending Urine PEP Interpret Pending PG Care Time/CCT Total # of Minutes Spent Total Time Spent with Patient: Total time spent is greater than 50% in coordination of care (as documented) at patient's floor/unit and/or counseling patient: (1) Acute on chronic renal failure Acute renal failure type: unspecified Chronic kidney disease stage: uns pecified stage Qualified Code(s): N17.9 - Acute kidney failure, unspecified; N18.9 - Chronic kidney disease, unspecified
--- NOTE | 2019-11-01 18:20 | Hospitalist Progress Note ---
Date of Service November 01, 2019 Assessment & Plan (1) Hypercalcemia: - Presented with hypercalcemia of unknown etiology; corrected calcium level is 11.3 this morning. - May be related to calcium supplementation at home -- on Calcitriol 0.5 mg BID and calcium carbonate 1200 mg TID. - PTH level low; PTHrp pending -- not likely related to hyperparathyroidism. - SANCHO level is pending to rule out sarcoidosis. - Vit D level low, Vit D 1,25 hydroxy levels pending. - Concern for underlying malignancy -- UPEP 24 hour, SPEP (fasting in the AM) pending to rule out MM in setting of mild anemia and renal failure. - NS at 100 cc/hr; will also give Zometa 4 mg IV x 1 dose. - Consult nephrology for evaluation. - Monitor Ca levels qAM. (2) Acute on chronic renal failure: - Creatinine remains elevated, was 2.16 this morning. - S/p recent urology procedures, may also be related to dehydration. - Continue IV fluids at 100 cc/hr. - Monitor renal function daily. (3) Urinary tract infection: - Most recent UC +MDR Enterococcus. - Will continue Zyvox (started 10/21, 14 day course) and Macrobid (started 10/25) -- both prescribed as outpatient. - Follows with urology and ID. - U/a was negative on admission. (4) Nephrolithiasis: - S/p right ureter stenting on 10/25. - F/u with urology -- will need stent removed this month, has f/u procedure scheduled. (5) Hypertension: - Continue Lopressor as prescribed. (6) Atrial fibrillation: - Continue Lopressor as prescribed. - Anticoagulation has been held for recent stent exchange on 10/25; pt. was instructed to continue to hold med until stent removal this month. (7) Anemia: - Chronic anemia, baseline hgb ~11-12. - Will continue to monitor CBC closely. (8) History of gastric bypass: - Followed as outpatient. (9) Weakness: - Has developed generalized weakness over the last month - may be related to urology procedures with frequent procedures/hospitalizations vs. underlying malignancy. - Hypercalcemia work up as noted above. - PT/OT consult for discharge planning. Dispo: Med/surg with tele; discharge pending PT/OT recs, improvement in renal failure. Supervising Physician Co-Signing Physician Notes BRETT Supervision Note: I did not personally see or examine the patient today, but I verified all hooper points of BRETT Lloyd's assessment and plan with the following exceptions/additions: None Subjective Pt. reports being extremely tired over the last month. She has had a limited appetite, early satiety. Is nauseous at times, denies vomiting. Denies joint/bone pain, constipation or diarrhea, abd pain. Review of Systems Review of Systems: All systems reviewed & are unremarkable except as noted in HPI & below Constitutional: + fatigue, + weakness and + anorexia; no fever and no chills Respiratory: no cough, no dyspnea, no dyspnea on exertion and no wheezing Cardiovascular: no chest pain, no palpitations and no edema Gastrointestinal: + nausea; no abdominal pain, no vomiting, no constipation and no diarrhea/loose stools Musculoskeletal: no back pain and no joint pain Integumentary: no non-healing lesions Physical Exam Physical Exam: General: Resting comfortably HEENT: NC/AT; PERRLA with EOMI; [place] conjunctiva, MMM. No erythema of posterior pharynx Neck: Supple and nontender Cardiac: RRR Lungs: CTA bilaterally Abdomen: Bowel normoactive X 4; Nontender to palpation Extremities: Warm. No edema present Neuro: No focal weakness Skin: No rash Results & Data Vital Signs (Past 12 Hours) Vital Signs Temp Pulse Pulse Resp BP Pulse Ox 11/01/19 16:29 78 11/01/19 15:47 36.9 C 73 17 111/66 93 11/01/19 15:10 96 11/01/19 07:47 36.7 C 88 19 120/72 97 Laboratory Results 11/01/19 11/01/19 11/01/19 Range/Units 14:22 08:22 08:22 WBC (4.8-10.8) K/uL RBC (4.2-5.4) M/uL Hgb (12.0-16.0) g/dL Hct (37-47) % MCV (80-100) fL MCH (25-34) pg MCHC (32-36) g/dL RDW Std Deviation (36.4-46.3) fL RDW Coeff of Khushi (11.5-14.5) % Plt Count (130-400) K/uL MPV (7.4-10.4) fL Immature Gran % (Auto) % Neut % (Auto) % Lymph % (Auto) % [place] % (Auto) % Eos % (Auto) % Baso % (Auto) % Immature Gran # (Auto) (0.00-0.02) K/uL Neut # (Auto) (1.4-6.5) K/uL Lymph # (Auto) (1.2-3.4) K/uL [place] # (Auto) (0.11-0.59) K/uL Eos # (Auto) (0-0.5) K/uL Baso # (Auto) (0-0.2) K/uL Sodium (136-145) mmol/L Potassium (3.5-5.1) mmol/L Chloride (98-107) mmol/L Carbon Dioxide (21-32) mmol/L Anion Gap (3-11) BUN (7-18) mg/dl Creatinine (0.6-1.2) mg/dl Est Cr Clr Drug Dosing Est GFR ( Amer) Est GFR (Non-Af Amer) BUN/Creatinine Ratio (10-20) Glucose (70-99) mg/dl Calcium (8.5-10.1) mg/dl Magnesium (1.8-2.4) mg/dl Total Bilirubin (0.2-1) mg/dl AST (15-37) U/L ALT (12-78) U/L Alkaline Phosphatase (45-117) U/L Total Creatine Kinase (26-192) U/L CK-MB (CK-2) (0.5-3.6) ng/ml CK/CKMB % Calc (0-3.0) Troponin I (0-0.045) ng/ml Total Protein (6.4-8.2) gm/dl Albumin (3.4-5.0) gm/dl Globulin (2.5-4.0) gm/dl Albumin/Globulin Ratio (0.9-2) Angiotensin Convert Enz Pending 25-OH Vitamin D Total 24.6 L (30-100) ng/ml Vit D 1,25-Dihyd Total 1,25 Dihydroxy Vit D2 1,25 Dihydroxy Vit D3 TSH (0.300-4.500) uIu/ml PTH Intact (18.4-80.1) pg/ml PTH Related Protein Urine Color Urine Appearance (Clear) Urine pH (4.5-7.5) Ur Specific [place] (1.000-1.030) Urine Protein (Negative) Urine Glucose (UA) (Negative) Urine Ketones (Negative) Urine Blood (Negative) Urine Nitrite (Negative) Urine Bilirubin (Negative) Urine Urobilinogen (Negative) Ur Leukocyte Esterase (Negative) Urine WBC (Auto) (0-5) /hpf Urine RBC (Auto) (0-4) /hpf U Hyaline Cast (Auto) (0-5) /lpf U Epithel Cells (Auto) (0-5) /lpf Urine Bacteria (Auto) (Negative) Ur Renal Epithelial Cell (0-5) /lpf Urine Crystals Calcium Oxalate Crystal (None Prsent) Urine Yeast U Random Total Protein Pending Ur Creatinine mg/dL Pending Protein/Creatinin Ratio Pending Urine Albumin (%) Pending U Dvafp-7-Fjuzbuaj (%) Pending U Pwljx-1-Utmhablm (%) Pending U Beta Globulin (%) Pending U Gamma Globulin (%) Pending U Abnormal Prot Band 1 Pending U Abnormal Prot Band 2 Pending U Abnormal Prot Band 3 Pending Urine PEP Interpret Pending 11/01/19 11/01/19 11/01/19 Range/Units 08:22 08:22 08:22 WBC (4.8-10.8) K/uL RBC (4.2-5.4) M/uL Hgb (12.0-16.0) g/dL Hct (37-47) % MCV (80-100) fL MCH (25-34) pg MCHC (32-36) g/dL RDW Std Deviation (36.4-46.3) fL RDW Coeff of Khushi (11.5-14.5) % Plt Count (130-400) K/uL MPV (7.4-10.4) fL Immature Gran % (Auto) % Neut % (Auto) % Lymph % (Auto) % [place] % (Auto) % Eos % (Auto) % Baso % (Auto) % Immature Gran # (Auto) (0.00-0.02) K/uL Neut # (Auto) (1.4-6.5) K/uL Lymph # (Auto) (1.2-3.4) K/uL [place] # (Auto) (0.11-0.59) K/uL Eos # (Auto) (0-0.5) K/uL Baso # (Auto) (0-0.2) K/uL Sodium 139 (136-145) mmol/L Potassium 4.6 (3.5-5.1) mmol/L Chloride 113 H (98-107) mmol/L Carbon Dioxide 19 L (21-32) mmol/L Anion Gap 8.0 (3-11) BUN 34 H (7-18) mg/dl Creatinine 2.16 H (0.6-1.2) mg/dl Est Cr Clr Drug Dosing 22.6 Est GFR ( Amer) 25.9 Est GFR (Non-Af Amer) 22.3 BUN/Creatinine Ratio 15.8 (10-20) Glucose 95 (70-99) mg/dl Calcium 11.1 H (8.5-10.1) mg/dl Magnesium 1.6 L (1.8-2.4) mg/dl Total Bilirubin (0.2-1) mg/dl AST (15-37) U/L ALT (12-78) U/L Alkaline Phosphatase (45-117) U/L Total Creatine Kinase (26-192) U/L CK-MB (CK-2) (0.5-3.6) ng/ml CK/CKMB % Calc (0-3.0) Troponin I (0-0.045) ng/ml Total Protein (6.4-8.2) gm/dl Albumin (3.4-5.0) gm/dl Globulin (2.5-4.0) gm/dl Albumin/Globulin Ratio (0.9-2) Angiotensin Convert Enz 25-OH Vitamin D Total (30-100) ng/ml Vit D 1,25-Dihyd Total Pending 1,25 Dihydroxy Vit D2 Pending 1,25 Dihydroxy Vit D3 Pending TSH (0.300-4.500) uIu/ml PTH Intact 7.6 L (18.4-80.1) pg/ml PTH Related Protein Pending Urine Color Urine Appearance (Clear) Urine pH (4.5-7.5) Ur Specific [place] (1.000-1.030) Urine Protein (Negative) Urine Glucose (UA) (Negative) Urine Ketones (Negative) Urine Blood (Negative) Urine Nitrite (Negative) Urine Bilirubin (Negative) Urine Urobilinogen (Negative) Ur Leukocyte Esterase (Negative) Urine WBC (Auto) (0-5) /hpf Urine RBC (Auto) (0-4) /hpf U Hyaline Cast (Auto) (0-5) /lpf U Epithel Cells (Auto) (0-5) /lpf Urine Bacteria (Auto) (Negative) Ur Renal Epithelial Cell (0-5) /lpf Urine Crystals Calcium Oxalate Crystal (None Prsent) Urine Yeast U Random Total Protein Ur Creatinine mg/dL Protein/Creatinin Ratio Urine Albumin (%) U Wmgxx-6-Smpikbzm (%) U Abcrx-5-Igbvklgo (%) U Beta Globulin (%) U Gamma Globulin (%) U Abnormal Prot Band 1 U Abnormal Prot Band 2 U Abnormal Prot Band 3 Urine PEP Interpret 10/31/19 10/31/19 10/31/19 Range/Units 20:20 19:46 19:46 WBC 10.10 (4.8-10.8) K/uL RBC 3.53 L (4.2-5.4) M/uL Hgb 11.7 L (12.0-16.0) g/dL Hct 35.9 L (37-47) % MCV 101.7 H (80-100) fL MCH 33.1 (25-34) pg MCHC 32.6 (32-36) g/dL RDW Std Deviation 48.0 H (36.4-46.3) fL RDW Coeff of Khushi 13.1 (11.5-14.5) % Plt Count 228 (130-400) K/uL MPV 10.7 H (7.4-10.4) fL Immature Gran % (Auto) 0.1 % Neut % (Auto) 75.7 % Lymph % (Auto) 19.4 % [place] % (Auto) 2.9 % Eos % (Auto) 1.4 % Baso % (Auto) 0.5 % Immature Gran # (Auto) 0.01 (0.00-0.02) K/uL Neut # (Auto) 7.65 H (1.4-6.5) K/uL Lymph # (Auto) 1.96 (1.2-3.4) K/uL [place] # (Auto) 0.29 (0.11-0.59) K/uL Eos # (Auto) 0.14 (0-0.5) K/uL Baso # (Auto) 0.05 (0-0.2) K/uL Sodium 140 (136-145) mmol/L Potassium 5.1 (3.5-5.1) mmol/L Chloride 109 H (98-107) mmol/L Carbon Dioxide 22 (21-32) mmol/L Anion Gap 9.0 (3-11) BUN 36 H (7-18) mg/dl Creatinine 2.29 H (0.6-1.2) mg/dl Est Cr Clr Drug Dosing Not Reportable Est GFR ( Amer) 24.1 Est GFR (Non-Af Amer) 20.8 BUN/Creatinine Ratio 15.8 (10-20) Glucose 98 (70-99) mg/dl Calcium 12.0 H (8.5-10.1) mg/dl Magnesium (1.8-2.4) mg/dl Total Bilirubin 0.4 (0.2-1) mg/dl AST 16 (15-37) U/L ALT 26 (12-78) U/L Alkaline Phosphatase 68 (45-117) U/L Total Creatine Kinase 22 L (26-192) U/L CK-MB (CK-2) 1.3 (0.5-3.6) ng/ml CK/CKMB % Calc 5.9 H (0-3.0) Troponin I < 0.015 (0-0.045) ng/ml Total Protein 7.0 (6.4-8.2) gm/dl Albumin 3.1 L (3.4-5.0) gm/dl Globulin 3.9 (2.5-4.0) gm/dl Albumin/Globulin Ratio 0.8 L (0.9-2) Angiotensin Convert Enz 25-OH Vitamin D Total (30-100) ng/ml Vit D 1,25-Dihyd Total 1,25 Dihydroxy Vit D2 1,25 Dihydroxy Vit D3 TSH 1.410 (0.300-4.500) uIu/ml PTH Intact (18.4-80.1) pg/ml PTH Related Protein Urine Color Yellow Urine Appearance Clear (Clear) Urine pH 5.0 (4.5-7.5) Ur Specific [place] 1.019 (1.000-1.030) Urine Protein 1+ H (Negative) Urine Glucose (UA) Negative (Negative) Urine Ketones Negative (Negative) Urine Blood 2+ H (Negative) Urine Nitrite Negative (Negative) Urine Bilirubin Negative (Negative) Urine Urobilinogen Negative (Negative) Ur Leukocyte Esterase 1+ H (Negative) Urine WBC (Auto) 10-30 H (0-5) /hpf Urine RBC (Auto) 0-4 (0-4) /hpf U Hyaline Cast (Auto) 1-5 (0-5) /lpf U Epithel Cells (Auto) 10-20 H (0-5) /lpf Urine Bacteria (Auto) Negative (Negative) Ur Renal Epithelial Cell 0-5 (0-5) /lpf Urine Crystals Not Reportable Calcium Oxalate Crystal Present A (None Prsent) Urine Yeast Not Reportable U Random Total Protein Ur Creatinine mg/dL Protein/Creatinin Ratio Urine Albumin (%) U Zolyn-7-Jfnxhkmg (%) U Rhtkr-6-Gipuklva (%) U Beta Globulin (%) U Gamma Globulin (%) U Abnormal Prot Band 1 U Abnormal Prot Band 2 U Abnormal Prot Band 3 Urine PEP Interpret PG Care Time/CCT Total # of Minutes Spent Total Time Spent with Patient: Total time spent is greater than 50% in coordination of care (as documented) at patient's floor/unit and/or counseling patient: (1) Acute on chronic renal failure Acute renal failure type: unspecified Chronic kidney disease stage: unspecified stage Qualified Code(s): N17.9 - Acute kidney failure, unspecified; N18.9 - Chronic kidney disease, unspecified
[2019-11-02] MEDS: SODIUM CHLORIDE 0.9% 1000ML 1,000 ML IV SCH (00:03)
[2019-11-02 07:34] LABS: Hematocrit (blood only) 29.9 % (37-47); Hemoglobin 9.6 g/dL (12.0-16.0); Mean Corpuscular Hemoglobin 32.9 pg (25-34); Mean Corpuscular Hgb Conc 32.1 g/dL (32-36); Mean Corpuscular Volume 102.4 fL (80-100); Mean Platelet Volume 10.5 fL (7.4-10.4); Platelet Count 141 K/uL (130-400); RDW Coefficient of Variation 13.1 % (11.5-14.5); RDW Standard Deviation 48.8 fL (36.4-46.3); Red Blood Count 2.92 M/uL (4.2-5.4); White Blood Count 7.21 K/uL (4.8-10.8)
[2019-11-02 08:13] LABS: Albumin Globulin Ratio 0.8 (0.9-2); Albumin Level 2.4 gm/dl (3.4-5.0); BUN Creatinine Ratio 14.6 (10-20); Bilirubin,Total 0.2 mg/dl (0.2-1); Calcium 9.5 mg/dl (8.5-10.1); Creatinine Clr Calc Pharmacy 24.7 ml/min; Est GFR (African American) 28.2; Est GFR (Non-African American) 24.4; Potassium 4.6 mmol/L (3.5-5.1); Total Protein 5.4 gm/dl (6.4-8.2)
[2019-11-02] MEDS: LACTOBACILLUS ACIDOPHILUS (FLORANEX) TAB PO SCH ×3 (08:34→20:54)
[2019-11-02] MEDS: NITROFURANTOIN MONOHYDRATE 100 MG CAP PO SCH (08:35)
[2019-11-02] MEDS: ASCORBIC ACID 500 MG TAB PO SCH (08:35)
[2019-11-02] MEDS: METOPROLOL TARTRATE 25 MG TAB PO SCH ×2 (08:35→20:54)
[2019-11-02] MEDS: MAGNESIUM CHLORIDE 64MG DELAYED REL TAB PO SCH (08:35)
[2019-11-02] MEDS: CYANOCOBALAMIN 500 MCG TABLET (VITAMIN B-12) PO SCH (08:35)
[2019-11-02] MEDS: LINEZOLID 600 MG TAB PO SCH ×2 (08:36→20:54)
[2019-11-02] MEDS: CETIRIZINE HCL 10 MG TABLET PO SCH (08:36)
[2019-11-02] MEDS: D5W AND 1/2NSS 1,000 ML IV SCH ×2 (09:09→20:53)
[2019-11-02] MEDS: CHOLESTYRAMINE LIGHT 4 GM PKT PO SCH ×2 (10:01→21:00)
[2019-11-02] MEDS: PANTOprazole 40 MG TAB PO SCH (11:25)
--- NOTE | 2019-11-02 12:25 | Nephrology Progress Note ---
Date of Service November 02, 2019 Assessment & Plan (1) Acute on chronic renal failure: 69-year-old female admitted with generalized weakness. Admission she was found to have acute kidney injury with creatinine 2.7. She was found to have hypercalcemia, calcium 12. Received 1 dose of some med and calcium improved to 9.5. Nonoliguric. Volume status appears to be euvolemic. Has stage III CKD use baseline creatinine around 1 5. UA was acellular. Renal imaging has not been updated. Patient denies any urinary symptoms at this time. --IV fluid can be discontinued if p.o. intake remains adequate --avoid all calcium, vitamin-D, calcitriol and thiazide type diuretics --paraproteinemia workup is currently pending will follow (2) Hypercalcemia: This may been related to calcitriol as well as caltrate + D therapy. Non PTH mediated (PTH < 10). Evaluation for other causes ongoing. Laboratory studies for parathyroid related peptide, serum protein electrophoresis as well as urine protein electrophoresis and immunofixation, SANCHO level are pending. Patient did receive Zometa. CXr did not reveal any concerning pathology. Subjective Dunia was seen exiting from this morning. Overall she is feeling better. Renal function slightly improved to creatinine 2.3 this morning with baseline creatinine 1.5. Calcium improved to 9.5. Blood pressure volume status acceptable. Review of Systems Review of Systems: All systems reviewed & are unremarkable except as noted in HPI & below Physical Exam Constitutional: well developed and well nourished; no acute distress Respiratory: normal respiratory effort, lungs clear to auscultation Cardiovascular: RRR, no murmur, no edema Neurologic: moves all extremities and awake; not confused Psychiatric: A+Ox3, euthymic affect Results & Data Vital Signs (Past 12 Hours) Vital Signs Temp Pulse Pulse Resp BP Pulse Ox 11/02/19 11:29 36.6 C 71 20 114/70 99 11/02/19 10:08 70 11/02/19 07:02 36.5 C 71 18 112/65 97 11/02/19 04:02 36.8 C 69 18 114/64 96 11/02/19 00:53 83 (1) Acute on chronic renal failure Acute renal failure type: unspecified Chronic kidney disease stage: unspecified stage Qualified Code(s): N17.9 - Acute kidney failure, unspecified; N18.9 - Chronic kidney disease, unspecified
[2019-11-02] MEDS: ALUMINUM/MAGNESIUM/SIMETH (MAALOX MAX) 30 ML UDC PO PRN (13:38)
--- NOTE | 2019-11-02 14:51 | Hospitalist Progress Note ---
Date of Service November 02, 2019 Assessment & Plan (1) Hypercalcemia: - Presented with hypercalcemia; level improving, corrected calcium level is 10.3. - May be related to calcium supplementation at home -- on Calcitriol 0.5 mg BID + caltrate + Vit D therapy at home. - PTH level low; PTHrp pending -- not likely related to hyperparathyroidism. - SANCHO level pending to rule out sarcoidosis. - Vit D level low, Vit D 1,25 hydroxy levels pending. - Concern for underlying malignancy -- UPEP 24 hour, SPEP pending to rule out MM in setting of mild anemia and renal failure. - Continue IV fluids at 100 cc/hr (converted to D5 + 0.45% NS); s/p Zometa 4 mg IV on 11/01. - Consulted nephrology, appreciate input. - Monitor Ca levels daily. (2) Acute on chronic renal failure: - Creatinine remains elevated, was 2.0 this morning. With mild metabolic acidosis related to renal failure - S/p recent urology procedures, may also be related to dehydration. - Continue IV fluids at 100 cc/hr (discontinue at 10 pm this evening) - Monitor renal function daily. (3) Urinary tract infection: - Most recent UC +MDR Enterococcus. - Continue Zyvox (started 10/21, 14 day course); completed course of Macrobid, will d/c abx -- both prescribed as outpatient. - Follows with urology and ID. - U/a was negative on admission. (4) Nephrolithiasis: - S/p right ureter stenting on 10/25. - F/u with urology -- will need stent removed this month, has f/u procedure scheduled. (5) Hypertension: - Continue Lopressor as prescribed. (6) Atrial fibrillation: - Continue Lopressor as prescribed. - Anticoagulation has been held for recent stent exchange on 10/25; pt. was instructed to continue to hold med until stent removal this month. (7) Anemia: - Chronic anemia, baseline hgb ~11-12. -Macrocytic, B12 and folate normal - Monitor CBC closely. (8) GERD (gastroesophageal reflux disease): - PPI daily with Mylanta prn. - Acid reflux symptoms are now resolved. (9) History of gastric bypass: - Followed as outpatient. (10) Weakness: - Has developed generalized weakness over the last month - may be related to urology procedures with frequent procedures/hospitalizations vs. underlying malignancy. - Hypercalcemia work up as noted above. - PT/OT - recommending home with home health. Dispo: Med/surg with tele; discharge likely on 11/03 pending improvement in hypercalcemia and renal failure. Supervising Physician Co-Signing Physician Notes PA Supervision Note: I did not personally see or examine the patient today, but I verified all hooper points of BRETT Lloyd's assessment and plan with the following exceptions/additions: None Subjective Pt. is doing well overall today. She reports weakness is slightly improved. Heart burn also resolved. C/o diarrhea but has good PO intake, does not appear dehydrated. PT/OT recommending home health. Calcium level trending down. Review of Systems Review of Systems: All systems reviewed & are unremarkable except as noted in HPI & below Constitutional: + fatigue, + weakness and + anorexia; no fever and no chills Respiratory: no cough, no dyspnea, no dyspnea on exertion and no wheezing Cardiovascular: no chest pain, no palpitations and no edema Gastrointestinal: no abdominal pain, no nausea, no vomiting and no constipation Genitourinary: no difficulty urinating and no decreased urination Musculoskeletal: no back pain and no joint pain Integumentary: no non-healing lesions Physical Exam Physical Exam: General: Resting comfortably, no acute distress. HEENT: NC/AT; PERRLA with EOMI; [place] conjunctiva, MMM. No erythema of posterior pharynx Neck: Supple and nontender Cardiac: RRR Lungs: CTA bilaterally Abdomen: Bowel normoactive X 4; Nontender to palpation Extremities: Warm. No edema present Neuro: No focal weakness Skin: No rash Results & Data Vital Signs (Past 12 Hours) Vital Signs Temp Pulse Pulse Resp BP Pulse Ox 11/02/19 11:29 36.6 C 71 20 114/70 99 11/02/19 10:08 70 11/02/19 07:02 36.5 C 71 18 112/65 97 11/02/19 04:02 36.8 C 69 18 114/64 96 Laboratory Results 11/02/19 11/02/19 11/02/19 Range/Units 10:30 07:13 07:13 WBC 7.21 (4.8-10.8) K/uL RBC 2.92 L (4.2-5.4) M/uL Hgb 9.6 L (12.0-16.0) g/dL Hct 29.9 L (37-47) % MCV 102.4 H (80-100) fL MCH 32.9 (25-34) pg MCHC 32.1 (32-36) g/dL RDW Std Deviation 48.8 H (36.4-46.3) fL RDW Coeff of Khushi 13.1 (11.5-14.5) % Plt Count 141 (130-400) K/uL MPV 10.5 H (7.4-10.4) fL Sodium 142 (136-145) mmol/L Potassium 4.6 (3.5-5.1) mmol/L Chloride 116 H (98-107) mmol/L Carbon Dioxide 20 L (21-32) mmol/L Anion Gap 6.0 (3-11) BUN 29 H (7-18) mg/dl Creatinine 2.01 H (0.6-1.2) mg/dl Est Cr Clr Drug Dosing 24.7 ml/min Est GFR ( Amer) 28.2 Est GFR (Non-Af Amer) 24.4 BUN/Creatinine Ratio 14.6 (10-20) Glucose 89 (70-99) mg/dl Calcium 9.5 (8.5-10.1) mg/dl Total Bilirubin 0.2 (0.2-1) mg/dl AST 16 (15-37) U/L ALT 17 (12-78) U/L Alkaline Phosphatase 53 (45-117) U/L Total Protein 5.4 L D (6.4-8.2) gm/dl Total Protein (PEP) Albumin 2.4 L (3.4-5.0) gm/dl Albumin (PEP) Globulin 3.0 (2.5-4.0) gm/dl Albumin/Globulin Ratio 0.8 L (0.9-2) Drtim-2-Cynpbotet Ztups-5-Tdludjlmr Gdzs-0-Eheqpilp Qfyr-4-Zpfapjnw Gamma Globulins Monoclonal Peak 3 Ser Monoclonl Protein Ser Monoclonal Prot 2 PEP Interpretation Specimen Hemolysis Stl C. diff Tox B Gene Negative Cdiff Gene (Neg) 11/02/19 Range/Units 07:13 WBC (4.8-10.8) K/uL RBC (4.2-5.4) M/uL Hgb (12.0-16.0) g/dL Hct (37-47) % MCV (80-100) fL MCH (25-34) pg MCHC (32-36) g/dL RDW Std Deviation (36.4-46.3) fL RDW Coeff of Khushi (11.5-14.5) % Plt Count (130-400) K/uL MPV (7.4-10.4) fL Sodium (136-145) mmol/L Potassium (3.5-5.1) mmol/L Chloride (98-107) mmol/L Carbon Dioxide (21-32) mmol/L Anion Gap (3-11) BUN (7-18) mg/dl Creatinine (0.6-1.2) mg/dl Est Cr Clr Drug Dosing ml/min Est GFR ( Amer) Est GFR (Non-Af Amer) BUN/Creatinine Ratio (10-20) Glucose (70-99) mg/dl Calcium (8.5-10.1) mg/dl Total Bilirubin (0.2-1) mg/dl AST (15-37) U/L ALT (12-78) U/L Alkaline Phosphatase (45-117) U/L Total Protein (6.4-8.2) gm/dl Total Protein (PEP) Pending Albumin (3.4-5.0) gm/dl Albumin (PEP) Pending Globulin (2.5-4.0) gm/dl Albumin/Globulin Ratio (0.9-2) Zikql-8-Ezewtozzr Pending Xqmwt-0-Dueebjwqe Pending Rrfb-2-Kanizqul Pending Eioz-5-Gdfatxel Pending Gamma Globulins Pending Monoclonal Peak 3 Pending Ser Monoclonl Protein Pending Ser Monoclonal Prot 2 Pending PEP Interpretation Pending Specimen Hemolysis Stl C. diff Tox B Gene (Neg) PG Care Time/CCT Total # of Minutes Spent Total Time Spent with Patient: Total time spent is greater than 50% in coordination of care (as documented) at patient's floor/unit and/or counseling patient: (1) Acute on chronic renal failure Acute renal failure type: unspecified Chronic kidney disease stage: unspecified stage Qualified Code(s): N17.9 - Acute kidney failure, unspecified; N18.9 - Chronic kidney disease, unspecified
[2019-11-03 06:44] LABS: Hematocrit (blood only) 28.8 % (37-47); Hemoglobin 9.3 g/dL (12.0-16.0); Mean Corpuscular Hemoglobin 33.1 pg (25-34); Mean Corpuscular Hgb Conc 32.3 g/dL (32-36); Mean Corpuscular Volume 102.5 fL (80-100); Mean Platelet Volume 9.9 fL (7.4-10.4); Platelet Count 110 K/uL (130-400); Red Blood Count 2.81 M/uL (4.2-5.4)
[2019-11-03 07:25] LABS: Albumin Level 2.4 gm/dl (3.4-5.0); BUN Creatinine Ratio 12.2 (10-20); Calcium 8.7 mg/dl (8.5-10.1); Est GFR (African American) 31.4; Est GFR (Non-African American) 27.1; Potassium 4.3 mmol/L (3.5-5.1)
[2019-11-03 07:27] LABS: Albumin Globulin Ratio 0.9 (0.9-2); Bilirubin,Total 0.2 mg/dl (0.2-1); Globulin 2.8 gm/dl (2.5-4.0); Total Protein 5.2 gm/dl (6.4-8.2)
[2019-11-03] MEDS: PANTOprazole 40 MG TAB PO SCH (08:43)
[2019-11-03] MEDS: METOPROLOL TARTRATE 25 MG TAB PO SCH (08:43)
[2019-11-03] MEDS: LACTOBACILLUS ACIDOPHILUS (FLORANEX) TAB PO SCH (08:43)
[2019-11-03] MEDS: CETIRIZINE HCL 10 MG TABLET PO SCH (08:44)
[2019-11-03] MEDS: MAGNESIUM CHLORIDE 64MG DELAYED REL TAB PO SCH (08:44)
[2019-11-03] MEDS: ASCORBIC ACID 500 MG TAB PO SCH (08:44)
[2019-11-03] MEDS: CYANOCOBALAMIN 500 MCG TABLET (VITAMIN B-12) PO SCH (08:44)
[2019-11-03] MEDS: LINEZOLID 600 MG TAB PO SCH (08:45)
[2019-11-03] MEDS ORDERED: FERROUS SULFATE 325 MG TAB PO SCH (09:00)
[2019-11-03] MEDS ORDERED: ASCORBIC ACID 500 MG TAB PO SCH (09:00)
[2019-11-03] MEDS: CHOLESTYRAMINE LIGHT 4 GM PKT PO SCH (10:11)
--- NOTE | 2019-11-03 10:58 | Nephrology Progress Note ---
Date of Service November 03, 2019 Assessment & Plan (1) Acute on chronic renal failure: 69-year-old female admitted with generalized weakness. Admission she was found to have acute kidney injury with creatinine 2.7. She was found to have hypercalcemia, calcium 12. Received 1 dose of some med and calcium improved to 9.5. Nonoliguric. Volume status appears to be euvolemic. Has stage III CKD use baseline creatinine around 1 5. UA was acellular. Renal imaging has not been updated. Patient denies any urinary symptoms at this time. Acute kidney injury resolving, creatinine down to 1.8, calcium has been normal. Blood pressure volume status acceptable. --advised patient to keep well hydrated and avoid NSAIDs --avoid all calcium, vitamin-D, calcitriol and thiazide type diuretics --paraproteinemia workup is currently pending --she should have follow-up lab done next week and send resolved to Dr. Miranda and schedule outpatient follow-up with Dr. Miranda in next 2-3 weeks --OK to DC will sign off (2) Hypercalcemia: This may been related to calcitriol as well as caltrate + D therapy. Non PTH mediated (PTH < 10). Evaluation for other causes ongoing. Laboratory studies for parathyroid related peptide, serum protein electrophoresis as well as urine protein electrophoresis and immunofixation, SANCHO level are pending. Patient did receive Zometa. CXr did not reveal any concerning pathology. Subjective Dunia was seen exiting from this morning. Overall she is feeling better. Renal function improved to creatinine 1.8 this morning with baseline creatinine 1.5. Calcium improved to 8.5. Blood pressure volume status acceptable. Review of Systems Review of Systems: All systems reviewed & are unremarkable except as noted in HPI & below Physical Exam Constitutional: well developed and well nourished; no acute distress Respiratory: normal respiratory effort, lungs clear to auscultation Cardiovascular: RRR, no murmur, no edema Neurologic: moves all extremities and awake; not confused Psychiatric: A+Ox3, euthymic affect Results & Data Vital Signs (Past 12 Hours) Vital Signs Temp Pulse Pulse Pulse Resp BP BP 11/03/19 10:45 36.7 C 62 18 100/63 11/03/19 10:29 69 11/03/19 07:45 36.7 C 70 20 119/68 11/03/19 03:57 36.6 C 71 18 117/68 11/03/19 00:08 36.8 C 72 18 101/60 Pulse Ox 11/03/19 10:45 94 11/03/19 10:29 11/03/19 07:45 97 11/03/19 03:57 98 11/03/19 00:08 96 PG Care Time/CCT Total # of Minutes Spent Total Time Spent with Patient: Total time spent is greater than 50% in coordination of care (as documented) at patient's floor/unit and/or counseling patient: (1) Acute on chronic renal failure Acute renal failure type: unspecified Chronic kidney disease stage: unsp ecified stage Qualified Code(s): N17.9 - Acute kidney failure, unspecified; N18.9 - Chronic kidney disease, unspecified
--- NOTE | 2019-11-03 13:05 | Discharge Summary ---
Date of Service November 03, 2019 Admission HPI Per Admitting Provider 69-year-old female presents with her family after being referred by her primary care provider for elevated calcium level and elevated creatinine. Please review recent hospital notes including her discharge on October 21 for UTI, acute renal failure, atrial fibrillation, and kidney calculus. - Patient says ever since her hospital discharge she continues to have generalized weakness and fatigue. She feels as if she is not bouncing back to her normal self. Otherwise she denies any particular focal symptoms. On review of systems, she notes occasional chills but no known fevers. Has some discomfort around her right flank. Did have some dry heaves this morning but tolerated p.o. ever since. Continues to have loose stools about 4 to 6/day without overt water or blood. - Past medical history includes asthma, anemia, CKD stage III, nephrolithiasis, atrial fibrillation, osteoporosis, arthritis, hypertension, peripheral venous insufficiency, celiac disease. - Past surgical history includes appendectomy, bariatric surgery, cholecystectomy, cystoscopy and lithotripsy, tonsillectomy, right total knee replacement, tubal ligation, cataracts. - Social history includes never smoked. No current alcohol intake. Lives at home with . Admission Exam Per Admitting Provider GENERAL: Awake, alert, well-appearing, in no acute distress HENT: Normocephalic, atraumatic. Oropharynx unremarkable. EYES: Normal conjunctiva. Sclera non-icteric. NECK: Inspection normal. Supple and full ROM. No nuchal rigidity. CARDIAC: +S1S2 RRR, no murmurs. RESPIRATORY: Clear to auscultation. No wheezes or rales. Normal respiratory effort. GI: +BS, soft, non-distended. No tenderness to palpation. No rebound or guarding. EXTREMITIES: No pedal edema or calf tenderness. Moving all extremities naturally and easily. NEURO: No gross neuro deficits. Principal Diagnosis Hypercalcemia, Acute on chronic renal failure Discharge Exam General: Resting comfortably HEENT: NC/AT; PERRLA with EOMI; [place] conjunctiva, MMM. No erythema of posterior pharynx Neck: Supple and nontender Cardiac: RRR Lungs: CTA bilaterally Abdomen: Bowel normoactive X 4; Nontender to palpation Extremities: Warm. No edema present Neuro: No focal weakness Skin: No rash Discharge Data Allergies Allergy/AdvReac Type Severity Reaction Status Date / Time bee venom protein (honey bee) Allergy Severe HIVES, Verified 10/31/19 20:19 DIFFICULTY BREATHING erythromycin base Allergy Severe RASH X Verified 10/31/19 20:19 WEEK Penicillins Allergy Intermediate HIVES, Verified 10/31/19 20:19 SWELLING wheat Allergy Intermediate CELIAC Verified 10/31/19 20:19 DISEASE- ABD CRAMPING, DIARRHEA benzonatate Allergy Mild PRURITIUS Verified 10/31/19 20:19 doxycycline Allergy Mild RASH Verified 10/31/19 20:19 Macrolide Antibiotics Allergy Mild ITCHY, RASH Verified 10/31/19 20:19 lactose AdvReac Intermediate GI ISSUES Verified 10/31/19 20:19 cephalexin AdvReac Mild DIARRHEA Verified 10/31/19 20:19 Consultations 10/31/19 21:26 ED Decision to Admit Stat 11/01/19 13:12 Consult Nephrology Routine 11/03/19 09:00 Consult [facility] casino cage manager Routine Ordered Studies CXR 10/31 Hospital Course (1) Hypercalcemia: Presented with hypercalcemia; level improving, was 8.7 this morning. Likely related to calcium supplementation at home -- on Calcitriol 0.5 mg BID + caltrate + Vit D therapy at home. PTH level low; PTHrp pending -- not likely related to hyperparathyroidism. [place] level pending to rule out sarcoidosis. Vit D level low, Vit D 1,25 hydroxy levels pending. Concern for underlying malignancy -- UPEP 24 hour, SPEP pending to rule out MM in setting of mild anemia and renal failure. Also recommend f/u with hematology. Received IV Fluids at 100 cc/hr; s/p Zometa 4 mg IV on 11/01. Consulted nephrology, appreciate input. Script provided for outpatient labs on Monday. Instructed to hold calcium supplementation and MVI at home completely - f/u with PCP to discuss. (2) Acute on chronic renal failure: Creatinine level is now improving, was 1.8 this morning. Mild metabolic acidosis related to renal failure S/p recent urology procedures, may also be related to dehydration. Received IV fluids at 100 cc/hr. Script provided for labs on Monday. (3) Urinary tract infection: Most recent UC +MDR Enterococcus. Continued Zyvox (started 10/21, 14 day course - end date is tomorrow); completed course of Macrobid -- both prescribed as outpatient. Follows with urology and ID. UC pos gram negative bacilli, 8K colonies. (4) Nephrolithiasis: S/p right ureter stenting on 10/25. F/u with urology -- will need KUB on Monday and f/u for stent removal. (5) Hypertension: Continued Lopressor as prescribed. (6) Atrial fibrillation: Continued Lopressor as prescribed. Anticoagulation has been held for recent stent exchange on 10/25; pt. was instructed to continue to hold med until stent removal this month. (7) Anemia: Chronic anemia, baseline hgb ~11-12. Macrocytic, B12 and folate normal Continued ferrous sulfate supplementation. Recommend to f/u with hematology. (8) GERD (gastroesophageal reflux disease): PPI daily with Mylanta prn. Acid reflux symptoms resolved. (9) History of gastric bypass: Followed as outpatient. (10) Thrombocytopenia: Plt count trending down, may be related to Zyvox therapy. Script provided for labs on Monday to monitor CBC. Will complete Zyvox tomorrow, expect improvement following discontinuation of abx. (11) Weakness: Has developed generalized weakness over the last month - may be related to urology procedures with frequent procedures/hospitalizations vs. underlying malignancy. Hypercalcemia work up as noted above. PT/OT - pt declined home with home health. Discharged to home on 11/03/19. Total Time Total Time Spent Total Time Spent (In Minutes): >30 minutes Total Time Includes: Examination of the Patient, Discharge Planning, Medication Reconciliation, Communication With Other Providers and Other Discharge Plan Discharge Items Patient Disposition: Home - Self-Care Reason For Visit: HYPERCALCEMIA, ACUTE-CHRONIC RENAL FAILURE Discharge Diagnosis: Hypercalcemia, Acute Renal Failure Condition on Discharge: Good Goals: You have been hospitalized for an acute medical problem. During your stay at [facility], we have made an effort to correct the problem that brought you to the hospital while keeping you as comfortable as possible. Medications were used to bring your condition under control and your discharge instructions will include directions for any medications you should take after leaving the hospital. Please make sure you see your Primary Care Provider as part of your follow up plan. Activity: As commented below Exercise/Sports: Gradually increase as tolerated Non-emergency contact: Primary Care Provider and Urologist Call non-emergency contact if: you have any medication questions, your symptoms worsen, your pain is not controlled, your pain is worsening, your pain is unusual for you, your pain is concerning for you and you have a fever Follow-up/Referrals: Ramesh Roy MD [Primary Care Provider] - Diet: Heart Healthy Ambulatory Orders: Basic Metabolic Panel (Routine) Timeframe: 2 Days Location: Determined by Patient Ordered By: Zuri Lloyd Complete Blood Count no Diff (Routine) Timeframe: 2 Days Location: Determined by Patient Ordered By: Zuri Lloyd Addtl Attending Provider Instructions: 1. Hypercalcemia * Level is now improving with IV fluid hydration and Zometa IV. * Please hold ALL calcium supplements at home unless instructed otherwise by your PCP. * Script was provided for lab work on Monday to monitor calcium level. * Please follow up with primary care provider to discuss results of lab work obtained during this admission. * You will also need to follow up with a marketing account manager to discuss lab work results - this appointment will be scheduled by our nurse navigator. 2. Acute Renal Failure * Creatinine level is now improving. * Continue to drink plenty of fluids at home - at least 8-10 glasses of water per day. * Please have labs collected on Monday to monitor renal function. Results will be faxed to your PCP and urologist. * Consider follow up with nephrology as an outpatient; you will also need to be evaluated by your PCP. 3. UTI with right ureter stent * Please continue Zyvox for one more day -- you will complete a 14 day course tomorrow, MondayNov 04. * Macrobid course was completed during this hospital admission. * Please follow up for KUB imaging on Monday; follow up with urology as scheduled for stent removal. 4. Atrial Fibrillation * Continue to hold home anticoagulation in setting of planned procedure. * Please discuss resuming med with your cleaning attendant post stent removal. 5. Anemia/low platelet counts * May be related to chronic anemia; platelet count has also been trending down. * It is recommended to follow up with a marketing account manager - this appointment will be scheduled by our nurse navigator. 6. Please follow up with PCP, urology and hematology as an outpatient. Pending Studies at Discharge: Yes Studies:: UPEP, SPEP, [place] level Stand-Alone Forms: [employer] Medications and DC Order Prescriptions: Continued cyanocobalamin (vitamin B-12) 1,000 mcg Tablet 1,000 mcg PO QAM Qty: 0 RF: 0 epinephrine [EpiPen] 0.3 mg/0.3 mL Auto-Injector 0.3 mg IM Q3H PRN (Reason: Allergic Reaction) Qty: 0 RF: 0 Slow-Mag 71.5 mg Tablet,Delayed Release (Dr/Ec) 71.5 mg PO QAM Qty: 0 RF: 0 ascorbic acid (vitamin C) 250 mg Tablet 250 mg PO QAM Qty: 0 RF: 0 cholestyramine (with sugar) [Questran] 4 gram Powder 4 g PO BID Qty: 0 RF: 0 zoledronic ymlt-uyhvtsyu-rcerr [Reclast] 5 mg/100 mL piggyback 5 mg IV YEARLY RF: 0 cetirizine [Zyrtec] 10 mg Tablet 10 mg PO QAM RF: 0 Lactobacillus acidoph-L.bulgar [Floranex] 1 million cell tablet 1 tab PO TID RF: 0 metoprolol tartrate 25 mg tablet 12.5 mg PO BID Qty: 30 RF: 1 Discontinued Theralith XR 3.75-45-45-49.5 mg Tablet Extended Release 2 tab PO TIDM Qty: 0 RF: 0 calcitriol [Rocaltrol] 0.5 mcg Capsule 0.5 mcg PO BID Qty: 0 RF: 0 Centrum Silver Women 8 mg iron-400 mcg-300 mcg Tablet 1 tab PO QAM Qty: 0 RF: 0 calcium carbonate [Calcium 600] 600 mg calcium (1,500 mg) Tablet 1,200 mg PO TID Qty: 0 RF: 0 nitrofurantoin monohyd/m-cryst [Macrobid] 100 mg capsule 100 mg PO BID 7 Days Qty: 14 RF: 0 linezolid 600 mg Tablet 600 mg PO BID Qty: 27 RF: 0 No Action ferrous sulfate 325 mg (65 mg iron) tablet,delayed release (DR/EC) 325 mg PO DAILY RF: 0 Discharge Orders: Discharge Order (Routine); Ordered 11/03/19 Ordered By: Zulma Dunlap Admission Data Admit Date/Time: 10/31/19 22:39 Attending Provider: Zulma Dunlap Admit Provider: Yoan Vazquez Primary Care Provider: Ramesh Roy Other Providers: Nilton Gtz ; Jose Malave Other Interventions: Discharge Summary Assessment (RN) Last Done: 11/03/19 11:00 DC Date/Time DO NOT enter until pt leaves facility: 11/03/19 12:10 Supervising Physician Co-Signing Physician Notes PA Supervision Note: I personally saw and examined the patient. I verified all hooper points and agree with BRETT Lloyd with the following exceptions and/or additions: Pt donnell goff well, no concerns. No N/V, no abd pain, no CP or SOB. VSS NAD, AAOx3 RRR no mgr CTAB no wcr Abd +BS soft NT ND Ext no edema Stable for dc to home, hypercalcemia secondary to renal failure, excessive exogenous intake most likely but some other studies are pending to rule out malignancy. Follow up closely with PCP
[2019-11-05 09:02] LABS: Creatinine Ur 76 mg/dL (20-275); Protein, Urine Random 22 mg/dL (5-24); Urine Abnormal Protein Band 1 DNR mg/dL (NONE DETECTED); Urine Abnormal Protein Band 2 DNR mg/dL (NONE DETECTED); Urine Abnormal Protein Band 3 DNR mg/dL (NONE DETECTED); Urine Protein/Creatinine Ratio 289 mg/g creat (21-161)
[2019-11-05 09:42] LABS: Albumin 2.7 g/dL (3.8-4.8); Alpha 1 Globulin 0.4 g/dL (0.2-0.3); Alpha 2 Globulin 0.9 g/dL (0.5-0.9); Beta-1-Globulin 0.3 g/dL (0.4-0.6); Beta-2-Globulin 0.3 g/dL (0.2-0.5); Gamma Globulin 0.4 g/dL (0.8-1.7); Monoclonal Protein Band 1 DNR g/dL (NONE DETECTED); Monoclonal Protein Band 2 DNR g/dL (NONE DETECTED); Monoclonal Protein Band 3 DNR g/dL (NONE DETECTED); Total Protein 4.9 g/dL (6.1-8.1)
[2019-11-06 10:14] LABS: Abnormal Protein Band 1 DNR mg/24 h (NONE DETECTED); Abnormal Protein Band 2 DNR mg/24 h (NONE DETECTED); Abnormal Protein Band 3 DNR mg/24 h (NONE DETECTED); Creatinine, 24 hr Urine 0.67 g/24 h (0.50-2.15); Protein, Urine 24 Hour 185 mg/24 h (<150); Urine Protein/Creatinine Ratio 277 mg/g creat (< OR = 114)
[2019-11-06 20:37] LABS: PTH Related Protein 9 pg/mL (14-27); Vitamin D 1,25 28 pg/mL (18-72); Vitamin D3,1,25 28 pg/mL
[2019-11-07 11:59] LABS: Component 2 DNR
== END 2019-11-03 12:10 | disposition home or self-care (01) | DRG 641 ==
LOC: ED 18:08 → 3W 22:39 → SUATTDRO 22:39 → 3W 11-01 00:34 → 2N 11-01 14:11